=== PATIENT | male | born 1935 | race Caucasian/White ===

== ENCOUNTER 2019-08-13 12:39 | Inpatient (IN) ==
[2019-08-13] MEDS ORDERED: 0.9 % SODIUM CHLORIDE 500 ML IV ONE (12:56)
--- NOTE | 2019-08-13 12:59 | Emergency Department Note ---
General Adult HPI - General Chief complaint: Blood Pressure Problem Stated complaint: low blood pressure Time Seen by Provider: 08/13/19 12:42 Source: patient Mode of arrival: ambulatory Limitations: no limitations - History of Present Illness HPI Narrative: Patient arrives via private vehicle, in fact, he tells me he drove himself to the ED after recording a low blood pressure at home that was in the 60s up. He does tell me that his blood pressure has been tanking the last 3 days, does also tell me that he started a new medication, Bumex and that was replacing Lasix every was on prior. Does have a history of cardiomyopathy, did have some minor chest discomfort in the midsternal region this morning, not currently and we recorded blood pressure in the low 80s was standing, mid 80s with him supine. The patient still does make urine, he's had renal issues, never nephropathy related to his cardio myopathy and perfusion issues. The. Patient was on digoxin but this was discontinued recently. - Related Data Home Medications Medication Instructions Recorded Confirmed ascorbic acid (vitamin C) 1,000 mg 1 g PO QDAY tab 09/12/14 08/13/19 tablet aspirin 81 mg tablet,delayed 81 mg PO QDAY tab 09/12/14 08/13/19 release glucosamine-chondroitin 500 mg-400 1 tab-cap PO BID cap 09/12/14 08/13/19 mg capsule multivitamin 1 tab-cap PO QDAY cap 09/12/14 08/13/19 fluticasone furoate 50 1 puff INHALATION PRN each 05/09/19 08/13/19 mcg/actuation blister powder for inhalation [id number] 1 each PO 3XW each 05/09/19 08/13/19 montelukast 10 mg tablet 10 mg PO QHS tab 08/13/19 08/13/19 sacubitril 24 mg-valsartan 26 mg 1 tab PO QHS tab 08/13/19 tablet sennosides 8.6 mg tablet 25.8 mg PO QHS PRN tab 08/13/19 08/13/19 Previous Rx's Medication Instructions Recorded nebulizers See Dose Instructions .ROUTE 03/04/15 .MEDSUPPLY #1 each nitroglycerin 0.4 mg sublingual 0.4 mg SUBLINGUAL Q5MIN PRN #25 tab 02/17/16 tablet warfarin 5 mg tablet See Rx Instructions .ROUTE 11/25/16 .COMPLEX #1 tab levothyroxine 125 mcg tablet 125 mcg PO QDAY #90 tab 08/15/17 CPAP machine and accessories #1 ea 11/30/17 allopurinol 100 mg tablet 400 mg PO QDAY #360 tab 12/05/17 budesonide 180 mcg/actuation 1 inh INHALATION BID #1 each 12/05/17 breath activated powder inhaler carvedilol 12.5 mg tablet 12.5 mg PO BID #180 tab 12/05/17 calcitriol 0.25 mcg capsule 0.25 mcg PO Q OTHER DAY #20 cap 02/05/19 bumetanide 1 mg tablet 2 mg .ROUTE .COMPLEX PRN #60 tab 07/26/19 Allergies Allergy/AdvReac Type Severity Reaction Status Date / Time colchicine [From Colcrys] Allergy Unknown Unknown Verified 08/13/19 11:29 niacin Allergy Unknown Unknown Verified 08/13/19 11:29 oxycodone [Oxycodone] Allergy Unknown Unknown Verified 08/13/19 11:29 sulfacetamide Allergy Unknown Unknown Verified 08/13/19 11:29 doxycycline calcium Allergy Unknown Unknown Uncoded 05/24/19 09:59 Review of Systems Review of Systems: Denies any bloody stools, denies any dark tarry stools, last bowel movement was this morning, small bowel movement, no recent diarrhea. Denies abdominal pain Constitutional: Reports: weakness. Denies: fever, chills ENT ED: Denies: throat pain Cardiovascular: Reports: chest pain, palpitations, dyspnea on exertion Respiratory: Reports: shortness of breath, cough, other (cough 6 months) Gastrointestinal: Reports: other (history of abdominal AAA). Denies: abdominal pain Genitourinary: Reports: dysuria Integumentary: Denies: rash Neurological: Reports: weakness. Denies: headache, confusion Endocrine: Reports: fatigue, heat or cold intolerance Past Medical History - Past Medical History Attestation: Yes: The following information was validated with the patient. Source: old records reviewed Medical history: Reports: atrial fibrillation, cancer (polycythemia vera), CAD (coronary artery disease), chronic anticoagulation, COPD Surgical history ED: Reports: orthopedic, other (discectomy lumbar and left knee replacement) - Social History smoking status: Former smoker Physical Exam Limitations: no limitations General appearance: alert, in no apparent distress, malaise Head: atraumatic, normocephalic, normal inspection Eye: Present: normal appearance, PERRL, EOMI. Absent: scleral icterus ENT: Present: normal exam, normal oropharynx, mucous membranes moist, TM's normal bilaterally, normal external ear exam Neck: Present: normal inspection, full ROM. Absent: tenderness, meningismus Chest: Present: normal inspection, symmetric chest wall rise, other (pacemaker left upper chest wall, midsternal scar). Absent: tenderness Respiratory: Present: normal lung sounds bilaterally, accessory muscle use. Absent: respiratory distress, rales/crackles, wheezes Cardiovascular: Present: regular rate, normal rhythm, normal heart sounds Abdominal: Present: soft, normal bowel sounds. Absent: distention, tenderness, guarding Rectal: Present: deferred : Present: normal inspection. Absent: scrotal swelling Extremities: Present: normal inspection, full ROM, pedal edema. Absent: tenderness, joint swelling, clubbing Back: Present: normal inspection. Absent: CVA tenderness (R), CVA tenderness (L) Neurological: Present: alert, oriented X3, CN II-XII intact. Absent: motor sensory deficit Psychiatric: Present: normal affect Skin: Present: warm, dry, normal color Course - Reevaluation(s) Reevaluation #1: Discussions with Dr. Almodovar, he does state that he gave him Jules on an outpatient basis and he thinks that caused the blood pressure to plummet. Notably, the patient is tolerating the lower blood pressure very well. He has had no syncope, it does not appear that he is septic. He does have a history of cardiomyopathy and atrial fibrillation. His troponin was negative, 12-lead EKG not helpful as he has a wide complex tachycardia. I spoke with Dr.Note- boyle, associated of Dr. Ley from [facility] [place], and he recommended to continue low-dose dopamine versus of fed. Also recommended phenylephrine if needed. Further discussed the case with Dr. Berry, who will be in touch with Dr. Almodovar and continue to manage the patient on an inpatient basis up. Final diagnosis is hypertension, likely iatrogenic and from CHF/cardiomyopathy Vital Signs Temperature 97.0 F 08/13/19 12:40 Pulse Rate 87 08/13/19 12:40 Respiratory Rate 18 08/13/19 12:40 Blood Pressure 81/53 08/13/19 12:40 Pulse Oximetry (%) 96 08/13/19 12:40 Temperature 97.0 F 08/13/19 12:40 Pulse Rate 101 H 08/13/19 16:10 Respiratory Rate 20 08/13/19 16:10 Blood Pressure 86/56 08/13/19 16:06 Pulse Oximetry (%) 96 08/13/19 16:10 Medical Decision Making - MDM Narrative Medical decision making narrative: Impression is CHF with hypotension, iatrogenic - Lab Data Lab results reviewed: Yes I reviewed the patient's lab results. Result diagrams: 08/13/19 12:55 Lab Results 08/13/19 08/13/19 08/13/19 Range/Units 12:25 12:55 12:55 WBC 8.1 (4.50-11.00) K/mcL RBC 3.74 L (4.63-6.08) M/mcL Hgb 12.1 L (13.7-17.5) g/dL Hct 39.4 L (40.1-51.0) % MCV 105.3 H (80.0-100.0) fL MCH 32.4 (26.0-34.0) pg MCHC 30.7 L (31.0-36.0) g/dL RDW 23.3 H (11.5-14.5) % Plt Count 58 L (140-440) K/mcL MPV TNP Total Counted 100 Seg Neutrophils % 73 (38-78) % Band Neutrophils % 2 (0-10) % Lymphocytes % 9 L (15-49) % Monocytes % (Manual) 7 (1-12) % Nucleated RBCs 6 H (0-0) % Reactive Lymphocytes 3 H (0-2) % Blast Cells 6 H (0-0) % Platelet Estimate Decreased A (NORMAL) RBC Morphology Abnorm A (NORMAL) Polychromasia 1+ A (NONE SEEN) Anisocytosis 3+ A (NONE SEEN) Macrocytosis 2+ A (NONE SEEN) Troponin T < 0.01 (0-0.03) ng/ml TSH (0.27-5.01) uIU/ml Random Cortisol 14.63 ug/dl 08/13/19 Range/Units 13:01 WBC (4.50-11.00) K/mcL RBC (4.63-6.08) M/mcL Hgb (13.7-17.5) g/dL Hct (40.1-51.0) % MCV (80.0-100.0) fL MCH (26.0-34.0) pg MCHC (31.0-36.0) g/dL RDW (11.5-14.5) % Plt Count (140-440) K/mcL MPV Total Counted Seg Neutrophils % (38-78) % Band Neutrophils % (0-10) % Lymphocytes % (15-49) % Monocytes % (Manual) (1-12) % Nucleated RBCs (0-0) % Reactive Lymphocytes (0-2) % Blast Cells (0-0) % Platelet Estimate (NORMAL) RBC Morphology (NORMAL) Polychromasia (NONE SEEN) Anisocytosis (NONE SEEN) Macrocytosis (NONE SEEN) Troponin T (0-0.03) ng/ml TSH 5.54 H (0.27-5.01) uIU/ml Random Cortisol ug/dl - Radiology Data Radiology results reviewed: Yes I reviewed the patient's radiology results. Disposition Pt seen by SALES RECEPTIONIST/PA only: No Clinical Impression: Chronic combined systolic and diastolic CHF (congestive heart failure) Disposition: Xfer As Inpt ([facility]) Condition: Fair Referrals: Yannick Bahena MD [Primary Care Provider] -
--- NOTE | 2019-08-13 13:19 | XRay Report ---
CLINICAL INFORMATION: cough COMPARISON: 03/12/2010 and 05/09/2019 Moderate cardiomegaly is unchanged. Implantable cardioverted defibrillator remains in stable satisfactory position. Mediastinum is unremarkable. Pulmonary vessels are mildly distended and there is minimal bronchovascular edema in the perihilar regions. No infiltrates. No effusions IMPRESSION: Mild CHF Interpreted and Authenticated by: Bradford Hightower 08/13/19
[2019-08-13 14:12] LABS: Hematocrit 39.4 % (40.1-51.0); Hemoglobin 12.1 g/dL (13.7-17.5); Mean Cell Volume 105.3 fL (80.0-100.0); Mean Corpuscular HGB Conc 30.7 g/dL (31.0-36.0); Platelet Count 58 K/mcL (140-440); RBC 3.74 M/mcL (4.63-6.08); Red Cell Distribution Width 23.3 % (11.5-14.5); WBC 8.1 K/mcL (4.50-11.00)
[2019-08-13] MEDS ORDERED: 0.9 % SODIUM CHLORIDE 250 ML IV SCH (14:30)
[2019-08-13] MEDS ORDERED: DOPamine 400 MG in PREMIX 1 BAG IV SCH (14:30)
[2019-08-13 15:28] LABS: Anisocytosis 3+ (NONE SEEN); Band Neutrophils % 2 % (0-10); Blast Cells 6 % (0-0); Lymphocytes % 9 % (15-49); Macrocytosis 2+ (NONE SEEN); Monocytes % (Manual) 7 % (1-12); Nucleated Red Blood Cells 6 % (0-0); Platelet Estimate DECREASED (NORMAL); Polychromasia 1+ (NONE SEEN); RBC Morphology ABNORM (NORMAL); Reactive Lymphocytes 3 % (0-2); Segmented Neutrophils % 73 % (38-78)
--- NOTE | 2019-08-13 16:28 | Internal Med History&Physical ---
Medical - H&P: HPI Patient information: Note initiated : 08/13/19 at 4:23 pm Service Date, if different from initiated Date: [] Patient: Dank Garner 84 y/o M admitted on for low blood pressure. Chief Complaint: [] Chief complaint: Low blood pressure/dizziness History of present illness: Ms. Garner is a 83-year-old gentleman with complex primary history including cardiomyopathy with EF 25%, CKD stage IV/myeloproliferative disorder who was referred to the ER after he was found during his office visit blood pressures in low 60s. Patient was actively symptomatic including dizziness/lightheadedness. Patient symptoms have evolved over the last week with increasing effort intolerance/decrease level of functionality due to lack of energy/lack of appetite and persistent lightheadedness. He then drove to the ER initial work-up was consistent with cardiogenic shock. Troponins were negative. CHF on chest imaging. Patient was promptly started on vasopressors along with crystalloid challenge. Subsequently hospital service was consulted. At the time evaluation patient is feeling a little better. His systolics now are mid 80s on 5 mics of dopamine. I discussed the case with Dr. Ibrahim. ER physician discussed case with patient's orchestra director Dr. Brice who recommended continuing pressors including norepinephrine to maintain map at goal and monitoring for 24 hours until patient symptomatically improved. Patient was able to endorse history as above. Denies fever, cough, chest pain, rash, diarrhea. He was seen at nephrology clinic today with details as below Details from nephrology office visit 08/12 a.m. Dank Garner is a 84 y/o pleasant white male with PMH of CAD, CHF, CKD, myeloproliferative disorder and other multiple medical issues who is here for follow up He has h/o CKD stage IV with no proteinuria in the setting of poor cardiac function and h/o nephrolithiasis He has h/o Acute worsening of renal function from bladder outlet obstruction and his renal function improved since he has had prostate surgery, he has a complex cyst in his left kidney and follows with urology at [facility] Patient called me today telling me he is been feeling poorly. This includes low blood pressure, increased energy and increased peripheral edema. This is temporally related to starting the patient on Sacubitrelvalsartan 24-26 mg at bedtime He has secondary hyperparathyroidism associated with his CKD on calcitiriol presently, the patient has developed a cough shortness of breath and was treated with a mixture of antibiotics and a doubling of his furosemide to 40 mg twice daily. He also received a course of doxycycline and nitrofurantoin. Today his clinical exam is certainly consistent with decompensated congestive heart failure as is his chest x-ray with perihilar fullness and fluffiness. He is feeling lousy but his breathing is improved, I suspect the antibiotics are bothering his stomach and today was the last day so they were discontinued. Based on his pulmonary exam, and the presence of edema I would continue him on furosemide 40 mg twice a day. He continues with rate controlled atrial fibrillation and is anticoagulated with warfarin. He has had no flares of gout lately. Continues to use his CPAP. I believe he sees Dr. Malave for a myelodysplasic disorder treated with ruxolitimib. He is also scheduled to see Dr. Rodriguez and it would be helpful if we could get a copy of his last echocardiogram. 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 Neuropathy (Chronic) MUltifactorial in the feet, capcasin cream topical for now, pt to buy otc, Edema (Chronic) Gastroesophageal reflux disease (Chronic) On pantoprazole, doing well. Abdominal distension (Chronic) usg neg, shows 17 cm cyst in liver appears benigh and 21 cm spleen. also poor abdominal wall tone. Vasomotor rhinitis (Chronic) Splenomegaly (Chronic) Secondary hyperparathyroidism of renal origin (Chronic) PTH and vitamin D at goal calcium and phos at goal ct calcitriol 0.25mcg qod Allergic rhinitis (Chronic) 07/11/2014 Restless leg syndrome (Chronic) Raynauds syndrome (Chronic) Protein C deficiency (Chronic) Polycythemia vera (Chronic) Hx of venous thrombosis and embolism (Chronic) Obstructive sleep apnea, adult (Chronic) Hypothyroidism (acquired) (Chronic) Hypertensive renal disease (Chronic) Hypertension, essential (Chronic) bp stable, con coreg, continue same. 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 Acute gout (Resolved) on allopurinol 300, he has ckd and polycythemia, as risk factors. Uric acid 6.8, pt already of 300mg allopurinol with no good response, start on uloric 40mg once daily ,stop allopuinol. Asymptomatic cholelithiasis (Resolved) Common femoral artery injury (Resolved) Coronary atherosclerosis of [place] coronary vessel (Resolved) Cough (Resolved) chronic cough x 1 yr, h/o night sweats, h/o copd? but inhalers did not help at all, at this time, given age, h/o productive cough x 1 yr and a neg x ray chest ,will get a CT of the lungs to r/o any other pathology. NOt a candidate for contrast given CKD. Degenerative joint disease (Resolved) Gastrointestinal bleeding (Resolved) Hepatic cyst (Resolved) History of cardioversion (Resolved) History of colonic polyps (Resolved) History of peptic ulcer disease (Resolved) Hx of gout (Resolved) Hypermagnesemia (Resolved) due to ckd and mg supplements, plan to stop same and monitor. Hypersplenism (Resolved) Hypoglycemia (Resolved) Likely pseudohypoglycemia, due to elevated rbc count, no symptoms, workup neg so far, only cpeptide mildly high. Consider CT abdomen if patient has symptoms. Myelofibrosis (Resolved) Myocardial infarction, old (Resolved) 1997 Nephrolithiasis (Resolved) Supraventricular tachycardia (Resolved) Tricuspid regurgitation (Resolved) Abdominal aortic aneurysm (Ruled-out) Abdominal aortic aneurysm (Ruled-out) USg done neg, ct abdo pelvis done neg in 2012, only usg in 2013 had shown this, which I now believe could be a over read given multiple subsequent studies not showing the aneurysm. Deep vein thrombosis (Inactive) recurrent Protein C def Occasional numbness/prickling/tingling of fingers and toes (Inactive) Simple cyst of kidney (Inactive) Urinary retention (Inactive) Surgical History 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) 03/06/2013 History of intravascular stent placement (Resolved) cardiac History of lumbar surgery (Resolved) Lumbar disc surgery L4-5 History of total cystectomy (Resolved) 12/28/2012 Hx of CABG (Resolved) 08/2006 Hx of transurethral resection of prostate (Resolved) Hx of vasectomy (Resolved) History of left knee replacement (Inactive) History of surgical fusion joint (Inactive) Fusion DIP L ring finger Hx of adenoidectomy (Inactive) Hx of arthroscopic knee surgery (Inactive) right knee Hx of cataract surgery (Inactive) Hx of tonsillectomy (Inactive) Status post cystourethroscopy with dilation of urethral stricture (Inactive) 12/28/2012 Family History Mother Diabetes mellitus Father Cardiac disease at 86yrs old Brother Cerebrovascular accident Social History marital status: and lives with his education level: college occupational status: retired other: 3 Children, 2 grandchildren smoking status: Former smoker alcohol intake frequency: does not drink substance use type: does not use Medical - H&P: Meds Home Medications Medication Instructions Recorded Confirmed Type ascorbic acid (vitamin C) 1,000 mg 1 g PO QDAY tab 09/12/14 08/13/19 History tablet aspirin 81 mg tablet,delayed 81 mg PO QDAY tab 09/12/14 08/13/19 History release glucosamine-chondroitin 500 mg-400 1 tab-cap PO BID cap 09/12/14 08/13/19 History mg capsule multivitamin 1 tab-cap PO QDAY cap 09/12/14 08/13/19 History nebulizers See Dose Instructions .ROUTE 03/04/15 08/13/19 Rx .MEDSUPPLY #1 each nitroglycerin 0.4 mg sublingual 0.4 mg SUBLINGUAL Q5MIN PRN #25 tab 02/17/16 08/13/19 Rx tablet warfarin 5 mg tablet See Rx Instructions .ROUTE 11/25/16 08/13/19 Rx .COMPLEX #1 tab levothyroxine 125 mcg tablet 125 mcg PO QDAY #90 tab 08/15/17 08/13/19 Rx CPAP machine and accessories #1 ea 11/30/17 08/13/19 Rx allopurinol 100 mg tablet 400 mg PO QDAY #360 tab 12/05/17 08/13/19 Rx budesonide 180 mcg/actuation 1 inh INHALATION BID #1 each 12/05/17 08/13/19 Rx breath activated powder inhaler carvedilol 12.5 mg tablet 12.5 mg PO BID #180 tab 12/05/17 08/13/19 Rx calcitriol 0.25 mcg capsule 0.25 mcg PO Q OTHER DAY #20 cap 02/05/19 08/13/19 Rx fluticasone furoate 50 1 puff INHALATION PRN each 05/09/19 08/13/19 History mcg/actuation blister powder for inhalation [id number] 1 each PO 3XW each 05/09/19 08/13/19 History bumetanide 1 mg tablet 2 mg .ROUTE .COMPLEX PRN #60 tab 07/26/19 08/13/19 Rx montelukast 10 mg tablet 10 mg PO QHS tab 08/13/19 08/13/19 History sacubitril 24 mg-valsartan 26 mg 1 tab PO QHS tab 08/13/19 History tablet sennosides 8.6 mg tablet 25.8 mg PO QHS PRN tab 08/13/19 08/13/19 History Allergies Allergy/AdvReac Type Severity Reaction Status Date / Time colchicine [From Colcrys] Allergy Unknown Unknown Verified 08/13/19 11:29 niacin Allergy Unknown Unknown Verified 08/13/19 11:29 oxycodone [Oxycodone] Allergy Unknown Unknown Verified 08/13/19 11:29 sulfacetamide Allergy Unknown Unknown Verified 08/13/19 11:29 doxycycline calcium Allergy Unknown Unknown Uncoded 05/24/19 09:59 Medical - H&P: Exam - Constitutional Vitals: Temp Pulse Resp BP Pulse Ox 97.0 F 101 H 20 86/56 96 08/13/19 12:40 08/13/19 16:10 08/13/19 16:10 08/13/19 16:06 08/13/19 16:10 Exam: Head normocephalic Oral cavity dry No ear nose discharge Eye movement symmetrical Neck no lymphadenopathy S1-S2 tachycardia irregular rhythm Diminished breath sounds bases with late inspiratory crackles Abdomen soft nontender minimal distention Lower extremity no cyanosis clubbing, 1+ edema from mid leg to foot bilaterally Skin no suspicious lesion Psych fatigue/anxious but cooperative Neuro nonfocal Medical - H&P: Reslt - Labs CBC & Chem 7: 08/13/19 12:55 Labs: Short CBC 08/13/19 Range/Units 12:55 WBC 8.1 (4.50-11.00) K/mcL Hgb 12.1 L (13.7-17.5) g/dL Hct 39.4 L (40.1-51.0) % Plt Count 58 L (140-440) K/mcL Cardiac Enzymes 08/13/19 Range/Units 12:25 Troponin T < 0.01 (0-0.03) ng/ml Medical - H&P: A/P (1) Cardiogenic shock Current visit: Yes Status: Acute * Cardiogenic shock-severe cardiomyopathy with EF 25% as of February. Cardiology recommends continue vasopressors. Likely precipitated by underlying antihypertensives. At this time medication will be held and patient will be monitored closely in ICU with continued pressors to keep map at goal and to maintain vital organ perfusion. * Acute decompensated heart failure secondary to cardiogenic shock. Should likely improve with gradually improving blood pressure/inotropic's. Avoid excessive fluid challenge. * Chronic disease stage IV managed by nephrology * Atrial fibrillation currently rate controlled. Restart Coreg once systolics improved. * Anticoagulation for CVA prophylaxis on Coumadin. Continue dosing based on INR * NYHA class IV systolic heart failure-hold ARB/beta-aaron until acute decompensation resolves. Will restart diuretics once approved by nephrology. * Reactive airway disease continue budesonide * History of gout continue allopurinol * Hypothyroidism continue home dose thyroxine * Prophylaxis on anticoagulation Plan * Inpatient ICU admission * Vasopressors * Gentle fluid challenge * Monitor renal function * Pre-existing medical condition management home meds except for antihypertensives * PT OT/nutrition support * Discharge planning
[2019-08-13] MEDS ORDERED: ONDANSETRON 4 MG/2 ML VIAL IV ONE (17:19)
[2019-08-13] MEDS ORDERED: MELATONIN 3 MG TABLET PO PRN (18:00)
[2019-08-13] MEDS ORDERED: ONDANSETRON 4 MG/2 ML VIAL IV PRN (18:00)
[2019-08-13] MEDS ORDERED: POLYETHYLENE GLYCOL 3350 17 GM PACKET PO PRN (18:00)
[2019-08-13] MEDS ORDERED: ACETAMINOPHEN 325 MG TABLET PO PRN (18:00)
[2019-08-13] MEDS ORDERED: ONDANSETRON 4 MG ODT TABLET SL PRN (18:00)
[2019-08-13] MEDS ORDERED: BISACODYL 10 MG SUPP.RECT PR PRN (18:00)
[2019-08-13] MEDS ORDERED: ACETAMINOPHEN 650 MG/65 ML BOTTLE IV PRN (18:00)
[2019-08-13] MEDS ORDERED: NOREPINEPHRINE BITARTRATE 4 MG/4 ML VIAL IV ONE (19:02)
[2019-08-13] MEDS: 0.9 % SODIUM CHLORIDE 1,000 ML IV SCH (19:10)
[2019-08-13] MEDS: 0.9 % SODIUM CHLORIDE 250 ML IV SCH (19:10)
[2019-08-13] MEDS: NOREPINEPHRINE BITARTRATE 16 MG in 0.9 % SODIUM CHLORIDE 234 ML IV SCH (19:41)
[2019-08-13] MEDS: DOCUSATE SODIUM 100 MG CAPSULE PO SCH (21:09)
[2019-08-13] MEDS: HEPARIN 5,000 UNIT/ML VIAL SQ SCH (21:09)
[2019-08-13] MEDS: SENNOSIDES/DOCUSATE SODIUM 1 TAB TABLET PO SCH (21:10)
[2019-08-13] MEDS: 0.9 % SODIUM CHLORIDE 10 ML SYRINGE IV SCH (21:10)
[2019-08-13] MEDS: BUDESONIDE 1 PUFF INHALER INH SCH (21:10)
[2019-08-14 00:22] LABS: Appearance,Urine CLEAR; Bacteria,Urine 0 /hpf (0); Bilirubin,Urine NEG (NEG); Color,Urine YELLOW; Culture Indicated,Urine NO; Glucose,Urine (UA) NEGATIVE (NEG); Ketones,Urine NEG (NEG); Leukocyte Esterase,Urine NEG /uL (NEG); Mucus,Urine FEW /hpf (0); Nitrate,Urine NEG (NEG); Protein,Urine NEG (NEG); Specific Gravity,Urine 1.016 (1.000-1.035); Urine Blood NEG mg/dL (<0.03); Urine Hyaline Cast 23 /lpf (0-2); Urine RBC < 1 /hpf (0-1); Urine Squamous Epithelial Cell 0 /hpf (0-4); Urine WBC < 1 /hpf (0-4); Urobilinogen,Urine NEG (NEG)
[2019-08-14] MEDS: 0.9 % SODIUM CHLORIDE 10 ML SYRINGE IV SCH ×3 (05:46→22:00)
[2019-08-14 06:33] LABS: Hematocrit 40.9 % (40.1-51.0); Hemoglobin 12.6 g/dL (13.7-17.5); Mean Cell Volume 104.1 fL (80.0-100.0); Mean Corpuscular HGB Conc 30.8 g/dL (31.0-36.0); Platelet Count 78 K/mcL (140-440); RBC 3.93 M/mcL (4.63-6.08); Red Cell Distribution Width 23.4 % (11.5-14.5); WBC 13.8 K/mcL (4.50-11.00)
[2019-08-14 06:51] LABS: Chloride 96 mmol/L (96-108)
[2019-08-14 07:00] LABS: ALT/SGPT 17 U/l (0-40); AST/SGOT 35 U/l (0-37); Albumin 3.8 gm/dL (3.2-5.2); Albumin/Globulin Ratio 2.1 (1.0-2.3); Alkaline Phosphatase 86 U/L (39-117); Bilirubin,Direct 0.6 mg/dL (0.0-0.3); Bilirubin,Total 1.9 mg/dL (0.0-1.0); Blood Urea Nitrogen 94 mg/dl (8-23); Carbon Dioxide 19 mmol/L (22-30); Globulin 1.8 gm/dL (2.2-3.7); Glomerular Filtration Rate 28; Glucose 85 mg/dL (70-105); Lactate Dehydrogenase 591 U/L (94-250); Phosphorous 4.2 mg/dL (2.7-4.5); Triglycerides 104 mg/dl (<150); Uric Acid 4.5 mg/dL (2.5-8.0)
[2019-08-14 07:01] LABS: INR 1.9 (0.9-1.1); Prothrombin Time 22.4 sec (11.9-14.5)
[2019-08-14 07:05] LABS: Anisocytosis 3+ (NONE SEEN); Band Neutrophils % 1 % (0-10); Blast Cells 5 % (0-0); Eosinophils % (Manual) 1 % (0-7); Lymphocytes % 5 % (15-49); Macrocytosis 2+ (NONE SEEN); Monocytes % (Manual) 4 % (1-12); Myelocytes % 1 % (0-0); Nucleated Red Blood Cells 6 % (0-0); Ovalocytes FEW (NONE SEEN); Platelet Estimate DECREASED (NORMAL); Polychromasia 1+ (NONE SEEN); RBC Morphology ABNORM (NORMAL); Reactive Lymphocytes 3 % (0-2); Segmented Neutrophils % 80 % (38-78)
[2019-08-14] MEDS: ALLOPURINOL 100 MG TABLET PO SCH (08:41)
[2019-08-14] MEDS: ASPIRIN 81 MG TAB.CHEW PO SCH (08:41)
[2019-08-14] MEDS: MULTIVIT,THER IRON,CA,FA & MIN 1 TABLET PO SCH (08:41)
[2019-08-14] MEDS: DOCUSATE SODIUM 100 MG CAPSULE PO SCH ×2 (08:41→21:20)
[2019-08-14] MEDS: HEPARIN 5,000 UNIT/ML VIAL SQ SCH ×2 (08:47→21:20)
--- NOTE | 2019-08-14 09:56 | Internal Med Progress Note ---
Medical - PN: Subj Patient information: Note initiated : 08/14/19 at 9:51 am Service Date, if different from initiated Date: [] Patient: Dank Garner 84 y/o M admitted on 08/13/19 for low blood pressure. Chief Complaint: [] Interval history: Ms. Garner is a 83-year-old gentleman with complex primary history including cardiomyopathy with EF 25%, CKD stage IV/myeloproliferative disorder who was referred to the ER after he was found during his office visit blood pressures in low 60s. Patient was actively symptomatic including dizziness/lightheadedness. Patient symptoms have evolved over the last week with increasing effort intolerance/decrease level of functionality due to lack of energy/lack of appetite and persistent lightheadedness. He then drove to the ER initial work-up was consistent with cardiogenic shock. Troponins were negative. CHF on chest imaging. Patient was promptly started on vasopressors along with crystalloid challenge. Subsequently hospital service was consulted. At the time evaluation patient is feeling a little better. His systolics now are mid 80s on 5 mics of dopamine. I discussed the case with Dr. Ibrahim. ER physician discussed case with patient's treating plant supervisor Dr. Brice who recommended continuing pressors including norepinephrine to maintain map at goal and monito ring for 24 hours until patient symptomatically improved. Patient was able to endorse history as above. Denies fever, cough, chest pain, rash, diarrhea. He was seen at nephrology clinic today with details as below Details from nephrology office visit 08/12 a.m. Dank Garner is a 84 y/o pleasant white male with PMH of CAD, CHF, CKD, myeloproliferative disorder and other multiple medical issues who is here for follow up He has h/o CKD stage IV with no proteinuria in the setting of poor cardiac function and h/o nephrolithiasis He has h/o Acute worsening of renal function from bladder outlet obstruction and his renal function improved since he has had prostate surgery, he has a complex cyst in his left kidney and follows with urology at [facility] Patient called me today telling me he is been feeling poorly. This includes low blood pressure, increased energy and increased peripheral edema. This is temporally related to starting the patient on Sacubitrelvalsartan 24-26 mg at bedtime He has secondary hyperparathyroidism associated with his CKD on calcitiriol presently, the patient has developed a cough shortness of breath and was treate d with a mixture of antibiotics and a doubling of his furosemide to 40 mg twice daily. He also received a course of doxycycline and nitrofurantoin. Today his clinical exam is certainly consistent with decompensated congestive heart failure as is his chest x-ray with perihilar fullness and fluffiness. He is feeling lousy but his breathing is improved, I suspect the antibiotics are bothering his stomach and today was the last day so they were discontinued. Based on his pulmonary exam, and the presence of edema I would continue him on furosemide 40 mg twice a day. He continues with rate controlled atrial fibrillation and is anticoagulated with warfarin. He has had no flares of gout lately. Continues to use his CPAP. I believe he sees Dr. Malave for a myelodysplasic disorder treated with ruxolitimib. He is also scheduled to see Dr. Rodriguez and it would be helpful if we could get a copy of his last echocardiogram. EF 25% with some MR, no /AI 08/13-patient currently on vasopressors to keep map at goal. Await nephrology recommendations for initiation of prior home medication. Weaning pressors gradually. No overnight events. White count 13.8. Underlying myelodysplastic disorder with blasts and nucleated RBCs. Consult oncology - Constitutional Vitals: Vital Signs Temp Pulse Resp BP Pulse Ox 98.0 F 100 H 24 H 108/55 95 08/14/19 04:01 08/14/19 08:46 08/14/19 08:46 08/14/19 08:35 08/14/19 08:46 Period Temp Pulse Resp BP Sys/Ordoñez Pulse Ox Last 24 Hr 97.0 F-98.0 F 78-112 10-31 67-134/45-100 88-100 Intake and Output 08/13/19 08/14/19 08/14/19 21:59 05:59 13:59 Intake Total 615 375 59 Output Total 400 275 250 Balance 215 100 -191 Weight 191 lb 9.6 oz Intake & Output: Intake & Output 08/13/19 08/14/19 08/14/19 21:59 05:59 13:59 Intake Total 615 375 59 Output Total 400 275 250 Balance 215 100 -191 Weight 191 lb 9.6 oz Intake: IV 615 59 Sodium Chloride 0.9% 250 ml @ 63 20 mls/hr IV .[id number] COUNT INCLUDES THE [facility] Rx#: [id number] Sodium Chloride 0.9% 500 ml @ 500 Wide Open IV BOLUS ONE Rx#: [id number] DOPamine 400 MG In Premix 1 Bag 44 @ 2 MCG/KG/MIN 6.532 mls/hr IV .Q24H COUNT INCLUDES THE [facility] Rx#:[id number] Levophed 16 mg In Sodium 8 59 Chloride 0.9% 234 ml @ 10 MCG/ MIN 9.375 mls/hr IV Q24H COUNT INCLUDES THE [facility] Rx #:[id number] Oral 375 Output: Void Amount 400 275 250 Other: Meal snack Percent of Meal Consumed 100% Urine Appearance Clear Clear Urine Color Dark Yellow Dark Yellow Dark Yellow Urine Odor Normal General appearance: no acute distress Exam: Alert oriented Nonlabored breathing No anxiety Improving lightheadedness Medical - PN: Obj Da - Labs CBC & Chem 7: 08/14/19 04:57 08/14/19 05:00 Labs: Abnormal Lab Results 08/14/19 08/14/19 08/14/19 05:00 04:57 04:57 WBC 13.8 H RBC 3.93 L Hgb 12.6 L Hct MCV 104.1 H MCHC 30.8 L RDW 23.4 H Plt Count 78 L Seg Neutrophils % 80 H Lymphocytes % 5 L Myelocytes % 1 H Nucleated RBCs 6 H Reactive Lymphocytes 3 H Blast Cells 5 H Platelet Estimate Decreased A RBC Morphology Abnorm A Polychromasia 1+ A Anisocytosis 3+ A Macrocytosis 2+ A Ovalocytes Few A PT 22.4 H INR 1.9 H Sodium 131 L Carbon Dioxide 19 L BUN 94 H Creatinine 2.1 H Total Bilirubin 1.9 H Direct Bilirubin 0.6 H GGT 71 H Lactate Dehydrogenase 591 H Total Protein 5.6 L Globulin 1.8 L TSH Hyaline Casts 08/13/19 08/13/19 08/13/19 23:20 13:01 12:55 WBC RBC 3.74 L Hgb 12.1 L Hct 39.4 L MCV 105.3 H MCHC 30.7 L RDW 23.3 H Plt Count 58 L Seg Neutrophils % Lymphocytes % 9 L Myelocytes % Nucleated RBCs 6 H Reactive Lymphocytes 3 H Blast Cells 6 H Platelet Estimate Decreased A RBC Morphology Abnorm A Polychromasia 1+ A Anisocytosis 3+ A Macrocytosis 2+ A Ovalocytes PT INR Sodium Carbon Dioxide BUN Creatinine Total Bilirubin Direct Bilirubin GGT Lactate Dehydrogenase Total Protein Globulin TSH 5.54 H Hyaline Casts 23 H Meds: Medications Acetaminophen (Tylenol) 650 mg PO Q4-6HP PRN; Protocol PRN Reason: Per Pain Protocol/Fever > 101 Allopurinol (Zyloprim) 400 mg PO QDAY COUNT INCLUDES THE [facility] Last Admin: 08/14/19 08:41 Dose: 400 mg Documented by: Aspirin (Aspirin) 81 mg PO QDAY COUNT INCLUDES THE [facility] Last Admin: 08/14/19 08:41 Dose: 81 mg Documented by: Bisacodyl (Dulcolax) 10 mg ME Q2-3DAYS PRN PRN Reason: Constipation Budesonide (Pulmicort) 1 puff INH BID COUNT INCLUDES THE [facility] Last Admin: 08/13/19 21:10 Dose: Not Given Documented by: Calcitriol (Rocaltrol) 0.25 mcg PO MoWeFr@0900 COUNT INCLUDES THE [facility] Docusate Sodium (Colace) 100 mg PO BID COUNT INCLUDES THE [facility] Last Admin: 08/14/19 08:41 Dose: 100 mg Documented by: Heparin Sodium (Porcine) (Heparin) 5,000 unit SQ Q12 COUNT INCLUDES THE [facility] Last Admin: 08/14/19 08:47 Dose: 5,000 unit Documented by: Sodium Chloride (Sodium Chloride 0.9%) 1,000 mls @ 50 mls/hr IV .Q20H COUNT INCLUDES THE [facility] Stop: 08/16/19 05:59 Last Admin: 08/13/19 19:10 Dose: 50 mls/hr Documented by: Acetaminophen (Ofirmev) 650 mg in 65 mls @ 130 mls/hr IV Q6HP PRN; Protocol PRN Reason: Per Pain Protocol/Fever > 101 Norepinephrine Bitartrate 16 (mg/ Sodium Chloride) 250 mls @ 9.375 mls/hr IV Q24H COUNT INCLUDES THE [facility]; Protocol Last Titration: 08/14/19 08:12 Dose: 5 mcg/min, 4.688 mls/hr Documented by: Sodium Chloride (Sodium Chloride 0.9%) 250 mls @ 20 mls/hr IV .[id number] COUNT INCLUDES THE [facility] Last Admin: 08/13/19 19:10 Dose: 20 mls/hr Documented by: Iron Carb/Multivit/[place]/Folic Acid (Multivitamin W/Minerals) 1 tab PO DAILY COUNT INCLUDES THE [facility] Last Admin: 08/14/19 08:41 Dose: 1 tab Documented by: Melatonin (Melatonin 3mg Tablet) 3 mg PO HSP PRN PRN Reason: Insomnia Ondansetron HCl (Zofran Odt) 4 mg SL Q4-6HP PRN; Protocol PRN Reason: Nausea And Vomiting Ondansetron HCl (Zofran) 4 mg IV Q4-6HP PRN; Protocol PRN Reason: Nausea And Vomiting Polyethylene Glycol (Miralax) 17 gm PO DAILYP PRN PRN Reason: Constipation Senna/Docusate Sodium (Senna Plus Tablet) 1 tab PO HS COUNT INCLUDES THE [facility] Last Admin: 08/13/19 21:10 Dose: 1 tab Documented by: Sodium Chloride (Saline Flush) 10 ml IV Q8 COUNT INCLUDES THE [facility] Last Admin: 08/14/19 05:46 Dose: Not Given Documented by: Warfarin Sodium (Coumadin Per Pharmacy) 1 order PO UD COUNT INCLUDES THE [facility] Medical - PN: A/P - Time Spent With Patient Total time spent is greater than 50% in coordination of care (as documented) at patient's floor/unit and/or counseling patient: Greater than 35 minutes (Critical care time) (1) Cardiogenic shock Status: Acute Assessment and plan: * Cardiogenic shock-severe cardiomyopathy with EF 25% as of February. Cardio logy recommends using vasopressors. Jules on hold. Likely precipitated by antihypertensives. await nephrology recommendations for antihypertensives * NYHA class IV systolic heart failure-held ARB/beta-aaron until acute decompensation resolves. * Chronic disease stage IV managed by nephrology. Creatinine at baseline * Atrial fibrillation currently rate controlled. Restart half dose Coreg once off pressors * Anticoagulation for CVA prophylaxis on Coumadin. Continue dosing based on INR. 1.9 * Reactive airway disease continue budesonide * History of gout continue allopurinol * Hypothyroidism continue home dose thyroxine * Prophylaxis on anticoagulation Plan * Wean vasopressors as tolerated * Nephrology consult * DC fluids * Monitor renal function * Pre-existing medical condition management home meds except for antihypertensives * PT OT/nutrition support * Discharge planning per case management Current Visit: Yes Medical - PN: Qual - VTE Deep Vein Thrombosis/Pulmonary Embolism Present on Admission: No
--- NOTE | 2019-08-14 10:44 | Nephrology Consult Note ---
History of Present Illness - Reason for Consult Patient information: Note initiated : 08/14/19 at 10:37 am Service Date, if different from initiated Date: [] Patient: Dank Garner 84 y/o M admitted on 08/13/19 for low blood pressure. Chief Complaint: [] - History of Present Illness 84-year-old male with coronary artery disease status post CABG in 2006, cardiomyopathy with LVEF 25 to 30%, myeloproliferative disorder, COPD, secondary hyperparathyroidism, sent to the hospital from the renal clinic for hypotension. Past medical history Coronary artery disease, cardiomyopathy, cardiorenal syndrome, CKD stage III, myeloproliferative disorder, DVT with protein C deficiency, edema, GERD, gout, hypertension, NH, neuropathy, restless leg syndrome Past surgical history ICD, PCI, left knee surgery, surgical fusion, CABG in 2006, cataract surgery. Family history mother had diabetes, CVA Brother Social history does not smoke. Review of systems Chronic dyspnea on exertion, not at rest. No orthopnea. Chronic lower extremity edema, improved. Chronic intermittent cough productive of white phlegm. No fever, chills, abdominal pain. Otherwise 12 point review of system negative Physical exam Vital signs reviewed. At the time of my visit his norepinephrine was decreased to 4 mcg. Appears of stated age, frail. He was initially asleep Head is normocephalic and atraumatic. Nonicteric sclera Neck no JVD Chest nonlabored respirations, on room air, no adventitious sounds Cardiac regular rate and rhythm, no edema Extremities no edema Neurologic exam clear soft speech. Moves all extremities Skin warm and dry, no rashes on exposed area. Medications and Allergies Home Medications Medication Instructions Recorded Confirmed Type ascorbic acid (vitamin C) 1,000 mg 1 g PO QDAY tab 09/12/14 08/13/19 History tablet aspirin 81 mg tablet,delayed 81 mg PO HS tab 09/12/14 08/13/19 History release glucosamine-chondroitin 500 mg-400 1 tab-cap PO BID cap 09/12/14 08/13/19 History mg capsule multivitamin 1 tab-cap PO QDAY cap 09/12/14 08/13/19 History nebulizers See Dose Instructions .ROUTE 03/04/15 08/13/19 Rx .MEDSUPPLY #1 each nitroglycerin 0.4 mg sublingual 0.4 mg SUBLINGUAL Q5MIN PRN #25 tab 02/17/16 08/13/19 Rx tablet warfarin 5 mg tablet See Rx Instructions .ROUTE 11/25/16 08/13/19 Rx .COMPLEX #1 tab levothyroxine 125 mcg tablet 125 mcg PO QDAY #90 tab 08/15/17 08/13/19 Rx CPAP machine and accessories #1 ea 11/30/17 08/13/19 Rx allopurinol 100 mg tablet 400 mg PO QDAY #360 tab 12/05/17 08/13/19 Rx budesonide 180 mcg/actuation 1 inh INHALATION BID #1 each 12/05/17 08/13/19 Rx breath activated powder inhaler carvedilol 12.5 mg tablet 12.5 mg PO BID #180 tab 12/05/17 08/13/19 Rx calcitriol 0.25 mcg capsule 0.25 mcg PO Q OTHER DAY #20 cap 02/05/19 08/13/19 Rx [id number] [id number] 1 each PO 3XW each 05/09/19 08/13/19 History bumetanide 1 mg tablet 2 mg .ROUTE .COMPLEX PRN #60 tab 07/26/19 08/13/19 Rx montelukast 10 mg tablet 10 mg PO QHS tab 08/13/19 08/13/19 History sacubitril 24 mg-valsartan 26 mg 1 tab PO QHS tab 08/13/19 08/13/19 History tablet sennosides 8.6 mg tablet 25.8 mg PO PRN PRN tab 08/13/19 08/13/19 History Allergies Allergy/AdvReac Type Severity Reaction Status Date / Time niacin Allergy Severe Unknown Verified 08/13/19 18:14 oxycodone [Oxycodone] Allergy Mild Nausea Verified 08/13/19 18:14 colchicine [From Colcrys] Allergy Unknown Unknown Verified 08/13/19 11:29 sulfacetamide Allergy Unknown Unknown Verified 08/13/19 11:29 doxycycline calcium Allergy Unknown Unknown Uncoded 05/24/19 09:59 Exam - Vital Signs Vital signs: Temp Pulse Resp BP Pulse Ox 36.7 C 93 H 23 H 97/63 95 08/14/19 04:01 08/14/19 10:01 08/14/19 10:01 08/14/19 10:01 08/14/19 10:01 Results - Lab Results 08/14/19 04:57 08/14/19 05:00 Most recent lab results Calcium 9.0 mg/dl (8.6-10.4) 08/14/19 05:00 Phosphorus 4.2 mg/dL (2.7-4.5) 08/14/19 05:00 Magnesium 2.2 mg/dL (1.6-2.5) 08/14/19 05:00 Assessment and Plan (1) CKD (chronic kidney disease), stage IV Status: Acute Priority: Medium (2) Hypotension Status: Acute Priority: High - Narrative A/P Narrative: SCR 2.1, EGFR 28. Baseline creatinine approximately 2, EGFR 30. Renal function is at baseline. Nonoliguric. 08/13/2019 UA sediment unremarkable, except for hyaline casts. 03/08/2018 CT abdomen and pelvis read as 4 cm cyst from the posterior cortex of the left kidney with wall calcification, stable. A few small nonobstructing stones in the right calyces all less than 3 mm. 01/19/2016 renal ultrasound left kidney 11.5 cm, exophytic lesion. Check urine sodium Hemodynamics and volume Serum albumin 3.8. Serum sodium 131. TSH 5.5, random cortisol 14.6. 08/13/2019 x-ray mild CHF. Pulmonary vessels are mildly distended. No infiltrates. Cardiomegaly unchanged. 04/26/2019 echocardiogram LVEF 25 to 30%, RV moderately to severely dilated, RV systolic function mildly reduced. LA severely dilated, RA moderate to severely dilated. Moderate to severe TR, estimated pulmonary pressure 38 mmHg. Patient's weight was 87.3 kg on 08/15/2019. Prior weights were higher for example 07/26/2019 he weighed 94.9 kg, even in March 2019 he weighed 97 kg. This points more towards the hypotension being a result of medication and less likely decompensated heart failure. Furthermore the patient is on room air. He is pro BNP was 3600 in the past he got as high as 5600. This could have been influenced to some extent by Entresto *Favor giving 250 cc of normal saline IV at maintenancedose of 1 mill per KG per hour if he continues to require pressor *Pressor titration per hospitalist/ICU Acid-base Serum bicarbonate 19, within the limitation of not having a blood gas suspect metabolic acidosis from kidney disease BUN/K 94/4.9 Bone mineral Calcium, phosphorus, magnesium within lab reference range. PTH is 102 on 07/20/2019, secondary hyperparathyroidism of renal origin. This will be managed outpatient. Hematologic Mild anemia, hemoglobin 12.6, MCV high. Platelet count low, thrombocytopenia. Leukocytosis 13.8. INR 1.9
[2019-08-14] MEDS: BUDESONIDE 1 PUFF INHALER INH SCH ×2 (11:53→21:20)
[2019-08-14] MEDS ORDERED: WARFARIN 5 MG TABLET PO ONE (14:00)
[2019-08-14] MEDS: 0.9 % SODIUM CHLORIDE 250 ML IV SCH (14:23)
[2019-08-14] MEDS: SENNOSIDES/DOCUSATE SODIUM 1 TAB TABLET PO SCH (21:20)
[2019-08-15] MEDS: 0.9 % SODIUM CHLORIDE 250 ML IV SCH (01:20)
[2019-08-15] MEDS: NOREPINEPHRINE BITARTRATE 16 MG in 0.9 % SODIUM CHLORIDE 234 ML IV SCH (02:43)
[2019-08-15] MEDS: 0.9 % SODIUM CHLORIDE 10 ML SYRINGE IV SCH ×3 (05:43→20:42)
--- NOTE | 2019-08-15 06:15 | Nephrology Progress Note ---
Subjective Patient information: Note initiated : 08/15/19 at 6:12 am Service Date, if different from initiated Date: [] Patient: Dank Garner 84 y/o M admitted on 08/13/19 for low blood pressure. Chief Complaint: [] Principal diagnosis: hypotension Interval history: remains non oliguric I/O 2142ml/ 900ml, positive 1.2; weight 87.3 from 86.9 on 08/14/2019 on room air, sats >90% Continued on low-dose Levophed 2 mcg overnight. Physical exam Vital signs reviewed HEENT head is normocephalic, atraumatic. Nonicteric sclera. Dry oral mucosa Cardiovascular regular rate and rhythm, no edema Pulmonary nonlabored respirations, on room air, decreased breath sounds bilateral bases, no adventitious sounds Extremities no cyanosis, no clubbing, no edema Objective - Vital Signs Vital signs: Vital Signs Temp Pulse Pulse Resp BP Pulse Ox 08/15/19 03:51 104 H 20 95 08/15/19 03:08 93 H 08/15/19 03:01 103 H 21 100/62 93 08/15/19 02:01 99 H 21 107/70 92 08/15/19 01:02 108 H 21 110/71 93 08/15/19 00:38 95 H 93 08/15/19 00:01 105 H 23 H 97/75 94 08/14/19 23:01 36.6 C 99 H 20 97/71 94 08/14/19 22:01 108 H 24 H 96/61 94 08/14/19 21:01 98 H 25 H 99/62 93 08/14/19 20:32 97 H 23 H 100/62 94 08/14/19 20:01 105 H 20 102/60 93 08/14/19 19:31 108 H 26 H 103/73 94 08/14/19 19:01 98 H 25 H 103/64 93 08/14/19 19:00 98 H 94 08/14/19 18:31 108 H 20 101/57 94 08/14/19 18:01 109 H 29 H 106/84 94 08/14/19 16:01 36.5 C 91 H 21 109/84 98 08/14/19 14:31 26 H 103/73 08/14/19 14:03 24 H 102/79 08/14/19 13:31 20 113/66 08/14/19 13:01 22 102/67 08/14/19 12:31 24 H 102/80 08/14/19 12:01 36.6 C 108 H 20 121/72 95 08/14/19 12:00 108 H 20 95 08/14/19 11:01 97 H 24 H 110/74 95 08/14/19 10:01 93 H 23 H 97/63 95 08/14/19 09:31 102 H 20 103/73 91 08/14/19 09:01 95 H 22 99/60 95 08/14/19 08:46 100 H 24 H 08/14/19 08:35 89 23 H 108/55 94 08/14/19 08:32 108 H 22 86/55 94 08/14/19 08:31 89 18 86/49 95 08/14/19 08:01 25 H 112/86 08/14/19 07:31 25 H 117/87 08/14/19 07:22 97 H 31 H 112/98 95 08/14/19 07:20 107 H 17 134/90 95 08/14/19 07:17 107 H 16 123/79 94 08/14/19 07:14 98 08/14/19 07:01 88 26 H 102/70 94 08/14/19 06:31 88 13 95/68 96 Intake and Output 08/14/19 08/15/19 08/15/19 21:59 05:59 13:59 Intake Total 466 219 Output Total 400 100 Balance 66 119 Intake: IV 16 219 Sodium Chloride 0.9% 250 ml @ 219 20 mls/hr IV .[id number] [facility] Rx#: [id number] Levophed 16 mg In Sodium 16 Chloride 0.9% 234 ml @ 10 MCG/ MIN 9.375 mls/hr IV Q24H [facility] Rx #:[id number] Oral 450 Output: Void Amount 400 100 Other: Meal Dinner Percent of Meal Consumed 100% Feeding Ability Independent Urine Appearance Clear Clear Urine Color Dark Yellow Dark Yellow Urine Odor Normal Weight 87.317 kg Intake & Output: Intake & Output 08/14/19 08/15/19 08/15/19 21:59 05:59 13:59 Intake Total 466 219 Output Total 400 100 Balance 66 119 Weight 87.317 kg Intake: IV 16 219 Sodium Chloride 0.9% 250 ml @ 219 20 mls/hr IV .[id number] [facility] Rx#: [id number] Levophed 16 mg In Sodium 16 Chloride 0.9% 234 ml @ 10 MCG/ MIN 9.375 mls/hr IV Q24H [facility] Rx #:[id number] Oral 450 Output: Void Amount 400 100 Other: Meal Dinner Percent of Meal Consumed 100% Feeding Ability Independent Urine Appearance Clear Clear Urine Color Dark Yellow Dark Yellow Urine Odor Normal - Lab 08/15/19 04:18 08/15/19 04:18 Most recent lab results Calcium 9.0 mg/dl (8.6-10.4) 08/14/19 05:00 Phosphorus 4.2 mg/dL (2.7-4.5) 08/14/19 05:00 Magnesium 2.2 mg/dL (1.6-2.5) 08/14/19 05:00 Assessment and Plan (1) CKD (chronic kidney disease), stage IV Status: Acute Priority: Medium (2) Hypotension Status: Acute Priority: High - Narrative A/P Narrative: SCR 2.2, EGFR 27. Baseline creatinine approximately 2, EGFR 30. Renal function is at baseline. Nonoliguric. 08/13/2019 UA sediment unremarkable, except for hyaline casts. [place] 08/14/2019 < 20 03/08/2018 CT abdomen and pelvis read as 4 cm cyst from the posterior cortex of the left kidney with wall calcification, stable. A few small nonobstructing stones in the right calyces all less than 3 mm. 01/19/2016 renal ultrasound left kidney 11.5 cm, exophytic lesion. Hemodynamics and volume Serum albumin 3.8. Serum sodium 133 TSH 5.5, random cortisol 14.6. 08/13/2019 x-ray mild CHF. Pulmonary vessels are mildly distended. No infiltrates. Cardiomegaly unchanged. 04/26/2019 echocardiogram LVEF 25 to 30%, RV moderately to severely dilated, RV systolic function mildly reduced. LA severely dilated, RA moderate to severely dilated. Moderate to severe TR, estimated pulmonary pressure 38 mmHg. Patient's weight was 87.3 kg on 08/15/2019. Prior weights were higher for example 07/26/2019 he weighed 94.9 kg, even in March 2019 he weighed 97 kg. This points more towards the hypotension being a result of medication and less likely decompensated heart failure. Furthermore the patient is on room air. His pro BNP was 3600 in the past he got as high as 5600. This could have been influenced to some extent by Entresto *As he remained on pressor overnight, give 250 cc IV fluids at 75cc/h x 1 *Wean off pressors as tolerated to maintain a map of around 65. I think that even 62 is acceptable in a patient with heart failure *Continue to hold off blood pressure lowering agents. Long-term plan is to resume the lowest dose Entresto possible along with a low dose of carvedilol. Acid-base Serum bicarbonate 21, improving BUN/K 91/5 Bone mineral Calcium, phosphorus, magnesium within lab reference range. PTH is 102 on 07/20/2019, secondary hyperparathyroidism of renal origin. This will be managed outpatient. Hematologic Mild anemia, MCV high. Has myelodysplastic syndrome. INR 1.9
[2019-08-15 06:22] LABS: ALT/SGPT 16 U/l (0-40); AST/SGOT 27 U/l (0-37); Albumin 3.4 gm/dL (3.2-5.2); Albumin/Globulin Ratio 1.7 (1.0-2.3); Alkaline Phosphatase 87 U/L (39-117); Bilirubin,Direct 0.5 mg/dL (0.0-0.3); Bilirubin,Total 1.6 mg/dL (0.0-1.0); Blood Urea Nitrogen 91 mg/dl (8-23); Calcium 8.8 mg/dl (8.6-10.4); Carbon Dioxide 21 mmol/L (22-30); Chloride 99 mmol/L (96-108); Glomerular Filtration Rate 27; Glucose 81 mg/dL (70-105); Lactate Dehydrogenase 487 U/L (94-250); Phosphorous 3.7 mg/dL (2.7-4.5); Triglycerides 95 mg/dl (<150); Uric Acid 4.3 mg/dL (2.5-8.0)
[2019-08-15 06:32] LABS: INR 1.9 (0.9-1.1); Prothrombin Time 22.1 sec (11.9-14.5)
[2019-08-15] MEDS ORDERED: 0.9 % SODIUM CHLORIDE 250 ML IV SCH (06:50)
[2019-08-15 07:43] LABS: Anisocytosis 3+ (NONE SEEN); Band Neutrophils % 1 % (0-10); Blast Cells 10 % (0-0); Lymphocytes % 10 % (15-49); Macrocytosis 2+ (NONE SEEN); Monocytes % (Manual) 10 % (1-12); Nucleated Red Blood Cells 2 % (0-0); Platelet Estimate DECREASED (NORMAL); RBC Morphology ABNORM (NORMAL); Segmented Neutrophils % 69 % (38-78)
[2019-08-15 08:02] LABS: Hematocrit 36.1 % (40.1-51.0); Mean Cell Volume 104.6 fL (80.0-100.0); Mean Corpuscular HGB Conc 30.5 g/dL (31.0-36.0); Platelet Count 61 K/mcL (140-440); RBC 3.45 M/mcL (4.63-6.08); Red Cell Distribution Width 23.1 % (11.5-14.5); WBC 7.7 K/mcL (4.50-11.00)
[2019-08-15] MEDS: 0.9 % SODIUM CHLORIDE 1,000 ML IV SCH (08:15)
[2019-08-15] MEDS: DOCUSATE SODIUM 100 MG CAPSULE PO SCH ×2 (08:22→20:42)
[2019-08-15] MEDS: ALLOPURINOL 100 MG TABLET PO SCH (08:22)
[2019-08-15] MEDS: MULTIVIT,THER IRON,CA,FA & MIN 1 TABLET PO SCH (08:22)
[2019-08-15] MEDS: HEPARIN 5,000 UNIT/ML VIAL SQ SCH (08:23)
[2019-08-15] MEDS: ASPIRIN 81 MG TAB.CHEW PO SCH (08:23)
[2019-08-15] MEDS ORDERED: CALCITRIOL 0.25 MCG CAPSULE PO SCH (09:00)
[2019-08-15] MEDS ORDERED: NOREPINEPHRINE BITARTRATE 16 MG in 0.9 % SODIUM CHLORIDE 234 ML IV PRN (09:30)
[2019-08-15] MEDS: BUDESONIDE 1 PUFF INHALER INH SCH ×2 (09:30→20:42)
--- NOTE | 2019-08-15 09:53 | Internal Med Progress Note ---
Medical - PN: Subj Patient information: Note initiated : 08/15/19 at 9:50 am Service Date, if different from initiated Date: [] Patient: Dank Garner 84 y/o M admitted on 08/13/19 for low blood pressure. Chief Complaint: [] Interval history: Ms. Garner is a 83-year-old gentleman with complex primary history including cardiomyopathy with EF 25%, CKD stage IV/myeloproliferative disorder who was referred to the ER after he was found during his office visit blood pressures in low 60s. Patient was actively symptomatic including dizziness/lightheadedness. Patient symptoms have evolved over the last week with increasing effort intolerance/decrease level of functionality due to lack of energy/lack of appetite and persistent lightheadedness. He then drove to the ER initial work-up was consistent with cardiogenic shock. Troponins were negative. CHF on chest imaging. Patient was promptly started on vasopressors along with crystalloid challenge. Subsequently hospital service was consulted. At the time evaluation patient is feeling a little better. His systolics now are mid 80s on 5 mics of dopamine. I discussed the case with Dr. Ibrahim. ER physician discussed case with patient's loss prevention investigator Dr. Brice who recommended continuing pressors including norepinephrine to maintain map at goal and monito ring for 24 hours until patient symptomatically improved. Patient was able to endorse history as above. Denies fever, cough, chest pain, rash, diarrhea. He was seen at nephrology clinic today with details as below Details from nephrology office visit 08/12 a.m. Dank Garner is a 84 y/o pleasant white male with PMH of CAD, CHF, CKD, myeloproliferative disorder and other multiple medical issues who is here for follow up He has h/o CKD stage IV with no proteinuria in the setting of poor cardiac function and h/o nephrolithiasis He has h/o Acute worsening of renal function from bladder outlet obstruction and his renal function improved since he has had prostate surgery, he has a complex cyst in his left kidney and follows with urology at [facility] Patient called me today telling me he is been feeling poorly. This includes low blood pressure, increased energy and increased peripheral edema. This is temporally related to starting the patient on Sacubitrelvalsartan 24-26 mg at bedtime He has secondary hyperparathyroidism associated with his CKD on calcitiriol presently, the patient has developed a cough shortness of breath and was treate d with a mixture of antibiotics and a doubling of his furosemide to 40 mg twice daily. He also received a course of doxycycline and nitrofurantoin. Today his clinical exam is certainly consistent with decompensated congestive heart failure as is his chest x-ray with perihilar fullness and fluffiness. He is feeling lousy but his breathing is improved, I suspect the antibiotics are bothering his stomach and today was the last day so they were discontinued. Based on his pulmonary exam, and the presence of edema I would continue him on furosemide 40 mg twice a day. He continues with rate controlled atrial fibrillation and is anticoagulated with warfarin. He has had no flares of gout lately. Continues to use his CPAP. I believe he sees Dr. Malave for a myelodysplasic disorder treated with ruxolitimib. He is also scheduled to see Dr. Rodriguez and it would be helpful if we could get a copy of his last echocardiogram. EF 25% with some MR, no /AI 08/13-patient currently on vasopressors to keep map at goal. Await nephrology recommendations for initiation of prior home medication. Weaning pressors gradually. No overnight events. White count 13.8. Underlying myelodysplastic disorder with blasts and nucleated RBCs. Consult oncology 08/14-patient now off pressors and on fluid challenge as per nephrology. Systolics improved to mid 90s. White count down to 7.7 from 13.8. However blast cells at 10% with reactive lymphocytes and nucleated RBCs. Case discussed with [place] oncology and informed of findings. Oncology will review labs and will call back for instructions if necessary otherwise they will schedule outpatient follow-up in a few days. Creatinine 2.2, bilirubin down to 1.6 - Constitutional Vitals: Vital Signs Temp Pulse Resp BP Pulse Ox 97.2 F 91 H 24 H 91/55 98 08/15/19 08:03 08/15/19 08:03 08/15/19 08:03 08/15/19 08:03 08/15/19 08:03 Period Temp Pulse Resp BP Sys/Ordoñez Pulse Ox Last 24 Hr 97.2 F-97.9 F 91-109 19-29 87-121/55-84 92-98 Intake and Output 08/14/19 08/15/19 08/15/19 21:59 05:59 13:59 Intake Total 466 269 152 Output Total 400 300 200 Balance 48 Weight 192 lb 8 oz Intake & Output: Intake & Output 08/14/19 08/15/19 08/15/19 21:59 05:59 13:59 Intake Total 466 269 152 Output Total 400 300 200 Balance 48 Weight 192 lb 8 oz Intake: IV 16 219 152 Sodium Chloride 0.9% 1,000 ml @ 0 50 mls/hr IV .Q20H [facility] Rx#: [id number] Sodium Chloride 0.9% 250 ml @ 219 127 20 mls/hr IV .[id number] [facility] Rx#: [id number] Levophed 16 mg In Sodium 16 25 Chloride 0.9% 234 ml @ 10 MCG/ MIN 9.375 mls/hr IV Q24H [facility] Rx #:[id number] Oral 450 50 Output: Void Amount 400 300 200 Other: Meal Dinner Percent of Meal Consumed 100% Feeding Ability Independent Urine Appearance Clear Clear Clear Urine Color Dark Yellow Dark Yellow Bright Yellow Urine Odor Normal Stool Size Small Stool Color Brown Stool Consistency Formed # Bowel Movements 1 General appearance: no acute distress Exam: Alert oriented Nonlabored breathing No anxiety Irregular rhythm Medical - PN: Obj Da - Labs CBC & Chem 7: 08/15/19 04:18 08/15/19 04:18 Labs: Abnormal Lab Results 08/15/19 08/15/19 08/15/19 04:18 04:18 04:18 WBC RBC 3.45 L Hgb 11.0 L Hct 36.1 L MCV 104.6 H MCHC 30.5 L RDW 23.1 H Plt Count 61 L Seg Neutrophils % Lymphocytes % 10 L Myelocytes % Nucleated RBCs 2 H Reactive Lymphocytes Blast Cells 10 H Platelet Estimate Decreased A RBC Morphology Abnorm A Polychromasia Anisocytosis 3+ A Macrocytosis 2+ A Ovalocytes PT 22.1 H INR 1.9 H Sodium Carbon Dioxide 21 L BUN 91 H Creatinine 2.2 H Total Bilirubin 1.6 H Direct Bilirubin 0.5 H GGT 69 H Lactate Dehydrogenase 487 H Total Protein 5.4 L Globulin 2.0 L TSH Hyaline Casts 08/14/19 08/14/19 08/14/19 05:00 04:57 04:57 WBC 13.8 H RBC 3.93 L Hgb 12.6 L Hct MCV 104.1 H MCHC 30.8 L RDW 23.4 H Plt Count 78 L Seg Neutrophils % 80 H Lymphocytes % 5 L Myelocytes % 1 H Nucleated RBCs 6 H Reactive Lymphocytes 3 H Blast Cells 5 H Platelet Estimate Decreased A RBC Morphology Abnorm A Polychromasia 1+ A Anisocytosis 3+ A Macrocytosis 2+ A Ovalocytes Few A PT 22.4 H INR 1.9 H Sodium 131 L Carbon Dioxide 19 L BUN 94 H Creatinine 2.1 H Total Bilirubin 1.9 H Direct Bilirubin 0.6 H GGT 71 H Lactate Dehydrogenase 591 H Total Protein 5.6 L Globulin 1.8 L TSH Hyaline Casts 08/13/19 08/13/19 08/13/19 23:20 13:01 12:55 WBC RBC 3.74 L Hgb 12.1 L Hct 39.4 L MCV 105.3 H MCHC 30.7 L RDW 23.3 H Plt Count 58 L Seg Neutrophils % Lymphocytes % 9 L Myelocytes % Nucleated RBCs 6 H Reactive Lymphocytes 3 H Blast Cells 6 H Platelet Estimate Decreased A RBC Morphology Abnorm A Polychromasia 1+ A Anisocytosis 3+ A Macrocytosis 2+ A Ovalocytes PT INR Sodium Carbon Dioxide BUN Creatinine Total Bilirubin Direct Bilirubin GGT Lactate Dehydrogenase Total Protein Globulin TSH 5.54 H Hyaline Casts 23 H Meds: Medications Acetaminophen (Tylenol) 650 mg PO Q4-6HP PRN; Protocol PRN Reason: Per Pain Protocol/Fever > 101 Allopurinol (Zyloprim) 400 mg PO QDAY [facility] Last Admin: 08/15/19 08:22 Dose: 400 mg Documented by: Aspirin (Aspirin) 81 mg PO QDAY [facility] [place] Last Admin: 08/15/19 08:23 Dose: 81 mg Documented by: Bisacodyl (Dulcolax) 10 mg [place] Q2-3DAYS PRN PRN Reason: Constipation Budesonide (Pulmicort) 1 puff INH BID [facility] [place] Last Admin: 08/14/19 21:20 Dose: 1 puff Documented by: Calcitriol (Rocaltrol) 0.25 mcg PO MoWeFr@0900 [facility] [place] Last Admin: 08/15/19 08:29 Dose: 0.25 mcg Documented by: Docusate Sodium (Colace) 100 mg PO BID [facility] [place] Last Admin: 08/15/19 08:22 Dose: 100 mg Documented by: Acetaminophen (Ofirmev) 650 mg in 65 mls @ 130 mls/hr IV Q6HP PRN; Protocol PRN Reason: Per Pain Protocol/Fever > 101 Sodium Chloride (Sodium Chloride 0.9%) 250 mls @ 75 mls/hr IV .Q3H20M [facility] Stop: 08/15/19 10:09 Norepinephrine Bitartrate 16 (mg/ Sodium Chloride) 250 mls @ 9.375 mls/hr IV Q24HP PRN; Protocol PRN Reason: Hypotension Iron Carb/Multivit/[employer]/Folic Acid (Multivitamin W/Minerals) 1 tab PO DAILY [facility] [place] Last Admin: 08/15/19 08:22 Dose: 1 tab Documented by: Melatonin (Melatonin 3mg Tablet) 3 mg PO HSP PRN PRN Reason: Insomnia Ondansetron HCl (Zofran Odt) 4 mg SL Q4-6HP PRN; Protocol PRN Reason: Nausea And Vomiting Ondansetron HCl (Zofran) 4 mg IV Q4-6HP PRN; Protocol PRN Reason: Nausea And Vomiting Polyethylene Glycol (Miralax) 17 gm PO DAILYP PRN PRN Reason: Constipation Last Admin: 08/15/19 08:23 Dose: 17 gm Documented by: Senna/Docusate Sodium (Senna Plus Tablet) 1 tab PO HS [facility] [place] Last Admin: 08/14/19 21:20 Dose: 1 tab Documented by: Sodium Chloride (Saline Flush) 10 ml IV Q8 [facility] [place] Last Admin: 08/15/19 05:43 Dose: 10 ml Documented by: Warfarin Sodium (Coumadin Per Pharmacy) 1 order PO UD [facility] Medical - PN: A/P - Time Spent With Patient Total time spent is greater than 50% in coordination of care (as documented) at patient's floor/unit and/or counseling patient: 25 - 35 minutes (1) Cardiogenic shock Status: Acute Assessment and plan: * Cardiogenic shock-severe cardiomyopathy with EF 25% as of February. Now off pressors. On fluid challenge per nephrology. * NYHA class IV systolic heart failure-held ARB/beta-aaron until hypotension resolves. * Chronic disease stage IV managed by nephrology. * Atrial fibrillation currently rate controlled. Plan to restart half dose Cor eg once off pressors * Anticoagulation for CVA prophylaxis on Coumadin. INR 1.9 * History of myeloproliferative disorder-Case discussed with [facility]. They will reviewed labs from [facility] and provide further instructions if necessary otherwise surgical oncology will schedule outpatient appointment with patient over the next week * Reactive airway disease continue budesonide * History of gout continue allopurinol * Hypothyroidism continue home dose thyroxine * Prophylaxis on anticoagulation Plan * Wean vasopressors as tolerated * Restart half dose Coreg once approved by nephrology and hypotension resolvesn * Pre-existing medical condition management home meds except for antihypertensives * PT OT/nutrition support * Discharge planning per case management Current Visit: Yes Medical - PN: Qual - VTE Deep Vein Thrombosis/Pulmonary Embolism Present on Admission: No
[2019-08-15] MEDS: SENNOSIDES/DOCUSATE SODIUM 1 TAB TABLET PO SCH (20:42)
[2019-08-16] MEDS: 0.9 % SODIUM CHLORIDE 10 ML SYRINGE IV SCH ×4 (04:49→23:24)
[2019-08-16 06:18] LABS: Hematocrit 35.6 % (40.1-51.0); Hemoglobin 10.8 g/dL (13.7-17.5); Mean Corpuscular HGB Conc 30.3 g/dL (31.0-36.0); Platelet Count 57 K/mcL (140-440); RBC 3.39 M/mcL (4.63-6.08); Red Cell Distribution Width 23.1 % (11.5-14.5)
[2019-08-16 06:29] LABS: ALT/SGPT 16 U/l (0-40); AST/SGOT 28 U/l (0-37); Albumin 3.7 gm/dL (3.2-5.2); Albumin/Globulin Ratio 1.9 (1.0-2.3); Alkaline Phosphatase 94 U/L (39-117); Bilirubin,Direct 0.4 mg/dL (0.0-0.3); Bilirubin,Total 1.2 mg/dL (0.0-1.0); Blood Urea Nitrogen 90 mg/dl (8-23); Calcium 9.1 mg/dl (8.6-10.4); Carbon Dioxide 24 mmol/L (22-30); Chloride 99 mmol/L (96-108); Glomerular Filtration Rate 32; Glucose 89 mg/dL (70-105); Lactate Dehydrogenase 469 U/L (94-250); Triglycerides 106 mg/dl (<150); Uric Acid 4.3 mg/dL (2.5-8.0)
[2019-08-16 06:40] LABS: INR 1.9 (0.9-1.1)
[2019-08-16] MEDS ORDERED: LEVOTHYROXINE 125 MCG TABLET PO SCH (07:30)
[2019-08-16] MEDS: ALLOPURINOL 100 MG TABLET PO SCH (08:27)
[2019-08-16] MEDS: ASPIRIN 81 MG TAB.CHEW PO SCH (08:27)
[2019-08-16] MEDS: MULTIVIT,THER IRON,CA,FA & MIN 1 TABLET PO SCH (08:27)
[2019-08-16] MEDS: BUDESONIDE 1 PUFF INHALER INH SCH ×2 (08:29→21:15)
[2019-08-16] MEDS: DOCUSATE SODIUM 100 MG CAPSULE PO SCH ×2 (08:30→21:10)
--- NOTE | 2019-08-16 09:33 | Internal Med Progress Note ---
Medical - PN: Subj Patient information: Note initiated : 08/16/19 at 9:30 am Service Date, if different from initiated Date: [] Patient: Dank Garner 84 y/o M admitted on 08/13/19 for low blood pressure. Chief Complaint: [] Interval history: Ms. Garner is a 83-year-old gentleman with complex primary history including cardiomyopathy with EF 25%, CKD stage IV/myeloproliferative disorder who was referred to the ER after he was found during his office visit blood pressures in low 60s. Patient was actively symptomatic including dizziness/lightheadedness. Patient symptoms have evolved over the last week with increasing effort intolerance/decrease level of functionality due to lack of energy/lack of appetite and persistent lightheadedness. He then drove to the ER initial work-up was consistent with cardiogenic shock. Troponins were negative. CHF on chest imaging. Patient was promptly started on vasopressors along with crystalloid challenge. Subsequently hospital service was consulted. At the time evaluation patient is feeling a little better. His systolics now are mid 80s on 5 mics of dopamine. I discussed the case with Dr. Ibrahim. ER physician discussed case with patient's supervisor treating and pumping Dr. Brice who recommended continuing pressors including norepinephrine to maintain map at goal and monito ring for 24 hours until patient symptomatically improved. Patient was able to endorse history as above. Denies fever, cough, chest pain, rash, diarrhea. He was seen at nephrology clinic today with details as below Details from nephrology office visit 08/12 a.m. Dank Garner is a 84 y/o pleasant white male with PMH of CAD, CHF, CKD, myeloproliferative disorder and other multiple medical issues who is here for follow up He has h/o CKD stage IV with no proteinuria in the setting of poor cardiac function and h/o nephrolithiasis He has h/o Acute worsening of renal function from bladder outlet obstruction and his renal function improved since he has had prostate surgery, he has a complex cyst in his left kidney and follows with urology at [facility] Patient called me today telling me he is been feeling poorly. This includes low blood pressure, increased energy and increased peripheral edema. This is temporally related to starting the patient on Sacubitrelvalsartan 24-26 mg at bedtime He has secondary hyperparathyroidism associated with his CKD on calcitiriol presently, the patient has developed a cough shortness of breath and was treate d with a mixture of antibiotics and a doubling of his furosemide to 40 mg twice daily. He also received a course of doxycycline and nitrofurantoin. Today his clinical exam is certainly consistent with decompensated congestive heart failure as is his chest x-ray with perihilar fullness and fluffiness. He is feeling lousy but his breathing is improved, I suspect the antibiotics are bothering his stomach and today was the last day so they were discontinued. Based on his pulmonary exam, and the presence of edema I would continue him on furosemide 40 mg twice a day. He continues with rate controlled atrial fibrillation and is anticoagulated with warfarin. He has had no flares of gout lately. Continues to use his CPAP. I believe he sees Dr. Malave for a myelodysplasic disorder treated with ruxolitimib. He is also scheduled to see Dr. Rodriguez and it would be helpful if we could get a copy of his last echocardiogram. EF 25% with some MR, no /AI 08/13-patient currently on vasopressors to keep map at goal. Await nephrology recommendations for initiation of prior home medication. Weaning pressors gradually. No overnight events. White count 13.8. Underlying myelodysplastic disorder with blasts and nucleated RBCs. Consult oncology 08/14-patient now off pressors and on fluid challenge as per nephrology. Systolics improved to mid 90s. White count down to 7.7 from 13.8. However blast cells at 10% with reactive lymphocytes and nucleated RBCs. Case discussed with [place] oncology and informed of findings. Oncology will review labs and will call back for instructions if necessary otherwise they will schedule outpatient follow-up in a few days. Creatinine 2.2, bilirubin down to 1.6 08/15-patient doing about the better. Off Levophed. Systolics mid 90s to 100. Asymptomatic. Case discussed with Dr. Suarez oncologist. Reviewed labs and advised that patient will need to follow-up with her clinic as outpatient in 1 week. Information relayed to patient to call oncology office on discharge for an appointment. White count normalized at 6000. INR 1.9, creatinine 1.9, sodium 134, bilirubin normalized. Restart Coreg at half dose in light advanced heart failure. However further dose titration will need performed by nephrology/PCP as outpatient. Transfer to medical floor. - Constitutional Vitals: Vital Signs Temp Pulse Resp BP Pulse Ox 97.2 F 91 H 21 128/90 99 08/16/19 07:14 08/15/19 08:03 08/16/19 07:14 08/16/19 07:14 08/16/19 07:14 Period Temp Pulse Resp BP Sys/Ordoñez Pulse Ox Last 24 Hr 96.9 F-98.7 F 16-25 82-128/56-106 96-99 Intake and Output 08/15/19 08/16/19 08/16/19 21:59 05:59 13:59 Intake Total 640 Output Total 200 300 Balance 440 -300 Weight 199 lb 4.8 oz Intake & Output: Intake & Output 08/15/19 08/16/19 08/16/19 21:59 05:59 13:59 Intake Total 640 Output Total 200 300 Balance 440 -300 Weight 199 lb 4.8 oz Intake: Oral 640 Output: Void Amount 200 300 Other: Meal Dinner Percent of Meal Consumed 100% Urine Appearance Clear Clear Urine Color Bright Yellow Dark Yellow Urine Odor Normal Normal Stool Size Moderate Small Stool Color Brown Brown Stool Consistency Formed Formed # Voids 1 1 # Bowel Movements 1 1 # of times incontinent of 0 Bowels General appearance: no acute distress Exam: Alert oriented Nonlabored breathing Systolics around mid 90s with no telemetry events No anxiety Medical - PN: Obj Da - Labs CBC & Chem 7: 08/16/19 04:28 08/16/19 04:28 Labs: Abnormal Lab Results 08/16/19 08/16/19 08/16/19 04:28 04:28 04:28 WBC RBC 3.39 L Hgb 10.8 L Hct 35.6 L MCV 105.0 H MCHC 30.3 L RDW 23.1 H Plt Count 57 L Seg Neutrophils % Lymphocytes % Myelocytes % Nucleated RBCs Reactive Lymphocytes Blast Cells Platelet Estimate RBC Morphology Polychromasia Anisocytosis Macrocytosis Ovalocytes PT 22.0 H INR 1.9 H Sodium Carbon Dioxide BUN 90 H Creatinine 1.9 H Total Bilirubin 1.2 H Direct Bilirubin 0.4 H GGT 73 H Lactate Dehydrogenase 469 H Total Protein 5.7 L Globulin 2.0 L TSH Hyaline Casts 08/15/19 08/15/19 08/15/19 04:18 04:18 04:18 WBC RBC 3.45 L Hgb 11.0 L Hct 36.1 L MCV 104.6 H MCHC 30.5 L RDW 23.1 H Plt Count 61 L Seg Neutrophils % Lymphocytes % 10 L Myelocytes % Nucleated RBCs 2 H Reactive Lymphocytes Blast Cells 10 H Platelet Estimate Decreased A RBC Morphology Abnorm A Polychromasia Anisocytosis 3+ A Macrocytosis 2+ A Ovalocytes PT 22.1 H INR 1.9 H Sodium Carbon Dioxide 21 L BUN 91 H Creatinine 2.2 H Total Bilirubin 1.6 H Direct Bilirubin 0.5 H GGT 69 H Lactate Dehydrogenase 487 H Total Protein 5.4 L Globulin 2.0 L TSH Hyaline Casts 08/14/19 08/14/19 08/14/19 05:00 04:57 04:57 WBC 13.8 H RBC 3.93 L Hgb 12.6 L Hct MCV 104.1 H MCHC 30.8 L RDW 23.4 H Plt Count 78 L Seg Neutrophils % 80 H Lymphocytes % 5 L Myelocytes % 1 H Nucleated RBCs 6 H Reactive Lymphocytes 3 H Blast Cells 5 H Platelet Estimate Decreased A RBC Morphology Abnorm A Polychromasia 1+ A Anisocytosis 3+ A Macrocytosis 2+ A Ovalocytes Few A PT 22.4 H INR 1.9 H Sodium 131 L Carbon Dioxide 19 L BUN 94 H Creatinine 2.1 H Total Bilirubin 1.9 H Direct Bilirubin 0.6 H GGT 71 H Lactate Dehydrogenase 591 H Total Protein 5.6 L Globulin 1.8 L TSH Hyaline Casts 08/13/19 08/13/19 08/13/19 23:20 13:01 12:55 WBC RBC 3.74 L Hgb 12.1 L Hct 39.4 L MCV 105.3 H MCHC 30.7 L RDW 23.3 H Plt Count 58 L Seg Neutrophils % Lymphocytes % 9 L Myelocytes % Nucleated RBCs 6 H Reactive Lymphocytes 3 H Blast Cells 6 H Platelet Estimate Decreased A RBC Morphology Abnorm A Polychromasia 1+ A Anisocytosis 3+ A Macrocytosis 2+ A Ovalocytes PT INR Sodium Carbon Dioxide BUN Creatinine Total Bilirubin Direct Bilirubin GGT Lactate Dehydrogenase Total Protein Globulin TSH 5.54 H Hyaline Casts 23 H Meds: Medications Acetaminophen (Tylenol) 650 mg PO Q4-6HP PRN; Protocol PRN Reason: Per Pain Protocol/Fever > 101 Allopurinol (Zyloprim) 400 mg PO QDAY [facility] Last Admin: 08/16/19 08:27 Dose: 400 mg Documented by: Aspirin (Aspirin) 81 mg PO QDAY [facility] Last Admin: 08/16/19 08:27 Dose: 81 mg Documented by: Bisacodyl (Dulcolax) 10 mg [place] Q2-3DAYS PRN PRN Reason: Constipation Budesonide (Pulmicort) 1 puff INH BID [facility] Last Admin: 08/16/19 08:29 Dose: 1 puff Documented by: Calcitriol (Rocaltrol) 0.25 mcg PO MoWeFr@0900 [facility] Last Admin: 08/15/19 08:29 Dose: 0.25 mcg Documented by: Docusate Sodium (Colace) 100 mg PO BID [facility] Last Admin: 08/16/19 08:30 Dose: 100 mg Documented by: Acetaminophen (Ofirmev) 650 mg in 65 mls @ 130 mls/hr IV Q6HP PRN; Protocol PRN Reason: Per Pain Protocol/Fever > 101 Norepinephrine Bitartrate 16 (mg/ Sodium Chloride) 250 mls @ 9.375 mls/hr IV Q24HP PRN; Protocol PRN Reason: Hypotension Iron Carb/Multivit/[place]/Folic Acid (Multivitamin W/Minerals) 1 tab PO DAILY [facility] Last Admin: 08/16/19 08:27 Dose: 1 tab Documented by: Levothyroxine Sodium (Synthroid) 125 mcg PO QAMAC [facility] Melatonin (Melatonin 3mg Tablet) 3 mg PO HSP PRN PRN Reason: Insomnia Ondansetron HCl (Zofran Odt) 4 mg SL Q4-6HP PRN; Protocol PRN Reason: Nausea And Vomiting Ondansetron HCl (Zofran) 4 mg IV Q4-6HP PRN; Protocol PRN Reason: Nausea And Vomiting Polyethylene Glycol (Miralax) 17 gm PO DAILYP PRN PRN Reason: Constipation Last Admin: 08/15/19 08:23 Dose: 17 gm Documented by: Senna/Docusate Sodium (Senna Plus Tablet) 1 tab PO HS [facility] Last Admin: 08/15/19 20:42 Dose: 1 tab Documented by: Sodium Chloride (Saline Flush) 10 ml IV Q8 [facility] Last Admin: 08/16/19 04:49 Dose: 10 ml Documented by: Warfarin Sodium (Coumadin Per Pharmacy) [address] [facility] Warfarin Sodium (Coumadin) 2.5 mg PO ONCE@1400 [facility] Stop: 05/21/20 14:01 Medical - PN: A/P - Time Spent With Patient Total time spent is greater than 50% in coordination of care (as documented) at patient's floor/unit and/or counseling patient: 25 - 35 minutes (1) Cardiogenic shock Status: Acute Assessment and plan: * Cardiogenic shock, underlying NYHA class IV systolic heart failure with EF 25%-currently compensated and off pressors. Transfer to medical floor. Start low-dose beta-aaron. * Chronic kidney disease stage IV managed by nephrology. * Atrial fibrillation currently rate controlled. Restart half dose Coreg * Anticoagulation for CVA prophylaxis on Coumadin. INR 1.9 * History of myeloproliferative disorder-Case discussed with [place] oncology. Per Dr. Suarez the blast noted on peripheral blood is possibly secondary to stress. Oncology would like patient to follow-up at the clinic in 1 week. * Reactive airway disease stable on budesonide * History of gout continue allopurinol * Hypothyroidism continue home dose thyroxine * Prophylaxis on anticoagulation Plan * Transfer to medical floor * Restart half dose Coreg for rate control underlying NYHA class IV systolic heart failure * Pre-existing medical condition management home meds except for antihypertensives * PT OT/nutrition support * Discharge planning per case management possibly 24 hours Current Visit: Yes Medical - PN: Qual - VTE Deep Vein Thrombosis/Pulmonary Embolism Present on Admission: No
[2019-08-16] MEDS ORDERED: ACETAMINOPHEN 650 MG/65 ML BOTTLE IV PRN (09:49)
[2019-08-16] MEDS ORDERED: ONDANSETRON 4 MG/2 ML VIAL IV PRN (09:49)
[2019-08-16] MEDS ORDERED: POLYETHYLENE GLYCOL 3350 17 GM PACKET PO PRN (09:49)
[2019-08-16] MEDS ORDERED: ACETAMINOPHEN 325 MG TABLET PO PRN (09:49)
[2019-08-16] MEDS ORDERED: BISACODYL 10 MG SUPP.RECT PR PRN (09:49)
[2019-08-16] MEDS ORDERED: ONDANSETRON 4 MG ODT TABLET SL PRN (09:49)
[2019-08-16] MEDS ORDERED: CARVEDILOL 6.25 MG TABLET PO ONE (09:53)
[2019-08-16 11:02] LABS: Anisocytosis 2+ (NONE SEEN); Band Neutrophils % 3 % (0-10); Basophils % (Manual) 1 % (0-2); Blast Cells 10 % (0-0); Eosinophils % (Manual) 1 % (0-7); Lymphocytes % 6 % (15-49); Macrocytosis 1+ (NONE SEEN); Metamyelocytes % 1 % (0-0); Monocytes % (Manual) 9 % (1-12); Nucleated Red Blood Cells 2 % (0-0); Platelet Estimate DECREASED (NORMAL); Polychromasia 1+ (NONE SEEN); RBC Morphology ABNORM (NORMAL); Segmented Neutrophils % 69 % (38-78); Toxic Granulation 1+ (NONE SEEN)
[2019-08-16] MEDS ORDERED: WARFARIN 2.5 MG TABLET PO ONE ×2 (14:00)
[2019-08-16] MEDS: CARVEDILOL 3.125 MG TABLET PO SCH ×2 (17:05→17:09)
[2019-08-16] MEDS ORDERED: CARVEDILOL 12.5 MG TABLET PO SCH (21:00)
[2019-08-16] MEDS ORDERED: MELATONIN 3 MG TABLET PO PRN (21:00)
[2019-08-16] MEDS: MONTELUKAST 10 MG TABLET PO SCH (21:10)
[2019-08-16] MEDS: SENNOSIDES/DOCUSATE SODIUM 1 TAB TABLET PO SCH (21:11)
[2019-08-17] MEDS: 0.9 % SODIUM CHLORIDE 10 ML SYRINGE IV SCH ×3 (04:47→20:19)
[2019-08-17 06:42] LABS: INR 1.7 (0.9-1.1); Prothrombin Time 20.8 sec (11.9-14.5)
[2019-08-17 06:43] LABS: Hematocrit 36.8 % (40.1-51.0); Hemoglobin 11.1 g/dL (13.7-17.5); Mean Cell Volume 107.9 fL (80.0-100.0); Mean Corpuscular HGB Conc 30.2 g/dL (31.0-36.0); Platelet Count 52 K/mcL (140-440); RBC 3.41 M/mcL (4.63-6.08); Red Cell Distribution Width 23.3 % (11.5-14.5); WBC 5.6 K/mcL (4.50-11.00)
[2019-08-17 07:12] LABS: Chloride 100 mmol/L (96-108)
[2019-08-17 07:14] LABS: ALT/SGPT 15 U/l (0-40); AST/SGOT 37 U/l (0-37); Albumin 3.6 gm/dL (3.2-5.2); Albumin/Globulin Ratio 1.8 (1.0-2.3); Alkaline Phosphatase 94 U/L (39-117); Bilirubin,Direct 0.4 mg/dL (0.0-0.3); Bilirubin,Total 1.3 mg/dL (0.0-1.0); Blood Urea Nitrogen 77 mg/dl (8-23); Carbon Dioxide 17 mmol/L (22-30); Glomerular Filtration Rate 34; Glucose 74 mg/dL (70-105); Lactate Dehydrogenase 574 U/L (94-250); Triglycerides 116 mg/dl (<150)
[2019-08-17 07:34] LABS: Anisocytosis 3+ (NONE SEEN); Band Neutrophils % 4 % (0-10); Blast Cells 2 % (0-0); Eosinophils % (Manual) 1 % (0-7); Lymphocytes % 16 % (15-49); Macrocytosis 2+ (NONE SEEN); Metamyelocytes % 1 % (0-0); Monocytes % (Manual) 4 % (1-12); Ovalocytes 1+ (NONE SEEN); Platelet Estimate DECREASED (NORMAL); Polychromasia 1+ (NONE SEEN); RBC Morphology ABNORM (NORMAL); Segmented Neutrophils % 72 % (38-78); Tear Drop Cells FEW (NONE SEEN)
[2019-08-17] MEDS: LEVOTHYROXINE 125 MCG TABLET PO SCH (07:40)
[2019-08-17] MEDS ORDERED: CARVEDILOL 3.125 MG TABLET PO SCH (08:00)
--- NOTE | 2019-08-17 08:03 | Nephrology Progress Note ---
Subjective Patient information: Note initiated : 08/17/19 at 7:58 am Service Date, if different from initiated Date: [] Patient: Dank Garner 84 y/o M admitted on 08/13/19 for low blood pressure. Chief Complaint: [] Principal diagnosis: hypotension Interval history: Dose of Coreg was decreased yesterday to 3.125 mg p.o. twice daily with holding parameters. I saw the patient yesterday 08/16/2019 late in the evening. By then he denied shortness of breath or worsening edema. Remains nonoliguric. Objective - Vital Signs Vital signs: Vital Signs Temp Pulse Resp BP BP Pulse Ox 08/17/19 06:58 36.5 C 100 H 18 107/68 96 08/17/19 04:00 36.3 C 111 H 18 99/63 96 08/16/19 23:00 37.0 C 107 H 18 101/62 96 08/16/19 19:21 101 H 20 97 08/16/19 18:29 36.4 C 101 H 20 98/62 97 08/16/19 16:00 36.1 C 81 16 92/64 97 08/16/19 12:00 36.5 C 100 H 16 100/63 100 08/16/19 08:00 100 H 20 100 Intake and Output 08/16/19 08/17/19 08/17/19 21:59 05:59 13:59 Intake Total 360 100 Balance 360 100 Intake: Oral 360 100 Other: Meal Dinner Percent of Meal Consumed 100% Urine Appearance Clear Urine Color Bright Yellow Bright Yellow Urine Odor Normal Stool Size Small Moderate Stool Color Brown Brown Stool Consistency Normal for Patient # Voids 1 1 1 # Bowel Movements 1 Weight 91.716 kg Intake & Output: Intake & Output 08/16/19 08/17/19 08/17/19 21:59 05:59 13:59 Intake Total 360 100 Balance 360 100 Weight 91.716 kg Intake: Oral 360 100 Other: Meal Dinner Percent of Meal Consumed 100% Urine Appearance Clear Urine Color Bright Yellow Bright Yellow Urine Odor Normal Stool Size Small Moderate Stool Color Brown Brown Stool Consistency Normal for Patient # Voids 1 1 1 # Bowel Movements 1 - Lab 08/17/19 04:52 08/17/19 04:52 Most recent lab results Calcium 9.0 mg/dl (8.6-10.4) 08/17/19 04:52 Phosphorus 3.0 mg/dL (2.7-4.5) 08/17/19 04:52 Magnesium 2.3 mg/dL (1.6-2.5) 08/17/19 04:52 Assessment and Plan (1) CKD (chronic kidney disease), stage IV Status: Acute Priority: Medium (2) Hypotension Status: Inactive Priority: High - Narrative A/P Narrative: SCR 1.8, EGFR 34. Baseline creatinine approximately 2, EGFR 30. Renal function is at baseline. 08/13/2019 UA sediment unremarkable, except for hyaline casts. [place] 08/14/2019 < 20 03/08/2018 CT abdomen and pelvis read as 4 cm cyst from the posterior cortex of the left kidney with wall calcification, stable. A few small nonobstructing stones in the right calyces all less than 3 mm. 01/19/2016 renal ultrasound left kidney 11.5 cm, exophytic lesion. Hemodynamics and volume Serum albumin 3.6, serum sodium 134 TSH 5.5, random cortisol 14.6. 08/13/2019 x-ray mild CHF. Pulmonary vessels are mildly distended. No infiltrates. Cardiomegaly unchanged. 04/26/2019 echocardiogram LVEF 25 to 30%, RV moderately to severely dilated, RV systolic function mildly reduced. LA severely dilated, RA moderate to severely dilated. Moderate to severe TR, estimated pulmonary pressure 38 mmHg. Patient's weight was 87.3 kg on 08/15/2019--> 91.7kg.-His dry weight is probably around 91 kg, to be determined and monitored. Prior weights were higher for example 07/26/2019 he weighed 94.9 kg, even in March 2019 he weighed 97 kg. This points more towards the hypotension being a result of medication and less likely decompensated heart failure. Furthermore the patient is on room air. His pro BNP was 3600 in the past he got as high as 5600. This could have been influenced to some extent by Entresto *Start torsemide 10 mg p.o. daily. For weight gain of 3 or more pounds per 24 hours the patient should take 20 mg of torsemide *change carvediolol to metoprolol for now 12.5mg po daily. If he tolerated this dose well, agree to change to metoprolol succinate 25mg po daily *Follow-up with Dr. Scooby next week Acid-base Serum bicarbonate 17, check lactic acid BUN/K 77/5.3; BUN improving, no uremic symptoms. + azotemia. mild hyperkalemia expect to improve with diuretic. Bone mineral Calcium, phosphorus, magnesium within lab reference range. PTH is 102 on 07/20/2019, secondary hyperparathyroidism of renal origin. This will be managed outpatient. Hematologic Mild anemia, MCV high. Has myelodysplastic syndrome. Management per oncology
[2019-08-17] MEDS: TORSEMIDE 10 MG TABLET PO SCH (08:57)
[2019-08-17] MEDS: ASPIRIN 81 MG TAB.CHEW PO SCH (08:57)
[2019-08-17] MEDS: ALLOPURINOL 100 MG TABLET PO SCH (08:57)
[2019-08-17] MEDS: MULTIVIT,THER IRON,CA,FA & MIN 1 TABLET PO SCH (08:57)
[2019-08-17] MEDS: DOCUSATE SODIUM 100 MG CAPSULE PO SCH ×2 (08:59→20:14)
[2019-08-17] MEDS: BUDESONIDE 1 PUFF INHALER INH SCH ×2 (08:59→20:22)
--- NOTE | 2019-08-17 08:59 | Internal Med Progress Note ---
Medical - PN: Subj Patient information: Note initiated : 08/17/19 at 8:56 am Service Date, if different from initiated Date: [] Patient: Dank Garner 84 y/o M admitted on 08/13/19 for low blood pressure. Chief Complaint: [] Interval history: Ms. Garner is a 83-year-old gentleman with complex primary history including cardiomyopathy with EF 25%, CKD stage IV/myeloproliferative disorder who was referred to the ER after he was found during his office visit blood pressures in low 60s. Patient was actively symptomatic including dizziness/lightheadedness. Patient symptoms have evolved over the last week with increasing effort intolerance/decrease level of functionality due to lack of energy/lack of appetite and persistent lightheadedness. He then drove to the ER initial work-up was consistent with cardiogenic shock. Troponins were negative. CHF on chest imaging. Patient was promptly started on vasopressors along with crystalloid challenge. Subsequently hospital service was consulted. At the time evaluation patient is feeling a little better. His systolics now are mid 80s on 5 mics of dopamine. I discussed the case with Dr. Ibrahim. ER physician discussed case with patient's bindery machine tender Dr. Brice who recommended continuing pressors including norepinephrine to maintain map at goal and monito ring for 24 hours until patient symptomatically improved. Patient was able to endorse history as above. Denies fever, cough, chest pain, rash, diarrhea. He was seen at nephrology clinic today with details as below Details from nephrology office visit 08/12 a.m. Dank Garner is a 84 y/o pleasant white male with PMH of CAD, CHF, CKD, myeloproliferative disorder and other multiple medical issues who is here for follow up He has h/o CKD stage IV with no proteinuria in the setting of poor cardiac function and h/o nephrolithiasis He has h/o Acute worsening of renal function from bladder outlet obstruction and his renal function improved since he has had prostate surgery, he has a complex cyst in his left kidney and follows with urology at [facility] Patient called me today telling me he is been feeling poorly. This includes low blood pressure, increased energy and increased peripheral edema. This is temporally related to starting the patient on Sacubitrelvalsartan 24-26 mg at bedtime He has secondary hyperparathyroidism associated with his CKD on calcitiriol presently, the patient has developed a cough shortness of breath and was treate d with a mixture of antibiotics and a doubling of his furosemide to 40 mg twice daily. He also received a course of doxycycline and nitrofurantoin. Today his clinical exam is certainly consistent with decompensated congestive heart failure as is his chest x-ray with perihilar fullness and fluffiness. He is feeling lousy but his breathing is improved, I suspect the antibiotics are bothering his stomach and today was the last day so they were discontinued. Based on his pulmonary exam, and the presence of edema I would continue him on furosemide 40 mg twice a day. He continues with rate controlled atrial fibrillation and is anticoagulated with warfarin. He has had no flares of gout lately. Continues to use his CPAP. I believe he sees Dr. Malave for a myelodysplasic disorder treated with ruxolitimib. He is also scheduled to see Dr. Rodriguez and it would be helpful if we could get a copy of his last echocardiogram. EF 25% with some MR, no /AI 08/13-patient currently on vasopressors to keep map at goal. Await nephrology recommendations for initiation of prior home medication. Weaning pressors gradually. No overnight events. White count 13.8. Underlying myelodysplastic disorder with blasts and nucleated RBCs. Consult oncology 08/14-patient now off pressors and on fluid challenge as per nephrology. Systolics improved to mid 90s. White count down to 7.7 from 13.8. However blast cells at 10% with reactive lymphocytes and nucleated RBCs. Case discussed with [facility] oncology and informed of findings. Oncology will review labs and will call back for instructions if necessary otherwise they will schedule outpatient follow-up in a few days. Creatinine 2.2, bilirubin down to 1.6 08/15-patient doing about the better. Off Levophed. Systolics mid 90s to 100. Asymptomatic. Case discussed with Dr. Suarez oncologist. Reviewed labs and advised that patient will need to follow-up with her clinic as outpatient in 1 week. Information relayed to patient to call oncology office on discharge for an appointment. White count normalized at 6000. INR 1.9, creatinine 1.9, sodium 134, bilirubin normalized. Restart Coreg at half dose in light advanced heart failure. However further dose titration will need performed by nephrology/PCP as outpatient. Transfer to medical floor. 08/16 patient continues to drop blood pressures. Nephrology recommends continuing Coreg attempt a trial of metoprolol. Further dosing and management of antihypertensives will be as per nephrology. Continue close monitoring of hemodynamics. Creatinine down to 1.8. Tachycardic at 100 systolics mid 90s. INR 1.7. - Constitutional Vitals: Vital Signs Temp Pulse Resp BP Pulse Ox 97.7 F 100 H 18 107/68 96 08/17/19 06:58 08/17/19 06:58 08/17/19 06:58 08/17/19 06:58 08/17/19 06:58 Period Temp Pulse Resp BP Sys/Ordoñez Pulse Ox Last 24 Hr 97 F-98.6 F 81-111 16-20 92-107/62-68 96-100 Intake and Output 08/16/19 08/17/19 08/17/19 21:59 05:59 13:59 Intake Total 360 100 Balance 360 100 Weight 202 lb 3.2 oz Intake & Output: Intake & Output 08/16/19 08/17/19 08/17/19 21:59 05:59 13:59 Intake Total 360 100 Balance 360 100 Weight 202 lb 3.2 oz Intake: Oral 360 100 Other: Meal Dinner Percent of Meal Consumed 100% Urine Appearance Clear Urine Color Bright Yellow Bright Yellow Urine Odor Normal Stool Size Small Moderate Stool Color Brown Brown Stool Consistency Normal for Patient # Voids 1 1 1 # Bowel Movements 1 Exam: Feels lethargic Tachycardic/irregular Nonlabored breathing Occasionally dizzy while standing Medical - PN: Obj Da - Labs CBC & Chem 7: 08/17/19 04:52 08/17/19 04:52 Labs: Abnormal Lab Results 08/17/19 08/17/19 08/17/19 04:52 04:52 04:52 RBC 3.41 L Hgb 11.1 L Hct 36.8 L MCV 107.9 H MCHC 30.2 L RDW 23.3 H Plt Count 52 L Lymphocytes % Metamyelocytes % 1 H Nucleated RBCs WBC Morphology Blast Cells 2 H Toxic Granulation Platelet Estimate Decreased A RBC Morphology Abnorm A Polychromasia 1+ A Anisocytosis 3+ A Macrocytosis 2+ A Tear Drop Cells Few A Ovalocytes 1+ A PT 20.8 H INR 1.7 H Potassium 5.3 H Carbon Dioxide 17 L Anion Gap 17.0 H BUN 77 H Creatinine 1.8 H Total Bilirubin 1.3 H Direct Bilirubin 0.4 H GGT 70 H Lactate Dehydrogenase 574 H Total Protein 5.6 L Globulin 2.0 L 08/16/19 08/16/19 08/16/19 04:28 04:28 04:28 RBC 3.39 L Hgb 10.8 L Hct 35.6 L MCV 105.0 H MCHC 30.3 L RDW 23.1 H Plt Count 57 L Lymphocytes % 6 L Metamyelocytes % 1 H Nucleated RBCs 2 H WBC Morphology Abnorm A Blast Cells 10 H Toxic Granulation 1+ A Platelet Estimate Decreased A RBC Morphology Abnorm A Polychromasia 1+ A Anisocytosis 2+ A Macrocytosis 1+ A Tear Drop Cells Ovalocytes PT 22.0 H INR 1.9 H Potassium Carbon Dioxide Anion Gap BUN 90 H Creatinine 1.9 H Total Bilirubin 1.2 H Direct Bilirubin 0.4 H GGT 73 H Lactate Dehydrogenase 469 H Total Protein 5.7 L Globulin 2.0 L 08/15/19 08/15/19 08/15/19 04:18 04:18 04:18 RBC 3.45 L Hgb 11.0 L Hct 36.1 L MCV 104.6 H MCHC 30.5 L RDW 23.1 H Plt Count 61 L Lymphocytes % 10 L Metamyelocytes % Nucleated RBCs 2 H WBC Morphology Blast Cells 10 H Toxic Granulation Platelet Estimate Decreased A RBC Morphology Abnorm A Polychromasia Anisocytosis 3+ A Macrocytosis 2+ A Tear Drop Cells Ovalocytes PT 22.1 H INR 1.9 H Potassium Carbon Dioxide 21 L Anion Gap BUN 91 H Creatinine 2.2 H Total Bilirubin 1.6 H Direct Bilirubin 0.5 H GGT 69 H Lactate Dehydrogenase 487 H Total Protein 5.4 L Globulin 2.0 L Meds: Medications Acetaminophen (Tylenol) 650 mg PO Q4-6HP PRN; Protocol PRN Reason: Per Pain Protocol/Fever > 101 Allopurinol (Zyloprim) 400 mg PO QDAY [facility]AI Aspirin (Aspirin) 81 mg PO QDAY [facility]AI Bisacodyl (Dulcolax) 10 mg OR Q2-3DAYS PRN PRN Reason: Constipation Budesonide (Pulmicort) 1 puff INH BID [facility] Last Admin: 08/16/19 21:15 Dose: 1 puff Documented by: Calcitriol (Rocaltrol) 0.25 mcg PO MoWeFr@0900 [facility] Carvedilol (Coreg) 3.125 mg PO BIDCC [facility] Docusate Sodium (Colace) 100 mg PO BID [facility] Last Admin: 08/16/19 21:10 Dose: 100 mg Documented by: Acetaminophen (Ofirmev) 650 mg in 65 mls @ 130 mls/hr IV Q6HP PRN; Protocol PRN Reason: Per Pain Protocol/Fever > 101 Iron Carb/Multivit/Coach Builder/Folic Acid (Multivitamin W/Minerals) 1 tab PO DAILY [facility] Levothyroxine Sodium (Synthroid) 125 mcg PO QAMAC [facility] Last Admin: 08/17/19 07:40 Dose: 125 mcg Documented by: Melatonin (Melatonin 3mg Tablet) 3 mg PO HSP PRN PRN Reason: Insomnia Montelukast Sodium (Singular) 10 mg PO QHS [facility] Last Admin: 08/16/19 21:10 Dose: 10 mg Documented by: Ondansetron HCl (Zofran Odt) 4 mg SL Q4-6HP PRN; Protocol PRN Reason: Nausea And Vomiting Ondansetron HCl (Zofran) 4 mg IV Q4-6HP PRN; Protocol PRN Reason: Nausea And Vomiting Polyethylene Glycol (Miralax) 17 gm PO DAILYP PRN PRN Reason: Constipation Senna/Docusate Sodium (Senna Plus Tablet) 1 tab PO HS [facility] Last Admin: 08/16/19 21:11 Dose: 1 tab Documented by: Sodium Chloride (Saline Flush) 10 ml IV Q8 [facility] Last Admin: 08/17/19 04:47 Dose: 10 ml Documented by: Torsemide (Demadex) 10 mg PO DAILY [facility] Warfarin Sodium (Coumadin Per Pharmacy) 1 order PO UD [facility] Medical - PN: A/P - Time Spent With Patient Total time spent is greater than 50% in coordination of care (as documented) at patient's floor/unit and/or counseling patient: 25 - 35 minutes (1) Cardiogenic shock Status: Acute Assessment and plan: * Cardiogenic shock, underlying 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 Off vasopressors. Further management of antihypertensives as per nephrology * Chronic kidney disease stage IV managed by nephrology. Creatinine 1.8 * Atrial fibrillation currently rate controlled. Nephrology recommends metoprolol. Dosing as per nephrology * Anticoagulation for CVA prophylaxis on Coumadin. INR subtherapeutic at 1.7. Continue daily dosing * History of myeloproliferative disorder-Case discussed with [facility] oncology. Per Dr. Suarez the blast noted on peripheral blood is possibly secondary to stress. Oncology would like patient to follow-up at the clinic in 1 week. * Reactive airway disease stable on budesonide * History of gout continue allopurinol * Hypothyroidism continue home dose thyroxine * Prophylaxis on anticoagulation Plan * Pre-existing medical condition management home meds except for antihypertensives * PT OT/nutrition support * Discharge once able to tolerate beta-aaron and once cleared by nephrology * Follow-up with Dr. Suarez for management of myeloproliferative disorder Current Visit: Yes Medical - PN: Qual - VTE Deep Vein Thrombosis/Pulmonary Embolism Present on Admission: No
[2019-08-17] MEDS ORDERED: CALCITRIOL 0.25 MCG CAPSULE PO SCH (09:00)
[2019-08-17] MEDS: METOPROLOL TARTRATE 25 MG TABLET PO SCH ×2 (09:13→20:14)
[2019-08-17] MEDS ORDERED: WARFARIN 7.5 MG TABLET PO ONE (10:00)
[2019-08-17] MEDS: CARVEDILOL 3.125 MG TABLET PO SCH (10:17)
--- NOTE | 2019-08-17 13:00 | Internal Med Progress Note ---
Medical - PN: Subj Patient information: Note initiated : 08/17/19 at 12:49 pm Service Date, if different from initiated Date: [] Patient: Dank Garner 84 y/o M admitted on 08/13/19 for low blood pressure. Chief Complaint: [] Interval history: Ms. Garner is a 83-year-old gentleman with complex primary history including cardiomyopathy with EF 25%, CKD stage IV/myeloproliferative disorder who was referred to the ER after he was found during his office visit blood pressures in low 60s. Patient was actively symptomatic including dizziness/lightheadedness. Patient symptoms have evolved over the last week with increasing effort intolerance/decrease level of functionality due to lack of energy/lack of appetite and persistent lightheadedness. He then drove to the ER initial work-up was consistent with cardiogenic shock. Troponins were negative. CHF on chest imaging. Patient was promptly started on vasopressors along with crystalloid challenge. Subsequently hospital service was consulted. At the time evaluation patient is feeling a little better. His systolics now are mid 80s on 5 mics of dopamine. I discussed the case with Dr. Ibrahim. ER physician discussed case with patient's television newscast director Dr. Brice who recommended continuing pressors including norepinephrine to maintain map at goal and monito ring for 24 hours until patient symptomatically improved. Patient was able to endorse history as above. Denies fever, cough, chest pain, rash, diarrhea. He was seen at nephrology clinic today with details as below Details from nephrology office visit 08/12 a.m. Dank Garner is a 84 y/o pleasant white male with PMH of CAD, CHF, CKD, myeloproliferative disorder and other multiple medical issues who is here for follow up He has h/o CKD stage IV with no proteinuria in the setting of poor cardiac function and h/o nephrolithiasis He has h/o Acute worsening of renal function from bladder outlet obstruction and his renal function improved since he has had prostate surgery, he has a complex cyst in his left kidney and follows with urology at [facility] Patient called me today telling me he is been feeling poorly. This includes low blood pressure, increased energy and increased peripheral edema. This is temporally related to starting the patient on Sacubitrelvalsartan 24-26 mg at bedtime He has secondary hyperparathyroidism associated with his CKD on calcitiriol presently, the patient has developed a cough shortness of breath and was treate d with a mixture of antibiotics and a doubling of his furosemide to 40 mg twice daily. He also received a course of doxycycline and nitrofurantoin. Today his clinical exam is certainly consistent with decompensated congestive heart failure as is his chest x-ray with perihilar fullness and fluffiness. He is feeling lousy but his breathing is improved, I suspect the antibiotics are bothering his stomach and today was the last day so they were discontinued. Based on his pulmonary exam, and the presence of edema I would continue him on furosemide 40 mg twice a day. He continues with rate controlled atrial fibrillation and is anticoagulated with warfarin. He has had no flares of gout lately. Continues to use his CPAP. I believe he sees Dr. Malave for a myelodysplasic disorder treated with ruxolitimib. He is also scheduled to see Dr. Rodriguez and it would be helpful if we could get a copy of his last echocardiogram. EF 25% with some MR, no /AI 08/13-patient currently on vasopressors to keep map at goal. Await nephrology recommendations for initiation of prior home medication. Weaning pressors gradually. No overnight events. White count 13.8. Underlying myelodysplastic disorder with blasts and nucleated RBCs. Consult oncology 08/14-patient now off pressors and on fluid challenge as per nephrology. Systolics improved to mid 90s. White count down to 7.7 from 13.8. However blast cells at 10% with reactive lymphocytes and nucleated RBCs. Case discussed with [facility] and informed of findings. Oncology will review labs and will call back for instructions if necessary otherwise they will schedule outpatient follow-up in a few days. Creatinine 2.2, bilirubin down to 1.6 08/15-patient doing about the better. Off Levophed. Systolics mid 90s to 100. Asymptomatic. Case discussed with Dr. Suarez oncologist. Reviewed labs and advised that patient will need to follow-up with her clinic as outpatient in 1 week. Information relayed to patient to call oncology office on discharge for an appointment. White count normalized at 6000. INR 1.9, creatinine 1.9, sodium 134, bilirubin normalized. Restart Coreg at half dose in light advanced heart failure. However further dose titration will need performed by nephrology/PCP as outpatient. Transfer to medical floor. 08/16 patient continues to drop blood pressures. Nephrology recommends continuing Coreg attempt a trial of metoprolol. Further dosing and management of antihypertensives will be as per nephrology. Continue close monitoring of hemodynamics. Creatinine down to 1.8. Tachycardic at 100 systolics mid 90s. INR 1.7. 08/17 - Constitutional Vitals: Vital Signs Temp Pulse Resp BP Pulse Ox 97.7 F 100 H 18 107/68 96 08/17/19 06:58 08/17/19 08:00 08/17/19 08:00 08/17/19 06:58 08/17/19 08:00 Period Temp Pulse Resp BP Sys/Ordoñez Pulse Ox Last 24 Hr 97 F-98.6 F 81-111 - 92-107/62-68 96-97 Intake and Output 08/16/19 08/17/19 08/17/19 21:59 05:59 13:59 Intake Total 360 100 Balance 360 100 Weight 91.716 kg Intake & Output: Intake & Output 08/16/19 08/17/19 08/17/19 21:59 05:59 13:59 Intake Total 360 100 Balance 360 100 Weight 91.716 kg Intake: Oral 360 100 Other: Meal Dinner Percent of Meal Consumed 100% Urine Appearance Clear Urine Color Bright Yellow Bright Yellow Urine Odor Normal Normal Stool Size Small Moderate Stool Color Brown Brown Stool Consistency Normal for Patient # Voids 1 1 1 # Bowel Movements 1 Exam: General: Alert, Awake, No acute Distress Eyes/N/T: EOMI, Head/Neck: neck supple, c CV: irreg, No murmurs, Pulm: Clear b/l, no wheezing/rhonchi/rales Abd: soft, nontender, +BS x4 Ext: no clubbing/cyanosis, edema Neuro: Alert, no focal deficits, moves all extremities, Skin: warm/dry Medical - PN: Obj Da - Labs CBC & Chem 7: 08/17/19 04:52 08/17/19 04:52 Labs: Abnormal Lab Results 08/17/19 08/17/19 08/17/19 04:52 04:52 04:52 RBC 3.41 L Hgb 11.1 L Hct 36.8 L MCV 107.9 H MCHC 30.2 L RDW 23.3 H Plt Count 52 L Lymphocytes % Metamyelocytes % 1 H Nucleated RBCs WBC Morphology Blast Cells 2 H Toxic Granulation Platelet Estimate Decreased A RBC Morphology Abnorm A Polychromasia 1+ A Anisocytosis 3+ A Macrocytosis 2+ A Tear Drop Cells Few A Ovalocytes 1+ A PT 20.8 H INR 1.7 H Potassium 5.3 H Carbon Dioxide 17 L Anion Gap 17.0 H BUN 77 H Creatinine 1.8 H Total Bilirubin 1.3 H Direct Bilirubin 0.4 H GGT 70 H Lactate Dehydrogenase 574 H Total Protein 5.6 L Globulin 2.0 L 08/16/19 08/16/19 08/16/19 04:28 04:28 04:28 RBC 3.39 L Hgb 10.8 L Hct 35.6 L MCV 105.0 H MCHC 30.3 L RDW 23.1 H Plt Count 57 L Lymphocytes % 6 L Metamyelocytes % 1 H Nucleated RBCs 2 H WBC Morphology Abnorm A Blast Cells 10 H Toxic Granulation 1+ A Platelet Estimate Decreased A RBC Morphology Abnorm A Polychromasia 1+ A Anisocytosis 2+ A Macrocytosis 1+ A Tear Drop Cells Ovalocytes PT 22.0 H INR 1.9 H Potassium Carbon Dioxide Anion Gap BUN 90 H Creatinine 1.9 H Total Bilirubin 1.2 H Direct Bilirubin 0.4 H GGT 73 H Lactate Dehydrogenase 469 H Total Protein 5.7 L Globulin 2.0 L 08/15/19 08/15/19 08/15/19 04:18 04:18 04:18 RBC 3.45 L Hgb 11.0 L Hct 36.1 L MCV 104.6 H MCHC 30.5 L RDW 23.1 H Plt Count 61 L Lymphocytes % 10 L Metamyelocytes % Nucleated RBCs 2 H WBC Morphology Blast Cells 10 H Toxic Granulation Platelet Estimate Decreased A RBC Morphology Abnorm A Polychromasia Anisocytosis 3+ A Macrocytosis 2+ A Tear Drop Cells Ovalocytes PT 22.1 H INR 1.9 H Potassium Carbon Dioxide 21 L Anion Gap BUN 91 H Creatinine 2.2 H Total Bilirubin 1.6 H Direct Bilirubin 0.5 H GGT 69 H Lactate Dehydrogenase 487 H Total Protein 5.4 L Globulin 2.0 L Meds: Medications Acetaminophen (Tylenol) 650 mg PO Q4-6HP PRN; Protocol PRN Reason: Per Pain Protocol/Fever > 101 Allopurinol (Zyloprim) 400 mg PO QDAY [facility] Last Admin: 08/17/19 08:57 Dose: 400 mg Documented by: Aspirin (Aspirin) 81 mg PO QDAY [facility] Last Admin: 08/17/19 08:57 Dose: 81 mg Documented by: Bisacodyl (Dulcolax) 10 mg SC Q2-3DAYS PRN PRN Reason: Constipation Budesonide (Pulmicort) 1 puff INH BID [facility] Last Admin: 08/17/19 08:59 Dose: 1 puff Documented by: Calcitriol (Rocaltrol) 0.25 mcg PO MoWeFr@0900 [facility] Last Admin: 08/17/19 08:57 Dose: 0.25 mcg Documented by: Docusate Sodium (Colace) 100 mg PO BID [facility] Last Admin: 08/17/19 08:59 Dose: Not Given Documented by: Acetaminophen (Ofirmev) 650 mg in 65 mls @ 130 mls/hr IV Q6HP PRN; Protocol PRN Reason: Per Pain Protocol/Fever > 101 Iron Carb/Multivit/Butts/Folic Acid (Multivitamin W/Minerals) 1 tab PO DAILY [facility] Last Admin: 08/17/19 08:57 Dose: 1 tab Documented by: Levothyroxine Sodium (Synthroid) 125 mcg PO QAMAC [facility] Last Admin: 08/17/19 07:40 Dose: 125 mcg Documented by: Melatonin (Melatonin 3mg Tablet) 3 mg PO HSP PRN PRN Reason: Insomnia Metoprolol Tartrate (Lopressor) 12.5 mg PO BID [facility] Last Admin: 08/17/19 09:13 Dose: 12.5 mg Documented by: Montelukast Sodium (Singular) 10 mg PO QHS [facility] Last Admin: 08/16/19 21:10 Dose: 10 mg Documented by: Ondansetron HCl (Zofran Odt) 4 mg SL Q4-6HP PRN; Protocol PRN Reason: Nausea And Vomiting Ondansetron HCl (Zofran) 4 mg IV Q4-6HP PRN; Protocol PRN Reason: Nausea And Vomiting Polyethylene Glycol (Miralax) 17 gm PO DAILYP PRN PRN Reason: Constipation Senna/Docusate Sodium (Senna Plus Tablet) 1 tab PO HS [facility] Last Admin: 08/16/19 21:11 Dose: 1 tab Documented by: Sodium Chloride (Saline Flush) 10 ml IV Q8 [facility] Last Admin: 08/17/19 04:47 Dose: 10 ml Documented by: Torsemide (Demadex) 10 mg PO DAILY [facility] Last Admin: 08/17/19 08:57 Dose: 10 mg Documented by: Warfarin Sodium (Coumadin Per Pharmacy) 1 order PO UD [facility] Medical - PN: A/P - Time Spent With Patient Total time spent is greater than 50% in coordination of care (as documented) at patient's floor/unit and/or counseling patient: - Narrative A/P Narrative: A: *Cardiogenic shock, underlying NYHA class IV systolic heart failure with EF 25%, gradual improvement noted: -Off vasopressors. Further management of antihypertensives as per nephrology *CKD IV: *AFib: rate controlled. Nephrology recommends metoprolol. Dosing as per nephrology *h/o Myeloproliferative d/o: Case discussed with [facility]. Per Dr. Suarez the blast noted on peripheral blood is possibly secondary to stress. -Oncology would like patient to follow-up at the clinic in 1 week. *Reactive airway disease: stable on budesonide *h/o gout: on allopurinol *Hypothyroidism: on thyroxine Plan: - -Discharge once able to tolerate beta-aaron and once cleared by nephrology. Entresto. -diuretics per nephrology -PT OT/nutrition support -Follow-up with Dr. Suarez for management of myeloproliferative disorder -f/u with cardiology outpt -?SNF d/c -ppx: warfarin per pharm Medical - PN: Qual - VTE Deep Vein Thrombosis/Pulmonary Embolism Present on Admission: No
[2019-08-17] MEDS: MONTELUKAST 10 MG TABLET PO SCH (20:14)
[2019-08-17] MEDS: SENNOSIDES/DOCUSATE SODIUM 1 TAB TABLET PO SCH (20:14)
[2019-08-18] MEDS: 0.9 % SODIUM CHLORIDE 10 ML SYRINGE IV SCH (06:09)
[2019-08-18 06:36] LABS: Basophils # (Auto) 0.04 K/mcL (0.00-0.30); Basophils % (Auto) 0.7 % (0.0-2.0); Eosinophils # (Auto) 0.01 K/mcL (0.00-0.70); Eosinophils % (Auto) 0.2 % (0.0-7.0); Granulocytes % (Auto) 73.7 % (38.0-78.0); Hematocrit 34.1 % (40.1-51.0); Hemoglobin 10.4 g/dL (13.7-17.5); Lymphocytes # (Auto) 0.73 K/mcL (1.50-4.80); Lymphocytes % (Auto) 13.6 % (15.5-49.0); Mean Cell Volume 105.2 fL (80.0-100.0); Mean Corpuscular HGB Conc 30.5 g/dL (31.0-36.0); Monocytes # (Auto) 0.63 K/mcL (0.10-0.90); Monocytes % (Auto) 11.8 % (1.0-12.0); Platelet Count 50 K/mcL (140-440); RBC 3.24 M/mcL (4.63-6.08); Red Cell Distribution Width 23.1 % (11.5-14.5); WBC 5.4 K/mcL (4.50-11.00)
[2019-08-18 06:55] LABS: INR 1.7 (0.9-1.1); Prothrombin Time 20.1 sec (11.9-14.5)
[2019-08-18 06:59] LABS: ALT/SGPT 15 U/l (0-40); AST/SGOT 24 U/l (0-37); Albumin 3.4 gm/dL (3.2-5.2); Albumin/Globulin Ratio 1.7 (1.0-2.3); Alkaline Phosphatase 85 U/L (39-117); Bilirubin,Total 1.4 mg/dL (0.0-1.0); Blood Urea Nitrogen 77 mg/dl (8-23); Calcium 9.3 mg/dl (8.6-10.4); Carbon Dioxide 20 mmol/L (22-30); Chloride 101 mmol/L (96-108); Glomerular Filtration Rate 36; Glucose 86 mg/dL (70-105); Lactate Dehydrogenase 419 U/L (94-250); Phosphorous 2.9 mg/dL (2.7-4.5); Triglycerides 116 mg/dl (<150)
[2019-08-18 07:01] LABS: Bilirubin,Direct 0.5 mg/dL (0.0-0.3)
--- NOTE | 2019-08-18 07:20 | Internal Med Progress Note ---
Medical - PN: Subj Patient information: Note initiated : 08/18/19 at 7:17 am Service Date, if different from initiated Date: [] Patient: Dank Garner 84 y/o M admitted on 08/13/19 for low blood pressure. Chief Complaint: [] Interval history: Ms. Garner is a 83-year-old gentleman with complex primary history including cardiomyopathy with EF 25%, CKD stage IV/myeloproliferative disorder who was referred to the ER after he was found during his office visit blood pressures in low 60s. Patient was actively symptomatic including dizziness/lightheadedness. Patient symptoms have evolved over the last week with increasing effort intolerance/decrease level of functionality due to lack of energy/lack of appetite and persistent lightheadedness. He then drove to the ER initial work-up was consistent with cardiogenic shock. Troponins were negative. CHF on chest imaging. Patient was promptly started on vasopressors along with crystalloid challenge. Subsequently hospital service was consulted. At the time evaluation patient is feeling a little better. His systolics now are mid 80s on 5 mics of dopamine. I discussed the case with Dr. Ibrahim. ER physician discussed case with patient's laborer wharf Dr. Brice who recommended continuing pressors including norepinephrine to maintain map at goal and monitor ing for 24 hours until patient symptomatically improved. Patient was able to endorse history as above. Denies fever, cough, chest pain, rash, diarrhea. He was seen at nephrology clinic today with details as below Details from nephrology office visit 08/12 a.m. Dank Garner is a 84 y/o pleasant white male with PMH of CAD, CHF, CKD, myeloproliferative disorder and other multiple medical issues who is here for follow up He has h/o CKD stage IV with no proteinuria in the setting of poor cardiac function and h/o nephrolithiasis He has h/o Acute worsening of renal function from bladder outlet obstruction and his renal function improved since he has had prostate surgery, he has a complex cyst in his left kidney and follows with urology at [facility] Patient called me today telling me he is been feeling poorly. This includes low blood pressure, increased energy and increased peripheral edema. This is temporally related to starting the patient on Sacubitrelvalsartan 24-26 mg at bedtime He has secondary hyperparathyroidism associated with his CKD on calcitiriol presently, the patient has developed a cough shortness of breath and was treated with a mixture of antibiotics and a doubling of his furosemide to 40 mg twice daily. He also received a course of doxycycline and nitrofurantoin. Today his clinical exam is certainly consistent with decompensated congestive heart failure as is his chest x-ray with perihilar fullness and fluffiness. He is feeling lousy but his breathing is improved, I suspect the antibiotics are bothering his stomach and today was the last day so they were discontinued. Based on his pulmonary exam, and the presence of edema I would continue him on furosemide 40 mg twice a day. He continues with rate controlled atrial fibrillation and is anticoagulated with warfarin. He has had no flares of gout lately. Continues to use his CPAP. I believe he sees Dr. Malave for a myelodysplasic disorder treated with ruxolitimib. He is also scheduled to see Dr. Rodriguez and it would be helpful if we could get a copy of his last echocardiogram. EF 25% with some MR, no /AI 08/13-patient currently on vasopressors to keep map at goal. Await nephrology recommendations for initiation of prior home medication. Weaning pressors gradually. No overnight events. White count 13.8. Underlying myelodysplastic disorder with blasts and nucleated RBCs. Consult oncology 08/14-patient now off pressors and on fluid challenge as per nephrology. Systolics improved to mid 90s. White count down to 7.7 from 13.8. However blast cells at 10% with reactive lymphocytes and nucleated RBCs. Case discussed with [place] [facility] and informed of findings. Oncology will review labs and will call back for instructions if necessary otherwise they will schedule outpatient follow-up in a few days. Creatinine 2.2, bilirubin down to 1.6 08/15-patient doing about the better. Off Levophed. Systolics mid 90s to 100. Asymptomatic. Case discussed with Dr. Suarez oncologist. Reviewed labs and a dvised that patient will need to follow-up with her clinic as outpatient in 1 week. Information relayed to patient to call oncology office on discharge for an appointment. White count normalized at 6000. INR 1.9, creatinine 1.9, sodium 134, bilirubin normalized. Restart Coreg at half dose in light advanced heart failure. However further dose titration will need performed by nephrology/PCP as outpatient. Transfer to medical floor. 5/22 patient continues to drop blood pressures. Nephrology recommends continuing Coreg attempt a trial of metoprolol. Further dosing and management of antihypertensives will be as per nephrology. Continue close monitoring of hemodynamics. Creatinine down to 1.8. Tachycardic at 100 systolics mid 90s. INR 1.7. 08/17 Slept well. Much better than previously. No overnight events or new complaints. Blood pressure low normal. Review of Systems: denies headache/fever/chills/nausea/vomiting/chest or abdominal pain/cough/dyspnea/diarrhea. Otherwise see above. - Constitutional Vitals: Vital Signs Temp Pulse Resp BP Pulse Ox 97.7 F 105 H 16 103/69 96 08/18/19 03:25 08/18/19 03:25 08/18/19 03:25 08/18/19 03:25 08/18/19 03:25 Period Temp Pulse Resp BP Sys/Ordoñez Pulse Ox Last 24 Hr 97.1 F-98.1 F 88-105 16-20 96-103/61-69 96-99 Intake and Output 08/17/19 08/18/19 08/18/19 21:59 05:59 13:59 Intake Total 240 150 Output Total 400 650 Balance -160 -500 Weight 93.213 kg Intake & Output: Intake & Output 08/17/19 08/18/19 08/18/19 21:59 05:59 13:59 Intake Total 240 150 Output Total 400 650 Balance -160 -500 Weight 93.213 kg Intake: Oral 240 150 Output: Void Amount 400 650 Other: Meal Dinner Percent of Meal Consumed 100% Feeding Ability Independent Urine Appearance Clear Clear Urine Color Bright Yellow Bright Yellow Urine Odor Normal Normal Stool Size Small Stool Color Brown Stool Consistency Soft Exam: General: Alert, Awake, No acute Distress Eyes/N/T: EOMI, Head/Neck: neck supple, CV: irreg, No murmurs, Pulm: mild fine bibasilar rales, no wheezing Abd: soft, nontender, +BS x4 Ext: no clubbing/cyanosis, edema resolved Neuro: Alert, no focal deficits, moves all extremities, Skin: warm/dry Medical - PN: Obj Da - Labs CBC & Chem 7: 08/18/19 05:30 08/18/19 05:30 Labs: Abnormal Lab Results 08/18/19 08/18/19 08/18/19 05:30 05:30 05:30 RBC 3.24 L Hgb 10.4 L Hct 34.1 L MCV 105.2 H MCHC 30.5 L RDW 23.1 H Plt Count 50 L* Lymph % (Auto) 13.6 L Lymph # (Auto) 0.73 L Lymphocytes % Metamyelocytes % Nucleated RBCs WBC Morphology Blast Cells Toxic Granulation Platelet Estimate RBC Morphology Polychromasia Anisocytosis Macrocytosis Tear Drop Cells Ovalocytes PT 20.1 H INR 1.7 H Potassium Carbon Dioxide 20 L Anion Gap BUN 77 H Creatinine 1.7 H Total Bilirubin 1.4 H Direct Bilirubin 0.5 H GGT 64 H Lactate Dehydrogenase 419 H Total Protein 5.4 L Globulin 2.0 L 08/17/19 08/17/19 08/17/19 04:52 04:52 04:52 RBC 3.41 L Hgb 11.1 L Hct 36.8 L MCV 107.9 H MCHC 30.2 L RDW 23.3 H Plt Count 52 L Lymph % (Auto) Lymph # (Auto) Lymphocytes % Metamyelocytes % 1 H Nucleated RBCs WBC Morphology Blast Cells 2 H Toxic Granulation Platelet Estimate Decreased A RBC Morphology Abnorm A Polychromasia 1+ A Anisocytosis 3+ A Macrocytosis 2+ A Tear Drop Cells Few A Ovalocytes 1+ A PT 20.8 H INR 1.7 H Potassium 5.3 H Carbon Dioxide 17 L Anion Gap 17.0 H BUN 77 H Creatinine 1.8 H Total Bilirubin 1.3 H Direct Bilirubin 0.4 H GGT 70 H Lactate Dehydrogenase 574 H Total Protein 5.6 L Globulin 2.0 L 08/16/19 08/16/19 08/16/19 04:28 04:28 04:28 RBC 3.39 L Hgb 10.8 L Hct 35.6 L MCV 105.0 H MCHC 30.3 L RDW 23.1 H Plt Count 57 L Lymph % (Auto) Lymph # (Auto) Lymphocytes % 6 L Metamyelocytes % 1 H Nucleated RBCs 2 H WBC Morphology Abnorm A Blast Cells 10 H Toxic Granulation 1+ A Platelet Estimate Decreased A RBC Morphology Abnorm A Polychromasia 1+ A Anisocytosis 2+ A Macrocytosis 1+ A Tear Drop Cells Ovalocytes PT 22.0 H INR 1.9 H Potassium Carbon Dioxide Anion Gap BUN 90 H Creatinine 1.9 H Total Bilirubin 1.2 H Direct Bilirubin 0.4 H GGT 73 H Lactate Dehydrogenase 469 H Total Protein 5.7 L Globulin 2.0 L 08/15/19 04:18 RBC 3.45 L Hgb 11.0 L Hct 36.1 L MCV 104.6 H MCHC 30.5 L RDW 23.1 H Plt Count 61 L Lymph % (Auto) Lymph # (Auto) Lymphocytes % 10 L Metamyelocytes % Nucleated RBCs 2 H WBC Morphology Blast Cells 10 H Toxic Granulation Platelet Estimate Decreased A RBC Morphology Abnorm A Polychromasia Anisocytosis 3+ A Macrocytosis 2+ A Tear Drop Cells Ovalocytes PT INR Potassium Carbon Dioxide Anion Gap BUN Creatinine Total Bilirubin Direct Bilirubin GGT Lactate Dehydrogenase Total Protein Globulin Meds: Medications Acetaminophen (Tylenol) 650 mg PO Q4-6HP PRN; Protocol PRN Reason: Per Pain Protocol/Fever > 101 Allopurinol (Zyloprim) 400 mg PO QDAY [facility] Last Admin: 08/17/19 08:57 Dose: 400 mg Documented by: Aspirin (Aspirin) 81 mg PO QDAY [facility] Last Admin: 08/17/19 08:57 Dose: 81 mg Documented by: Bisacodyl (Dulcolax) 10 mg [place] Q2-3DAYS PRN PRN Reason: Constipation Budesonide (Pulmicort) 1 puff INH BID [facility] Last Admin: 08/17/19 20:22 Dose: 1 puff Documented by: Calcitriol (Rocaltrol) 0.25 mcg PO MoWeFr@0900 [facility] Last Admin: 08/17/19 08:57 Dose: 0.25 mcg Documented by: Docusate Sodium (Colace) 100 mg PO BID [facility] Last Admin: 08/17/19 20:14 Dose: 100 mg Documented by: Acetaminophen (Ofirmev) 650 mg in 65 mls @ 130 mls/hr IV Q6HP PRN; Protocol PRN Reason: Per Pain Protocol/Fever > 101 Iron Carb/Multivit/Epic Willow Specialist/Folic Acid (Multivitamin W/Minerals) 1 tab PO DAILY [facility] Last Admin: 08/17/19 08:57 Dose: 1 tab Documented by: Levothyroxine Sodium (Synthroid) 125 mcg PO QAMAC [facility] Last Admin: 08/17/19 07:40 Dose: 125 mcg Documented by: Melatonin (Melatonin 3mg Tablet) 3 mg PO HSP PRN PRN Reason: Insomnia Metoprolol Tartrate (Lopressor) 12.5 mg PO BID [facility] Last Admin: 08/17/19 20:14 Dose: Not Given Documented by: Montelukast Sodium (Singular) 10 mg PO QHS [facility] Last Admin: 08/17/19 20:14 Dose: 10 mg Documented by: Ondansetron HCl (Zofran Odt) 4 mg SL Q4-6HP PRN; Protocol PRN Reason: Nausea And Vomiting Ondansetron HCl (Zofran) 4 mg IV Q4-6HP PRN; Protocol PRN Reason: Nausea And Vomiting Polyethylene Glycol (Miralax) 17 gm PO DAILYP PRN PRN Reason: Constipation Senna/Docusate Sodium (Senna Plus Tablet) 1 tab PO HS [facility] Last Admin: 08/17/19 20:14 Dose: 1 tab Documented by: Sodium Chloride (Saline Flush) 10 ml IV Q8 [facility] Last Admin: 08/18/19 06:09 Dose: Not Given Documented by: Torsemide (Demadex) 10 mg PO DAILY [facility] Last Admin: 08/17/19 08:57 Dose: 10 mg Documented by: Warfarin Sodium (Coumadin Per Pharmacy) 1 order PO UD [facility] Medical - PN: A/P - Time Spent With Patient Total time spent is greater than 50% in coordination of care (as documented) at patient's floor/unit and/or counseling patient: - Narrative A/P Narrative: A: *?Cardiogenic shock vs iatrogenic with underlying CMP, underlying NYHA class IV systolic heart failure with EF 25-30%, gradual improvement noted: -Off vasopressors. Further management of antihypertensives as per nephrology *CKD IV: *AFib: rate controlled. Nephrology recommends metoprolol. Dosing as per nephrology *h/o Myeloproliferative d/o with anemia/thrombocytopenia: Case discussed with [place] oncology. Per Dr. Suarez the blast noted on peripheral blood is possibly secondary to stress. -Oncology would like patient to follow-up at the clinic in 1 week. *Reactive airway disease: stable on budesonide *h/o gout: on allopurinol *Hypothyroidism: on thyroxine Plan: - -Discharge once able to tolerate beta-aaron and once cleared by nephrology. Entresto started outpt -diuretics per nephrology -PT OT/nutrition support -Follow-up with Dr. Suarez for management of myeloproliferative disorder -f/u with cardiology outpt -?SNF d/c -ppx: warfarin per pharm Medical - PN: Qual - VTE Deep Vein Thrombosis/Pulmonary Embolism Present on Admission: No
[2019-08-18] MEDS: LEVOTHYROXINE 125 MCG TABLET PO SCH (07:36)
--- NOTE | 2019-08-18 07:58 | Nephrology Progress Note ---
Subjective Patient information: Note initiated : 08/18/19 at 7:57 am Service Date, if different from initiated Date: [] Patient: Dank Garner 84 y/o M admitted on 08/13/19 for low blood pressure. Chief Complaint: [] Principal diagnosis: hypotension Interval history: Blood pressure remains low normal. Remains on room air Physical exam vital signs reviewed HEENT head is normocephalic, atraumatic, nonicteric sclera On room air, nonlabored respirations, symmetric chest expansion's Extremities trace bilateral lower extremity edema. Abdomen distended, unchanged according to the patient. Objective - Vital Signs Vital signs: Vital Signs Temp Pulse Resp BP BP Pulse Ox 08/18/19 07:32 36.5 C 105 H 18 95/65 96 08/18/19 03:25 36.5 C 105 H 16 103/69 96 08/17/19 23:06 36.5 C 88 18 100/67 96 08/17/19 19:07 36.7 C 104 H 20 98/62 99 08/17/19 16:00 36.2 C 88 18 96/61 98 08/17/19 12:45 90 103/64 08/17/19 08:00 100 H 18 96 Intake and Output 08/17/19 08/18/19 08/18/19 21:59 05:59 13:59 Intake Total 240 150 Output Total 400 650 250 Balance -160 -500 -250 Intake: Oral 240 150 Output: Void Amount 400 650 250 Other: Meal Dinner Percent of Meal Consumed 100% Feeding Ability Independent Urine Appearance Clear Clear Urine Color Bright Yellow Bright Yellow Dark Yellow Urine Odor Normal Normal Normal Stool Size Small Stool Color Brown Stool Consistency Soft Weight 93.213 kg Intake & Output: Intake & Output 08/17/19 08/18/19 08/18/19 21:59 05:59 13:59 Intake Total 240 150 Output Total 400 650 250 Balance -160 -500 -250 Weight 93.213 kg Intake: Oral 240 150 Output: Void Amount 400 650 250 Other: Meal Dinner Percent of Meal Consumed 100% Feeding Ability Independent Urine Appearance Clear Clear Urine Color Bright Yellow Bright Yellow Dark Yellow Urine Odor Normal Normal Normal Stool Size Small Stool Color Brown Stool Consistency Soft - Lab 08/18/19 05:30 08/18/19 05:30 Most recent lab results Calcium 9.3 mg/dl (8.6-10.4) 08/18/19 05:30 Phosphorus 2.9 mg/dL (2.7-4.5) 08/18/19 05:30 Magnesium 2.3 mg/dL (1.6-2.5) 08/18/19 05:30 Assessment and Plan - Narrative A/P Narrative: CKD stage III/IV. His baseline creatinine is fluctuating between 1.7-2.2 with an EGFR of 27- 36. Renal function remained stable I's and O's 630 cc / 1.4 L, negative fluid balance. Weight is 91.1 kg. I think that this is his true dry weight. Continue metoprolol 12.5 mg p.o. twice daily, if well tolerated change to succinate 25 mg p.o. daily. Continue torsemide 10 mg p.o. daily, goal urine sodium 3 hours post torsemide is 60-80. Daily weights, for weight gain of 3 or more pounds per 24 hours increase the torsemide to 20 mg until back to try dry weight. *Consider abdominal ultrasound *Follow-up with Dr. Almodovar 5 to 7 days post discharge
[2019-08-18] MEDS: ALLOPURINOL 100 MG TABLET PO SCH (09:10)
[2019-08-18] MEDS: DOCUSATE SODIUM 100 MG CAPSULE PO SCH (09:10)
[2019-08-18] MEDS: ASPIRIN 81 MG TAB.CHEW PO SCH (09:10)
[2019-08-18] MEDS: MULTIVIT,THER IRON,CA,FA & MIN 1 TABLET PO SCH (09:11)
[2019-08-18] MEDS: TORSEMIDE 10 MG TABLET PO SCH (09:11)
[2019-08-18] MEDS: BUDESONIDE 1 PUFF INHALER INH SCH (09:14)
--- NOTE | 2019-08-18 09:52 | Discharge Summary ---
Medical - DS: Prov Patient information: Note initiated : 08/18/19 at 9:49 am Service Date, if different from initiated Date: [] Patient: Dank Garner 84 y/o M admitted on 08/13/19 for low blood pressure. Chief Complaint: [] Date of admission: 08/13/19 17:49 Discharge date: 08/18/19 Primary care physician: Yannick Bahena MD Consults: 08/13/19 14:23 Consult to Physician [CONS] Stat Comment: Consulting Provider: Mitch Almodovar Reason For Exam: Physician to Consult 08/13/19 15:48 Consult to Physician [CONS] Stat Comment: Consulting Provider: Gordon Siddiqi Reason For Exam: Physician to Consult 08/14/19 09:46 Consult to Physician [CONS] Urgent Comment: Consulting Provider: Chelsea Emerson Reason For Exam: Physician to Consult Medical - DS: Meds - Discharge Medications Prescriptions: Torsemide [Demadex] 10 mg PO DAILY #30 tab Metoprolol Tartrate [Lopressor] 12.5 mg PO ONCE #1 tablet Metoprolol Succinate [Toprol Xl] 25 mg PO DAILY #30 tab.xl.24h Active and Home Medications: Home Medications ascorbic acid (vitamin C) 1,000 mg tablet 1 g PO QDAY tab 09/12/14 [History Confirmed 08/13/19 Last Taken 08/13/19 07:00] aspirin 81 mg tablet,delayed release 81 mg PO HS tab 09/12/14 [History Confirmed 08/13/19 Last Taken 08/12/19 21:00] glucosamine-chondroitin 500 mg-400 mg capsule 1 tab-cap PO BID cap 09/12/14 [History Confirmed 08/13/19 Last Taken 08/13/19 07:00] multivitamin 1 tab-cap PO QDAY cap 09/12/14 [History Confirmed 08/13/19 Last Taken 08/13/19 07:00] nebulizers See Dose Instructions .ROUTE .MEDSUPPLY #1 each 03/04/15 [Rx Confirmed 08/13/19 Last Taken Unknown] nitroglycerin 0.4 mg sublingual tablet 0.4 mg SUBLINGUAL Q5MIN PRN #25 tab 02/17/16 [Rx Confirmed 08/13/19 Last Taken Unknown] warfarin 5 mg tablet See Rx Instructions .ROUTE .COMPLEX #1 tab 11/25/16 [Rx Confirmed 08/13/19 Last Taken 08/13/19 07:00] levothyroxine 125 mcg tablet 125 mcg PO QDAY #90 tab 08/15/17 [Rx Confirmed 08/13/19 Last Taken 08/13/19 06:00] CPAP machine and accessories #1 ea 11/30/17 [Rx Confirmed 08/13/19 Last Taken 08/12/19 20:00] allopurinol 100 mg tablet 400 mg PO QDAY #360 tab 12/05/17 [Rx Confirmed 08/12 Last Taken 08/12/19 21:00] budesonide 180 mcg/actuation breath activated powder inhaler 1 inh INHALATION BID #1 each 12/05/17 [Rx Confirmed 08/13/19 Last Taken 08/13/19 07:00] carvedilol 12.5 mg tablet 12.5 mg PO BID #180 tab 12/05/17 [Rx Confirmed 08/13/19 Last Taken 08/13/19 07:00] calcitriol 0.25 mcg capsule 0.25 mcg PO Q OTHER DAY #20 cap 02/05/19 [Rx Confirmed 08/13/19 Last Taken 08/13/19 07:00] nnh-dja-acywprtu [id number] 1 each PO 3XW each 05/09/19 [History Confirmed 08/13/19 Last Taken 08/10/19 21:00] bumetanide 1 mg tablet 2 mg .ROUTE .COMPLEX PRN #60 tab 07/26/19 [Rx Confirmed 08/13/19 Last Taken 08/13/19 07:00] montelukast 10 mg tablet 10 mg PO QHS tab 08/13/19 [History Confirmed 08/13/19 Last Taken 08/12/19 21:00] sacubitril 24 mg-valsartan 26 mg tablet 1 tab PO QHS tab 08/13/19 [History Confirmed 08/13/19 Last Taken 08/12/19 21:00] sennosides 8.6 mg tablet 25.8 mg PO PRN PRN tab 08/13/19 [History Confirmed 08/13/19 Last Taken Unknown] Home Medications ascorbic acid (vitamin C) 1,000 mg tablet 1 g PO QDAY tab 09/12/14 [History Confirmed 08/13/19 Last Taken 08/13/19 07:00] aspirin 81 mg tablet,delayed release 81 mg PO HS tab 09/12/14 [History Confirmed 08/13/19 Last Taken 08/12/19 21:00] glucosamine-chondroitin 500 mg-400 mg capsule 1 tab-cap PO BID cap 09/12/14 [History Confirmed 08/13/19 Last Taken 08/13/19 07:00] multivitamin 1 tab-cap PO QDAY cap 09/12/14 [History Confirmed 08/13/19 Last Taken 08/13/19 07:00] nebulizers See Dose Instructions .ROUTE .MEDSUPPLY #1 each 03/04/15 [Rx Confirmed 08/13/19 Last Taken Unknown] nitroglycerin 0.4 mg sublingual tablet 0.4 mg SUBLINGUAL Q5MIN PRN #25 tab 02/17/16 [Rx Confirmed 08/13/19 Last Taken Unknown] warfarin 5 mg tablet See Rx Instructions .ROUTE .COMPLEX #1 tab 11/25/16 [Rx Confirmed 08/13/19 Last Taken 08/13/19 07:00] levothyroxine 125 mcg tablet 125 mcg PO QDAY #90 tab 08/15/17 [Rx Confirmed 08/13/19 Last Taken 08/13/19 06:00] CPAP machine and accessories #1 ea 11/30/17 [Rx Confirmed 08/13/19 Last Taken 08/12/19 20:00] allopurinol 100 mg tablet 400 mg PO QDAY #360 tab 12/05/17 [Rx Confirmed 08/13/19 Last Taken 08/12/19 21:00] budesonide 180 mcg/actuation breath activated powder inhaler 1 inh INHALATION BID #1 each 12/05/17 [Rx Confirmed 08/13/19 Last Taken 08/13/19 07:00] calcitriol 0.25 mcg capsule 0.25 mcg PO Q OTHER DAY #20 cap 02/05/19 [Rx Confirmed 08/13/19 Last Taken 08/13/19 07:00] pfe-qyb-wyceunij [id number] 1 each PO 3XW each 05/09/19 [History Confirmed 08/13/19 Last Taken 08/10/19 21:00] montelukast 10 mg tablet 10 mg PO QHS tab 08/13/19 [History Confirmed 08/13/19 Last Taken 08/12/19 21:00] sennosides 8.6 mg tablet 25.8 mg PO PRN PRN tab 08/13/19 [History Confirmed 08/13/19 Last Taken Unknown] Metoprolol Succinate [Toprol Xl] 25 mg PO DAILY #30 tab.xl.24h 08/18/19 [Rx Last Taken Unknown] Metoprolol Tartrate [Lopressor] 12.5 mg PO ONCE #1 tablet 08/18/19 [Rx Last Taken Unknown] Torsemide [Demadex] 10 mg PO DAILY #30 tab 08/18/19 [Rx Last Taken Unknown] Medical - DS: Hosp Hospital Course: Ms. Garner is a 83-year-old gentleman with complex primary history including cardiomyopathy with EF 25%, CKD stage IV/myeloproliferative disorder who was referred to the ER after he was found during his office visit blood pressures in low 60s. Patient was actively symptomatic including dizziness/lightheadedness. Patient symptoms have evolved over the last week with increasing effort intolerance/decrease level of functionality due to lack of energy/lack of appetite and persistent lightheadedness. He then drove to the ER initial work-up was consistent with cardiogenic shock. Troponins were negative. CHF on chest imaging. Patient was promptly started on vasopressors along with crystalloid challenge. Subsequently hospital service was consulted. At the time evaluation patient is feeling a little better. His systolics now are mid 80s on 5 mics of dopamine. I discussed the case with Dr. Ibrahim. 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 Brice who recommended continuing pressors including norepinephrine to maintain map at goal and monitoring for 24 hours until patient symptomatically improved. Patient was able to endorse history as above. Denies fever, cough, chest pain, rash, diarrhea. He was seen at nephrology clinic today with details as below Details from nephrology office visit 08/12 a.m. Dank Garner is a 84 y/o pleasant white male with PMH of CAD, CHF, CKD, myeloproliferative disorder and other multiple medical issues who is here for follow up He has h/o CKD stage IV with no proteinuria in the setting of poor cardiac function and h/o nephrolithiasis He has h/o Acute worsening of renal function from bladder outlet obstruction and his renal function improved since he has had prostate surgery, he has a complex cyst in his left kidney and follows with urology at [facility] Patient called me today telling me he is been feeling poorly. This includes low blood pressure, increased energy and increased peripheral edema. This is temporally related to starting the patient on Sacubitrelvalsartan 24-26 mg at bedtime He has secondary hyperparathyroidism associated with his CKD on calcitiriol presently, the patient has developed a cough shortness of breath and was treated with a mixture of antibiotics and a doubling of his furosemide to 40 mg twice daily. He also received a course of doxycycline and nitrofurantoin. Today his clinical exam is certainly consistent with decompensated congestive heart failure as is his chest x-ray with perihilar fullness and fluffiness. He is feeling lousy but his breathing is improved, I suspect the antibiotics are bothering his stomach and today was the last day so they were discontinued. Based on his pulmonary exam, and the presence of edema I would continue him on furosemide 40 mg twice a day. He continues with rate controlled atrial fibrillation and is anticoagulated with warfarin. He has had no flares of gout lately. Continues to use his CPAP. I believe he sees Dr. Malave for a myelodysplasic disorder treated with ruxolitimib. He is also scheduled to see Dr. Rodriguez and it would be helpful if we could get a copy of his last echocardiogram. EF 25% with some MR, no /AI 08/13-patient currently on vasopressors to keep map at goal. Await nephrology recommendations for initiation of prior home medication. Weaning pressors gradually. No overnight events. White count 13.8. Underlying myelodysplastic disorder with blasts and nucleated RBCs. Consult oncology 08/14-patient now off pressors and on fluid challenge as per nephrology. Systolics improved to mid 90s. White count down to 7.7 from 13.8. However blast cells at 10% with reactive lymphocytes and nucleated RBCs. Case discussed with [facility] oncology and informed of findings. Oncology will review labs and will call back for instructions if necessary otherwise they will schedule outpatient follow-up in a few days. Creatinine 2.2, bilirubin down to 1.6 08/15-patient doing about the better. Off Levophed. Systolics mid 90s to 100. Asymptomatic. Case discussed with Dr. Suarez oncologist. Reviewed labs and advised that patient will need to follow-up with her clinic as outpatient in 1 week. Information relayed to patient to call oncology office on discharge for an appointment. White count normalized at 6000. INR 1.9, creatinine 1.9, sodium 134, bilirubin normalized. Restart Coreg at half dose in light advanced heart failure. However further dose titration will need performed by nephrology/PCP as outpatient. Transfer to medical floor. 08/16 patient continues to drop blood pressures. Nephrology recommends continuing Coreg attempt a trial of metoprolol. Further dosing and management of antihypertensives will be as per nephrology. Continue close monitoring of hemodynamics. Creatinine down to 1.8. Tachycardic at 100 systolics mid 90s. INR 1.7. 08/17 Slept well. Much better than previously. No overnight events or new complaints. Blood pressure stable. Patient states his systolic has typically always been 90 to low 100's. A: *?Cardiogenic shock vs likely iatrogenic with underlying CMP, underlying NYHA class IV systolic heart failure with EF 25-30%, gradual improvement noted: -Off vasopressors. Further management of antihypertensives as per nephrology. Recently started entresto outpt *CKD IV: *AFib: rate controlled. Nephrology recommends metoprolol. Dosing as per nephrology *h/o Myeloproliferative d/o with anemia/thrombocytopenia: Case discussed with [facility] oncology. Per Dr. Suarez the blast noted on peripheral blood is possibly secondary to stress. -Oncology would like patient to follow-up at the clinic in 1 week. *Reactive airway disease: stable on budesonide *h/o gout: on allopurinol *Hypothyroidism: on thyroxine Discharge diagnosis: Hypotension likely iatrogenic chronic kidney disease atrial fibrillation Secondary discharge diagnosis: Myeloproliferative disorder reactive airway gout hypothyroidism - Time Spent with Patient Total time spent providing and/or coordinating discharge services: Greater than 30 minutes Medical - DS: Exam - Constitutional Vitals: Vital Signs Temp Pulse Resp BP BP Pulse Ox 08/18/19 07:32 97.7 F 105 H 18 95/65 96 08/18/19 03:25 97.7 F 105 H 16 103/69 96 08/17/19 23:06 97.7 F 88 18 100/67 96 08/17/19 19:07 98.1 F 104 H 20 98/62 99 08/17/19 16:00 97.1 F 88 18 96/61 98 08/17/19 12:45 90 103/64 Intake and Output 08/17/19 08/18/19 08/18/19 21:59 05:59 13:59 Intake Total 240 150 Output Total 400 650 250 Balance -160 -500 -250 Intake: Oral 240 150 Output: Void Amount 400 650 250 Other: Meal Dinner Percent of Meal Consumed 100% Feeding Ability Independent Urine Appearance Clear Clear Urine Color Bright Yellow Bright Yellow Dark Yellow Urine Odor Normal Normal Normal Stool Size Small Stool Color Brown Stool Consistency Soft Weight 93.213 kg 91.127 kg Patient Weight 08/19/19 05:59 Weight 91.127 kg Medical - DS: Data Labs on day of discharge: Labs from last 24 hours 08/18/19 08/18/19 08/18/19 05:30 05:30 05:30 WBC 5.4 RBC 3.24 L Hgb 10.4 L Hct 34.1 L MCV 105.2 H MCH 32.1 MCHC 30.5 L RDW 23.1 H Plt Count 50 L* MPV Not Reportable Gran % 73.7 Lymph % (Auto) 13.6 L [place] % (Auto) 11.8 Eos % (Auto) 0.2 Baso % (Auto) 0.7 Gran # 3.94 Lymph # (Auto) 0.73 L [place] # (Auto) 0.63 Eos # (Auto) 0.01 Baso # (Auto) 0.04 Differential Comment PT 20.1 H INR 1.7 H VBG Lactic Acid 0.7 Sodium Potassium Chloride Carbon Dioxide Anion Gap BUN Creatinine GFR Calculation Glucose Uric Acid Calcium Phosphorus Magnesium Total Bilirubin Direct Bilirubin GGT AST ALT Alkaline Phosphatase Lactate Dehydrogenase Total Protein Albumin Globulin Albumin/Globulin Ratio Triglycerides 08/18/19 05:30 WBC RBC Hgb Hct MCV MCH MCHC RDW Plt Count MPV Gran % Lymph % (Auto) [place] % (Auto) Eos % (Auto) Baso % (Auto) Gran # Lymph # (Auto) [place] # (Auto) Eos # (Auto) Baso # (Auto) Differential Comment PT INR VBG Lactic Acid Sodium 133 Potassium 5.0 Chloride 101 Carbon Dioxide 20 L Anion Gap 12.0 BUN 77 H Creatinine 1.7 H GFR Calculation 36 Glucose 86 Uric Acid 4.0 Calcium 9.3 Phosphorus 2.9 Magnesium 2.3 Total Bilirubin 1.4 H Direct Bilirubin 0.5 H GGT 64 H AST 24 ALT 15 Alkaline Phosphatase 85 Lactate Dehydrogenase 419 H Total Protein 5.4 L Albumin 3.4 Globulin 2.0 L Albumin/Globulin Ratio 1.7 Triglycerides 116 Medical - DS: A/P - Patient/Caregiver Discharge Instructions Activity: increase activity as tolerated Diet: Cardiac Additional Instructions: -Oncology would like patient to follow-up at the clinic in 1 week. (-Follow-up with Dr. Suarez for management of myeloproliferative disorder) -f/u with cardiology outpt per Nephrology note: Continue torsemide 10 mg p.o. daily, for weight gain of 3 or more pounds per 24 hours increase the torsemide to 20 mg until back to try dry weigh Prescriptions: Torsemide [Demadex] 10 mg PO DAILY #30 tab Metoprolol Tartrate [Lopressor] 12.5 mg PO BID #30 tab - Follow up Plan Follow up with: Rita Suarez MD [Physician] - (Please call to schedule an appointment) Sarah Jaimes PA-C [Physician] - 09/17/19 1:00 pm Mitch Almodovar MD [Physician] - 08/28/19 9:45 am Yannick Bahena MD [Primary Care Provider] - 09/03/19 11:15 am Disposition: Home, Self-Care Care Plan Goals: This discharge packet is provided to you to help keep you informed about your care. We want to ensure you get everything you need when you go home. You will also be receiving a call from us in a few days to follow up with you and see how you are doing since your discharge. This gives us a chance to listen to any concerns you maybe experiencing since you were discharged or any additional needs you may have, as well as providing us feedback on your care experience. We strive to always provide excellent care and thank you for your feedback and for choosing [facility]. Prognosis: Fair Rehab Potential: Fair Overall status at discharge: patient is progressing back to baseline Medical - DS: Qual - VTE Deep Vein Thrombosis/Pulmonary Embolism Present on Admission: No
[2019-08-18] MEDS: METOPROLOL TARTRATE 25 MG TABLET PO SCH (09:59)
[2019-08-18] MEDS ORDERED: WARFARIN 7.5 MG TABLET PO ONE (14:00)
== END 2019-08-18 15:12 | disposition home or self-care (01) | DRG 314 ==
LOC: ED 12:39 → ICU 17:49 → MEDSUR 08-16 14:30
PROVIDERS: ADMIT Internal Medicine; ATTEND Internal Medicine

== ENCOUNTER 2019-09-18 09:15 | Inpatient (IN) ==
--- NOTE | 2019-09-18 09:56 | XRay Report ---
CLINICAL INFORMATION: shortness of breath, fluid overload COMPARISON: 09/17/2019 FINDINGS: Moderate cardiomegaly is unchanged. Automated defibrillator remains in stable satisfactory position. Mediastinum is normal. Pulmonary vessels have returned to normal in caliber. No edema. There is minor bibasilar atelectasis. Small bilateral pleural effusions are unchanged IMPRESSION: Resolution of CHF. Small persistent bilateral pleural effusions Interpreted and Authenticated by: Bradford Hightower 09/18/19
--- NOTE | 2019-09-18 10:04 | Emergency Department Note ---
HPI General Chief complaint: Shortness of Breath/Dyspnea Stated complaint: Shortness of Breath Time Seen by Provider: 09/18/19 10:01 Source: patient Mode of arrival: ambulatory Limitations: no limitations History of Present Illness HPI Narrative: 84-year old patient presenting with chief complaint of dyspnea. Patient's dyspnea arose over the course of days weeks months. Patient with associated symptoms of cough, sputum, gradual progression, orthopnea, fever. Past medical history is significant for CHF with last echo showing EF at 20%, deconditioning. This patient's dyspnea was exacerbated by exertion within 50-100 feet of walking or several minutes of exercise. Also was associated with a nocturnal component. Symptoms are continuous. Additional associated symptoms such as cough, sputum production, nasal congestion, chest pain, peripheral edema, joint swelling, muscle weakness were also inquired; patient is positive for peripheral edema, orthopnea. Patient primarily with dyspnea sensation of air hunger. Related Data Home Medications Medication Instructions Recorded Confirmed ascorbic acid (vitamin C) 1,000 mg 500 mg PO QDAY tab 09/12/14 09/18/19 tablet aspirin 81 mg tablet,delayed 81 mg PO HS tab 09/12/14 09/18/19 release glucosamine-chondroitin 500 mg-400 1 tab-cap PO BID cap 09/12/14 09/18/19 mg capsule multivitamin 1 tab-cap PO QDAY cap 09/12/14 09/18/19 [id number]-[id number] [id number] 1 each PO HS each 05/09/19 09/18/19 montelukast 10 mg tablet 10 mg PO QHS tab 08/13/19 09/18/19 sennosides 8.6 mg tablet 25.8 mg PO BID tab 08/13/19 09/18/19 torsemide 10 mg tablet 10 mg PO DAILY tab 09/18/19 09/18/19 Previous Rx's Medication Instructions Recorded nebulizers #1 each 03/04/15 nitroglycerin 0.4 mg sublingual 0.4 mg SUBLINGUAL Q5MIN PRN #25 tab 02/17/16 tablet warfarin 5 mg tablet See Rx Instructions .ROUTE 11/25/16 .COMPLEX #1 tab levothyroxine 125 mcg tablet 125 mcg PO QDAY #90 tab 08/15/17 CPAP machine and accessories #1 each 11/30/17 allopurinol 100 mg tablet 400 mg PO QDAY #360 tab 12/05/17 budesonide 180 mcg/actuation 1 inh INHALATION BID #1 each 12/05/17 breath activated powder inhaler calcitriol 0.25 mcg capsule 0.25 mcg PO Q OTHER DAY #20 cap 02/05/19 metoprolol succinate 25 mg 25 mg PO DAILY #90 tab 09/10/19 tablet,extended release 24 hr Allergies Allergy/AdvReac Type Severity Reaction Status Date / Time oxycodone [Oxycodone] Allergy Mild Nausea Verified 09/18/19 14:55 sulfacetamide Allergy Unknown Unknown Verified 09/18/19 14:55 niacin AdvReac Intermediate Unknown Verified 09/18/19 14:55 colchicine [From Colcrys] AdvReac Mild swollen Verified 09/18/19 14:55 feet doxycycline calcium Allergy Unknown Unknown Uncoded 09/18/19 14:55 Review of Systems All systems ED: reviewed and negative except as stated. 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) Hyperparathyroidism, secondary renal (Chronic) Secondary hyperparathyroidism of renal origin (Chronic) Cough (Acute) Abdominal aortic aneurysm (AAA) 3.0 cm to 5.5 cm in diameter in male (Acute) COPD (chronic obstructive pulmonary disease) (Acute) Hypothyroidism (Acute) ART on CPAP (Acute) Chronic myeloproliferative disorder (Chronic 05/19/15) Benign prostatic hypertrophy (Chronic) Gout (Chronic) 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) Slow transit constipation (Chronic) Neuropathy (Chronic) Edema (Chronic) Gastroesophageal reflux disease (Chronic) Abdominal distension (Chronic) 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) Vasomotor rhinitis (Chronic) Splenomegaly (Chronic) Secondary hyperparathyroidism of renal origin (Chronic) Allergic rhinitis (Chronic) Restless leg syndrome (Chronic) Raynauds syndrome (Chronic) Protein C deficiency (Chronic) Polycythemia vera (Chronic) Hx of venous thrombosis and embolism (Chronic) Obstructive sleep apnea, adult (Chronic) Hypothyroidism (acquired) (Chronic) Hypertensive renal disease (Chronic) Hypertension, essential (Chronic) Hyperlipidemia (Chronic) Fatigue (Chronic) Congestive heart failure (Chronic) Chronic kidney disease, stage III (moderate) (Chronic) Cardiomyopathy (Chronic) CAD (coronary artery disease) (Chronic) 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 Abdominal aortic aneurysm (Resolved) Abdominal distension (Chronic) usg neg, shows 17 cm cyst in liver appears benigh and 21 cm spleen. also poor abdominal wall tone. Acute exacerbation of chronic bronchitis (Resolved) treat with prednisone and zithromax hopefully will get better now that he will have a nebulizer. Acute gout (Resolved) on allopurinol 300, he has ckd and polycythemia, as risk factors. Uric acid 6.8, pt already of 300mg allopurinol with no good response, start on uloric 40mg once daily ,stop allopuinol. Allergic rhinitis (Chronic) 07/11/2014 Anemia in chronic kidney disease (Chronic) Anemia, iron deficiency (Chronic) Asymptomatic cholelithiasis (Resolved) Atrial fibrillation (Chronic) Benign prostatic hypertrophy (Chronic) CAD (coronary artery disease) (Chronic) and stenting Cardiomyopathy (Chronic) Cardiorenal syndrome with renal failure (Chronic) Slowly progressive, lasix increased last visit with Dr Ley, now tried Ujles in low dose with clinical worsening Chronic combined systolic and diastolic CHF (congestive heart failure) (Chronic) Combined systolic and diastolic congestive heart failure, AICD in place On a combination of low-dose carvedilol digoxin spironolactone and now twice a day furosemide Chronic combined systolic and diastolic CHF (congestive heart failure) (Chronic) On furosemide, BB, low dose aldactone, did not tolerate low dose Sacubitril/valsartan qHS AICD in place Warfarin Chronic kidney disease, stage III (moderate) (Chronic) Stable CKD 3 over the last 4 years Minimal proteinuria Chronic myeloproliferative disorder (Chronic 05/19/15) 05/19/2015-[facility] Common femoral artery injury (Resolved) Congestive heart failure (Chronic) 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 but inhalers did not help at all, at this time, given age, h/o productive cough x 1 yr and a neg x ray chest ,will get a CT of the lungs to r/o any other pathology. NOt a candidate for contrast given CKD. Deep vein thrombosis (Inactive) recurrent Protein C def Degenerative joint disease (Resolved) Edema (Chronic) Fatigue (Chronic) Gastroesophageal reflux disease (Chronic) On pantoprazole, doing well. Gastrointestinal bleeding (Resolved) Gout (Chronic) Hepatic cyst (Resolved) History of cardioversion (Resolved) History of colonic polyps (Resolved) History of peptic ulcer disease (Resolved) Hx of gout (Resolved) Hx of venous thrombosis and embolism (Chronic) Hyperlipidemia (Chronic) LDL ok Hypermagnesemia (Resolved) due to ckd and mg supplements, plan to stop same and monitor. Hyperparathyroidism, secondary renal (Chronic) Stable on low-dose calcitriol every other day Hypersplenism (Resolved) Hypertension, essential (Chronic) bp stable, con coreg, continue same. 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 Probably has an element of high cell turnover and increased uric acid precursor production as well as diuretics, Hypoglycemia (Resolved) Likely pseudohypoglycemia, due to elevated rbc count, no symptoms, workup neg so far, only cpeptide mildly high. Consider CT abdomen if patient has symptoms. Hypothyroidism (acquired) (Chronic) halfway current use of anticoagulant therapy (Chronic) Myelofibrosis (Resolved) Myocardial infarction, old (Resolved) 1997 Nephrolithiasis (Resolved) Neuropathy (Chronic) MUltifactorial in the feet, capcasin cream topical for now, pt to buy otc, Obstructive sleep apnea, adult (Chronic) Occasional numbness/prickling/tingling of fingers and toes (Inactive) Polycythemia vera (Chronic) Protein C deficiency (Chronic) Raynauds syndrome (Chronic) Restless leg syndrome (Chronic) Secondary hyperparathyroidism of renal origin (Chronic) PTH and vitamin D at goal calcium and phos at goal ct calcitriol 0.25mcg qod Simple cyst of kidney (Inactive) Slow transit constipation (Chronic) chr constipation, plan to increase fiber in diet, advise use of prunes, increase hydration. Splenomegaly (Chronic) Supraventricular tachycardia (Resolved) Tricuspid regurgitation (Resolved) Urinary retention (Inactive) Vasomotor rhinitis (Chronic) Surgical History 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) 03/06/2013 History of intravascular stent placement (Resolved) cardiac History of left knee replacement (Inactive) History of lumbar surgery (Resolved) Lumbar disc surgery L4-5 History of surgical fusion joint (Inactive) Fusion DIP L ring finger History of total cystectomy (Resolved) 12/28/2012 Hx of adenoidectomy (Inactive) Hx of arthroscopic knee surgery (Inactive) right knee Hx of CABG (Resolved) 08/2006 Hx of cataract surgery (Inactive) Hx of tonsillectomy (Inactive) Hx of transurethral resection of prostate (Resolved) Hx of vasectomy (Resolved) Status post cystourethroscopy with dilation of urethral stricture (Inactive) 12/28/2012 Family History Mother Diabetes mellitus Father Cardiac disease at 86yrs old Brother Cerebrovascular accident Social History Smoking Status: Never smoker Alcohol Intake Frequency: does not drink Substance Use: does not use Exam Narrative Narrative: Vital signs and evaluated for evidence of hypoxia or hemodynamic compromise specifically tachycardia/hypotension General: Alert, interactive, appropriate Head: Atraumatic, normocephalic Eyes: Extraocular movements intact, sclera anicteric, no conjunctival injection Ears: Pinnae normal, no discharge Mouth: Oral mucosa moist, no acute swelling or evidence of infection Nares: No nasal discharge, patent bilaterally Neck: Trachea midline, full range of motion Chest: Symmetrical chest wall rise, breathing normally; nonlabored respirations Cardiovascular: Patient with excellent perfusion to the extremities; with tachycardia Extremities: Full range of motion joints, no obvious deformities; edema +3 bilaterally Neuro: Alert, oriented x3, cranial nerves II through XII grossly intact, patient without lateralizing findings such as weakness Psychiatric: Normal affect, normal mood General Limitations: no limitations Course Vital Signs Vital signs: Vital Signs Temperature 97.7 F 09/18/19 09:16 Pulse Rate 105 H 09/18/19 09:16 Respiratory Rate 20 09/18/19 09:16 Blood Pressure 100/68 09/18/19 09:16 Pulse Oximetry (%) 96 09/18/19 09:16 Temperature 98.3 F 09/19/19 04:00 Pulse Rate 88 09/19/19 06:00 Respiratory Rate 18 09/19/19 06:00 Blood Pressure 101/64 09/19/19 06:00 Pulse Oximetry (%) 94 09/19/19 06:00 [facility] MDM Narrative Medical decision making narrative: Acute dyspnea differential diagnosis considered in this case included MO, heart failure, cardiac tamponade, bronchospasm, pulmonary embolism, pneumothorax, pneumonia or infection, and upper airway obstruction. After review of chart and patient history/physical exam/labs as well as imaging the differential diagnosis addressed was acute hypoxic respiratory failure, COPD exacerbation, pneumonia, sepsis, pulmonary edema, pneumothorax, metabolic acidosis, acute respiratory distress syndrome, panic attack, airflow obstruction, restrictive lung disease, aspiration, congestive heart failure, hypercapnia, influenza, bronchitis, upper respiratory infection, pulmonary embolism, cardiac tamponade, valvular obstruction, MO/ACS, and arrhythmia. Patient was sent over from clinic noting that his systolic blood pressure was very low 91-92 and provider was concerned that attempting to diurese him as an outpatient would result in significant hypotension. In my medical opinion this patient has dyspnea that reasonably does require admission to the hospital. Patient with excellent oxygenation at rest however with very minimal exertion patient becomes acutely hypoxic into the low 80s. Patient does have elevation of his BNP his creatinine is pretty stable over time his chest x- ray does not really demonstrate findings suggestive of acute volume overload. However his lower extremity edema is profound his blood pressure was low as an outpatient and patient reasonably should be admitted to the hospital for this issue. Lab Data Result diagrams: 09/18/19 09:36 09/18/19 09:36 Labs: Lab Results 09/18/19 09/18/19 09/18/19 Range/Units 09:36 09:36 09:36 WBC 8.3 (4.50-11.00) K/mcL RBC 3.75 L (4.63-6.08) M/mcL Hgb 12.2 L (13.7-17.5) g/dL Hct 40.6 (40.1-51.0) % MCV 108.3 H (80.0-100.0) fL MCH 32.5 (26.0-34.0) pg MCHC 30.0 L (31.0-36.0) g/dL RDW 24.1 H (11.5-14.5) % Plt Count 59 L (140-440) K/mcL MPV TNP Gran % 69.4 (38.0-78.0) % Lymph % (Auto) 8.5 L (15.5-49.0) % [place] % (Auto) 20.6 H (1.0-12.0) % Eos % (Auto) 0.5 (0.0-7.0) % Baso % (Auto) 1.0 (0.0-2.0) % Gran # 5.75 (1.80-8.00) K/mcL Lymph # (Auto) 0.70 L (1.50-4.80) K/mcL [place] # (Auto) 1.70 H (0.10-0.90) K/mcL Eos # (Auto) 0.04 (0.00-0.70) K/mcL Baso # (Auto) 0.08 (0.00-0.30) K/mcL Differential Comment PT (11.9-14.5) sec INR (0.9-1.1) Sodium 136 (133-145) mmol/L Potassium 3.7 (3.3-5.1) mmol/L Chloride 101 (96-108) mmol/L Carbon Dioxide 22 (22-30) mmol/L Anion Gap 13.0 (8-16) BUN 52 H (8-23) mg/dl Creatinine 2.0 H (0.7-1.2) mg/dl GFR Calculation 30 Glucose 88 (70-105) mg/dL Calcium 9.5 (8.6-10.4) mg/dl Total Bilirubin 1.7 H (0.0-1.0) mg/dL AST 30 (0-37) U/l ALT 17 (0-40) U/l Alkaline Phosphatase 82 (39-117) U/L Total Creatine Kinase 20 L (24-195) IU/L CK-MB (CK-2) 1.8 (0-4.9) ng/ml Myoglobin 101 H (28-72) ng/ml Troponin T < 0.01 (0-0.03) ng/ml NT-Pro-B Natriuret Pep 9838.0 H (0-450) pg/ml Total Protein 5.8 L (5.9-8.4) gm/dL Albumin 3.9 (3.2-5.2) gm/dL Globulin 1.9 L (2.2-3.7) gm/dL Albumin/Globulin Ratio 2.1 (1.0-2.3) 09/18/19 Range/Units 09:36 WBC (4.50-11.00) K/mcL RBC (4.63-6.08) M/mcL Hgb (13.7-17.5) g/dL Hct (40.1-51.0) % MCV (80.0-100.0) fL MCH (26.0-34.0) pg MCHC (31.0-36.0) g/dL RDW (11.5-14.5) % Plt Count (140-440) K/mcL MPV Gran % (38.0-78.0) % Lymph % (Auto) (15.5-49.0) % [place] % (Auto) (1.0-12.0) % Eos % (Auto) (0.0-7.0) % Baso % (Auto) (0.0-2.0) % Gran # (1.80-8.00) K/mcL Lymph # (Auto) (1.50-4.80) K/mcL [place] # (Auto) (0.10-0.90) K/mcL Eos # (Auto) (0.00-0.70) K/mcL Baso # (Auto) (0.00-0.30) K/mcL Differential Comment PT 21.8 H (11.9-14.5) sec INR 1.8 H (0.9-1.1) Sodium (133-145) mmol/L Potassium (3.3-5.1) mmol/L Chloride (96-108) mmol/L Carbon Dioxide (22-30) mmol/L Anion Gap (8-16) BUN (8-23) mg/dl Creatinine (0.7-1.2) mg/dl GFR Calculation Glucose (70-105) mg/dL Calcium (8.6-10.4) mg/dl Total Bilirubin (0.0-1.0) mg/dL AST (0-37) U/l ALT (0-40) U/l Alkaline Phosphatase (39-117) U/L Total Creatine Kinase (24-195) IU/L CK-MB (CK-2) (0-4.9) ng/ml Myoglobin (28-72) ng/ml Troponin T (0-0.03) ng/ml NT-Pro-B Natriuret Pep (0-450) pg/ml Total Protein (5.9-8.4) gm/dL Albumin (3.2-5.2) gm/dL Globulin (2.2-3.7) gm/dL Albumin/Globulin Ratio (1.0-2.3) EKG Data EKG #1: EKG attestation: Yes I reviewed and interpreted this EKG. EKG results narrative: EKG: Rate: 114, ME: N/A, rhythm: Atrial fibrillation, patient without ST elevations to suggest STEMI, patient without concerning T wave inversions or other findings to suggest NSTEMI Discharge Plan Patient/Caregiver Discharge Instructions Pt seen by [employer]ING [employer]ATE [employer]/PA only: No Clinical Impression: Acute on chronic diastolic CHF (congestive heart failure), CKD (chronic kidney disease), stage IV Patient Disposition: Xfer As Outpt/Obs ([facility]) Condition: Serious Discharge Date/Time: 09/18/19 14:27
[2019-09-18 10:19] LABS: Basophils # (Auto) 0.08 K/mcL (0.00-0.30); Eosinophils # (Auto) 0.04 K/mcL (0.00-0.70); Eosinophils % (Auto) 0.5 % (0.0-7.0); Granulocytes % (Auto) 69.4 % (38.0-78.0); Hematocrit 40.6 % (40.1-51.0); Hemoglobin 12.2 g/dL (13.7-17.5); Lymphocytes % (Auto) 8.5 % (15.5-49.0); Mean Cell Volume 108.3 fL (80.0-100.0); Monocytes % (Auto) 20.6 % (1.0-12.0); Platelet Count 59 K/mcL (140-440); RBC 3.75 M/mcL (4.63-6.08); Red Cell Distribution Width 24.1 % (11.5-14.5); WBC 8.3 K/mcL (4.50-11.00)
[2019-09-18 10:31] LABS: Myoglobin 101 ng/ml (28-72)
[2019-09-18 10:32] LABS: Creatine Kinase MB 1.8 ng/ml (0-4.9)
[2019-09-18 10:34] LABS: ALT/SGPT 17 U/l (0-40); AST/SGOT 30 U/l (0-37); Albumin 3.9 gm/dL (3.2-5.2); Albumin/Globulin Ratio 2.1 (1.0-2.3); Alkaline Phosphatase 82 U/L (39-117); Bilirubin,Total 1.7 mg/dL (0.0-1.0); Blood Urea Nitrogen 52 mg/dl (8-23); Calcium 9.5 mg/dl (8.6-10.4); Carbon Dioxide 22 mmol/L (22-30); Chloride 101 mmol/L (96-108); Creatine Kinase 20 IU/L (24-195); Globulin 1.9 gm/dL (2.2-3.7); Glomerular Filtration Rate 30; Glucose 88 mg/dL (70-105)
[2019-09-18] MEDS ORDERED: FUROSEMIDE 20 MG/2 ML VIAL IV ONE (10:53)
--- NOTE | 2019-09-18 14:09 | Internal Med History&Physical ---
HPI History of Present Illness Patient information: Note initiated : 09/18/19 at 2:00 pm Service Date, if different from initiated Date: [] Patient: Dank Garner a 84 y/o M admitted on for SOB . Chief Complaint: [] History of present illness: Mr. Garner is a 84 year old M Presented ED with shortness of breath and edema. He was sent in by his guideman for heart failure and felt to be needing IV diuresis. He was here in july for heart failure and hypotension. Diuresed and his blood pressure medications were reduced. Feels like his been short of breath progressing over the past months and noticed a little bit more past few days as well. His diuretics have been changed by nephrology for the past couple weeks. He feels like his lower extremity swelling is worse. He complains of orthopnea that he has had for quite a while but feels worse lately. In the ED his oxygen seemed to be okay while at rest but when he exerted himself it dropped in the 80s. He needs oxygen therapy at home for heart failure. He does have a cough occasionally nothing new but does produce some clear sometimes white sputum. Short of breath with exertion. Review of Systems: Pertinent positives as above. Occasional headache, constipation. Denies fever/chills/nausea/vomiting/chest or abdominal pain/diarrhea. Remaining 10 point review of system reviewed negative [facility] Medical History (Updated 09/18/19 @ 13:01 by Barrington Velazquez MD) Abdominal aortic aneurysm (Ruled-out) Abdominal aortic aneurysm (Ruled-out) USg done neg, ct abdo pelvis done neg in 2012, only usg in 2013 had shown this, which I now believe could be a over read given multiple subsequent studies not showing the aneurysm. Abdominal aortic aneurysm (Resolved) Abdominal distension (Chronic) usg neg, shows 17 cm cyst in liver appears benigh and 21 cm spleen. also poor abdominal wall tone. Acute exacerbation of chronic bronchitis (Resolved) treat with prednisone and zithromax hopefully will get better now that he will have a nebulizer. Acute gout (Resolved) on allopurinol 300, he has ckd and polycythemia, as risk factors. Uric acid 6.8, pt already of 300mg allopurinol with no good response, start on uloric 40mg once daily ,stop allopuinol. Allergic rhinitis (Chronic) 07/11/2014 Anemia in chronic kidney disease (Chronic) Anemia, iron deficiency (Chronic) Asymptomatic cholelithiasis (Resolved) Atrial fibrillation (Chronic) Benign prostatic hypertrophy (Chronic) CAD (coronary artery disease) (Chronic) and stenting Cardiomyopathy (Chronic) Cardiorenal syndrome with renal failure (Chronic) Slowly progressive, lasix increased last visit with Dr Ley, now tried Jules in low dose with clinical worsening Chronic combined systolic and diastolic CHF (congestive heart failure) (Chronic) Combined systolic and diastolic congestive heart failure, AICD in place On a combination of low-dose carvedilol digoxin spironolactone and now twice a day furosemide Chronic combined systolic and diastolic CHF (congestive heart failure) (Chronic) On furosemide, BB, low dose aldactone, did not tolerate low dose Sacubitril/valsartan qHS AICD in place Warfarin Chronic kidney disease, stage III (moderate) (Chronic) Stable CKD 3 over the last 4 years Minimal proteinuria Chronic myeloproliferative disorder (Chronic 05/19/15) 05/19/2015-[facility] Common femoral artery injury (Resolved) Congestive heart failure (Chronic) 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 but inhalers did not help at all, at this time, given age, h/o productive cough x 1 yr and a neg x ray chest ,will get a CT of the lungs to r/o any other pathology. NOt a candidate for contrast given CKD. Deep vein thrombosis (Inactive) recurrent Protein C def Degenerative joint disease (Resolved) Edema (Chronic) Fatigue (Chronic) Gastroesophageal reflux disease (Chronic) On pantoprazole, doing well. Gastrointestinal bleeding (Resolved) Gout (Chronic) Hepatic cyst (Resolved) History of cardioversion (Resolved) History of colonic polyps (Resolved) History of peptic ulcer disease (Resolved) Hx of gout (Resolved) Hx of venous thrombosis and embolism (Chronic) Hyperlipidemia (Chronic) LDL ok Hypermagnesemia (Resolved) due to ckd and mg supplements, plan to stop same and monitor. Hyperparathyroidism, secondary renal (Chronic) Stable on low-dose calcitriol every other day Hypersplenism (Resolved) Hypertension, essential (Chronic) bp stable, con coreg, continue same. 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 Probably has an element of high cell turnover and increased uric acid precursor production as well as diuretics, Hypoglycemia (Resolved) Likely pseudohypoglycemia, due to elevated rbc count, no symptoms, workup neg so far, only cpeptide mildly high. Consider CT abdomen if patient has symptoms. Hypothyroidism (acquired) (Chronic) detention current use of anticoagulant therapy (Chronic) Myelofibrosis (Resolved) Myocardial infarction, old (Resolved) 1997 Nephrolithiasis (Resolved) Neuropathy (Chronic) MUltifactorial in the feet, capcasin cream topical for now, pt to buy otc, Obstructive sleep apnea, adult (Chronic) Occasional numbness/prickling/tingling of fingers and toes (Inactive) Polycythemia vera (Chronic) Protein C deficiency (Chronic) Raynauds syndrome (Chronic) Restless leg syndrome (Chronic) Secondary hyperparathyroidism of renal origin (Chronic) PTH and vitamin D at goal calcium and phos at goal ct calcitriol 0.25mcg qod Simple cyst of kidney (Inactive) Slow transit constipation (Chronic) chr constipation, plan to increase fiber in diet, advise use of prunes, increase hydration. Splenomegaly (Chronic) Supraventricular tachycardia (Resolved) Tricuspid regurgitation (Resolved) Urinary retention (Inactive) Vasomotor rhinitis (Chronic) Surgical History 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) 03/06/2013 History of intravascular stent placement (Resolved) cardiac History of left knee replacement (Inactive) History of lumbar surgery (Resolved) Lumbar disc surgery L4-5 History of surgical fusion joint (Inactive) Fusion DIP L ring finger History of total cystectomy (Resolved) 12/28/2012 Hx of adenoidectomy (Inactive) Hx of arthroscopic knee surgery (Inactive) right knee Hx of CABG (Resolved) 08/2006 Hx of cataract surgery (Inactive) Hx of tonsillectomy (Inactive) Hx of transurethral resection of prostate (Resolved) Hx of vasectomy (Resolved) Status post cystourethroscopy with dilation of urethral stricture (Inactive) 12/28/2012 Family History Mother Diabetes mellitus Father Cardiac disease at 86yrs old Brother Cerebrovascular accident Social History marital status: education level: college occupational status: retired other: 3 Children, 2 grandchildren smoking status: Never smoker alcohol intake frequency: does not drink substance use type: does not use MEDS/ALLERGIES Home Medications and Allergies Home Medications Medication Instructions Recorded Confirmed Type ascorbic acid (vitamin C) 1,000 mg 500 mg PO QDAY tab 09/12/14 09/18/19 History tablet aspirin 81 mg tablet,delayed 81 mg PO HS tab 09/12/14 09/18/19 History release glucosamine-chondroitin 500 mg-400 1 tab-cap PO BID cap 09/12/14 09/18/19 History mg capsule multivitamin 1 tab-cap PO QDAY cap 09/12/14 09/18/19 History nebulizers #1 each 03/04/15 09/18/19 Rx nitroglycerin 0.4 mg sublingual 0.4 mg SUBLINGUAL Q5MIN PRN #25 tab 02/17/16 09/18/19 Rx tablet warfarin 5 mg tablet See Rx Instructions .ROUTE 11/25/16 09/18/19 Rx .COMPLEX #1 tab levothyroxine 125 mcg tablet 125 mcg PO QDAY #90 tab 08/15/17 09/18/19 Rx CPAP machine and accessories #1 each 11/30/17 09/18/19 Rx allopurinol 100 mg tablet 400 mg PO QDAY #360 tab 12/05/17 09/18/19 Rx budesonide 180 mcg/actuation 1 inh INHALATION BID #1 each 12/05/17 09/18/19 Rx breath activated powder inhaler calcitriol 0.25 mcg capsule 0.25 mcg PO Q OTHER DAY #20 cap 02/05/19 09/18/19 Rx hsw-els-ovddycqm [id number] 1 each PO DAILY each 05/09/19 09/18/19 History montelukast 10 mg tablet 10 mg PO QHS tab 08/13/19 09/18/19 History sennosides 8.6 mg tablet 25.8 mg PO PRN PRN tab 08/13/19 09/18/19 History metoprolol succinate 25 mg 25 mg PO DAILY #90 tab 09/10/19 09/18/19 Rx tablet,extended release 24 hr torsemide 10 mg tablet 20 mg PO DAILY tab 09/18/19 09/18/19 History Allergies Allergy/AdvReac Type Severity Reaction Status Date / Time niacin Allergy Severe Unknown Verified 08/28/19 10:17 oxycodone [Oxycodone] Allergy Mild Nausea Verified 08/28/19 10:17 colchicine [From Colcrys] Allergy Unknown Unknown Verified 08/28/19 10:17 sulfacetamide Allergy Unknown Unknown Verified 08/28/19 10:17 doxycycline calcium Allergy Unknown Unknown Uncoded 08/28/19 10:17 EXAM Constitutional Vitals: Temp Pulse Resp BP Pulse Ox 97.7 F 110 H 27 H 106/78 90 09/18/19 09:16 09/18/19 11:31 09/18/19 13:43 09/18/19 13:31 09/18/19 12:24 Exam: General: Alert, Awake, No acute Distress Eyes/N/T: EOMI, PERRL, MMM Head/Neck: neck supple, normocephalic atraumatic, JVD CV: mildly tachy but reg, No murmurs, Pulm: mild rales at bases, no wheezing/rhonchi/rales Abd: soft, nontender, +BS x4 Ext: no clubbing/cyanosis, 3+ b/l LE edema Neuro: Alert, no focal deficits, moves all extremities, CN 2-12 grossly intact, symmetrical strength b/l upper/lower, sensations intact b/l upper/lower Skin: warm/dry DATA Data Completed and Pending Labs on day of discharge: Labs from last 24 hours 09/18/19 09/18/19 09/18/19 09:36 09:36 09:36 WBC RBC Hgb Hct MCV MCH MCHC RDW Plt Count MPV Gran % Lymph % (Auto) Wilcox % (Auto) Eos % (Auto) Baso % (Auto) Gran # Lymph # (Auto) Wilcox # (Auto) Eos # (Auto) Baso # (Auto) Differential Comment PT Pending INR Pending Sodium 136 Potassium 3.7 Chloride 101 Carbon Dioxide 22 Anion Gap 13.0 BUN 52 H Creatinine 2.0 H GFR Calculation 30 Glucose 88 Calcium 9.5 Total Bilirubin 1.7 H AST 30 ALT 17 Alkaline Phosphatase 82 Total Creatine Kinase 20 L CK-MB (CK-2) 1.8 Myoglobin 101 H Troponin T < 0.01 NT-Pro-B Natriuret Pep 9838.0 H Total Protein 5.8 L Albumin 3.9 Globulin 1.9 L Albumin/Globulin Ratio 2.1 09/18/19 09:36 WBC 8.3 RBC 3.75 L Hgb 12.2 L Hct 40.6 MCV 108.3 H MCH 32.5 MCHC 30.0 L RDW 24.1 H Plt Count 59 L MPV TNP Gran % 69.4 Lymph % (Auto) 8.5 L Wilcox % (Auto) 20.6 H Eos % (Auto) 0.5 Baso % (Auto) 1.0 Gran # 5.75 Lymph # (Auto) 0.70 L Wilcox # (Auto) 1.70 H Eos # (Auto) 0.04 Baso # (Auto) 0.08 Differential Comment PT INR Sodium Potassium Chloride Carbon Dioxide Anion Gap BUN Creatinine GFR Calculation Glucose Calcium Total Bilirubin AST ALT Alkaline Phosphatase Total Creatine Kinase CK-MB (CK-2) Myoglobin Troponin T NT-Pro-B Natriuret Pep Total Protein Albumin Globulin Albumin/Globulin Ratio A/P Narrative A/P Narrative: A: *Acute on chronic systolic (EF 25-30%) heart failure with some component of ri ght heart failure and valvular component with mod-sev TR: *Low Blood pressure: On Toprol at home -systolic 90's-110's *Acute hypoxic resp failure: -desats on 80's on room air with extertion *COPD (not on home O2) *ART on CPAP: *AFib: on toprol *CAD w/CABG, iCMP with ACID: *CKD IV: *Anemia chronic: *Hypothyroidism: *h/o Myeloproliferative d/o with anemia/thrombocytopenia: Follows with Dr. Jones sythe * P: -IV lasix, monitor BP -Add Digoxn for inotropic support in light of Afib/systolic CHF, maintenance 0.0625 daily - follow levels closely given CKD -BB when closer to euvolemia -records from [employer] (Dr. Brice) -home cpap -home IH's -Likely needs home oxygen in the setting of significant heart failure COPD, RT to eval prior to d/c - -pt/ot -Follow-up with cardiology outpatient -ppx: Warfarin per pharmacy DNR Time Spent With Patient Time: Total time spent is greater than 50% in coordination of care (as documented) at patient's floor/unit and/or counseling patient:
[2019-09-18 14:23] LABS: INR 1.8 (0.9-1.1); Prothrombin Time 21.8 sec (11.9-14.5)
[2019-09-18] MEDS ORDERED: ONDANSETRON 4 MG/2 ML VIAL IV PRN (14:31)
[2019-09-18] MEDS ORDERED: MAGNESIUM SULFATE 2 GM/50 ML BAG IV PRN (14:31)
[2019-09-18] MEDS ORDERED: METOPROLOL TARTRATE 5 MG/5 ML VIAL IV PRN (14:31)
[2019-09-18] MEDS ORDERED: IPRATROPIUM/ALBUTEROL 3 ML AMPUL.NEB NEB PRN (14:31)
[2019-09-18] MEDS ORDERED: POTASSIUM CHLORIDE 20 MEQ TABLET PO PRN ×2 (14:31)
[2019-09-18] MEDS ORDERED: SENNOSIDES 1 TABLET PO PRN ×2 (14:31)
[2019-09-18] MEDS ORDERED: POTASSIUM CHLORIDE 40 MEQ in DEXTROSE 5% IN WATER 500 ML IV PRN (14:31)
[2019-09-18] MEDS ORDERED: DIGOXIN 500 MCG/2 ML AMPUL IV ONE ×2 (14:31→20:30)
[2019-09-18] MEDS ORDERED: LACTULOSE 20 GM/30 ML ORAL.SOL PO PRN (14:31)
[2019-09-18] MEDS ORDERED: NITROGLYCERIN 0.4 MG TAB.SUBL SL PRN (14:38)
[2019-09-18] MEDS: ALBUMIN HUMAN 12.5 GM/50 ML BAG IV SCH (15:46)
[2019-09-18] MEDS: FUROSEMIDE 40 MG/4 ML VIAL IV SCH (15:47)
[2019-09-18] MEDS: 0.9 % SODIUM CHLORIDE 10 ML SYRINGE IV SCH ×2 (15:49→22:26)
[2019-09-18] MEDS ORDERED: WARFARIN 5 MG TABLET PO ONE (16:00)
[2019-09-18 19:40] LABS: Appearance,Urine CLEAR; Bilirubin,Urine NEG (NEG); Color,Urine YELLOW; Culture Indicated,Urine NO; Glucose,Urine (UA) NEGATIVE (NEG); Ketones,Urine NEG (NEG); Leukocyte Esterase,Urine NEG /uL (NEG); Nitrate,Urine NEG (NEG); Protein,Urine NEG (NEG); Specific Gravity,Urine 1.009 (1.000-1.035); Urine Blood NEG mg/dL (<0.03); Urobilinogen,Urine NEG (NEG)
[2019-09-18] MEDS: DOCUSATE SODIUM 100 MG CAPSULE PO SCH (20:52)
[2019-09-18] MEDS: MONTELUKAST 10 MG TABLET PO SCH (20:52)
[2019-09-18] MEDS: BUDESONIDE INH SCH (20:53)
[2019-09-19] MEDS: ACETAMINOPHEN 325 MG TABLET PO PRN (00:19)
[2019-09-19] MEDS: 0.9 % SODIUM CHLORIDE 10 ML SYRINGE IV SCH ×3 (06:09→20:28)
[2019-09-19 07:26] LABS: Basophils # (Auto) 0.07 K/mcL (0.00-0.30); Basophils % (Auto) 1.1 % (0.0-2.0); Eosinophils # (Auto) 0.03 K/mcL (0.00-0.70); Eosinophils % (Auto) 0.5 % (0.0-7.0); Granulocytes % (Auto) 68.8 % (38.0-78.0); Hematocrit 36.3 % (40.1-51.0); Hemoglobin 10.9 g/dL (13.7-17.5); Lymphocytes # (Auto) 0.45 K/mcL (1.50-4.80); Lymphocytes % (Auto) 7.1 % (15.5-49.0); Mean Cell Volume 108.4 fL (80.0-100.0); Monocytes # (Auto) 1.42 K/mcL (0.10-0.90); Monocytes % (Auto) 22.5 % (1.0-12.0); Platelet Count 53 K/mcL (140-440); RBC 3.35 M/mcL (4.63-6.08); Red Cell Distribution Width 23.9 % (11.5-14.5); WBC 6.3 K/mcL (4.50-11.00)
--- NOTE | 2019-09-19 07:30 | Internal Med Progress Note ---
SUBJECTIVE Subjective Patient information: Note initiated : 09/19/19 at 7:26 am Service Date, if different from initiated Date: [] Patient: Dank Garner 84 y/o M admitted on 09/18/19 for SOB . Chief Complaint: [] Interval history: Narrative: History of present illness: Mr. Garner is a 84 year old M Presented ED with shortness of breath and edema. He was sent in by his reinsurance accountant for heart failure and felt to be needing IV diuresis. He was here in july for heart failure and hypotension. Diuresed and his blood pressure medications were reduced. Feels like his been short of breath progressing over the past months and noticed a little bit more past few days as well. His diuretics have been changed by nephrology for the past couple weeks. He feels like his lower extremity swelling is worse. He complains of orthopnea that he has had for quite a while but feels worse lately. In the ED his oxygen seemed to be okay while at rest but when he exerted himself it dropped in the 80s. He needs oxygen therapy at home for heart failure. He does have a cough occasionally nothing new but does produce some clear sometimes white sputum. Short of breath with exertion. 09/18 Feeling a little better today. Decent sleep. Was up with physical therapy this morning is short of breath but may be a little better. Does feel very weak. He feels his leg swelling is much improved and maybe is abdominal swelling as well. Review of Systems: denies headache/fever/chills/nausea/vomiting/chest or abdominal pain/diarrhea. Otherwise see above. Constitutional Vitals: Vital Signs Temp Pulse Resp BP Pulse Ox 98.3 F 88 18 101/64 94 09/19/19 04:00 09/19/19 06:00 09/19/19 06:00 09/19/19 06:00 09/19/19 06:00 Period Temp Pulse Resp BP Sys/Ordoñez Pulse Ox Last 24 Hr 97 F-98.3 F 88-120 16-27 94-110/64-85 90-100 Intake and Output 09/18/19 09/19/19 09/19/19 21:59 05:59 13:59 Intake Total 50 540 Output Total 673 809 275 Balance -625 -85 -275 Weight 95.98 kg Intake & Output: Intake & Output 09/18/19 09/19/19 09/19/19 21:59 05:59 13:59 Intake Total 50 540 Output Total 673 303 115 Balance -625 -85 -275 Weight 95.98 kg Intake: IV 50 Oral 540 Output: Void Amount 679 206 100 Other: Urine Appearance Clear Clear Clear Urine Color Bright Yellow Dark Yellow Dark Yellow Exam: General: Alert, Awake, No acute Distress Eyes/N/T: EOMI, Head/Neck: neck supple, JVD CV: regular rate, No murmurs, Pulm: mild rales at bases but right improved, no wheezing/rhonchi/rales Abd: soft, nontender, +BS x4 Ext: no clubbing/cyanosis, 1+ b/l LE edema - much improved Neuro: Alert, no focal deficits, moves all extremities, Skin: warm/dry OBJ DATA Labs CBC & Chem 7: 09/19/19 05:28 09/19/19 05:28 Labs: Abnormal Lab Results 09/18/19 09/18/19 09/18/19 09:36 09:36 09:36 RBC 3.75 L Hgb 12.2 L MCV 108.3 H MCHC 30.0 L RDW 24.1 H Plt Count 59 L Lymph % (Auto) 8.5 L Ransom % (Auto) 20.6 H Lymph # (Auto) 0.70 L Ransom # (Auto) 1.70 H PT 21.8 H INR 1.8 H BUN 52 H Creatinine 2.0 H Total Bilirubin 1.7 H Total Creatine Kinase 20 L Myoglobin 101 H NT-Pro-B Natriuret Pep 9838.0 H Total Protein 5.8 L Globulin 1.9 L Meds: Medications Acetaminophen (Tylenol) 650 mg PO Q6HP PRN PRN Reason: PAIN/FEVER > 101 Last Admin: 09/19/19 00:19 Dose: 650 mg Documented by: Albuterol/Ipratropium (Duoneb) 3 ml NEB Q4HP PRN PRN Reason: Shortness Of Breath Allopurinol (Zyloprim) 400 mg PO QDAY CHAI Calcitriol (Rocaltrol) 0.25 mcg PO MoWeFr@0900 COUNTS INCLUDE 234 BEDS AT THE [facility] Docusate Sodium (Colace) 100 mg PO BID COUNTS INCLUDE 234 BEDS AT THE [facility] Last Admin: 09/18/19 20:52 Dose: 100 mg Documented by: Furosemide (Lasix) 40 mg IV BIDD COUNTS INCLUDE 234 BEDS AT THE [facility] Last Admin: 09/18/19 15:47 Dose: 40 mg Documented by: Potassium Chloride 40 meq/ (Dextrose) 520 mls @ 130 mls/hr IV UD PRN PRN Reason: Potassium < 3 Magnesium Sulfate (Magnesium Sulfate) 2 gm in 50 mls @ 50 mls/hr IV UD PRN PRN Reason: Magnesium </= 1.6 Albumin Human (Buminate) 12.5 gm in 50 mls @ 100 mls/hr IV BIDD COUNTS INCLUDE 234 BEDS AT THE [facility] Stop: 09/19/19 08:29 Last Infusion: 09/18/19 16:16 Dose: Infused Documented by: Lactulose (Cephulac) 20 gm PO DAILYP PRN PRN Reason: Constipation Levothyroxine Sodium (Synthroid) 125 mcg PO QAMAC COUNTS INCLUDE 234 BEDS AT THE [facility] Metoprolol Tartrate (Lopressor) 5 mg IV Q2HP PRN PRN Reason: Tachyarrhythmias HR>110 Montelukast Sodium (Singular) 10 mg PO QHS COUNTS INCLUDE 234 BEDS AT THE [facility] Last Admin: 09/18/19 20:52 Dose: 10 mg Documented by: Nitroglycerin (Nitrostat) 0.4 mg SL Q5M PRN PRN Reason: Chest Pain Ondansetron HCl (Zofran) 4 mg IV Q4HP PRN PRN Reason: Nausea And Vomiting Budesonide [ Pulmicort Flexhaler] Inhaler 1 dose INH BID COUNTS INCLUDE 234 BEDS AT THE [facility] Last Admin: 09/18/19 20:53 Dose: Not Given Documented by: Polyethylene Glycol (Miralax) 17 gm PO DAILYP PRN PRN Reason: Constipation Potassium Chloride (Kdur) 40 meq PO UD PRN PRN Reason: Potssium is 3-3.5 Potassium Chloride (Kdur) 40 meq PO UD PRN PRN Reason: Potassium < 3 Senna (Senokot) 2 tab PO DAILYP PRN PRN Reason: Constipation Sodium Chloride (Saline Flush) 10 ml IV Q8 COUNTS INCLUDE 234 BEDS AT THE [facility] Last Admin: 09/19/19 06:09 Dose: 10 ml Documented by: Warfarin Sodium (Coumadin Per Pharmacy) 1 order PO UD COUNTS INCLUDE 234 BEDS AT THE [facility] A/P Narrative A/P Narrative: Narrative: A: *Acute on chronic systolic (EF 25-30%) heart failure with some component of right heart failure and valvular component with mod-sev TR: -good UOP *Low Blood pressure: On Toprol at home -initially systolic 90's-110's, now staying above 100 *Acute hypoxic resp failure: -desats on 80's on room air with extertion -room air at rest *COPD (not on home O2) *ART on CPAP: *AFib: on toprol *CAD w/CABG, iCMP with ACID: *CKD IV: *Anemia chronic: *Hypothyroidism: *h/o Myeloproliferative d/o with anemia/thrombocytopenia: Follows with Dr. Suarez * P: -IV lasix, monitor BP -Add Digoxn for inotropic support in light of Afib/systolic CHF, maintenance 0.0625 daily vs qod - follow levels closely given CKD -likely restart BB in AM, dose dependent on BP -records from [facility] [employer] (Dr. Brice) -home cpap -home IH's -Likely needs home oxygen in the setting of significant heart failure & COPD, RT to eval prior to d/c -pt/ot -Follow-up with cardiology outpatient -ppx: Warfarin per pharmacy DNR Time Spent With Patient Time: Total time spent is greater than 50% in coordination of care (as documented) at patient's floor/unit and/or counseling patient: QUALITY VTE Deep Vein Thrombosis/Pulmonary Embolism Present on Admission: No
[2019-09-19] MEDS: FUROSEMIDE 40 MG/4 ML VIAL IV SCH ×2 (07:34→16:10)
[2019-09-19] MEDS: ALBUMIN HUMAN 12.5 GM/50 ML BAG IV SCH (07:34)
[2019-09-19] MEDS: LEVOTHYROXINE 125 MCG TABLET PO SCH (07:34)
[2019-09-19 07:36] LABS: ALT/SGPT 15 U/l (0-40); AST/SGOT 29 U/l (0-37); Albumin 3.6 gm/dL (3.2-5.2); Albumin/Globulin Ratio 2.3 (1.0-2.3); Alkaline Phosphatase 72 U/L (39-117); Bilirubin,Direct 0.7 mg/dL (0.0-0.3); Bilirubin,Total 1.9 mg/dL (0.0-1.0); Blood Urea Nitrogen 55 mg/dl (8-23); Calcium 9.2 mg/dl (8.6-10.4); Carbon Dioxide 21 mmol/L (22-30); Chloride 103 mmol/L (96-108); Globulin 1.6 gm/dL (2.2-3.7); Glomerular Filtration Rate 30; Glucose 83 mg/dL (70-105); Lactate Dehydrogenase 545 U/L (94-250); Phosphorous 3.6 mg/dL (2.7-4.5); Triglycerides 95 mg/dl (<150); Uric Acid 4.6 mg/dL (2.5-8.0)
[2019-09-19 08:19] LABS: INR 2.1 (0.9-1.1); Prothrombin Time 23.9 sec (11.9-14.5)
[2019-09-19] MEDS: CALCITRIOL 0.25 MCG CAPSULE PO SCH (09:23)
[2019-09-19] MEDS: DOCUSATE SODIUM 100 MG CAPSULE PO SCH ×2 (09:23→20:27)
[2019-09-19] MEDS: ALLOPURINOL 100 MG TABLET PO SCH (09:23)
[2019-09-19] MEDS: BUDESONIDE INH SCH ×2 (09:23→20:28)
[2019-09-19] MEDS ORDERED: [UNRECOGNIZED DRUG - OTHER] SCH (11:30)
[2019-09-19] MEDS: DIGOXIN 125 MCG TABLET PO SCH (13:53)
[2019-09-19] MEDS ORDERED: WARFARIN 2.5 MG TABLET PO ONE (15:00)
[2019-09-19] MEDS: MONTELUKAST 10 MG TABLET PO SCH (20:27)
[2019-09-20] MEDS: ACETAMINOPHEN 325 MG TABLET PO PRN (03:57)
[2019-09-20] MEDS: 0.9 % SODIUM CHLORIDE 10 ML SYRINGE IV SCH ×3 (05:38→23:00)
[2019-09-20] MEDS: LEVOTHYROXINE 125 MCG TABLET PO SCH (07:37)
[2019-09-20] MEDS: FUROSEMIDE 40 MG/4 ML VIAL IV SCH ×2 (07:37→17:02)
[2019-09-20 07:55] LABS: INR 2.1 (0.9-1.1); Prothrombin Time 23.7 sec (11.9-14.5)
[2019-09-20 07:58] LABS: Digoxin 0.7 ng/mL
[2019-09-20 08:00] LABS: ALT/SGPT 11 U/l (0-40); AST/SGOT 36 U/l (0-37); Albumin 3.5 gm/dL (3.2-5.2); Albumin/Globulin Ratio 1.8 (1.0-2.3); Alkaline Phosphatase 71 U/L (39-117); Bilirubin,Direct 0.6 mg/dL (0.0-0.3); Bilirubin,Total 1.9 mg/dL (0.0-1.0); Blood Urea Nitrogen 38 mg/dl (8-23); Calcium 9.2 mg/dl (8.6-10.4); Carbon Dioxide 18 mmol/L (22-30); Chloride 102 mmol/L (96-108); Globulin 1.9 gm/dL (2.2-3.7); Glomerular Filtration Rate 28; Glucose 92 mg/dL (70-105); Lactate Dehydrogenase 642 U/L (94-250); Phosphorous 3.5 mg/dL (2.7-4.5); Triglycerides 104 mg/dl (<150); Uric Acid 4.9 mg/dL (2.5-8.0)
[2019-09-20] MEDS: BUDESONIDE INH SCH ×2 (08:50→20:19)
[2019-09-20] MEDS: ALLOPURINOL 100 MG TABLET PO SCH (08:53)
[2019-09-20] MEDS: POLYETHYLENE GLYCOL 3350 17 GM PACKET PO PRN (08:53)
[2019-09-20] MEDS: DOCUSATE SODIUM 100 MG CAPSULE PO SCH ×2 (08:53→20:19)
--- NOTE | 2019-09-20 13:30 | Internal Med Progress Note ---
SUBJECTIVE Subjective Patient information: Note initiated : 09/20/19 at 1:27 pm Service Date, if different from initiated Date: [] Patient: Dank Garner 84 y/o M admitted on 09/18/19 for SOB . 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 Patient also has myeloproliferative disorder probably causing the CKD, history of bladder outlet obstruction secondary to enlarged prostate, he has history of CABG and several PCI with a ICD implanted in 2012 with echocardiogram showing ejection fraction 25 to 30% with a moderate reduction in RV systolic function, his RV moderate to severely dilated. He has been having progressively worsening shortness of breath and congestive heart failure. Even with minimal activities patient is getting short of breath and hypoxic. During admission the attending physician discussed with cardiology and patient was started on digoxin and Lasix patient having low normal blood pressure which is limitation to use of diuretics. 09/18 Feeling a little better today. Decent sleep. Was up with physical therapy this morning is short of breath but may be a little better. Does feel very weak. He feels his leg swelling is much improved and maybe is abdominal swelling as well. 09/19 Continued having shortness of breath even with minimal activities Blood pressure remain low normal Continue digoxin Continue Lasix Discussed with the patient about the poor prognosis and patient wants to be DNR Interval history: Narrative: Review of system Constitutional-tired and lethargic Respiratory-continue to be short of breath with activities and hypoxic with minimal activities Cardiac-regular, no palpitations, dizziness present GI-abdominal distention continued Extremities-pedal edema improved still 2+ Neuro-alert oriented no motor or sensory deficit Constitutional Vitals: Vital Signs Temp Pulse Resp BP Pulse Ox 97.6 F 80 20 107/64 97 09/20/19 12:00 09/20/19 12:00 09/20/19 12:00 09/20/19 12:00 09/20/19 12:00 Period Temp Pulse Resp BP Sys/Ordoñez Pulse Ox Last 24 Hr 97.2 F-98.6 F 80-108 16-24 96-116/58-72 91-97 Intake and Output 09/19/19 09/20/19 09/20/19 21:59 05:59 13:59 Intake Total 300 250 540 Output Total 325 600 Balance -25 -350 540 Weight 209 lb 2 oz 209 lb 2 oz Patient Weight 09/21/19 05:59 Weight 209 lb 2 oz Intake & Output: Intake & Output 09/19/19 09/20/19 09/20/19 21:59 05:59 13:59 Intake Total 300 250 540 Output Total 325 600 Balance -25 -350 540 Weight 209 lb 2 oz 209 lb 2 oz Intake: Oral 300 250 540 Output: Void Amount 325 600 Other: Meal Dinner Breakfast Percent of Meal Consumed 100% 100% Feeding Ability Independent Independent Urine Appearance Clear Clear Urine Color Bright Yellow Light [place] Urine Odor Normal Normal Stool Size Small Stool Color Brown Stool Consistency Formed # Voids 1 1 # Bowel Movements 1 General appearance: moderate distress Head Head exam: Present atraumatic, normal inspection and normocephalic Eye Eye exam: Present EOMI; Absent conjunctival injection Pupils: Absent irregular ENT ENT exam: Present mucous membranes dry, normal external ear exam and normal oropharynx Neck Neck exam: Present full ROM and normal inspection; Absent lymphadenopathy and tenderness Respiratory Respiratory exam: Present accessory muscle use, decreased breath sounds, prolonged expiratory phase, respiratory distress, rhonchi and wheezes; Absent chest wall tenderness Cardiovascular Cardiovascular exam: Present irregular rhythm, JVD, rubs, +S3 and systolic murmur GI/Abdominal GI/Abdominal exam: Present soft, diminished bowel sounds and distended Extremities Exam Extremities exam: Present full ROM and pedal edema; Absent joint swelling, tenderness and Silver's sign Neurological Exam Neurological exam: Present alert, oriented X3 and reflexes normal; Absent abnormal gait and motor sensory deficit Psychiatric Psychiatric exam: Present depressed; Absent agitated and anxious OBJ DATA Labs CBC & Chem 7: 09/19/19 05:28 09/20/19 05:25 Labs: Abnormal Lab Results 09/20/19 09/20/19 09/19/19 05:25 05:25 05:28 RBC Hgb Hct MCV MCHC RDW Plt Count Lymph % (Auto) [place] % (Auto) Lymph # (Auto) [place] # (Auto) PT 23.7 H INR 2.1 H Carbon Dioxide 18 L 21 L Anion Gap 17.0 H BUN 38 H 55 H Creatinine 2.1 H 2.0 H Total Bilirubin 1.9 H 1.9 H Direct Bilirubin 0.6 H 0.7 H Lactate Dehydrogenase 642 H 545 H Total Creatine Kinase Myoglobin NT-Pro-B Natriuret Pep Total Protein 5.4 L 5.2 L Globulin 1.9 L 1.6 L 09/19/19 09/19/19 09/18/19 05:28 05:28 09:36 RBC 3.35 L Hgb 10.9 L Hct 36.3 L MCV 108.4 H MCHC 30.0 L RDW 23.9 H Plt Count 53 L Lymph % (Auto) 7.1 L [place] % (Auto) 22.5 H Lymph # (Auto) 0.45 L [place] # (Auto) 1.42 H PT 23.9 H 21.8 H INR 2.1 H 1.8 H Carbon Dioxide Anion Gap BUN Creatinine Total Bilirubin Direct Bilirubin Lactate Dehydrogenase Total Creatine Kinase Myoglobin NT-Pro-B Natriuret Pep Total Protein Globulin 09/18/19 09/18/19 09:36 09:36 RBC 3.75 L Hgb 12.2 L Hct MCV 108.3 H MCHC 30.0 L RDW 24.1 H Plt Count 59 L Lymph % (Auto) 8.5 L [place] % (Auto) 20.6 H Lymph # (Auto) 0.70 L [place] # (Auto) 1.70 H PT INR Carbon Dioxide Anion Gap BUN 52 H Creatinine 2.0 H Total Bilirubin 1.7 H Direct Bilirubin Lactate Dehydrogenase Total Creatine Kinase 20 L Myoglobin 101 H NT-Pro-B Natriuret Pep 9838.0 H Total Protein 5.8 L Globulin 1.9 L Meds: Medications Acetaminophen (Tylenol) 650 mg PO Q6HP PRN PRN Reason: PAIN/FEVER > 101 Last Admin: 09/20/19 03:57 Dose: 650 mg Documented by: Albuterol/Ipratropium (Duoneb) 3 ml NEB Q4HP PRN PRN Reason: Shortness Of Breath Allopurinol (Zyloprim) 400 mg PO QDAY [facility] Last Admin: 09/20/19 08:53 Dose: 400 mg Documented by: Calcitriol (Rocaltrol) 0.25 mcg PO MoWeFr@0900 [facility] Last Admin: 09/19/19 09:23 Dose: 0.25 mcg Documented by: Digoxin (Lanoxin) 62.5 mcg PO DAILY@1400 [facility] Last Admin: 09/19/19 13:53 Dose: 62.5 mcg Documented by: Docusate Sodium (Colace) 100 mg PO BID [facility] Last Admin: 09/20/19 08:53 Dose: 100 mg Documented by: Furosemide (Lasix) 40 mg IV BIDD [facility] Last Admin: 09/20/19 07:37 Dose: 40 mg Documented by: Potassium Chloride 40 meq/ (Dextrose) 520 mls @ 130 mls/hr IV UD PRN PRN Reason: Potassium < 3 Magnesium Sulfate (Magnesium Sulfate) 2 gm in 50 mls @ 50 mls/hr IV UD PRN PRN Reason: Magnesium </= 1.6 Lactulose (Cephulac) 20 gm PO DAILYP PRN PRN Reason: Constipation Levothyroxine Sodium (Synthroid) 125 mcg PO QAMAC [facility] Last Admin: 09/20/19 07:37 Dose: 125 mcg Documented by: Metoprolol Tartrate (Lopressor) 5 mg IV Q2HP PRN PRN Reason: Tachyarrhythmias HR>110 Montelukast Sodium (Singular) 10 mg PO QHS [facility] Last Admin: 09/19/19 20:27 Dose: 10 mg Documented by: Nitroglycerin (Nitrostat) 0.4 mg SL Q5M PRN PRN Reason: Chest Pain Ondansetron HCl (Zofran) 4 mg IV Q4HP PRN PRN Reason: Nausea And Vomiting Budesonide [ Pulmicort Flexhaler] Inhaler 1 dose INH BID [facility] Last Admin: 09/20/19 08:50 Dose: Not Given Documented by: Polyethylene Glycol (Miralax) 17 gm PO DAILYP PRN PRN Reason: Constipation Last Admin: 09/20/19 08:53 Dose: 17 gm Documented by: Potassium Chloride (Kdur) 40 meq PO UD PRN PRN Reason: Potssium is 3-3.5 Potassium Chloride (Kdur) 40 meq PO UD PRN PRN Reason: Potassium < 3 Senna (Senokot) 2 tab PO DAILYP PRN PRN Reason: Constipation Sodium Chloride (Saline Flush) 10 ml IV Q8 [facility] Last Admin: 09/20/19 05:38 Dose: 10 ml Documented by: Warfarin Sodium (Coumadin Per Pharmacy) 1 order PO [facility] [place] Warfarin Sodium (Coumadin) 5 mg PO ONCE@1400 ONE Stop: 09/20/19 14:01 A/P Narrative A/P Narrative: Narrative: Acute on chronic systolic heart failure Chronic ischemic cardiomyopathy Ejection fraction 25 to 30% earlier this year RV dilation Moderate to severe tricuspid regurgitation Plan Continue IV Lasix and monitor blood pressure Started him on digoxin Monitor electrolytes and replace potassium Follow-up with cardiology Status post ICD Acute hypoxic respiratory failure Due to congestive heart failure Monitor oxygenation CPAP continue Probably need home oxygen COPD Monitor oxygenation No evidence of exacerbation Atrial fibrillation-rate controlled Patient is on Toprol Started him on digoxin Hold the medication for systolic blood pressure less than 100 CAD status post CABG Status post AICD Follow-up with cardiology Poor prognosis with a continued cardiomyopathy Patient wants to be DNR Myeloproliferative disorder CKD stage IV Monitor creatinine Monitor urine output Chronic anemia Monitor hemoglobin Ordered vitamin B12 level Myeloproliferative disorder with thrombocytopenia and anemia Follow-up with oncology Time Spent With Patient Time: Total time spent is greater than 50% in coordination of care (as documented) at patient's floor/unit and/or counseling patient: QUALITY VTE Deep Vein Thrombosis/Pulmonary Embolism Present on Admission: No
[2019-09-20] MEDS: DIGOXIN 125 MCG TABLET PO SCH (13:57)
[2019-09-20] MEDS ORDERED: WARFARIN 5 MG TABLET PO ONE (14:00)
[2019-09-20] MEDS: MONTELUKAST 10 MG TABLET PO SCH (20:19)
[2019-09-21] MEDS: FUROSEMIDE 40 MG/4 ML VIAL IV SCH ×2 (07:20→16:47)
[2019-09-21] MEDS: 0.9 % SODIUM CHLORIDE 10 ML SYRINGE IV SCH ×3 (07:20→20:19)
[2019-09-21] MEDS: LEVOTHYROXINE 125 MCG TABLET PO SCH (07:20)
[2019-09-21 07:32] LABS: INR 2.3 (0.9-1.1); Prothrombin Time 25.7 sec (11.9-14.5)
[2019-09-21 07:57] LABS: Basophils # (Auto) 0.09 K/mcL (0.00-0.30); Basophils % (Auto) 1.6 % (0.0-2.0); Eosinophils # (Auto) 0.02 K/mcL (0.00-0.70); Eosinophils % (Auto) 0.4 % (0.0-7.0); Granulocytes % (Auto) 67.2 % (38.0-78.0); Hematocrit 36.2 % (40.1-51.0); Hemoglobin 10.7 g/dL (13.7-17.5); Lymphocytes # (Auto) 0.95 K/mcL (1.50-4.80); Lymphocytes % (Auto) 16.7 % (15.5-49.0); Mean Cell Volume 108.1 fL (80.0-100.0); Mean Corpuscular HGB Conc 29.6 g/dL (31.0-36.0); Monocytes % (Auto) 14.1 % (1.0-12.0); Platelet Count 48 K/mcL (140-440); RBC 3.35 M/mcL (4.63-6.08); Red Cell Distribution Width 23.5 % (11.5-14.5); WBC 5.7 K/mcL (4.50-11.00)
[2019-09-21 08:03] LABS: ALT/SGPT 14 U/l (0-40); AST/SGOT 32 U/l (0-37); Albumin 3.5 gm/dL (3.2-5.2); Albumin/Globulin Ratio 1.8 (1.0-2.3); Alkaline Phosphatase 87 U/L (39-117); Bilirubin,Total 1.9 mg/dL (0.0-1.0); Calcium 9.3 mg/dl (8.6-10.4); Chloride 100 mmol/L (96-108); Glomerular Filtration Rate 30; Glucose 84 mg/dL (70-105)
[2019-09-21 08:05] LABS: Blood Urea Nitrogen 62 mg/dl (8-23); Carbon Dioxide 23 mmol/L (22-30)
[2019-09-21] MEDS: CALCITRIOL 0.25 MCG CAPSULE PO SCH (09:24)
[2019-09-21] MEDS: ALLOPURINOL 100 MG TABLET PO SCH (09:24)
[2019-09-21] MEDS: DOCUSATE SODIUM 100 MG CAPSULE PO SCH ×2 (09:24→20:19)
[2019-09-21] MEDS: POLYETHYLENE GLYCOL 3350 17 GM PACKET PO PRN (09:25)
[2019-09-21] MEDS: BUDESONIDE INH SCH ×2 (09:25→20:19)
--- NOTE | 2019-09-21 13:10 | Internal Med Progress Note ---
SUBJECTIVE Subjective Patient information: Note initiated : 09/21/19 at 1:09 pm Service Date, if different from initiated Date: [] Patient: Dakn Garner 84 y/o M admitted on 09/18/19 for SOB . 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 Patient also has myeloproliferative disorder probably causing the CKD, history of bladder outlet obstruction secondary to enlarged prostate, he has history of CABG and several PCI with a ICD implanted in 2012 with echocardiogram showing ejection fraction 25 to 30% with a moderate reduction in RV systolic function, his RV moderate to severely dilated. He has been having progressively worsening shortness of breath and congestive heart failure. Even with minimal activities patient is getting short of breath and hypoxic. During admission the attending physician discussed with cardiology and patient was started on digoxin and Lasix patient having low normal blood pressure which is limitation to use of diuretics. 09/18 Feeling a little better today. Decent sleep. Was up with physical therapy this morning is short of breath but may be a little better. Does feel very weak. He feels his leg swelling is much improved and maybe is abdominal swelling as well. 09/19 Continued having shortness of breath even with minimal activities Blood pressure remain low normal Continue digoxin Continue Lasix Discussed with the patient about the poor prognosis and patient wants to be DNR 09/20 Patient continues to having hypoxia with activities Slight improvement from yesterday His kidney function stable around 2.0 with BUN slightly elevated Continue Lasix and digoxin Discussed with the patient's about discharge options SNF versus home with home health Review of system Constitutional-tired and lethargic Respiratory-continue to be short of breath with activities and hypoxic with minimal activities Cardiac-regular, no palpitations, dizziness present GI-abdominal distention continued Extremities-pedal edema improved still 2+ Neuro-alert oriented no motor or sensory deficit Constitutional Vitals: Vital Signs Temp Pulse Resp BP Pulse Ox 97.1 F 103 H 20 105/66 96 09/21/19 10:00 09/21/19 10:09/21/19 10:09/21/19 10:09/21/19 10:00 Period Temp Pulse Resp BP Sys/Ordoñez Pulse Ox Last 24 Hr 97.0 F-97.9 F 89-112 18-22 100-120/58-86 90-99 Intake and Output 09/20/19 09/21/19 09/21/19 21:59 05:59 13:59 Intake Total 450 340 Output Total 600 250 250 Balance -150 -250 90 Weight 210 lb Intake & Output: Intake & Output 09/20/19 09/21/19 09/21/19 21:59 05:59 13:59 Intake Total 450 340 Output Total 600 250 250 Balance -150 -250 90 Weight 210 lb Intake: Oral 450 340 Output: Void Amount 600 250 250 Other: Meal Breakfast Percent of Meal Consumed 100% Feeding Ability Independent Urine Appearance Clear Clear Clear Urine Color Bright Yellow Bright Yellow Bright Yellow Urine Odor Normal Normal Normal Head Head exam: Present atraumatic, normal inspection and normocephalic Eye Eye exam: Present EOMI; Absent periorbital swelling and scleral icterus ENT ENT exam: Present normal exam and normal oropharynx Neck Neck exam: Present full ROM; Absent lymphadenopathy and tenderness Respiratory Respiratory exam: Present accessory muscle use, decreased breath sounds, rales, respiratory distress and wheezes Cardiovascular Cardiovascular exam: Present irregular rhythm, JVD, +S3 and systolic murmur GI/Abdominal GI/Abdominal exam: Present soft, diminished bowel sounds and distended Extremities Exam Extremities exam: Present pedal edema; Absent joint swelling, tenderness and Silver's sign Neurological Exam Neurological exam: Present alert, oriented X3 and reflexes normal; Absent altered and motor sensory deficit Psychiatric Psychiatric exam: Absent agitated, anxious, depressed and homicidal ideation OBJ DATA Labs CBC & Chem 7: 09/21/19 05:30 09/21/19 05:30 Labs: Abnormal Lab Results 09/21/19 09/21/19 09/21/19 05:30 05:30 05:30 RBC 3.35 L Hgb 10.7 L Hct 36.2 L MCV 108.1 H MCHC 29.6 L RDW 23.5 H Plt Count 48 L* Lymph % (Auto) [place] % (Auto) 14.1 H Lymph # (Auto) 0.95 L [place] # (Auto) PT 25.7 H INR 2.3 H Carbon Dioxide Anion Gap BUN 62 H Creatinine 2.0 H Total Bilirubin 1.9 H Direct Bilirubin Lactate Dehydrogenase Total Protein 5.5 L Globulin 2.0 L 09/20/19 09/20/19 09/19/19 05:25 05:25 05:28 RBC Hgb Hct MCV MCHC RDW Plt Count Lymph % (Auto) [place] % (Auto) Lymph # (Auto) [place] # (Auto) PT 23.7 H INR 2.1 H Carbon Dioxide 18 L 21 L Anion Gap 17.0 H BUN 38 H 55 H Creatinine 2.1 H 2.0 H Total Bilirubin 1.9 H 1.9 H Direct Bilirubin 0.6 H 0.7 H Lactate Dehydrogenase 642 H 545 H Total Protein 5.4 L 5.2 L Globulin 1.9 L 1.6 L 09/19/19 09/19/19 09/18/19 05:28 05:28 09:36 RBC 3.35 L Hgb 10.9 L Hct 36.3 L MCV 108.4 H MCHC 30.0 L RDW 23.9 H Plt Count 53 L Lymph % (Auto) 7.1 L [place] % (Auto) 22.5 H Lymph # (Auto) 0.45 L [place] # (Auto) 1.42 H PT 23.9 H 21.8 H INR 2.1 H 1.8 H Carbon Dioxide Anion Gap BUN Creatinine Total Bilirubin Direct Bilirubin Lactate Dehydrogenase Total Protein Globulin Meds: Medications Acetaminophen (Tylenol) 650 mg PO Q6HP PRN PRN Reason: PAIN/FEVER > 101 Last Admin: 09/20/19 03:57 Dose: 650 mg Documented by: Albuterol/Ipratropium (Duoneb) 3 ml NEB Q4HP PRN PRN Reason: Shortness Of Breath Allopurinol (Zyloprim) 400 mg PO QDAY [facility] Last Admin: 09/21/19 09:24 Dose: 400 mg Documented by: Calcitriol (Rocaltrol) 0.25 mcg PO MoWeFr@0900 [facility] Last Admin: 09/21/19 09:24 Dose: 0.25 mcg Documented by: Digoxin (Lanoxin) 62.5 mcg PO DAILY@1400 [facility] Last Admin: 09/20/19 13:57 Dose: 62.5 mcg Documented by: Docusate Sodium (Colace) 100 mg PO BID [facility] Last Admin: 09/21/19 09:24 Dose: 100 mg Documented by: Furosemide (Lasix) 40 mg IV BIDD [facility] Last Admin: 09/21/19 07:20 Dose: 40 mg Documented by: Potassium Chloride 40 meq/ (Dextrose) 520 mls @ 130 mls/hr IV UD PRN PRN Reason: Potassium < 3 Magnesium Sulfate (Magnesium Sulfate) 2 gm in 50 mls @ 50 mls/hr IV UD PRN PRN Reason: Magnesium </= 1.6 Lactulose (Cephulac) 20 gm PO DAILYP PRN PRN Reason: Constipation Levothyroxine Sodium (Synthroid) 125 mcg PO QAMAC [facility] Last Admin: 09/21/19 07:20 Dose: 125 mcg Documented by: Metoprolol Tartrate (Lopressor) 5 mg IV Q2HP PRN PRN Reason: Tachyarrhythmias HR>110 Montelukast Sodium (Singular) 10 mg PO QHS [facility] Last Admin: 09/20/19 20:19 Dose: 10 mg Documented by: Nitroglycerin (Nitrostat) 0.4 mg SL Q5M PRN PRN Reason: Chest Pain Ondansetron HCl (Zofran) 4 mg IV Q4HP PRN PRN Reason: Nausea And Vomiting Budesonide [ Pulmicort Flexhaler] Inhaler 1 dose INH BID [facility] Last Admin: 09/21/19 09:25 Dose: Not Given Documented by: Polyethylene Glycol (Miralax) 17 gm PO DAILYP PRN PRN Reason: Constipation Last Admin: 09/21/19 09:25 Dose: 17 gm Documented by: Potassium Chloride (Kdur) 40 meq PO UD PRN PRN Reason: Potssium is 3-3.5 Potassium Chloride (Kdur) 40 meq PO UD PRN PRN Reason: Potassium < 3 Senna (Senokot) 2 tab PO DAILYP PRN PRN Reason: Constipation Sodium Chloride (Saline Flush) 10 ml IV Q8 [facility] Last Admin: 09/21/19 07:20 Dose: 10 ml Documented by: Warfarin Sodium (Coumadin Per Pharmacy) [address] [facility] [place] Warfarin Sodium (Coumadin) 2.5 mg PO ONCE@1400 ONE Stop: 09/21/19 14:01 A/P Narrative A/P Narrative: Narrative: Time Spent With Patient Time: Total time spent is greater than 50% in coordination of care (as documented) at patient's floor/unit and/or counseling patient: QUALITY VTE Deep Vein Thrombosis/Pulmonary Embolism Present on Admission: No
[2019-09-21] MEDS: DIGOXIN 125 MCG TABLET PO SCH (13:56)
[2019-09-21] MEDS ORDERED: WARFARIN 2.5 MG TABLET PO ONE (14:00)
[2019-09-21] MEDS: MONTELUKAST 10 MG TABLET PO SCH (20:19)
[2019-09-22] MEDS: ACETAMINOPHEN 325 MG TABLET PO PRN ×2 (00:17→22:58)
[2019-09-22 07:15] LABS: ALT/SGPT 15 U/l (0-40); AST/SGOT 29 U/l (0-37); Albumin 3.5 gm/dL (3.2-5.2); Albumin/Globulin Ratio 1.8 (1.0-2.3); Alkaline Phosphatase 82 U/L (39-117); Bilirubin,Total 1.7 mg/dL (0.0-1.0); Blood Urea Nitrogen 62 mg/dl (8-23); Calcium 9.2 mg/dl (8.6-10.4); Carbon Dioxide 25 mmol/L (22-30); Chloride 99 mmol/L (96-108); Globulin 1.9 gm/dL (2.2-3.7); Glomerular Filtration Rate 32; Glucose 91 mg/dL (70-105)
[2019-09-22 07:36] LABS: INR 2.2 (0.9-1.1); Prothrombin Time 25.2 sec (11.9-14.5)
[2019-09-22] MEDS: LEVOTHYROXINE 125 MCG TABLET PO SCH (07:45)
[2019-09-22 07:55] LABS: Basophils # (Auto) 0.05 K/mcL (0.00-0.30); Basophils % (Auto) 0.9 % (0.0-2.0); Eosinophils # (Auto) 0.03 K/mcL (0.00-0.70); Eosinophils % (Auto) 0.5 % (0.0-7.0); Granulocytes % (Auto) 65.2 % (38.0-78.0); Hematocrit 34.9 % (40.1-51.0); Hemoglobin 10.5 g/dL (13.7-17.5); Lymphocytes # (Auto) 0.55 K/mcL (1.50-4.80); Lymphocytes % (Auto) 9.8 % (15.5-49.0); Mean Corpuscular HGB Conc 30.1 g/dL (31.0-36.0); Monocytes # (Auto) 1.33 K/mcL (0.10-0.90); Monocytes % (Auto) 23.6 % (1.0-12.0); Platelet Count 40 K/mcL (140-440); RBC 3.23 M/mcL (4.63-6.08); Red Cell Distribution Width 23.4 % (11.5-14.5); WBC 5.6 K/mcL (4.50-11.00)
[2019-09-22] MEDS: 0.9 % SODIUM CHLORIDE 10 ML SYRINGE IV SCH ×3 (09:33→21:03)
[2019-09-22] MEDS: FUROSEMIDE 40 MG/4 ML VIAL IV SCH ×2 (09:34→16:33)
[2019-09-22] MEDS: BUDESONIDE INH SCH ×3 (09:34→21:10)
[2019-09-22] MEDS: ALLOPURINOL 100 MG TABLET PO SCH (09:34)
[2019-09-22] MEDS: DOCUSATE SODIUM 100 MG CAPSULE PO SCH ×2 (09:34→21:03)
--- NOTE | 2019-09-22 12:23 | Internal Med Progress Note ---
SUBJECTIVE Subjective Patient information: Note initiated : 09/22/19 at 12:22 pm Service Date, if different from initiated Date: [] Patient: Dank Garner 84 y/o M admitted on 09/18/19 for SOB . Chief Complaint: [] This is a 84-year-old gentleman with a ischemic cardiomyopathy with ejection fraction 25% has been following with a clipman status post ICD and CKD stage IV. 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 He has been having progressively worsening shortness of breath and congestive heart failure. Even with minimal activities patient is getting short of breath and hypoxic. During admission the attending physician discussed with cardiology and patient was started on digoxin and Lasix patient having low normal blood pressure which is limitation to use of diuretics. 09/18 Feeling a little better today. Decent sleep. Was up with physical therapy this morning is short of breath but may be a little better. Does feel very weak. He feels his leg swelling is much improved and maybe is abdominal swelling as well. 09/19 Continued having shortness of breath even with minimal activities Blood pressure remain low normal Continue digoxin Continue Lasix Discussed with the patient about the poor prognosis and patient wants to be DNR 09/20 Patient continues to having hypoxia with activities Slight improvement from yesterday His kidney function stable around 2.0 with BUN slightly elevated Continue Lasix and digoxin Discussed with the patient's about discharge options SNF versus home with home health 09/21 Patient is overall feeling better But after sitting up patient was a little dizzy and tired but able to walk with the physical therapy Patient continues to progress Monitoring urine output and renal panel closely Continue IV Lasix 40 twice daily for now nephrology monitoring the patient Review of system Constitutional-tired and lethargic Respiratory-continue to be short of breath with activities and hypoxic with minimal activities Cardiac-regular, no palpitations, dizziness present GI-abdominal distention continued Extremities-pedal edema improved still 2+ Neuro-alert oriented no motor or sensory deficit Interval history: Narrative: Constitutional Vitals: Vital Signs Temp Pulse Resp BP Pulse Ox 98.1 F 97 H 20 112/96 99 09/22/19 12:13 09/22/19 08:00 09/22/19 12:13 09/22/19 12:13 09/22/19 12:13 Period Temp Pulse Resp BP Sys/Ordoñez Pulse Ox Last 24 Hr 97.0 F-99.0 F 97-104 14-20 93-126/56-106 91-100 Intake and Output 09/21/19 09/22/19 09/22/19 21:59 05:59 13:59 Intake Total 960 Output Total 700 275 Balance 260 -275 Weight 209 lb Intake & Output: Intake & Output 09/21/19 09/22/19 09/22/19 21:59 05:59 13:59 Intake Total 960 Output Total 700 275 Balance 260 -275 Weight 209 lb Intake: Oral 960 Output: Void Amount 700 275 Other: Meal Dinner Percent of Meal Consumed 100% Feeding Ability Independent Urine Appearance Clear Clear Urine Color Bright Yellow Dark Yellow Urine Odor Normal Strong Stool Size Small Small Stool Color Brown Brown Stool Consistency Soft Soft Formed # Voids 1 # Bowel Movements 1 General appearance: mild distress Head Head exam: Present atraumatic, normal inspection and normocephalic Eye Eye exam: Present EOMI; Absent periorbital swelling and scleral icterus Respiratory Respiratory exam: Present rales and wheezes; Absent accessory muscle use and respiratory distress Cardiovascular Cardiovascular exam: Present JVD and +S3; Absent +S4 GI/Abdominal GI/Abdominal exam: Present soft and distended; Absent tenderness Neurological Exam Neurological exam: Present alert, oriented X3 and reflexes normal; Absent motor sensory deficit Psychiatric Psychiatric exam: Present normal affect; Absent agitated, anxious, depressed, flat affect, homicidal ideation and suicidal ideation OBJ DATA Labs CBC & Chem 7: 09/22/19 05:20 09/22/19 05:20 Labs: Abnormal Lab Results 09/22/19 09/22/19 09/22/19 05:20 05:20 05:20 RBC 3.23 L Hgb 10.5 L Hct 34.9 L MCV 108.0 H MCHC 30.1 L RDW 23.4 H Plt Count 40 L* Lymph % (Auto) 9.8 L [place] % (Auto) 23.6 H Lymph # (Auto) 0.55 L [place] # (Auto) 1.33 H PT 25.2 H INR 2.2 H Carbon Dioxide Anion Gap BUN 62 H Creatinine 1.9 H Total Bilirubin 1.7 H Direct Bilirubin Lactate Dehydrogenase Total Protein 5.4 L Globulin 1.9 L 09/21/19 09/21/19 09/21/19 05:30 05:30 05:30 RBC 3.35 L Hgb 10.7 L Hct 36.2 L MCV 108.1 H MCHC 29.6 L RDW 23.5 H Plt Count 48 L* Lymph % (Auto) [place] % (Auto) 14.1 H Lymph # (Auto) 0.95 L [place] # (Auto) PT 25.7 H INR 2.3 H Carbon Dioxide Anion Gap BUN 62 H Creatinine 2.0 H Total Bilirubin 1.9 H Direct Bilirubin Lactate Dehydrogenase Total Protein 5.5 L Globulin 2.0 L 09/20/19 09/20/19 05:25 05:25 RBC Hgb Hct MCV MCHC RDW Plt Count Lymph % (Auto) [place] % (Auto) Lymph # (Auto) [place] # (Auto) PT 23.7 H INR 2.1 H Carbon Dioxide 18 L Anion Gap 17.0 H BUN 38 H Creatinine 2.1 H Total Bilirubin 1.9 H Direct Bilirubin 0.6 H Lactate Dehydrogenase 642 H Total Protein 5.4 L Globulin 1.9 L Meds: Medications Acetaminophen (Tylenol) 650 mg PO Q6HP PRN PRN Reason: PAIN/FEVER > 101 Last Admin: 09/22/19 00:17 Dose: 650 mg Documented by: Albuterol/Ipratropium (Duoneb) 3 ml NEB Q4HP PRN PRN Reason: Shortness Of Breath Allopurinol (Zyloprim) 400 mg PO QDAY [facility] Last Admin: 09/22/19 09:34 Dose: 400 mg Documented by: Calcitriol (Rocaltrol) 0.25 mcg PO MoWeFr@0900 [facility] Last Admin: 09/21/19 09:24 Dose: 0.25 mcg Documented by: Digoxin (Lanoxin) 62.5 mcg PO DAILY@1400 [facility] Last Admin: 09/21/19 13:56 Dose: 62.5 mcg Documented by: Docusate Sodium (Colace) 100 mg PO BID [facility] Last Admin: 09/22/19 09:34 Dose: 100 mg Documented by: Furosemide (Lasix) 40 mg IV BIDD [facility] Last Admin: 09/22/19 09:34 Dose: 40 mg Documented by: Potassium Chloride 40 meq/ (Dextrose) 520 mls @ 130 mls/hr IV UD PRN PRN Reason: Potassium < 3 Magnesium Sulfate (Magnesium Sulfate) 2 gm in 50 mls @ 50 mls/hr IV UD PRN PRN Reason: Magnesium </= 1.6 Lactulose (Cephulac) 20 gm PO DAILYP PRN PRN Reason: Constipation Levothyroxine Sodium (Synthroid) 125 mcg PO QAMAC [facility] Last Admin: 09/22/19 07:45 Dose: 125 mcg Documented by: Metoprolol Tartrate (Lopressor) 5 mg IV Q2HP PRN PRN Reason: Tachyarrhythmias HR>110 Montelukast Sodium (Singular) 10 mg PO QHS [facility] Last Admin: 09/21/19 20:19 Dose: 10 mg Documented by: Nitroglycerin (Nitrostat) 0.4 mg SL Q5M PRN PRN Reason: Chest Pain Ondansetron HCl (Zofran) 4 mg IV Q4HP PRN PRN Reason: Nausea And Vomiting Budesonide [ Pulmicort Flexhaler] Inhaler 1 dose INH BID [facility] Last Admin: 09/22/19 09:34 Dose: 1 dose Documented by: Polyethylene Glycol (Miralax) 17 gm PO DAILYP PRN PRN Reason: Constipation Last Admin: 09/21/19 09:25 Dose: 17 gm Documented by: Potassium Chloride (Kdur) 40 meq PO UD PRN PRN Reason: Potssium is 3-3.5 Potassium Chloride (Kdur) 40 meq PO UD PRN PRN Reason: Potassium < 3 Senna (Senokot) 2 tab PO DAILYP PRN PRN Reason: Constipation Sodium Chloride (Saline Flush) 10 ml IV Q8 [facility] Last Admin: 09/22/19 09:33 Dose: 10 ml Documented by: Warfarin Sodium (Coumadin Per Pharmacy) 1 order PO [facility] Warfarin Sodium (Coumadin) 5 mg PO ONCE@1400 [facility] Stop: 09/22/19 14:01 A/P Narrative A/P Narrative: Narrative: Acute on chronic systolic heart failure Chronic ischemic cardiomyopathy Ejection fraction 25 to 30% earlier this year RV dilation Moderate to severe tricuspid regurgitation Plan Continue IV Lasix and monitor blood pressure His electrolytes has been monitored and renal function stable around 2.0 creatinine and BUN around 60 Continue digoxin and monitor potassium level Monitor electrolytes and replace potassium Follow-up with cardiology Status post ICD Patient would benefit from outpatient cardiac rehab Acute hypoxic respiratory failure Due to congestive heart failure Monitor oxygenation CPAP continue Probably need home oxygen COPD Monitor oxygenation No evidence of exacerbation Atrial fibrillation-rate controlled Patient is on Toprol Started him on digoxin Hold the medication for systolic blood pressure less than 100 CAD status post CABG Status post AICD Follow-up with cardiology Poor prognosis with a continued cardiomyopathy Patient wants to be DNR Myeloproliferative disorder CKD stage IV Monitor creatinine Monitor urine output Chronic anemia Monitor hemoglobin B12 level normal Myeloproliferative disorder with thrombocytopenia and anemia Follow-up with oncology Time Spent With Patient Time: Total time spent is greater than 50% in coordination of care (as documented) at patient's floor/unit and/or counseling patient: QUALITY VTE Deep Vein Thrombosis/Pulmonary Embolism Present on Admission: No
[2019-09-22] MEDS ORDERED: WARFARIN 5 MG TABLET PO ONE (14:00)
[2019-09-22] MEDS: DIGOXIN 125 MCG TABLET PO SCH (14:23)
[2019-09-22] MEDS: MONTELUKAST 10 MG TABLET PO SCH (21:03)
[2019-09-23 07:11] LABS: ALT/SGPT 15 U/l (0-40); AST/SGOT 32 U/l (0-37); Albumin 3.6 gm/dL (3.2-5.2); Alkaline Phosphatase 85 U/L (39-117); Bilirubin,Total 1.7 mg/dL (0.0-1.0); Blood Urea Nitrogen 70 mg/dl (8-23); Calcium 9.4 mg/dl (8.6-10.4); Carbon Dioxide 25 mmol/L (22-30); Chloride 97 mmol/L (96-108); Globulin 1.8 gm/dL (2.2-3.7); Glomerular Filtration Rate 32; Glucose 89 mg/dL (70-105)
[2019-09-23] MEDS: LEVOTHYROXINE 125 MCG TABLET PO SCH (07:35)
[2019-09-23 07:41] LABS: Prothrombin Time 23.5 sec (11.9-14.5)
[2019-09-23 07:50] LABS: Basophils # (Auto) 0.09 K/mcL (0.00-0.30); Basophils % (Auto) 1.7 % (0.0-2.0); Eosinophils # (Auto) 0.02 K/mcL (0.00-0.70); Eosinophils % (Auto) 0.4 % (0.0-7.0); Granulocytes % (Auto) 65.1 % (38.0-78.0); Hematocrit 35.3 % (40.1-51.0); Hemoglobin 10.5 g/dL (13.7-17.5); Lymphocytes # (Auto) 0.53 K/mcL (1.50-4.80); Lymphocytes % (Auto) 9.9 % (15.5-49.0); Mean Corpuscular HGB Conc 29.7 g/dL (31.0-36.0); Monocytes # (Auto) 1.23 K/mcL (0.10-0.90); Monocytes % (Auto) 22.9 % (1.0-12.0); Platelet Count 37 K/mcL (140-440); RBC 3.24 M/mcL (4.63-6.08); Red Cell Distribution Width 23.5 % (11.5-14.5); WBC 5.4 K/mcL (4.50-11.00)
[2019-09-23] MEDS: 0.9 % SODIUM CHLORIDE 10 ML SYRINGE IV SCH ×3 (08:22→20:49)
[2019-09-23] MEDS: BUDESONIDE INH SCH ×2 (08:22→20:48)
[2019-09-23] MEDS: FUROSEMIDE 40 MG/4 ML VIAL IV SCH (08:22)
[2019-09-23] MEDS: ALLOPURINOL 100 MG TABLET PO SCH (08:23)
[2019-09-23] MEDS: DOCUSATE SODIUM 100 MG CAPSULE PO SCH ×2 (08:23→20:48)
[2019-09-23] MEDS: ACETAMINOPHEN 325 MG TABLET PO PRN (08:23)
[2019-09-23] MEDS ORDERED: POTASSIUM CHLORIDE 20 MEQ TABLET PO SCH (08:50)
[2019-09-23] MEDS ORDERED: POTASSIUM CHLORIDE 20 MEQ TABLET PO PRN ×2 (10:41)
[2019-09-23] MEDS ORDERED: POTASSIUM CHLORIDE 40 MEQ in DEXTROSE 5% IN WATER 500 ML IV PRN (10:41)
[2019-09-23] MEDS ORDERED: IPRATROPIUM/ALBUTEROL 3 ML AMPUL.NEB NEB PRN (10:41)
[2019-09-23] MEDS ORDERED: LACTULOSE 20 GM/30 ML ORAL.SOL PO PRN (10:41)
[2019-09-23] MEDS ORDERED: ACETAMINOPHEN 325 MG TABLET PO PRN (10:41)
[2019-09-23] MEDS ORDERED: SENNOSIDES 1 TABLET PO PRN (10:41)
[2019-09-23] MEDS ORDERED: ONDANSETRON 4 MG/2 ML VIAL IV PRN (10:41)
[2019-09-23] MEDS ORDERED: NITROGLYCERIN 0.4 MG TAB.SUBL SL PRN (10:41)
[2019-09-23] MEDS ORDERED: POLYETHYLENE GLYCOL 3350 17 GM PACKET PO PRN (10:41)
[2019-09-23] MEDS ORDERED: MAGNESIUM SULFATE 2 GM/50 ML BAG IV PRN (10:41)
[2019-09-23] MEDS ORDERED: METOPROLOL TARTRATE 5 MG/5 ML VIAL IV PRN (10:41)
[2019-09-23] MEDS ORDERED: WARFARIN 5 MG TABLET PO ONE (14:00)
[2019-09-23] MEDS: DIGOXIN 125 MCG TABLET PO SCH (14:43)
[2019-09-23] MEDS ORDERED: FUROSEMIDE 80 MG TABLET PO SCH (16:00)
[2019-09-23] MEDS: FUROSEMIDE 80 MG TABLET PO SCH (16:38)
[2019-09-23] MEDS ORDERED: MONTELUKAST 10 MG TABLET PO SCH (21:00)
--- NOTE | 2019-09-23 22:15 | Internal Med Progress Note ---
SUBJECTIVE Subjective Patient information: Note initiated : 09/23/19 at 10:13 pm Service Date, if different from initiated Date: [] Patient: Dank Garner 84 y/o M admitted on 09/18/19 for SOB . 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 Patient also has myeloproliferative disorder probably causing the CKD, history of bladder outlet obstruction secondary to enlarged prostate, he has history of CABG and several PCI with a ICD implanted in 2012 with echocar diogram showing ejection fraction 25 to 30% with a moderate reduction in RV systolic function, his RV moderate to severely dilated. He has been having progressively worsening shortness of breath and congestive heart failure. Even with minimal activities patient is getting short of breath and hypoxic. During admission the attending physician discussed with cardiology and patient was started on digoxin and Lasix patient having low normal blood pressure which is limitation to use of diuretics. 09/18 Feeling a little better today. Decent sleep. Was up with physical therapy this morning is short of breath but may be a little better. Does feel very weak. He feels his leg swelling is much improved and maybe is abdominal swelling as well. 09/19 Continued having shortness of breath even with minimal activities Blood pressure remain low normal Continue digoxin Continue Lasix Discussed with the patient about the poor prognosis and patient wants to be DNR 09/20 Patient continues to having hypoxia with activities Slight improvement from yesterday His kidney function stable around 2.0 with BUN slightly elevated Continue Lasix and digoxin Discussed with the patient's about discharge options SNF versus home with home health 09/21 Patient is overall feeling better But after sitting up patient was a little dizzy and tired but able to walk with the physical therapy Patient continues to progress Monitoring urine output and renal panel closely Continue IV Lasix 40 twice daily for now nephrology monitoring the patient 09/22 Patient continues to feel better He was able to walk some minimal shortness of breath Patient feels very tired after walking Continue Lasix dosing changed to 80 p.o. twice daily Patient would like to go home with home health Review of system Constitutional-tired and lethargic Respiratory-continue to be short of breath with activities and hypoxic with minimal activities Cardiac-intermittent palpitation and dizziness GI-abdominal distention continued Extremities-pedal edema improved Neuro-alert oriented no motor or sensory deficit Interval history: Narrative: Constitutional Vitals: Vital Signs Temp Pulse Resp BP Pulse Ox 98.9 F 103 H 20 116/70 92 09/23/19 20:55 09/23/19 16:00 09/23/19 16:00 09/23/19 20:55 09/23/19 20:55 Period Temp Pulse Resp BP Sys/Ordoñez Pulse Ox Last 24 Hr 96.9 F-98.9 F 88-103 16-20 97-116/62-83 89-99 Intake and Output 09/23/19 09/23/19 09/24/19 13:59 21:59 05:59 Intake Total 280 480 Output Total 725 300 Balance -445 180 Intake & Output: Intake & Output 09/23/19 09/23/19 09/24/19 13:59 21:59 05:59 Intake Total 280 480 Output Total 725 300 Balance -445 180 Intake: Oral 280 480 Output: Void Amount 725 300 Other: Meal Breakfast Percent of Meal Consumed 75% Feeding Ability Independent Urine Appearance Clear Clear Urine Color Dark Yellow Bright Yellow Urine Odor Strong Stool Size Small Stool Color Brown Stool Consistency Soft # Bowel Movements 1 1 General appearance: moderate distress Eye Eye exam: Present EOMI; Absent periorbital swelling and scleral icterus Pupils: Absent irregular ENT ENT exam: Present mucous membranes dry, normal external ear exam and normal oropharynx Respiratory Respiratory exam: Present accessory muscle use, rales and respiratory distress Cardiovascular Cardiovascular exam: Present diastolic murmur, JVD and +S3 GI/Abdominal GI/Abdominal exam: Present normal bowel sounds and distended; Absent diminished bowel sounds and tenderness Neurological Exam Neurological exam: Present alert and oriented X3; Absent motor sensory deficit Psychiatric Psychiatric exam: Absent agitated, anxious and depressed OBJ DATA Labs CBC & Chem 7: 09/23/19 05:25 09/23/19 05:25 Labs: Abnormal Lab Results 09/23/19 09/23/19 09/23/19 05:25 05:25 05:25 RBC 3.24 L Hgb 10.5 L Hct 35.3 L MCV 109.0 H MCHC 29.7 L RDW 23.5 H Plt Count 37 L* Lymph % (Auto) 9.9 L [place] % (Auto) 22.9 H Lymph # (Auto) 0.53 L [place] # (Auto) 1.23 H PT 23.5 H INR 2.0 H BUN 70 H Creatinine 1.9 H Total Bilirubin 1.7 H Total Protein 5.4 L Globulin 1.8 L 09/22/19 09/22/19 09/22/19 05:20 05:20 05:20 RBC 3.23 L Hgb 10.5 L Hct 34.9 L MCV 108.0 H MCHC 30.1 L RDW 23.4 H Plt Count 40 L* Lymph % (Auto) 9.8 L [place] % (Auto) 23.6 H Lymph # (Auto) 0.55 L [place] # (Auto) 1.33 H PT 25.2 H INR 2.2 H BUN 62 H Creatinine 1.9 H Total Bilirubin 1.7 H Total Protein 5.4 L Globulin 1.9 L 09/21/19 09/21/19 09/21/19 05:30 05:30 05:30 RBC 3.35 L Hgb 10.7 L Hct 36.2 L MCV 108.1 H MCHC 29.6 L RDW 23.5 H Plt Count 48 L* Lymph % (Auto) [place] % (Auto) 14.1 H Lymph # (Auto) 0.95 L [place] # (Auto) PT 25.7 H INR 2.3 H BUN 62 H Creatinine 2.0 H Total Bilirubin 1.9 H Total Protein 5.5 L Globulin 2.0 L Meds: Medications Acetaminophen (Tylenol) 650 mg PO Q6HP PRN PRN Reason: PAIN/FEVER > 101 Albuterol/Ipratropium (Duoneb) 3 ml NEB Q4HP PRN PRN Reason: Shortness Of Breath Allopurinol (Zyloprim) 400 mg PO QDAY [facility] Calcitriol (Rocaltrol) 0.25 mcg PO MoWeFr@0900 [facility] Digoxin (Lanoxin) 62.5 mcg PO DAILY@1400 [facility] Last Admin: 09/23/19 14:43 Dose: 62.5 mcg Documented by: Docusate Sodium (Colace) 100 mg PO BID [facility] Last Admin: 09/23/19 20:48 Dose: 100 mg Documented by: Furosemide (Lasix) 80 mg PO BIDD [facility] Last Admin: 09/23/19 16:38 Dose: 80 mg Documented by: Magnesium Sulfate (Magnesium Sulfate) 2 gm in 50 mls @ 50 mls/hr IV UD PRN PRN Reason: Magnesium </= 1.6 Potassium Chloride 40 meq/ (Dextrose) 520 mls @ 130 mls/hr IV UD PRN PRN Reason: Potassium < 3 Lactulose (Cephulac) 20 gm PO DAILYP PRN PRN Reason: Constipation [facility] Metoprolol Tartrate (Lopressor) 5 mg IV Q2HP PRN PRN Reason: Tachyarrhythmias HR>110 Montelukast Sodium (Singular) 10 mg PO QHS [facility] Last Admin: 09/23/19 20:48 Dose: 10 mg Documented by: Nitroglycerin (Nitrostat) 0.4 mg SL Q5M PRN PRN Reason: Chest Pain Ondansetron HCl (Zofran) 4 mg IV Q4HP PRN PRN Reason: Nausea And Vomiting Budesonide [ Pulmicort Flexhaler] Inhaler 1 dose INH BID [facility] Last Admin: 09/23/19 20:48 Dose: 1 dose Documented by: Polyethylene Glycol (Miralax) 17 gm PO DAILYP PRN PRN Reason: Constipation Potassium Chloride (Kdur) 40 meq PO QAMCC [facility] Potassium Chloride (Kdur) 40 meq PO UD PRN PRN Reason: Potssium is 3-3.5 Potassium Chloride (Kdur) 40 meq PO UD PRN PRN Reason: Potassium < 3 Senna (Senokot) 2 tab PO DAILYP PRN PRN Reason: Constipation Sodium Chloride (Saline Flush) 10 ml IV Q8 [facility] Last Admin: 09/23/19 20:49 Dose: 10 ml Documented by: Warfarin Sodium (Coumadin Per Pharmacy) 1 order PO UD [facility] A/P Narrative A/P Narrative: Narrative: Acute on chronic systolic heart failure Chronic ischemic cardiomyopathy Ejection fraction 25 to 30% earlier this year RV dilation Moderate to severe tricuspid regurgitation Plan Continue IV Lasix and monitor blood pressure His electrolytes has been monitored and renal function stable around 2.0 creatinine and BUN around 60 Continue digoxin and monitor potassium level Monitor electrolytes and replace potassium Follow-up with cardiology Status post ICD Patient would benefit from outpatient cardiac rehab Acute hypoxic respiratory failure Due to congestive heart failure Monitor oxygenation CPAP continue Probably need home oxygen COPD Monitor oxygenation No evidence of exacerbation Atrial fibrillation-rate controlled Patient is on Toprol Started him on digoxin Hold the medication for systolic blood pressure less than 100 CAD status post CABG Status post AICD Follow-up with cardiology Poor prognosis with a continued cardiomyopathy Patient wants to be DNR Discussed with the patient and patient would like to go home with home health Myeloproliferative disorder CKD stage IV Monitor creatinine Monitor urine output Chronic anemia Monitor hemoglobin B12 level normal Myeloproliferative disorder with thrombocytopenia and anemia Follow-up with oncology Time Spent With Patient Time: Total time spent is greater than 50% in coordination of care (as documented) at patient's floor/unit and/or counseling patient: QUALITY VTE Deep Vein Thrombosis/Pulmonary Embolism Present on Admission: No
[2019-09-24] MEDS: 0.9 % SODIUM CHLORIDE 10 ML SYRINGE IV SCH (05:59)
[2019-09-24 06:12] LABS: ALT/SGPT 15 U/l (0-40); AST/SGOT 34 U/l (0-37); Albumin 3.7 gm/dL (3.2-5.2); Albumin/Globulin Ratio 1.9 (1.0-2.3); Alkaline Phosphatase 90 U/L (39-117); Bilirubin,Total 1.7 mg/dL (0.0-1.0); Blood Urea Nitrogen 75 mg/dl (8-23); Calcium 9.5 mg/dl (8.6-10.4); Carbon Dioxide 26 mmol/L (22-30); Chloride 98 mmol/L (96-108); Glomerular Filtration Rate 34; Glucose 93 mg/dL (70-105)
[2019-09-24 06:20] LABS: Basophils # (Auto) 0.07 K/mcL (0.00-0.30); Basophils % (Auto) 1.2 % (0.0-2.0); Eosinophils # (Auto) 0.03 K/mcL (0.00-0.70); Eosinophils % (Auto) 0.5 % (0.0-7.0); Granulocytes % (Auto) 64.6 % (38.0-78.0); Hematocrit 36.5 % (40.1-51.0); Hemoglobin 10.8 g/dL (13.7-17.5); Lymphocytes # (Auto) 0.56 K/mcL (1.50-4.80); Lymphocytes % (Auto) 9.6 % (15.5-49.0); Mean Corpuscular HGB Conc 29.6 g/dL (31.0-36.0); Monocytes # (Auto) 1.41 K/mcL (0.10-0.90); Monocytes % (Auto) 24.1 % (1.0-12.0); Platelet Count 35 K/mcL (140-440); RBC 3.38 M/mcL (4.63-6.08); Red Cell Distribution Width 23.5 % (11.5-14.5); WBC 5.9 K/mcL (4.50-11.00)
[2019-09-24 06:22] LABS: INR 1.9 (0.9-1.1); Prothrombin Time 22.5 sec (11.9-14.5)
[2019-09-24] MEDS: BUDESONIDE INH SCH (07:15)
[2019-09-24] MEDS ORDERED: LEVOTHYROXINE 125 MCG TABLET PO SCH (07:30)
[2019-09-24] MEDS ORDERED: POTASSIUM CHLORIDE 20 MEQ TABLET PO SCH (08:00)
[2019-09-24] MEDS: DOCUSATE SODIUM 100 MG CAPSULE PO SCH (08:55)
[2019-09-24] MEDS: FUROSEMIDE 80 MG TABLET PO SCH (08:55)
[2019-09-24] MEDS ORDERED: CALCITRIOL 0.25 MCG CAPSULE PO SCH (09:00)
[2019-09-24] MEDS ORDERED: ALLOPURINOL 100 MG TABLET PO SCH (09:00)
--- NOTE | 2019-09-24 13:17 | Discharge Summary ---
Discharge Provider Provider Patient information: Note initiated : 09/24/19 at 1:15 pm Service Date, if different from initiated Date: [] Patient: Dank Garner 84 y/o M admitted on 09/18/19 for SOB . Chief [facility] [address] 1935 [address]Service Date:09/18/19 Admit Date: 09/18/19 [place], [place] [id number] # [id number] Frankie Jimenez M.D. MR #: [id number] Internal Med Progress Note Signed SUBJECTIVE Subjective Patient information: Note initiated : 09/23/19 at 10:13 pm Service Date, if different from initiated Date: [] Patient: Dank Garner 84 y/o M admitted on 09/18/19 for SOB . Chief Complaint: This is a 84-year-old gentleman with a ischemic cardiomyopathy with ejection fraction 25% has been following with a perinatal director status post ICD and CKD stage IV. Patient also has myeloproliferative disorder probably causing the CKD, history of bladder outlet obstruction secondary to enlarged prostate, he has history of CABG and several PCI with a ICD implanted in 2012 with echocardiogram showing ejection fraction 25 to 30% with a moderate reduction in RV systolic function, his RV moderate to severely dilated. He has been having progressively worsening shortness of breath and congestive heart failure. Even with minimal activities patient is getting short of breath and hypoxic. During admission the attending physician discussed with cardiology and patient was started on digoxin and Lasix patient having low normal blood pressure which is limitation to use of diuretics. 09/18 Feeling a little better today. Decent sleep. Was up with physical therapy this morning is short of breath but may be a little better. Does feel very weak. He feels his leg swelling is much improved and maybe is abdominal swelling as well. 09/19 Continued having shortness of breath even with minimal activities Blood pressure remain low normal Continue digoxin Continue Lasix Discussed with the patient about the poor prognosis and patient wants to be DNR 09/20 Patient continues to having hypoxia with activities Slight improvement from yesterday His kidney function stable around 2.0 with BUN slightly elevated Continue Lasix and digoxin Discussed with the patient's about discharge options SNF versus home with home health 09/21 Patient is overall feeling better But after sitting up patient was a little dizzy and tired but able to walk with the physical therapy Patient continues to progress Monitoring urine output and renal panel closely Continue IV Lasix 40 twice daily for now nephrology monitoring the patient 09/22 Patient continues to feel better He was able to walk some minimal shortness of breath Patient feels very tired after walking Continue Lasix dosing changed to 80 p.o. twice daily Patient would like to go home with home health 09/23 Patient is feeling better having some shortness of breath somewhat improved significantly discussed with him and he wants to be discharged home home health it would benefit from cardiac rehab Review of system Constitutional-tired and lethargic Respiratory-continue to be short of breath with activities and hypoxic with minimal activities Cardiac-intermittent palpitation and dizziness GI-abdominal distention continued Extremities-pedal edema improved Neuro-alert oriented no motor or sensory deficit Acute on chronic systolic heart failure Chronic ischemic cardiomyopathy Ejection fraction 25 to 30% earlier this year RV dilation Moderate to severe tricuspid regurgitation Plan Continue Lasix 40 bid and monitor blood pressure His electrolytes has been monitored and renal function stable around 2.0 creatinine and BUN around 60 Continue digoxin and monitor potassium level Monitor electrolytes and replace potassium Follow-up with cardiology Status post ICD Patient would benefit from outpatient cardiac rehab Acute hypoxic respiratory failure Due to congestive heart failure Monitor oxygenation CPAP continue COPD Monitor oxygenation No evidence of exacerbation Atrial fibrillation-rate controlled Patient is on Toprol Started him on digoxin Hold the medication for systolic blood pressure less than 100 CAD status post CABG Status post AICD Follow-up with cardiology Poor prognosis with a continued cardiomyopathy Patient wants to be DNR Discussed with the patient and patient would like to go home with home health Myeloproliferative disorder CKD stage IV Monitor creatinine Monitor urine output Chronic anemia Monitor hemoglobin B12 level normal Myeloproliferative disorder with thrombocytopenia and anemia Follow-up with oncology Date of admission: 09/18/19 14:20 Discharge date: 09/24/19 Primary care physician: Yannick Bahena MD Consults: 09/18/19 13:00 Consult to Physician [CONS] Stat Comment: Consulting Provider: Marco Guillaume Reason For Exam: Physician to Consult Discharge Meds Discharge Medications Active and Home Medications: Home Medications ascorbic acid (vitamin C) 1,000 mg tablet 500 mg PO QDAY tab 09/12/14 [History Confirmed 09/18/19 Last Taken 09/18/19 08:00] aspirin 81 mg tablet,delayed release 81 mg PO HS tab 09/12/14 [History Confirmed 09/18/19 Last Taken 09/17/19 21:00] glucosamine-chondroitin 500 mg-400 mg capsule 1 tab-cap PO BID cap 09/12/14 [History Confirmed 09/18/19 Last Taken 09/18/19 08:00] multivitamin 1 tab-cap PO QDAY cap 09/12/14 [History Confirmed 09/18/19 Last Taken 09/18/19 08:00] nebulizers #1 each 03/04/15 [Rx Confirmed 09/18/19 Last Taken Unknown] nitroglycerin 0.4 mg sublingual tablet 0.4 mg SUBLINGUAL Q5MIN PRN #25 tab 02/17/16 [Rx Confirmed 09/18/19 Last Taken Unknown] warfarin 5 mg tablet See Rx Instructions .ROUTE .COMPLEX #1 tab 11/25/16 [Rx Confirmed 09/18/19 Last Taken 09/18/19 5 mg] levothyroxine 125 mcg tablet 125 mcg PO QDAY #90 tab 08/15/17 [Rx Confirmed 09/18/19 Last Taken 09/18/19 07:30] CPAP machine and accessories #1 each 11/30/17 [Rx Confirmed 09/18/19 Last Taken 08/12/19 20:00] budesonide 180 mcg/actuation breath activated powder inhaler 1 inh INHALATION BID #1 each 12/05/17 [Rx Confirmed 09/18/19 Last Taken 09/18/19 08:00] calcitriol 0.25 mcg capsule 0.25 mcg PO Q OTHER DAY #20 cap 02/05/19 [Rx Confirmed 09/18/19 Last Taken 09/17/19 08:00] krf-evy-obgdcuru [id number] 1 each PO HS each 05/09/19 [History Confirmed 09/18/19 Last Taken 09/17/19 21:00] montelukast 10 mg tablet 10 mg PO QHS tab 08/13/19 [History Confirmed 09/18/19 Last Taken 09/17/19 21:00] sennosides 8.6 mg tablet 25.8 mg PO BID tab 08/13/19 [History Confirmed 09/18/19 Last Taken 09/18/19 08:00] metoprolol succinate 25 mg tablet,extended release 24 hr 25 mg PO DAILY #90 tab 09/10/19 [Rx Confirmed 09/18/19 Last Taken 09/18/19 08:00] allopurinol 100 mg PO QDAY #30 tab 09/24/19 [Rx Last Taken Unknown] digoxin 62.5 mcg PO DAILY@1400 30 Days #2 tab 09/24/19 [Rx Last Taken Unknown] furosemide 40 mg PO BIDD 30 Days #120 tab 09/24/19 [Rx Last Taken Unknown] potassium chloride [Klor-Con M20] 40 meq PO QAMCC 30 Days #60 tab 09/24/19 [Rx Last Taken Unknown] COURSE Hospital Course Discharge diagnosis: acute on chronic chf Time Spent with Patient Time attestation: Total time spent providing and/or coordinating discharge services: EXAM Constitutional Vitals: Temp Pulse Resp BP Pulse Ox 97.8 F 48 L 18 113/73 97 09/24/19 11:26 09/24/19 11:26 09/24/19 11:26 09/24/19 11:26 09/24/19 11:26 General appearance: no acute distress Head Head exam: Present atraumatic and normal inspection Eye Eye exam: Present EOMI; Absent periorbital swelling and scleral icterus ENT ENT exam: Present normal exam and normal oropharynx Neck Neck exam: Absent lymphadenopathy and tenderness Respiratory Respiratory exam: Absent accessory muscle use, rales and respiratory distress Cardiovascular Cardiovascular exam: Present diastolic murmur and systolic murmur; Absent JVD and +S3 GI/Abdominal GI/Abdominal exam: Present normal bowel sounds, soft and distended Neurological Exam Neurological exam: Present alert, oriented X3 and reflexes normal; Absent motor sensory deficit Discharge Data Data Completed and Pending Labs on day of discharge: Labs from last 24 hours 09/24/19 09/24/19 09/24/19 05:10 05:10 05:10 WBC 5.9 RBC 3.38 L Hgb 10.8 L Hct 36.5 L MCV 108.0 H MCH 32.0 MCHC 29.6 L RDW 23.5 H Plt Count 35 L* MPV TNP Gran % 64.6 Lymph % (Auto) 9.6 L Barry % (Auto) 24.1 H Eos % (Auto) 0.5 Baso % (Auto) 1.2 Gran # 3.79 Lymph # (Auto) 0.56 L Barry # (Auto) 1.41 H Eos # (Auto) 0.03 Baso # (Auto) 0.07 Differential Comment Few nrbcs on scan PT 22.5 H INR 1.9 H Sodium 137 Potassium 4.1 Chloride 98 Carbon Dioxide 26 Anion Gap 13.0 BUN 75 H Creatinine 1.8 H GFR Calculation 34 Glucose 93 Calcium 9.5 Magnesium 2.2 Total Bilirubin 1.7 H AST 34 ALT 15 Alkaline Phosphatase 90 Total Protein 5.7 L Albumin 3.7 Globulin 2.0 L Albumin/Globulin Ratio 1.9 Discharge Plan Patient/Caregiver Discharge Instructions Activity: ambulate only with your walker and as per physical therapy Diet: Cardiac Instructions: Heart Failure (DC) Prescriptions: New allopurinol 100 mg Tablet 100 mg PO QDAY Qty: 30 RF: 1 digoxin 125 mcg (0.125 mg) Tablet 62.5 mcg PO DAILY@1400 30 Days Qty: 2 RF: 0 furosemide 20 mg tablet 40 mg PO BIDD 30 Days Qty: 120 RF: 0 potassium chloride [Klor-Con M20] 20 mEq Tablet,Er Particles/Crystals 40 meq PO QAC 30 Days Qty: 60 RF: 0 Continued levothyroxine 125 mcg tablet 125 mcg PO QDAY Qty: 90 RF: 3 budesonide [Pulmicort Flexhaler] 180 mcg/actuation aerosol powdr breath activated 1 inh INHALATION BID Qty: 1 RF: 2 calcitriol 0.25 mcg capsule 0.25 mcg PO Q OTHER DAY Qty: 20 RF: 4 metoprolol succinate 25 mg tablet extended release 24 hr 25 mg PO DAILY Qty: 90 RF: 3 ascorbic acid (vitamin C) 1,000 mg tablet 500 mg PO QDAY RF: 0 aspirin 81 mg tablet,delayed release (DR/EC) 81 mg PO HS RF: 0 glucosamine-chondroitin 500-400 mg capsule 1 tab-cap PO BID RF: 0 nitroglycerin 0.4 mg tablet, sublingual 0.4 mg SUBLINGUAL Q5MIN PRN (Reason: chest pain) Qty: 25 RF: 1 warfarin 5 mg tablet See Rx Instructions .ROUTE .COMPLEX Qty: 1 RF: 0 sennosides [senna] 8.6 mg tablet 25.8 mg PO BID RF: 0 omw-[id number]-trhkbojv [phone] tablet 1 each PO HS RF: 0 montelukast 10 mg tablet 10 mg PO QHS RF: 0 Discontinued allopurinol 100 mg tablet 400 mg PO QDAY Qty: 360 RF: 1 torsemide 10 mg tablet 10 mg PO DAILY RF: 0 No Action (DME) nebulizers misc See Dose Instructions .ROUTE .MEDSUPPLY Qty: 1 RF: 0 (DME) CPAP machine and accessories Qty: 1 RF: 0 multivitamin capsule 1 tab-cap PO QDAY RF: 0 Other Ambulatory Orders: Physical Therapy at Discharge - General (Routine) Location: None Selected Ordered By: Frankie Jimenez Follow Up Plan Follow up with: Vic Rodriguez MD [Physician] - (7-10 days) Yannick Bahena MD [Primary Care Provider] - (7 days) Patient Disposition: Home Health Service Plan of Treatment: Discharge with home health PT Consider cardiac rehab Follow-up with cardiology in 7 to 10 days Follow-up with the primary care provider in 7 days Continue taking digoxin Continue Lasix and needs reassessment with the primary care provider and cardiology Prognosis: Serious Rehab Potential: Critical Overall status at discharge: patient is progressing back to baseline Discharge Orders: Discharge Order (Routine); Ordered 09/24/19 Ordered By: Frankie Jimenez QUALITY VTE Deep Vein Thrombosis/Pulmonary Embolism Present on Admission: No
[2019-09-24] MEDS ORDERED: WARFARIN 5 MG TABLET PO ONE (14:00)
[2019-09-24] MEDS: DIGOXIN 125 MCG TABLET PO SCH (14:25)
== END 2019-09-24 15:05 | disposition home health service (06) | DRG 291 ==
LOC: ED 09:15 → ICU 14:20 → MEDSUR 09-24 08:05
PROVIDERS: ADMIT Internal Medicine; ATTEND Internal Medicine

== ENCOUNTER 2019-10-04 14:32 | Inpatient (IN) ==
--- NOTE | 2019-10-04 15:12 | XRay Report ---
INDICATION: shortness of breath TECHNIQUE: AP portable upright chest x-ray COMPARISON: Previous chest x-rays dated 10/01/2019, 09/18/2019 FINDINGS:Previous median sternotomy. Left transvenous pacemaker leads are unchanged Lungs:Left basilar infiltrate consistent with pneumonia. There is also pulmonary congestion without definite pulmonary edema. No other focal pulmonary parenchymal abnormality. No pulmonary parenchymal mass Heart, vascular: Mild cardiomegaly. Pulmonary vascularity is normal. No pulmonary edema or pulmonary congestion Mediastinum, jose:No mediastinal widening. No hilar mass Pleura:No pleural fluid. No pleural-based mass or calcification Skeletal:Negative. IMPRESSION: 1. Left basilar infiltrate consistent with pneumonia 2. Cardiomegaly. No definite pulmonary edema Interpreted and Authenticated by: Bradford Steve 10/04/19
[2019-10-04] MEDS ORDERED: FUROSEMIDE 40 MG/4 ML VIAL IV ONE (15:23)
--- NOTE | 2019-10-04 15:33 | Emergency Department Note ---
SOB HPI General Chief Complaint: Shortness of Breath/Dyspnea Stated Complaint: Water on Legs/Lungs, Heart Problems Time Seen by Provider: 10/04/19 14:45 Source: patient Mode of arrival: wheelchair Limitations: no limitations History of Present Illness HPI Narrative: Narrative: This patient has a long history of congestive heart failure with 2 recent admissions 5 days each. He is now short of breath and edematous and feeling like he needs to be admitted again. He feels a little weak and dizzy and has slight abdominal discomfort slight nausea but no chest pain no cough he does feel short of breath he is dyspneic on exertion. He has had no diarrhea. MD Complaint: shortness of breath Onset (ago): day(s) Context: recent illness and occurred during exertion Severity: moderate Consistency/Duration: constant Improves with: oxygen, upright position and medication Worsens with: lying flat Known history of: congestive heart failure Associated symptoms: Reports orthopnea and abdominal pain; Denies chest pain, cough and wheezing Treatment prior to arrival: diuretics Related Data Home Medications Medication Instructions Recorded Confirmed ascorbic acid (vitamin C) 1,000 mg 500 mg PO QDAY tab 09/12/14 09/26/19 tablet aspirin 81 mg tablet,delayed 81 mg PO HS tab 09/12/14 09/26/19 release glucosamine-chondroitin 500 mg-400 1 tab-cap PO BID cap 09/12/14 09/26/19 mg capsule multivitamin 1 tab-cap PO QDAY cap 09/12/14 09/26/19 montelukast 10 mg tablet 10 mg PO QHS tab 08/13/19 09/26/19 sennosides 8.6 mg tablet 25.8 mg PO BID tab 08/13/19 09/26/19 allopurinol 100 mg tablet 400 mg PO QDAY tab 09/26/19 09/26/19 magnesium chloride 71.5 mg 71.5 mg PO 3XW tab 09/26/19 09/26/19 (magnesium chloride) tablet,delayed release Previous Rx's Medication Instructions Recorded nebulizers #1 each 03/04/15 nitroglycerin 0.4 mg sublingual 0.4 mg SUBLINGUAL Q5MIN PRN #25 tab 02/17/16 tablet warfarin 5 mg tablet See Rx Instructions .ROUTE 11/25/16 .COMPLEX #1 tab levothyroxine 125 mcg tablet 125 mcg PO QDAY #90 tab 08/15/17 CPAP machine and accessories #1 each 11/30/17 budesonide 180 mcg/actuation 1 inh INHALATION BID #1 each 12/05/17 breath activated powder inhaler metoprolol succinate 25 mg 25 mg PO DAILY #90 tab 09/10/19 tablet,extended release 24 hr digoxin 62.5 mcg PO DAILY@1400 30 Days #2 09/24/19 tab furosemide 40 mg PO BIDD 30 Days #120 tab 09/24/19 potassium chloride [Klor-Con M20] 40 meq PO QAMCC 30 Days #60 tab 09/24/19 calcitriol 0.25 mcg capsule 0.25 mcg PO Q OTHER DAY #30 cap 09/26/19 Allergies Allergy/AdvReac Type Severity Reaction Status Date / Time oxycodone [Oxycodone] Allergy Mild Nausea Verified 10/04/19 14:38 sulfacetamide Allergy Unknown Unknown Verified 10/04/19 14:38 niacin AdvReac Intermediate Unknown Verified 10/04/19 14:38 colchicine [From Colcrys] AdvReac Mild swollen Verified 10/04/19 14:38 feet doxycycline calcium Allergy Unknown Unknown Uncoded 09/18/19 14:55 Review of Systems ROS ROS Narrative: Narrative: All systems ED: reviewed and negative except as stated. Constitutional: Reports weakness; Denies fever, chills and sweats Cardiovascular: Reports as per HPI, dyspnea on exertion, orthopnea, edema and paroxysmal nocturnal dyspnea; Denies chest pain Respiratory: Reports as per HPI and shortness of breath; Denies cough Gastrointestinal: Reports as per HPI, abdominal pain and nausea Genitourinary: Denies dysuria PFSH Narrative Patient History Narrative: Narrative: Medical/Surgical/Family History All Active Problems (Updated 10/04/19 @ 19:18 by Juan Kyle MD) Pneumonia (Acute) Acute on chronic clinical systolic heart failure (Acute) Acute on chronic diastolic CHF (congestive heart failure) (Acute) Lumbar radiculopathy (Acute) Cholelithiasis (Acute) Laceration (Acute) Encounter for removal of sutures (Acute) Cardiogenic shock (Acute) CKD (chronic kidney disease), stage IV (Chronic) Chronic combined systolic and diastolic CHF (congestive heart failure) (Chronic) Cardiorenal syndrome with renal failure (Chronic) 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) Hyperparathyroidism, secondary renal (Chronic) Secondary hyperparathyroidism of renal origin (Chronic) Cough (Acute) Abdominal aortic aneurysm (AAA) 3.0 cm to 5.5 cm in diameter in male (Acute) COPD (chronic obstructive pulmonary disease) (Acute) Hypothyroidism (Acute) ART on CPAP (Acute) Chronic myeloproliferative disorder (Chronic 05/19/15) Benign prostatic hypertrophy (Chronic) Gout (Chronic) 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) Slow transit constipation (Chronic) Neuropathy (Chronic) Edema (Chronic) Gastroesophageal reflux disease (Chronic) Abdominal distension (Chronic) 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) Vasomotor rhinitis (Chronic) Splenomegaly (Chronic) Secondary hyperparathyroidism of renal origin (Chronic) Allergic rhinitis (Chronic) Restless leg syndrome (Chronic) Raynauds syndrome (Chronic) Protein C deficiency (Chronic) Polycythemia vera (Chronic) Hx of venous thrombosis and embolism (Chronic) Obstructive sleep apnea, adult (Chronic) Hypothyroidism (acquired) (Chronic) Hypertensive renal disease (Chronic) Hypertension, essential (Chronic) Hyperlipidemia (Chronic) Fatigue (Chronic) Congestive heart failure (Chronic) Chronic kidney disease, stage III (moderate) (Chronic) Cardiomyopathy (Chronic) CAD (coronary artery disease) (Chronic) 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 Abdominal aortic aneurysm (Resolved) Abdominal distension (Chronic) usg neg, shows 17 cm cyst in liver appears benigh and 21 cm spleen. also poor abdominal wall tone. Acute exacerbation of chronic bronchitis (Resolved) treat with prednisone and zithromax hopefully will get better now that he will have a nebulizer. Acute gout (Resolved) on allopurinol 300, he has ckd and polycythemia, as risk factors. Uric acid 6.8, pt already of 300mg allopurinol with no good response, start on uloric 40mg once daily ,stop allopuinol. Allergic rhinitis (Chronic) 07/11/2014 Anemia in chronic kidney disease (Chronic) Anemia, iron deficiency (Chronic) Asymptomatic cholelithiasis (Resolved) Atrial fibrillation (Chronic) Benign prostatic hypertrophy (Chronic) CAD (coronary artery disease) (Chronic) and stenting Cardiomyopathy (Chronic) Cardiorenal syndrome with renal failure (Chronic) Slowly progressive, lasix increased last visit with Dr Ley, now tried Jules in low dose with clinical worsening Chronic combined systolic and diastolic CHF (congestive heart failure) (Chronic) Combined systolic and diastolic congestive heart failure, AICD in place On a combination of low-dose carvedilol digoxin spironolactone and now twice a day furosemide Chronic combined systolic and diastolic CHF (congestive heart failure) (Chronic) On furosemide, BB, low dose aldactone, did not tolerate low dose Sacubitril/valsartan qHS AICD in place Warfarin Chronic kidney disease, stage III (moderate) (Chronic) Stable CKD 3 over the last 4 years Minimal proteinuria Chronic myeloproliferative disorder (Chronic 05/19/15) 05/19/2015-[facility] Common femoral artery injury (Resolved) Congestive heart failure (Chronic) 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 but inhalers did not help at all, at this time, given age, h/o productive cough x 1 yr and a neg x ray chest ,will get a CT of the lungs to r/o any other pathology. NOt a candidate for contrast given CKD. Deep vein thrombosis (Inactive) recurrent Protein C def Degenerative joint disease (Resolved) Edema (Chronic) Fatigue (Chronic) Gastroesophageal reflux disease (Chronic) On pantoprazole, doing well. Gastrointestinal bleeding (Resolved) Gout (Chronic) Hepatic cyst (Resolved) History of cardioversion (Resolved) History of colonic polyps (Resolved) History of peptic ulcer disease (Resolved) Hx of gout (Resolved) Hx of venous thrombosis and embolism (Chronic) Hyperlipidemia (Chronic) LDL ok Hypermagnesemia (Resolved) due to ckd and mg supplements, plan to stop same and monitor. Hyperparathyroidism, secondary renal (Chronic) Stable on low-dose calcitriol every other day Hypersplenism (Resolved) Hypertension, essential (Chronic) bp stable, con coreg, continue same. 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 Probably has an element of high cell turnover and increased uric acid precursor production as well as diuretics, Hypoglycemia (Resolved) Likely pseudohypoglycemia, due to elevated rbc count, no symptoms, workup neg so far, only cpeptide mildly high. Consider CT abdomen if patient has symptoms. 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) Myelofibrosis (Resolved) Myocardial infarction, old (Resolved) 1997 Nephrolithiasis (Resolved) Neuropathy (Chronic) MUltifactorial in the feet, capcasin cream topical for now, pt to buy otc, Obstructive sleep apnea, adult (Chronic) Occasional numbness/prickling/tingling of fingers and toes (Inactive) Polycythemia vera (Chronic) Protein C deficiency (Chronic) Raynauds syndrome (Chronic) Restless leg syndrome (Chronic) Secondary hyperparathyroidism of renal origin (Chronic) PTH and vitamin D at goal calcium and phos at goal ct calcitriol 0.25mcg qod Simple cyst of kidney (Inactive) Slow transit constipation (Chronic) chr constipation, plan to increase fiber in diet, advise use of prunes, increase hydration. Splenomegaly (Chronic) Supraventricular tachycardia (Resolved) Tricuspid regurgitation (Resolved) Urinary retention (Inactive) Vasomotor rhinitis (Chronic) Surgical History 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) 03/06/2013 History of intravascular stent placement (Resolved) cardiac History of left knee replacement (Inactive) History of lumbar surgery (Resolved) Lumbar disc surgery L4-5 History of surgical fusion joint (Inactive) Fusion DIP L ring finger History of total cystectomy (Resolved) 12/28/2012 Hx of adenoidectomy (Inactive) Hx of arthroscopic knee surgery (Inactive) right knee Hx of CABG (Resolved) 08/2006 Hx of cataract surgery (Inactive) Hx of tonsillectomy (Inactive) Hx of transurethral resection of prostate (Resolved) Hx of vasectomy (Resolved) Status post cystourethroscopy with dilation of urethral stricture (Inactive) 12/28/2012 Family History Mother Diabetes mellitus Father Cardiac disease at 86yrs old Brother Cerebrovascular accident Social History Smoking Status: Never smoker Alcohol Intake Frequency: does not drink Substance Use: does not use Exam Narrative Narrative: Narrative: General Limitations: no limitations Head Head: atraumatic and normocephalic Eye Eye: Present normal appearance and EOMI; Absent scleral icterus and conjunctival injection ENT ENT: Present normal exam and normal oropharynx Chest Chest: Present normal inspection and symmetric chest wall rise Respiratory Respiratory: Present decreased breath sounds; Absent respiratory distress, rales/crackles and wheezes Cardiovascular Cardiovascular: Present regular rate, normal rhythm and normal heart sounds Adbominal Abdominal: Present soft, distention and normal bowel sounds; Absent tenderness, guarding, rebound and rigidity Expanded Abdominal Abdominal Tenderness: Present diffuse and mild Extremities Extremities: Present pedal edema and pretibial edema Neurological Neurological: Present alert Psychiatric Psychiatric: Present flat affect Skin Skin: Present warm, dry and normal color; Absent diaphoresis Course Vital Signs Vital signs: Vital Signs Temperature 97.3 F 10/04/19 14:34 Pulse Rate 99 H 10/04/19 14:34 Respiratory Rate 18 10/04/19 14:34 Blood Pressure 119/72 10/04/19 14:34 Pulse Oximetry (%) 94 10/04/19 14:34 Temperature 97.3 F 10/04/19 14:34 Pulse Rate 101 H 10/04/19 19:00 Respiratory Rate 25 H 10/04/19 19:00 Blood Pressure 100/63 10/04/19 19:00 Pulse Oximetry (%) 94 10/04/19 19:00 [facility] Narrative Medical decision making narrative: Narrative: Radiologist thought this patient had pneumonia and not heart failure although his BNP is 9000 and he does have edema. We did blood cultures and gave him Levaquin and Rocephin but also some Lasix at 40 mg IV. I discussed the case with Dr. Berry and he will be admitted to the hospital. Lab Data Lab results reviewed: Yes I reviewed the patient's lab results. Result diagrams: 10/04/19 14:55 10/04/19 14:55 Labs: Lab Results 10/04/19 10/04/19 10/04/19 Range/Units 14:41 14:41 14:55 WBC 10.5 (4.50-11.00) K/mcL RBC 3.66 L (4.63-6.08) M/mcL Hgb 11.8 L (13.7-17.5) g/dL Hct 39.1 L (40.1-51.0) % MCV 106.8 H (80.0-100.0) fL MCH 32.2 (26.0-34.0) pg MCHC 30.2 L (31.0-36.0) g/dL RDW 23.5 H (11.5-14.5) % Plt Count 49 L* (140-440) K/mcL MPV TNP Gran % 70.0 (38.0-78.0) % Lymph % (Auto) 17.0 (15.5-49.0) % [place] % (Auto) 8.0 (1.0-12.0) % Eos % (Auto) 0 (0.0-7.0) % Baso % (Auto) 1.0 (0.0-2.0) % Gran # (1.80-8.00) K/mcL Lymph # (Auto) (1.50-4.80) K/mcL [place] # (Auto) (0.10-0.90) K/mcL Eos # (Auto) (0.00-0.70) K/mcL Baso # (Auto) (0.00-0.30) K/mcL Differential Comment Few nrbcs on scan VBG Lactic Acid (0.5-2.0) mmol/L Sodium (133-145) mmol/L Potassium (3.3-5.1) mmol/L Chloride (96-108) mmol/L Carbon Dioxide (22-30) mmol/L Anion Gap (8-16) BUN (8-23) mg/dl Creatinine (0.7-1.2) mg/dl GFR Calculation Glucose (70-105) mg/dL Calcium (8.6-10.4) mg/dl Total Bilirubin (0.0-1.0) mg/dL AST (0-37) U/l ALT (0-40) U/l Alkaline Phosphatase (39-117) U/L Troponin T < 0.01 (0-0.03) ng/ml NT-Pro-B Natriuret Pep 9382.0 H (0-450) pg/ml Total Protein (5.9-8.4) gm/dL Albumin (3.2-5.2) gm/dL Globulin (2.2-3.7) gm/dL Albumin/Globulin Ratio (1.0-2.3) 10/04/19 10/04/19 Range/Units 14:55 15:35 WBC (4.50-11.00) K/mcL RBC (4.63-6.08) M/mcL Hgb (13.7-17.5) g/dL Hct (40.1-51.0) % MCV (80.0-100.0) fL MCH (26.0-34.0) pg MCHC (31.0-36.0) g/dL RDW (11.5-14.5) % Plt Count (140-440) K/mcL MPV Gran % (38.0-78.0) % Lymph % (Auto) (15.5-49.0) % [place] % (Auto) (1.0-12.0) % Eos % (Auto) (0.0-7.0) % Baso % (Auto) (0.0-2.0) % Gran # (1.80-8.00) K/mcL Lymph # (Auto) (1.50-4.80) K/mcL [place] # (Auto) (0.10-0.90) K/mcL Eos # (Auto) (0.00-0.70) K/mcL Baso # (Auto) (0.00-0.30) K/mcL Differential Comment VBG Lactic Acid 1.4 (0.5-2.0) mmol/L Sodium 138 (133-145) mmol/L Potassium 4.8 (3.3-5.1) mmol/L Chloride 100 (96-108) mmol/L Carbon Dioxide 22 (22-30) mmol/L Anion Gap 16.0 (8-16) BUN 65 H (8-23) mg/dl Creatinine 2.3 H (0.7-1.2) mg/dl GFR Calculation 25 Glucose 84 (70-105) mg/dL Calcium 9.6 (8.6-10.4) mg/dl Total Bilirubin 1.9 H (0.0-1.0) mg/dL AST 43 H (0-37) U/l ALT 19 (0-40) U/l Alkaline Phosphatase 106 (39-117) U/L Troponin T (0-0.03) ng/ml NT-Pro-B Natriuret Pep (0-450) pg/ml Total Protein 6.1 (5.9-8.4) gm/dL Albumin 4.1 (3.2-5.2) gm/dL Globulin 2.0 L (2.2-3.7) gm/dL Albumin/Globulin Ratio 2.1 (1.0-2.3) Radiology Data Radiology results reviewed: Yes I reviewed the patient's radiology results. Discharge Plan Patient/Caregiver Discharge Instructions Pt seen by [employer]/PA only: No Clinical Impression: Pneumonia, Chronic combined systolic and diastolic CHF (congestive heart failure) Patient Disposition: Xfer As Inpt ([facility]) Follow up with: Yannick Bahena MD [Primary Care Provider] - Prescriptions: No Action (DME) nebulizers [facility] See Dose Instructions .ROUTE .MEDSUPPLY Qty: 1 RF: 0 levothyroxine 125 mcg tablet 125 mcg PO QDAY Qty: 90 RF: 3 (DME) CPAP machine and accessories Qty: 1 RF: 0 budesonide [Pulmicort Flexhaler] 180 mcg/actuation aerosol powdr breath activated 1 inh INHALATION BID Qty: 1 RF: 2 metoprolol succinate 25 mg tablet extended release 24 hr 25 mg PO DAILY Qty: 90 RF: 3 ascorbic acid (vitamin C) 1,000 mg tablet 500 mg PO QDAY RF: 0 aspirin 81 mg tablet,delayed release (DR/EC) 81 mg PO HS RF: 0 glucosamine-chondroitin 500-400 mg capsule 1 tab-cap PO BID RF: 0 multivitamin capsule 1 tab-cap PO QDAY RF: 0 nitroglycerin 0.4 mg tablet, sublingual 0.4 mg SUBLINGUAL Q5MIN PRN (Reason: chest pain) Qty: 25 RF: 1 warfarin 5 mg tablet See Rx Instructions .ROUTE .COMPLEX Qty: 1 RF: 0 sennosides [senna] 8.6 mg tablet 25.8 mg PO BID RF: 0 montelukast 10 mg tablet 10 mg PO QHS RF: 0 allopurinol 100 mg tablet 400 mg PO QDAY RF: 0 Slow-Mag 71.5 mg tablet,delayed release (DR/EC) 71.5 mg PO 3XW RF: 0 calcitriol 0.25 mcg capsule 0.25 mcg PO Q OTHER DAY Qty: 30 RF: 6 digoxin 125 mcg (0.125 mg) Tablet 62.5 mcg PO DAILY@1400 30 Days Qty: 2 RF: 0 furosemide 20 mg tablet 40 mg PO BIDD 30 Days Qty: 120 RF: 0 potassium chloride [Klor-Con M20] 20 mEq Tablet,Er Particles/Crystals 40 meq PO QAMCC 30 Days Qty: 60 RF: 0
[2019-10-04 15:43] LABS: Hematocrit 39.1 % (40.1-51.0); Hemoglobin 11.8 g/dL (13.7-17.5); Mean Cell Volume 106.8 fL (80.0-100.0); Mean Corpuscular HGB Conc 30.2 g/dL (31.0-36.0); Platelet Count 49 K/mcL (140-440); RBC 3.66 M/mcL (4.63-6.08); Red Cell Distribution Width 23.5 % (11.5-14.5); WBC 10.5 K/mcL (4.50-11.00)
[2019-10-04] MEDS ORDERED: cefTRIAXone 1 GM VIAL IV ONE (16:07)
[2019-10-04] MEDS ORDERED: DOXYCYCLINE 100 MG in DEXTROSE 5% IN WATER 100 ML IV ONE (16:07)
[2019-10-04 16:13] LABS: ALT/SGPT 19 U/l (0-40); AST/SGOT 43 U/l (0-37); Albumin 4.1 gm/dL (3.2-5.2); Albumin/Globulin Ratio 2.1 (1.0-2.3); Alkaline Phosphatase 106 U/L (39-117); Bilirubin,Total 1.9 mg/dL (0.0-1.0); Blood Urea Nitrogen 65 mg/dl (8-23); Calcium 9.6 mg/dl (8.6-10.4); Carbon Dioxide 22 mmol/L (22-30); Chloride 100 mmol/L (96-108); Glomerular Filtration Rate 25; Glucose 84 mg/dL (70-105)
[2019-10-04] MEDS ORDERED: LEVOFLOXACIN 750 MG/150 ML BAG IV ONE (16:18)
[2019-10-04] MEDS ORDERED: BENZONATATE 100 MG CAPSULE PO ONE (16:21)
[2019-10-04 16:28] LABS: Eosinophils % (Auto) 0 % (0.0-7.0)
--- NOTE | 2019-10-04 19:42 | Internal Med History&Physical ---
HPI History of Present Illness Patient information: Note initiated : 10/04/19 at 7:32 pm Service Date, if different from initiated Date: [] Patient: Dank Garner a 84 y/o M admitted on for Water on Legs/Lungs, Heart Problems. Chief Complaint: MsJatinder, shortness of breath History of present illness: Mr. Garner is a 84 year old M with a history of ICM/CABG/A. 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 Patient was discharged has been gaining weight and getting progressively short of breath with increasing exertional dyspnea/orthopnea, productive cough and progressive decline in functional status. He lives with his and has not been able to take care of self. Symptoms associated with dizziness lightheadedness and malaise. He presents to the ER initial work-up with chest infiltrate consistent with pneumonia atop congestive heart failure. Patient was started antibiotics after cultures were drawn. He was started on diuretics. Hospital service was consulted. At the time of my evaluation patient is very fatigued and weak but was able to answer most of the questions. Following discharge from hospital he never really felt well. He denies sick contacts. Denies fever, chills but endorses to yellow productive sputum. Denies headache, photophobia, dysuria but endorses to multiple episodes of loose stool over the last few days. Review of systems 10 point review system was performed and is negative except for ones cussed above [facility] Medical History (Updated 10/04/19 @ 19:18 by Juan Kyle MD) Abdominal aortic aneurysm (Ruled-out) Abdominal aortic aneurysm (Ruled-out) USg done neg, ct abdo pelvis done neg in 2013, only usg in 2013 had shown this, which I now believe could be a over read given multiple subsequent studies not showing the aneurysm. Abdominal aortic aneurysm (Resolved) Abdominal distension (Chronic) usg neg, shows 17 cm cyst in liver appears benigh and 21 cm spleen. also poor abdominal wall tone. Acute exacerbation of chronic bronchitis (Resolved) treat with prednisone and zithromax hopefully will get better now that he will have a nebulizer. Acute gout (Resolved) on allopurinol 300, he has ckd and polycythemia, as risk factors. Uric acid 6.8, pt already of 300mg allopurinol with no good response, start on uloric 40mg once daily ,stop allopuinol. Allergic rhinitis (Chronic) 07/11/2014 Anemia in chronic kidney disease (Chronic) Anemia, iron deficiency (Chronic) Asymptomatic cholelithiasis (Resolved) Atrial fibrillation (Chronic) Benign prostatic hypertrophy (Chronic) CAD (coronary artery disease) (Chronic) and stenting Cardiomyopathy (Chronic) Cardiorenal syndrome with renal failure (Chronic) Slowly progressive, lasix increased last visit with Dr Ley, now tried Jules in low dose with clinical worsening Chronic combined systolic and diastolic CHF (congestive heart failure) (Chronic) Combined systolic and diastolic congestive heart failure, AICD in place On a combination of low-dose carvedilol digoxin spironolactone and now twice a day furosemide Chronic combined systolic and diastolic CHF (congestive heart failure) (Chronic) On furosemide, BB, low dose aldactone, did not tolerate low dose Sacubitril/valsartan qHS AICD in place Warfarin Chronic kidney disease, stage III (moderate) (Chronic) Stable CKD 3 over the last 4 years Minimal proteinuria Chronic myeloproliferative disorder (Chronic 05/19/15) 05/19/2015-[facility] Common femoral artery injury (Resolved) Congestive heart failure (Chronic) 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 but inhalers did not help at all, at this time, given age, h/o productive cough x 1 yr and a neg x ray chest ,will get a CT of the lungs to r/o any other pathology. NOt a candidate for contrast given CKD. Deep vein thrombosis (Inactive) recurrent Protein C def Degenerative joint disease (Resolved) Edema (Chronic) Fatigue (Chronic) Gastroesophageal reflux disease (Chronic) On pantoprazole, doing well. Gastrointestinal bleeding (Resolved) Gout (Chronic) Hepatic cyst (Resolved) History of cardioversion (Resolved) History of colonic polyps (Resolved) History of peptic ulcer disease (Resolved) Hx of gout (Resolved) Hx of venous thrombosis and embolism (Chronic) Hyperlipidemia (Chronic) LDL ok Hypermagnesemia (Resolved) due to ckd and mg supplements, plan to stop same and monitor. Hyperparathyroidism, secondary renal (Chronic) Stable on low-dose calcitriol every other day Hypersplenism (Resolved) Hypertension, essential (Chronic) bp stable, con coreg, continue same. 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 Probably has an element of high cell turnover and increased uric acid precursor production as well as diuretics, Hypoglycemia (Resolved) Likely pseudohypoglycemia, due to elevated rbc count, no symptoms, workup neg so far, only cpeptide mildly high. Consider CT abdomen if patient has symptoms. 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) Myelofibrosis (Resolved) Myocardial infarction, old (Resolved) 1997 Nephrolithiasis (Resolved) Neuropathy (Chronic) MUltifactorial in the feet, capcasin cream topical for now, pt to buy otc, Obstructive sleep apnea, adult (Chronic) Occasional numbness/prickling/tingling of fingers and toes (Inactive) Polycythemia vera (Chronic) Protein C deficiency (Chronic) Raynauds syndrome (Chronic) Restless leg syndrome (Chronic) Secondary hyperparathyroidism of renal origin (Chronic) PTH and vitamin D at goal calcium and phos at goal ct calcitriol 0.25mcg qod Simple cyst of kidney (Inactive) Slow transit constipation (Chronic) chr constipation, plan to increase fiber in diet, advise use of prunes, increase hydration. Splenomegaly (Chronic) Supraventricular tachycardia (Resolved) Tricuspid regurgitation (Resolved) Urinary retention (Inactive) Vasomotor rhinitis (Chronic) Surgical History 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) 03/06/2013 History of intravascular stent placement (Resolved) cardiac History of left knee replacement (Inactive) History of lumbar surgery (Resolved) Lumbar disc surgery L4-5 History of surgical fusion joint (Inactive) Fusion DIP L ring finger History of total cystectomy (Resolved) 12/28/2012 Hx of adenoidectomy (Inactive) Hx of arthroscopic knee surgery (Inactive) right knee Hx of CABG (Resolved) 08/2006 Hx of cataract surgery (Inactive) Hx of tonsillectomy (Inactive) Hx of transurethral resection of prostate (Resolved) Hx of vasectomy (Resolved) Status post cystourethroscopy with dilation of urethral stricture (Inactive) 12/28/2012 Family History Mother Diabetes mellitus Father Cardiac disease at 86yrs old Brother Cerebrovascular accident Social History marital status: education level: college occupational status: retired other: 3 Children, 2 grandchildren smoking status: Never smoker alcohol intake frequency: does not drink substance use type: does not use MEDS/ALLERGIES Home Medications and Allergies Home Medications Medication Instructions Recorded Confirmed Type ascorbic acid (vitamin C) 1,000 mg 500 mg PO QDAY tab 09/12/14 10/05/19 History tablet aspirin 81 mg tablet,delayed 81 mg PO HS tab 09/12/14 10/05/19 History release glucosamine-chondroitin 500 mg-400 1 tab-cap PO BID cap 09/12/14 10/05/19 History mg capsule multivitamin 1 tab-cap PO QDAY cap 09/12/14 10/05/19 History nebulizers #1 each 03/04/15 10/04/19 Rx nitroglycerin 0.4 mg sublingual 0.4 mg SUBLINGUAL Q5MIN PRN #25 tab 02/17/16 10/05/19 Rx tablet warfarin 5 mg tablet See Rx Instructions .ROUTE 11/25/16 10/05/19 Rx .COMPLEX #1 tab levothyroxine 125 mcg tablet 125 mcg PO QDAY #90 tab 08/15/17 10/05/19 Rx CPAP machine and accessories #1 each 11/30/17 10/04/19 Rx budesonide 180 mcg/actuation 1 inh INHALATION BID #1 each 12/05/17 10/05/19 Rx breath activated powder inhaler montelukast 10 mg tablet 10 mg PO QHS tab 08/13/19 10/05/19 History sennosides 8.6 mg tablet 25.8 mg PO BID tab 08/13/19 10/05/19 History metoprolol succinate 25 mg 25 mg PO DAILY #90 tab 09/10/19 10/05/19 Rx tablet,extended release 24 hr digoxin 62.5 mcg PO DAILY@1400 30 Days #2 09/24/19 10/05/19 Rx tab furosemide 40 mg PO BIDD 30 Days #120 tab 09/24/19 10/05/19 Rx potassium chloride [Klor-Con M20] 40 meq PO QAMCC 30 Days #60 tab 09/24/19 10/05/19 Rx allopurinol 100 mg tablet 400 mg PO QDAY tab 09/26/19 10/05/19 History calcitriol 0.25 mcg capsule 0.25 mcg PO Q OTHER DAY #30 cap 09/26/19 10/05/19 Rx magnesium chloride 71.5 mg 71.5 mg PO MOWEFR@0900 tab 09/26/19 10/05/19 History (magnesium chloride) tablet,delayed release Allergies Allergy/AdvReac Type Severity Reaction Status Date / Time oxycodone [Oxycodone] Allergy Mild Nausea Verified 10/04/19 14:38 sulfacetamide Allergy Unknown Unknown Verified 10/04/19 14:38 niacin AdvReac Intermediate Unknown Verified 10/04/19 14:38 colchicine [From Colcrys] AdvReac Mild swollen Verified 10/04/19 14:38 feet doxycycline calcium Allergy Unknown Unknown Uncoded 09/18/19 14:55 EXAM Constitutional Vitals: Temp Pulse Resp BP Pulse Ox 97.3 F 109 H 23 H 114/73 97 10/04/19 14:34 10/04/19 19:15 10/04/19 19:15 10/04/19 19:15 10/04/19 19:15 Head normocephalic Oral cavity moist No ear nose discharge Eye movement symmetrical Neck supple JVD noted S1-S2 irregular Nonlabored breathing, basilar crackles Nondistended nontender abdomen Lower extremity bilateral lymphedema pitting, no cyanosis clubbing, joint swelling Skin no suspicious lesion Psych anxious but alert cooperative Neuro normal higher function, moving all 4 extremities DATA Data Completed and Pending Labs on day of discharge: Labs from last 24 hours 10/04/19 10/04/19 10/04/19 15:35 14:55 14:55 WBC 10.5 RBC 3.66 L Hgb 11.8 L Hct 39.1 L MCV 106.8 H MCH 32.2 MCHC 30.2 L RDW 23.5 H Plt Count 49 L* MPV TNP Gran % 70.0 Lymph % (Auto) 17.0 Anderson % (Auto) 8.0 Eos % (Auto) 0 Baso % (Auto) 1.0 Gran # Lymph # (Auto) Anderson # (Auto) Eos # (Auto) Baso # (Auto) Differential Comment Few nrbcs on scan VBG Lactic Acid 1.4 Sodium 138 Potassium 4.8 Chloride 100 Carbon Dioxide 22 Anion Gap 16.0 BUN 65 H Creatinine 2.3 H GFR Calculation 25 Glucose 84 Calcium 9.6 Total Bilirubin 1.9 H AST 43 H ALT 19 Alkaline Phosphatase 106 Troponin T NT-Pro-B Natriuret Pep Total Protein 6.1 Albumin 4.1 Globulin 2.0 L Albumin/Globulin Ratio 2.1 10/04/19 10/04/19 14:41 14:41 WBC RBC Hgb Hct MCV MCH MCHC RDW Plt Count MPV Gran % Lymph % (Auto) Anderson % (Auto) Eos % (Auto) Baso % (Auto) Gran # Lymph # (Auto) Anderson # (Auto) Eos # (Auto) Baso # (Auto) Differential Comment VBG Lactic Acid Sodium Pending Potassium Pending Chloride Pending Carbon Dioxide Pending Anion Gap Pending BUN Pending Creatinine Pending GFR Calculation Pending Glucose Pending Calcium Pending Total Bilirubin Pending AST Pending ALT Pending Alkaline Phosphatase Pending Troponin T < 0.01 NT-Pro-B Natriuret Pep 9382.0 H Total Protein Pending Albumin Pending Globulin Pending Albumin/Globulin Ratio Pending A/P Narrative A/P Narrative: * Acute decompensated heart failure -recent hospitalization. Discharged a week ago. Continue aggressive diuresis/optimize CHF management . Restart beta- aaron/digoxin * Bibasilar infiltrate consistent with healthcare associated pneumonia. Initiate broad-spectrum antibiotic coverage, cultures drawn. Aspiration precautions/check COVID-19 * Chronic ischemic cardiomyopathy-continue aspirin/beta-aaron. Status post ICD * History atrial fibrillation currently rate controlled. Continue beta-blockers digoxin/anticoagulation on Coumadin. * History of COPD-no evidence of exacerbation. Continue bronchodilators. * History of myeloproliferative disorder. Follows up outpatient with oncology. * CKD stage IV-monitor renal function and avoid nephrotoxins. * Chronic anemia. Monitor * DNR Plan * Inpatient admission * Antibiotic coverage * Aggressive diuresis * PT OT/nutrition support * Pre-existing medical condition management home meds Time Spent With Patient Time: Total time spent is greater than 50% in coordination of care (as documented) at patient's floor/unit and/or counseling patient: 65 minutes
[2019-10-04] MEDS ORDERED: ASPIRIN 81 MG TAB.CHEW PO SCH (21:00)
[2019-10-04] MEDS ORDERED: [UNRECOGNIZED DRUG - OTHER] INH ONE (21:23)
[2019-10-04] MEDS ORDERED: BISACODYL 10 MG SUPP.RECT PR PRN (21:23)
[2019-10-04] MEDS ORDERED: MELATONIN 3 MG TABLET PO PRN (21:23)
[2019-10-04] MEDS ORDERED: ONDANSETRON 4 MG/2 ML VIAL IV PRN (21:23)
[2019-10-04] MEDS ORDERED: IPRATROPIUM/ALBUTEROL 3 ML AMPUL.NEB NEB PRN (21:23)
[2019-10-04] MEDS ORDERED: ACETAMINOPHEN 650 MG/65 ML BOTTLE IV PRN (21:23)
[2019-10-04] MEDS ORDERED: ONDANSETRON 4 MG ODT TABLET SL PRN (21:23)
[2019-10-04] MEDS ORDERED: POLYETHYLENE GLYCOL 3350 17 GM PACKET PO PRN (21:23)
[2019-10-04] MEDS ORDERED: BUDESONIDE INHALATION SCH (21:23)
[2019-10-04] MEDS ORDERED: hydrALAZINE 20 MG/ML VIAL IV PRN (21:23)
[2019-10-04] MEDS ORDERED: VANCOMYCIN PER PHARMACY IV SCH (21:23)
[2019-10-04] MEDS ORDERED: MAGNESIUM SULFATE 2 GM/50 ML BAG IV PRN (21:23)
[2019-10-04] MEDS ORDERED: NITROGLYCERIN 0.4 MG TAB.SUBL SL PRN (21:41)
[2019-10-04] MEDS ORDERED: VANCOMYCIN 1,500 MG in 0.9 % SODIUM CHLORIDE 500 ML IV ONE (22:00)
[2019-10-04] MEDS: GLUCOSAMINE/CHONDROITIN SULF A 1 CAP CAPSULE PO SCH (22:11)
[2019-10-04] MEDS: CYANOCOBALAMIN (VITAMIN B-12) 500 MCG TABLET PO SCH (22:12)
[2019-10-04] MEDS: MONTELUKAST 10 MG TABLET PO SCH (22:13)
[2019-10-04] MEDS: NEUTRA PHOS 1 PACKET PO SCH (22:13)
[2019-10-04] MEDS: SENNOSIDES/DOCUSATE SODIUM 1 TAB TABLET PO SCH (22:15)
[2019-10-04] MEDS: FUROSEMIDE 40 MG/4 ML VIAL IV SCH (22:15)
[2019-10-04] MEDS: DOCUSATE SODIUM 100 MG CAPSULE PO SCH (22:15)
[2019-10-04] MEDS: SENNOSIDES 1 TABLET PO SCH (22:15)
[2019-10-04] MEDS: 0.9 % SODIUM CHLORIDE 10 ML SYRINGE IV SCH (22:16)
[2019-10-04] MEDS ORDERED: ASPIRIN 81 MG TAB.CHEW ONE (22:40)
[2019-10-04] MEDS: PIPERACILLIN SODIUM/TAZOBACTAM 3.375 GM in DEXTROSE 5% IN WATER 50 ML IV SCH (22:43)
[2019-10-05] MEDS: PIPERACILLIN SODIUM/TAZOBACTAM 3.375 GM in DEXTROSE 5% IN WATER 50 ML IV SCH ×4 (05:00→21:30)
[2019-10-05] MEDS: FUROSEMIDE 40 MG/4 ML VIAL IV SCH ×3 (05:09→21:30)
[2019-10-05] MEDS: ACETAMINOPHEN 325 MG TABLET PO PRN ×3 (05:09→21:20)
[2019-10-05] MEDS: 0.9 % SODIUM CHLORIDE 10 ML SYRINGE IV SCH ×4 (05:10→21:21)
[2019-10-05 06:06] LABS: Hematocrit 33.9 % (40.1-51.0); Hemoglobin 10.2 g/dL (13.7-17.5); Mean Cell Volume 107.6 fL (80.0-100.0); Mean Corpuscular HGB Conc 30.1 g/dL (31.0-36.0); Platelet Count 43 K/mcL (140-440); RBC 3.15 M/mcL (4.63-6.08); Red Cell Distribution Width 23.5 % (11.5-14.5); WBC 7.7 K/mcL (4.50-11.00)
[2019-10-05 06:30] LABS: ALT/SGPT 17 U/l (0-40); AST/SGOT 37 U/l (0-37); Albumin 3.4 gm/dL (3.2-5.2); Albumin/Globulin Ratio 1.8 (1.0-2.3); Alkaline Phosphatase 94 U/L (39-117); Bilirubin,Direct 0.8 mg/dL (0.0-0.3); Bilirubin,Total 1.7 mg/dL (0.0-1.0); Blood Urea Nitrogen 61 mg/dl (8-23); Calcium 9.2 mg/dl (8.6-10.4); Carbon Dioxide 21 mmol/L (22-30); Chloride 100 mmol/L (96-108); Globulin 1.9 gm/dL (2.2-3.7); Glomerular Filtration Rate 25; Glucose 83 mg/dL (70-105); Phosphorous 4.6 mg/dL (2.7-4.5); Triglycerides 140 mg/dl (<150)
[2019-10-05 06:32] LABS: INR 2.4 (0.9-1.1); Lactate Dehydrogenase 688 U/L (94-250); Prothrombin Time 26.9 sec (11.9-14.5)
[2019-10-05] MEDS: LEVOTHYROXINE 125 MCG TABLET PO SCH (06:58)
[2019-10-05 08:08] LABS: Anisocytosis 2+ (NONE SEEN); Band Neutrophils % 4 % (0-10); Blast Cells 6 % (0-0); Hypochromasia 1+ (NONE SEEN); Lymphocytes % 9 % (15-49); Metamyelocytes % 2 % (0-0); Monocytes % (Manual) 10 % (1-12); Myelocytes % 2 % (0-0); Nucleated Red Blood Cells 12 % (0-0); Platelet Estimate MK DECR (NORMAL); Polychromasia 2+ (NONE SEEN); Promyelocytes % 1 % (0-0); RBC Morphology ABNORM (NORMAL); Reactive Lymphocytes 1 % (0-2); Segmented Neutrophils % 65 % (38-78); Toxic Granulation 1+ (NONE SEEN)
[2019-10-05] MEDS: POTASSIUM CHLORIDE 20 MEQ TABLET PO SCH (08:18)
[2019-10-05] MEDS: METOLAZONE 2.5 MG TABLET PO SCH (08:18)
[2019-10-05] MEDS: DOCUSATE SODIUM 100 MG CAPSULE PO SCH ×2 (08:19→21:21)
[2019-10-05 08:20] LABS: Macrocytosis 1+ (NONE SEEN)
[2019-10-05] MEDS: GLUCOSAMINE/CHONDROITIN SULF A 1 CAP CAPSULE PO SCH ×2 (09:09→21:20)
[2019-10-05] MEDS: CALCITRIOL 0.25 MCG CAPSULE PO SCH (09:09)
[2019-10-05] MEDS: METOPROLOL SUCCINATE 25 MG TAB.XL.24H PO SCH (09:09)
[2019-10-05] MEDS: CYANOCOBALAMIN (VITAMIN B-12) 500 MCG TABLET PO SCH ×2 (09:09→21:20)
[2019-10-05] MEDS: THIAMINE 100 MG TABLET PO SCH (09:09)
[2019-10-05] MEDS: ALLOPURINOL 100 MG TABLET PO SCH (09:09)
[2019-10-05] MEDS: Budesonide [Pulmicort Flexhaler] INH SCH ×3 (09:10→21:21)
[2019-10-05] MEDS: NEUTRA PHOS 1 PACKET PO SCH ×4 (09:10→21:21)
[2019-10-05] MEDS: MULTIVIT,THER IRON,CA,FA & MIN 1 TABLET PO SCH (09:10)
[2019-10-05] MEDS: ASCORBIC ACID 500 MG TABLET PO SCH (09:10)
[2019-10-05] MEDS: MAGNESIUM CHLORIDE 71.5 MG PO SCH ×2 (09:10→16:04)
[2019-10-05] MEDS: SENNOSIDES 1 TABLET PO SCH ×2 (09:11→21:21)
--- NOTE | 2019-10-05 11:06 | Internal Med Progress Note ---
SUBJECTIVE Subjective Patient information: Note initiated : 10/05/19 at 11:02 am Service Date, if different from initiated Date: [] Patient: Dank Garner a 84 y/o M admitted on 10/04/19 for Water on Legs/Lungs, Heart Problems. Chief Complaint: [] Interval history: Narrative: History of present illness: Mr. Garner is a 84 year old M with a history of ICM/CABG/A. 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 Patient was discharged has been gaining weight and getting progressively short of breath with increasing exertional dyspnea/orthopnea, productive cough and progressive decline in functional status. He lives with his and has not been able to take care of self. Symptoms associated with dizziness lightheadedness and malaise. He presents to the ER initial work-up with chest infiltrate consistent with pneumonia atop congestive heart failure. Patient was started antibiotics after cultures were drawn. He was started on diuretics. Hospital service was consulted. At the time of my evaluation patient is very fatigued and weak but was able to answer most of the questions. Following discharge from hospital he never really felt well. He denies sick contacts. Denies fever, chills but endorses to yellow productive sputum. Denies headache, photophobia, dysuria but endorses to multiple episodes of loose stool over the last few days. 10/04-patient doing a lot better. Improved work of breathing, diuresed over 1600 cc. On antibiotic coverage. Continue beta-aaron/digoxin/diuretics. Coumadin dosing based on INR. Continue PT OT/nutrition support. Discharge planning likely SNF Constitutional Vitals: Vital Signs Temp Pulse Resp BP Pulse Ox 98.0 F 86 28 H 97/77 93 10/05/19 07:00 10/05/19 06:00 10/05/19 08:28 10/05/19 08:28 10/05/19 08:28 Period Temp Pulse Resp BP Sys/Ordoñez Pulse Ox Last 24 Hr 97.0 F-98.0 F 86-109 16-31 91-123/58-79 93-99 Intake and Output 10/04/19 10/05/19 10/05/19 21:59 05:59 13:59 Intake Total 150 1047 360 Output Total 775 1515 625 Hsqfiso -625 -468 -265 Weight 93.939 kg alert oriented Improved shortness of breath Diminished breath sounds bases No anxiety Improving lymphedema Intake & Output: Intake & Output 10/04/19 10/05/19 10/05/19 21:59 05:59 13:59 Intake Total 150 1047 360 Output Total 775 1515 625 [facility] -625 -468 -265 Weight 93.939 kg Intake: IV 150 600 Zosyn 3.375 gm In Dextrose 5% 100 in Water 50 ml @ 100 mls/hr IV Q6H [facility] Rx#:[id number] Vancomycin 1,500 mg In Sodium 500 Chloride 0.9% 500 ml @ 333.3 mls/hr IV ONCE ONE Rx#: [id number] Oral 447 360 Output: Void Amount 071 9533 193 Other: Meal Egg salad cup with crackers Breakfast Percent of Meal Consumed 100% 100% Feeding Ability Independent Independent Urine Appearance Clear Clear Urine Color Bright Yellow Bright Yellow OBJ DATA Labs CBC & Chem 7: 10/05/19 05:00 10/05/19 05:00 Labs: Abnormal Lab Results 10/05/19 10/05/19 10/05/19 05:00 05:00 05:00 RBC 3.15 L Hgb 10.2 L Hct 33.9 L MCV 107.6 H MCHC 30.1 L RDW 23.5 H Plt Count 43 L* Lymphocytes % 9 L Metamyelocytes % 2 H Myelocytes % 2 H Promyelocytes % 1 H Nucleated RBCs 12 H WBC Morphology Abnorm A Blast Cells 6 H Toxic Granulation 1+ A Platelet Estimate Mk decr A RBC Morphology Abnorm A Polychromasia 2+ A Hypochromasia 1+ A Anisocytosis 2+ A Macrocytosis 1+ A PT 26.9 H INR 2.4 H Carbon Dioxide 21 L Anion Gap 18.0 H BUN 61 H Creatinine 2.3 H Phosphorus 4.6 H Total Bilirubin 1.7 H Direct Bilirubin 0.8 H AST Lactate Dehydrogenase 688 H NT-Pro-B Natriuret Pep Total Protein 5.3 L Globulin 1.9 L 10/04/19 10/04/19 10/04/19 14:55 14:55 14:41 RBC 3.66 L Hgb 11.8 L Hct 39.1 L MCV 106.8 H MCHC 30.2 L RDW 23.5 H Plt Count 49 L* Lymphocytes % Metamyelocytes % Myelocytes % Promyelocytes % Nucleated RBCs WBC Morphology Blast Cells Toxic Granulation Platelet Estimate RBC Morphology Polychromasia Hypochromasia Anisocytosis Macrocytosis PT INR Carbon Dioxide Anion Gap BUN 65 H Creatinine 2.3 H Phosphorus Total Bilirubin 1.9 H Direct Bilirubin AST 43 H Lactate Dehydrogenase NT-Pro-B Natriuret Pep 9382.0 H Total Protein Globulin 2.0 L Meds: Medications Acetaminophen (Tylenol) 650 mg PO Q4-6HP PRN; Protocol PRN Reason: Per Pain Protocol/Fever > 101 Last Admin: 10/05/19 05:09 Dose: 650 mg Documented by: Albuterol/Ipratropium (Duoneb) 3 ml NEB Q4HP PRN PRN Reason: Shortness Of Breath Allopurinol (Zyloprim) 400 mg PO QDAY [facility] Last Admin: 10/05/19 09:09 Dose: 400 mg Documented by: Ascorbic Acid (Vitamin C) 500 mg PO DAILY [facility] Last Admin: 10/05/19 09:10 Dose: 500 mg Documented by: Aspirin (Aspirin) 81 mg PO HS [facility] Bisacodyl (Dulcolax) 10 mg MN Q2-3DAYS PRN PRN Reason: Constipation Calcitriol (Rocaltrol) 0.25 mcg PO MoWeFr@0900 [facility] Last Admin: 10/05/19 09:09 Dose: 0.25 mcg Documented by: Cyanocobalamin (Vitamin B-12) 1,000 mcg PO BID [facility] Stop: 10/09/19 09:01 Last Admin: 10/05/19 09:09 Dose: 1,000 mcg Documented by: Digoxin (Lanoxin) 62.5 mcg PO DAILY@1400 [facility] Docusate Sodium (Colace) 100 mg PO BID [facility] Last Admin: 10/05/19 08:19 Dose: Not Given Documented by: Furosemide (Lasix) 40 mg IV Q8 [facility] Last Admin: 10/05/19 05:09 Dose: 40 mg Documented by: Glucosamine/Chondroitin (Glucosamine-Chondroitin Cap) 1 cap PO BID [facility] Last Admin: 10/05/19 09:09 Dose: 1 cap Documented by: Hydralazine HCl (Apresoline) 10 mg IV Q4-6HP PRN PRN Reason: Hypertension Acetaminophen (Ofirmev) 650 mg in 65 mls @ 130 mls/hr IV Q6HP PRN; Protocol PRN Reason: Per Pain Protocol/Fever > 101 Magnesium Sulfate (Magnesium Sulfate) 2 gm in 50 mls @ 50 mls/hr IV UD PRN PRN Reason: MG = or < 1.7 Piperacillin Sod/Tazobactam (Sod 3.375 gm/ Dextrose) 50 mls @ 100 mls/hr IV Q6H [facility]; Protocol Last Admin: 10/05/19 10:55 Dose: 100 mls/hr Documented by: Iron Carb/Multivit/[place]/Folic Acid (Multivitamin W/Minerals) 1 tab PO DAILY [facility] Last Admin: 10/05/19 09:10 Dose: 1 tab Documented by: Levothyroxine Sodium (Synthroid) 125 mcg PO ACB [facility] Last Admin: 10/05/19 06:58 Dose: 125 mcg Documented by: Melatonin (Melatonin 3mg Tablet) 3 mg PO HSP PRN PRN Reason: Insomnia Metolazone (Zaroxolyn) 2.5 mg PO DAILY@0830 [facility] Last Admin: 10/05/19 08:18 Dose: 2.5 mg Documented by: Metoprolol Succinate (Toprol Xl) 25 mg PO DAILY [facility] Last Admin: 10/05/19 09:09 Dose: 25 mg Documented by: Montelukast Sodium (Singular) 10 mg PO QHS [facility] Last Admin: 10/04/19 22:13 Dose: 10 mg Documented by: Nitroglycerin (Nitrostat) 0.4 mg SL Q5M PRN PRN Reason: Chest Pain Ondansetron HCl (Zofran Odt) 4 mg SL Q4-6HP PRN; Protocol PRN Reason: Nausea And Vomiting Ondansetron HCl (Zofran) 4 mg IV Q4-6HP PRN; Protocol PRN Reason: Nausea And Vomiting Magnesium Chloride [ Slow-Mag] 71.5 Mg Tablet 1 dose PO MoWeFr@0900 [facility] Last Admin: 10/05/19 09:10 Dose: Not Given Documented by: Budesonide [ (Pulmicort Flexhaler]) 1 dose INH BID [facility] Last Admin: 10/05/19 10:56 Dose: 1 dose Documented by: Polyethylene Glycol (Miralax) 17 gm PO DAILYP PRN PRN Reason: Constipation Potassium Chloride (Kdur) 40 meq PO QAMCC [facility] Last Admin: 10/05/19 08:18 Dose: 40 meq Documented by: Potassium/Phosphorus/Sodium (Neutra Phos) 2 packet PO TID [facility] Stop: 10/07/19 15:01 Last Admin: 10/05/19 09:14 Dose: Not Given Documented by: Senna (Senokot) 2 tab PO BID [facility] Last Admin: 10/05/19 09:11 Dose: Not Given Documented by: Senna/Docusate Sodium (Senna Plus Tablet) 1 tab PO HS [facility] Last Admin: 10/04/19 22:15 Dose: Not Given Documented by: Sodium Chloride (Saline Flush) 10 ml IV Q8 [facility] Last Admin: 10/05/19 05:10 Dose: 10 ml Documented by: Thiamine HCl (Vitamin B1) 100 mg PO DAILY [facility] Last Admin: 10/05/19 09:09 Dose: 100 mg Documented by: Vancomycin HCl (Vancomycin Per Pharmacy) 1 order IV UD [facility]; Protocol Warfarin Sodium (Coumadin Per Pharmacy) 1 order PO UD [facility] Warfarin Sodium (Coumadin) 5 mg PO ONCE@1400 [facility] Stop: 10/05/19 14:01 A/P Narrative A/P Narrative: * Acute decompensated heart failure -clinical improvement noted with aggressive diuresis. Continue optimize CHF management , beta-aaron/digoxin * Bibasilar infiltrate consistent with healthcare associated pneumonia. Continue broad-spectrum antibiotic coverage, cultures drawn. Aspiration precautions/check COVID-19 * Chronic ischemic cardiomyopathy-continue aspirin/beta-aaron. Status post ICD * History atrial fibrillation currently rate controlled. Continue beta-blockers digoxin/anticoagulation on Coumadin. * History of COPD-no evidence of exacerbation. Continue bronchodilators. * History of myeloproliferative disorder. Follows up outpatient with oncology. * CKD stage IV-monitor renal function and avoid nephrotoxins. * Chronic anemia. Monitor * DNR Plan * Continue diuresis/antibiotic coverage * Pre-existing medical condition management as above * PT OT/nutrition support * Discharge planning per case management likely SNF Time Spent With Patient Time: Total time spent is greater than 50% in coordination of care (as documented) at patient's floor/unit and/or counseling patient:
[2019-10-05] MEDS ORDERED: WARFARIN 5 MG TABLET PO ONE (14:00)
[2019-10-05] MEDS: DIGOXIN 125 MCG TABLET PO SCH (14:26)
[2019-10-05 18:12] LABS: Vancomycin,Random 11.9 ug/mL
[2019-10-05] MEDS: MONTELUKAST 10 MG TABLET PO SCH (21:20)
[2019-10-05] MEDS: ASPIRIN 81 MG TAB.CHEW PO SCH (21:20)
[2019-10-05] MEDS: SENNOSIDES/DOCUSATE SODIUM 1 TAB TABLET PO SCH (21:21)
[2019-10-06] MEDS: PIPERACILLIN SODIUM/TAZOBACTAM 3.375 GM in DEXTROSE 5% IN WATER 50 ML IV SCH ×4 (04:13→22:20)
[2019-10-06] MEDS: 0.9 % SODIUM CHLORIDE 10 ML SYRINGE IV SCH ×5 (04:14→22:20)
[2019-10-06] MEDS: FUROSEMIDE 40 MG/4 ML VIAL IV SCH (05:55)
[2019-10-06 07:06] LABS: Hematocrit 35.3 % (40.1-51.0); Hemoglobin 10.3 g/dL (13.7-17.5); Mean Corpuscular HGB Conc 29.2 g/dL (31.0-36.0); Platelet Count 35 K/mcL (140-440); RBC 3.21 M/mcL (4.63-6.08); Red Cell Distribution Width 23.3 % (11.5-14.5); WBC 7.6 K/mcL (4.50-11.00)
[2019-10-06 07:07] LABS: INR 2.3 (0.9-1.1); Prothrombin Time 25.8 sec (11.9-14.5)
[2019-10-06 07:12] LABS: ALT/SGPT 16 U/l (0-40); AST/SGOT 35 U/l (0-37); Albumin 3.7 gm/dL (3.2-5.2); Albumin/Globulin Ratio 2.1 (1.0-2.3); Alkaline Phosphatase 94 U/L (39-117); Bilirubin,Direct 0.7 mg/dL (0.0-0.3); Bilirubin,Total 1.8 mg/dL (0.0-1.0); Blood Urea Nitrogen 62 mg/dl (8-23); Calcium 9.3 mg/dl (8.6-10.4); Carbon Dioxide 23 mmol/L (22-30); Chloride 98 mmol/L (96-108); Globulin 1.8 gm/dL (2.2-3.7); Glomerular Filtration Rate 23; Glucose 85 mg/dL (70-105); Phosphorous 4.5 mg/dL (2.7-4.5); Triglycerides 109 mg/dl (<150); Uric Acid 4.8 mg/dL (2.5-8.0)
[2019-10-06 07:17] LABS: Lactate Dehydrogenase 707 U/L (94-250)
[2019-10-06] MEDS: LEVOTHYROXINE 125 MCG TABLET PO SCH (07:34)
[2019-10-06] MEDS ORDERED: VANCOMYCIN 1,500 MG in 0.9 % SODIUM CHLORIDE 500 ML IV ONE (09:00)
[2019-10-06] MEDS: METOLAZONE 2.5 MG TABLET PO SCH (09:03)
[2019-10-06] MEDS: POTASSIUM CHLORIDE 20 MEQ TABLET PO SCH (09:04)
[2019-10-06] MEDS: METOPROLOL SUCCINATE 25 MG TAB.XL.24H PO SCH (09:04)
[2019-10-06] MEDS: DOCUSATE SODIUM 100 MG CAPSULE PO SCH ×2 (09:04→21:32)
[2019-10-06] MEDS: CYANOCOBALAMIN (VITAMIN B-12) 500 MCG TABLET PO SCH ×2 (09:05→21:32)
[2019-10-06] MEDS: THIAMINE 100 MG TABLET PO SCH (09:05)
[2019-10-06] MEDS: Budesonide [Pulmicort Flexhaler] INH SCH ×2 (09:05→21:33)
[2019-10-06] MEDS: ALLOPURINOL 100 MG TABLET PO SCH (09:05)
[2019-10-06] MEDS: NEUTRA PHOS 1 PACKET PO SCH ×3 (09:05→21:31)
[2019-10-06] MEDS: GLUCOSAMINE/CHONDROITIN SULF A 1 CAP CAPSULE PO SCH ×2 (09:05→21:32)
[2019-10-06] MEDS: ASCORBIC ACID 500 MG TABLET PO SCH (09:05)
[2019-10-06] MEDS: MULTIVIT,THER IRON,CA,FA & MIN 1 TABLET PO SCH (09:05)
[2019-10-06] MEDS: SENNOSIDES 1 TABLET PO SCH ×2 (09:05→21:33)
[2019-10-06 09:06] LABS: Anisocytosis 2+ (NONE SEEN); Band Neutrophils % 3 % (0-10); Eosinophils % (Manual) 1 % (0-7); Lymphocytes % 27 % (15-49); Macrocytosis 2+ (NONE SEEN); Monocytes % (Manual) 5 % (1-12); Nucleated Red Blood Cells 6 % (0-0); Ovalocytes 1+ (NONE SEEN); Platelet Estimate MK DECR (NORMAL); Polychromasia 2+ (NONE SEEN); RBC Morphology ABNORM (NORMAL); Reactive Lymphocytes 1 % (0-2); Segmented Neutrophils % 63 % (38-78)
--- NOTE | 2019-10-06 10:37 | Internal Med Progress Note ---
SUBJECTIVE Subjective Patient information: Note initiated : 10/06/19 at 10:32 am Service Date, if different from initiated Date: [] Patient: Dank Garner a 84 y/o M admitted on 10/04/19 for Water on Legs/Lungs, Heart Problems. Chief Complaint: History of present illness: Mr. Garner is a 84 year old M with a history of ICM/CABG/A. 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 Patient was discharged has been gaining weight and getting progressively short of breath with increasing exertional dyspnea/orthopnea, productive cough and progressive decline in functional status. He lives with his and has not been able to take care of self. Symptoms associated with dizziness lightheadedness and malaise. He presents to the ER initial work-up with chest infiltrate consistent with pneumonia atop congestive heart failure. Patient was started antibiotics after cultures were drawn. He was started on diuretics. Hospital service was consulted. At the time of my evaluation patient is very fatigued and weak but was able to answer most of the questions. Following discharge from hospital he never really felt well. He denies sick contacts. Denies fever, chills but endorses to yellow productive sputum. Denies headache, photophobia, dysuria but endorses to multiple episodes of loose stool over the last few days. 10/04-patient doing a lot better. Improved work of breathing, diuresed over 1600 cc. On antibiotic coverage. Continue beta-aaron/digoxin/diuretics. Coumadin dosing based on INR. Continue PT OT/nutrition support. Discharge planning likely SNF 10/05-responding well with aggressive diuresis with over 3000 cc net negative. Transition to oral diuretics. Continue antibiotic coverage. Much improved respiratory status. On room air. Feels a lot better. Ongoing physical therapy and tolerating diet. 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 Creatinine 2.5. Constitutional Vitals: Vital Signs Temp Pulse Resp BP Pulse Ox 97.0 F 79 24 H 98/64 97 10/06/19 08:09 10/06/19 01:00 10/06/19 08:17 10/06/19 08:09 10/06/19 08:09 Period Temp Pulse Resp BP Sys/Ordoñez Pulse Ox Last 24 Hr 96.9 F-97.5 F 79-79 16-29 88-113/55-96 91-100 Intake and Output 10/05/19 10/06/19 10/06/19 21:59 05:59 13:59 Intake Total 410 287 50 Output Total 925 1450 Balance -515 1163 50 Weight 92.487 kg alert oriented Improved lymphedema Nonlabored breathing No pallor No anxiety Intake & Output: Intake & Output 10/05/19 10/06/19 10/06/19 21:59 05:59 13:59 Intake Total 410 287 50 Output Total 925 1450 Balance -515 -1163 50 Weight 92.487 kg Intake: IV 50 50 50 Zosyn 3.375 gm In Dextrose 5% 50 50 50 in Water 50 ml @ 100 mls/hr IV Q6H [facility] Rx#:[id number] Oral 360 237 Output: Urine Catheter Amount 250 Void Amount 925 1200 Other: Meal Dinner Percent of Meal Consumed 100% Feeding Ability Independent Urine Appearance Clear Clear Urine Color Bright Yellow Bright Yellow Urine Odor Normal # Voids 200 OBJ DATA Labs CBC & Chem 7: 10/06/19 05:00 10/06/19 05:00 Labs: Abnormal Lab Results 10/06/19 10/06/19 10/06/19 05:00 05:00 05:00 RBC 3.21 L Hgb 10.3 L Hct 35.3 L MCV 110.0 H MCHC 29.2 L RDW 23.3 H Plt Count 35 L* Lymphocytes % Metamyelocytes % Myelocytes % Promyelocytes % Nucleated RBCs 6 H WBC Morphology Blast Cells Toxic Granulation Platelet Estimate Mk decr A RBC Morphology Abnorm A Polychromasia 2+ A Hypochromasia Anisocytosis 2+ A Macrocytosis 2+ A Ovalocytes 1+ A PT 25.8 H INR 2.3 H Carbon Dioxide Anion Gap BUN 62 H Creatinine 2.5 H Phosphorus Total Bilirubin 1.8 H Direct Bilirubin 0.7 H AST Lactate Dehydrogenase 707 H NT-Pro-B Natriuret Pep Total Protein 5.5 L Globulin 1.8 L 10/05/19 10/05/19 10/05/19 05:00 05:00 05:00 RBC 3.15 L Hgb 10.2 L Hct 33.9 L MCV 107.6 H MCHC 30.1 L RDW 23.5 H Plt Count 43 L* Lymphocytes % 9 L Metamyelocytes % 2 H Myelocytes % 2 H Promyelocytes % 1 H Nucleated RBCs 12 H WBC Morphology Abnorm A Blast Cells 6 H Toxic Granulation 1+ A Platelet Estimate Mk decr A RBC Morphology Abnorm A Polychromasia 2+ A Hypochromasia 1+ A Anisocytosis 2+ A Macrocytosis 1+ A Ovalocytes PT 26.9 H INR 2.4 H Carbon Dioxide 21 L Anion Gap 18.0 H BUN 61 H Creatinine 2.3 H Phosphorus 4.6 H Total Bilirubin 1.7 H Direct Bilirubin 0.8 H AST Lactate Dehydrogenase 688 H NT-Pro-B Natriuret Pep Total Protein 5.3 L Globulin 1.9 L 10/04/19 10/04/19 10/04/19 14:55 14:55 14:41 RBC 3.66 L Hgb 11.8 L Hct 39.1 L MCV 106.8 H MCHC 30.2 L RDW 23.5 H Plt Count 49 L* Lymphocytes % Metamyelocytes % Myelocytes % Promyelocytes % Nucleated RBCs WBC Morphology Blast Cells Toxic Granulation Platelet Estimate RBC Morphology Polychromasia Hypochromasia Anisocytosis Macrocytosis Ovalocytes PT INR Carbon Dioxide Anion Gap BUN 65 H Creatinine 2.3 H Phosphorus Total Bilirubin 1.9 H Direct Bilirubin AST 43 H Lactate Dehydrogenase NT-Pro-B Natriuret Pep 9382.0 H Total Protein Globulin 2.0 L Meds: Medications Acetaminophen (Tylenol) 650 mg PO Q4-6HP PRN; Protocol PRN Reason: Per Pain Protocol/Fever > 101 Last Admin: 10/05/19 21:20 Dose: 650 mg Documented by: Albuterol/Ipratropium (Duoneb) 3 ml NEB Q4HP PRN PRN Reason: Shortness Of Breath Allopurinol (Zyloprim) 400 mg PO QDAY [facility] Last Admin: 10/06/19 09:05 Dose: 400 mg Documented by: Ascorbic Acid (Vitamin C) 500 mg PO DAILY [facility] Last Admin: 10/06/19 09:05 Dose: 500 mg Documented by: Aspirin (Aspirin) 81 mg PO HS [facility] Last Admin: 10/05/19 21:20 Dose: 81 mg Documented by: Bisacodyl (Dulcolax) 10 mg [place] Q2-3DAYS PRN PRN Reason: Constipation Calcitriol (Rocaltrol) 0.25 mcg PO MoWeFr@0900 [facility] Last Admin: 10/05/19 09:09 Dose: 0.25 mcg Documented by: Cyanocobalamin (Vitamin B-12) 1,000 mcg PO BID [facility] Stop: 10/09/19 09:01 Last Admin: 10/06/19 09:05 Dose: 1,000 mcg Documented by: Digoxin (Lanoxin) 62.5 mcg PO DAILY@1400 [facility] Last Admin: 10/05/19 14:26 Dose: 62.5 mcg Documented by: Docusate Sodium (Colace) 100 mg PO BID [facility] Last Admin: 10/06/19 09:04 Dose: 100 mg Documented by: Furosemide (Lasix) 40 mg PO TID [facility] Glucosamine/Chondroitin (Glucosamine-Chondroitin Cap) 1 cap PO BID [facility] Last Admin: 10/06/19 09:05 Dose: 1 cap Documented by: Hydralazine HCl (Apresoline) 10 mg IV Q4-6HP PRN PRN Reason: Hypertension Acetaminophen (Ofirmev) 650 mg in 65 mls @ 130 mls/hr IV Q6HP PRN; Protocol PRN Reason: Per Pain Protocol/Fever > 101 Magnesium Sulfate (Magnesium Sulfate) 2 gm in 50 mls @ 50 mls/hr IV UD PRN PRN Reason: MG = or < 1.7 Piperacillin Sod/Tazobactam (Sod 3.375 gm/ Dextrose) 50 mls @ 100 mls/hr IV Q6H [facility]; Protocol Last Infusion: 10/06/19 06:00 Dose: Infused Documented by: Iron Carb/Multivit/[place]/Folic Acid (Multivitamin W/Minerals) 1 tab PO DAILY [facility] Last Admin: 10/06/19 09:05 Dose: 1 tab Documented by: Levothyroxine Sodium (Synthroid) 125 mcg PO ACB [facility] Last Admin: 10/06/19 07:34 Dose: 125 mcg Documented by: Melatonin (Melatonin 3mg Tablet) 3 mg PO HSP PRN PRN Reason: Insomnia Metolazone (Zaroxolyn) 2.5 mg PO DAILY@0830 [facility] Last Admin: 10/06/19 09:03 Dose: 2.5 mg Documented by: Metoprolol Succinate (Toprol Xl) 25 mg PO DAILY [facility] Last Admin: 10/06/19 09:04 Dose: 25 mg Documented by: Montelukast Sodium (Singular) 10 mg PO QHS [facility] Last Admin: 10/05/19 21:20 Dose: 10 mg Documented by: Nitroglycerin (Nitrostat) 0.4 mg SL Q5M PRN PRN Reason: Chest Pain Ondansetron HCl (Zofran Odt) 4 mg SL Q4-6HP PRN; Protocol PRN Reason: Nausea And Vomiting Ondansetron HCl (Zofran) 4 mg IV Q4-6HP PRN; Protocol PRN Reason: Nausea And Vomiting Magnesium Chloride [ Slow-Mag] 71.5 Mg Tablet 1 dose PO MoWeFr@0900 [facility] Last Admin: 10/05/19 16:04 Dose: 1 dose Documented by: Budesonide [ (Pulmicort Flexhaler]) 1 dose INH BID [facility] Last Admin: 10/06/19 09:05 Dose: 1 dose Documented by: Polyethylene Glycol (Miralax) 17 gm PO DAILYP PRN PRN Reason: Constipation Potassium Ch[facility] ([facility]ur) [facility] Last Admin: 10/06/19 09:04 Dose: 40 meq Documented by: Potassium/Phosphorus/Sodium (Neutra Phos) 2 packet PO TID [facility] Stop: 10/07/19 15:01 Last Admin: 10/06/19 09:05 Dose: 2 packet Documented by: Senna (Senokot) 2 tab PO BID [facility] Last Admin: 10/06/19 09:05 Dose: 2 tab Documented by: Senna/Docusate Sodium (Senna Plus Tablet) 1 tab PO HS [facility] Last Admin: 10/05/19 21:21 Dose: Not Given Documented by: Sodium Chloride (Saline Flush) 10 ml IV Q8 [facility] Last Admin: 10/06/19 09:06 Dose: 10 ml Documented by: Thiamine HCl (Vitamin B1) 100 mg PO DAILY [facility] Last Admin: 10/06/19 09:05 Dose: 100 mg Documented by: Vancomycin HCl (Vancomycin Per Pharmacy) 1 order IV [facility]; Protocol Warfarin Sodium (Coumadin Per Pharmacy) 1 order PO UD [facility] A/P Narrative A/P Narrative: * Acute decompensated heart failure -systolic with EF 25%. Clinical improvement noted with aggressive diuresis. Continue beta-aaron/digoxin. Transition to oral diuretics with Lasix metolazone combo * Bibasilar infiltrate consistent with healthcare associated pneumonia. Continue broad-spectrum antibiotic coverage, cultures drawn. Aspiration precautions/check COVID-19 * Chronic ischemic cardiomyopathy-with EF 25%. Continue aspirin/beta-aaron. Status post ICD * History atrial fibrillation currently rate controlled. Continue beta-blockers digoxin/anticoagulation on Coumadin. INR therapeutic * History of COPD-at baseline. Continue bronchodilators. * History of myeloproliferative disorder with thrombocytopenia. Follows up outpatient with oncology. * CKD stage IV-monitor renal function and avoid nephrotoxins. Creatinine 2.5. * Chronic anemia. Monitor * DNR * Prophylaxis anticoagulated on Coumadin Plan * Continue diuresis/antibiotic coverage * Pre-existing medical condition management as above * PT OT/nutrition support * Continue Lasix metolazone * Monitor renal function * Discharge planning per case management likely SNF Time Spent With Patient Time: Total time spent is greater than 50% in coordination of care (as documented) at patient's floor/unit and/or counseling patient: 35 minutes
[2019-10-06] MEDS: DIGOXIN 125 MCG TABLET PO SCH (13:39)
[2019-10-06] MEDS ORDERED: WARFARIN 5 MG TABLET PO ONE (14:00)
[2019-10-06] MEDS: FUROSEMIDE 40 MG TABLET PO SCH ×2 (15:48→21:32)
[2019-10-06] MEDS: ACETAMINOPHEN 325 MG TABLET PO PRN ×2 (15:49→22:52)
[2019-10-06] MEDS: ASPIRIN 81 MG TAB.CHEW PO SCH (21:32)
[2019-10-06] MEDS: SENNOSIDES/DOCUSATE SODIUM 1 TAB TABLET PO SCH (21:33)
[2019-10-06] MEDS: MONTELUKAST 10 MG TABLET PO SCH (21:36)
[2019-10-07] MEDS: PIPERACILLIN SODIUM/TAZOBACTAM 3.375 GM in DEXTROSE 5% IN WATER 50 ML IV SCH ×4 (04:28→21:39)
[2019-10-07] MEDS: 0.9 % SODIUM CHLORIDE 10 ML SYRINGE IV SCH ×3 (04:34→21:27)
[2019-10-07 06:51] LABS: Chloride 97 mmol/L (96-108)
[2019-10-07 06:53] LABS: ALT/SGPT 18 U/l (0-40); AST/SGOT 53 U/l (0-37); Albumin 3.6 gm/dL (3.2-5.2); Albumin/Globulin Ratio 1.7 (1.0-2.3); Alkaline Phosphatase 93 U/L (39-117); Bilirubin,Direct 0.7 mg/dL (0.0-0.3); Bilirubin,Total 1.8 mg/dL (0.0-1.0); Blood Urea Nitrogen 61 mg/dl (8-23); Calcium 9.4 mg/dl (8.6-10.4); Carbon Dioxide 23 mmol/L (22-30); Globulin 2.1 gm/dL (2.2-3.7); Glomerular Filtration Rate 22; Glucose 88 mg/dL (70-105); Lactate Dehydrogenase 855 U/L (94-250); Phosphorous 5.6 mg/dL (2.7-4.5); Triglycerides 120 mg/dl (<150); Uric Acid 4.8 mg/dL (2.5-8.0)
[2019-10-07 06:56] LABS: Hematocrit 36.1 % (40.1-51.0); Hemoglobin 10.5 g/dL (13.7-17.5); INR 2.5 (0.9-1.1); Mean Cell Volume 110.7 fL (80.0-100.0); Mean Corpuscular HGB Conc 29.1 g/dL (31.0-36.0); Platelet Count 43 K/mcL (140-440); Prothrombin Time 27.8 sec (11.9-14.5); RBC 3.26 M/mcL (4.63-6.08); Red Cell Distribution Width 23.6 % (11.5-14.5); WBC 7.9 K/mcL (4.50-11.00)
[2019-10-07] MEDS: LEVOTHYROXINE 125 MCG TABLET PO SCH (07:38)
[2019-10-07] MEDS: SENNOSIDES 1 TABLET PO SCH ×2 (08:22→21:27)
[2019-10-07] MEDS: DOCUSATE SODIUM 100 MG CAPSULE PO SCH ×2 (08:22→21:27)
[2019-10-07 08:46] LABS: Anisocytosis 2+ (NONE SEEN); Band Neutrophils % 2 % (0-10); Lymphocytes % 28 % (15-49); Macrocytosis 2+ (NONE SEEN); Metamyelocytes % 2 % (0-0); Myelocytes % 1 % (0-0); Nucleated Red Blood Cells 7 % (0-0); Platelet Estimate MK DECR (NORMAL); Polychromasia 3+ (NONE SEEN); RBC Morphology ABNORM (NORMAL); Reactive Lymphocytes 3 % (0-2); Segmented Neutrophils % 64 % (38-78)
--- NOTE | 2019-10-07 08:46 | Internal Med Progress Note ---
SUBJECTIVE Subjective Patient information: Note initiated : 10/07/19 at 8:42 am Service Date, if different from initiated Date: [] Patient: Dank Garner a 84 y/o M admitted on 10/04/19 for Water on Legs/Lungs, Heart Problems. History of present illness: Mr. Garner is a 84 year old M with a history of ICM/CABG/A. 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 Patient was discharged has been gaining weight and getting progressively short of breath with increasing exertional dyspnea/orthopnea, productive cough and progressive decline in functional status. He lives with his and has not been able to take care of self. Symptoms associated with dizziness lightheadedness and malaise. He presents to the ER initial work-up with chest infiltrate consistent with pneumonia atop congestive heart failure. Patient was started antibiotics after cultures were drawn. He was started on diuretics. Hospital service was consulted. At the time of my evaluation patient is very fatigued and weak but was able to answer most of the questions. Following discharge from hospital he never really felt well. He denies sick contacts. Denies fever, chills but endorses to yellow productive sputum. Denies headache, photophobia, dysuria but endorses to multiple episodes of loose stool over the last few days. 10/04-patient doing a lot better. Improved work of breathing, diuresed over 1600 cc. On antibiotic coverage. Continue beta-aaron/digoxin/diuretics. Coumadin dosing based on INR. Continue PT OT/nutrition support. Discharge planning likely SNF 10/05-responding well with aggressive diuresis with over 3000 cc net negative. Transition to oral diuretics. Continue antibiotic coverage. Much improved respiratory status. On room air. Feels a lot better. Ongoing physical therapy and tolerating diet. 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 Creatinine 2.5. -10/06-patient doing well. No overnight events. Diuresed in excess of 4000 cc negative. No overnight fever chills. No concerns expressed by nursing staff. Continue diuresis and anticipate discharge in 24 hours. Interval history: Narrative: Constitutional Vitals: Vital Signs Temp Pulse Resp BP Pulse Ox 96.8 F L 85 18 97/71 98 10/07/19 04:22 10/07/19 00:00 10/07/19 04:43 10/07/19 04:43 10/07/19 02:00 Period Temp Pulse Resp BP Sys/Ordoñez Pulse Ox Last 24 Hr 96.8 F-98.6 F 83-85 12-30 94-108/58-73 92-98 Intake and Output 10/06/19 10/07/19 10/07/19 21:59 05:59 13:59 Intake Total 407 510 Output Total 900 475 Balance -493 35 Weight 91.989 kg Alert oriented Nonlabored breathing lymphedema resolved No anxiety Intake & Output: Intake & Output 10/06/19 10/07/19 10/07/19 21:59 05:59 13:59 Intake Total 407 510 Output Total 900 475 Balance -493 35 Weight 91.989 kg Intake: IV 50 100 Zosyn 3.375 gm In Dextrose 5% 50 100 in Water 50 ml @ 100 mls/hr IV Q6H [facility] Rx#:[id number] Oral 357 410 Output: Void Amount 900 475 Other: Urine Appearance Clear Clear Urine Color Bright Yellow Bright Yellow Urine Odor Normal Stool Color Brown Stool Consistency Loose # Voids 1 # Bowel Movements 1 OBJ DATA Labs CBC & Chem 7: 10/07/19 05:15 10/07/19 05:15 Labs: Abnormal Lab Results 10/07/19 10/07/19 10/07/19 05:15 05:15 05:15 RBC 3.26 L Hgb 10.5 L Hct 36.1 L MCV 110.7 H MCHC 29.1 L RDW 23.6 H Plt Count 43 L* Lymphocytes % Metamyelocytes % Myelocytes % Promyelocytes % Nucleated RBCs WBC Morphology Blast Cells Toxic Granulation Platelet Estimate RBC Morphology Polychromasia Hypochromasia Anisocytosis Macrocytosis Ovalocytes PT 27.8 H INR 2.5 H Carbon Dioxide Anion Gap BUN 61 H Creatinine 2.6 H Phosphorus 5.6 H Total Bilirubin 1.8 H Direct Bilirubin 0.7 H AST 53 H Lactate Dehydrogenase 855 H NT-Pro-B Natriuret Pep Total Protein 5.7 L Globulin 2.1 L 10/06/19 10/06/19 10/06/19 05:00 05:00 05:00 RBC 3.21 L Hgb 10.3 L Hct 35.3 L MCV 110.0 H MCHC 29.2 L RDW 23.3 H Plt Count 35 L* Lymphocytes % Metamyelocytes % Myelocytes % Promyelocytes % Nucleated RBCs 6 H WBC Morphology Blast Cells Toxic Granulation Platelet Estimate Mk decr A RBC Morphology Abnorm A Polychromasia 2+ A Hypochromasia Anisocytosis 2+ A Macrocytosis 2+ A Ovalocytes 1+ A PT 25.8 H INR 2.3 H Carbon Dioxide Anion Gap BUN 62 H Creatinine 2.5 H Phosphorus Total Bilirubin 1.8 H Direct Bilirubin 0.7 H AST Lactate Dehydrogenase 707 H NT-Pro-B Natriuret Pep Total Protein 5.5 L Globulin 1.8 L 10/05/19 10/05/19 10/05/19 05:00 05:00 05:00 RBC 3.15 L Hgb 10.2 L Hct 33.9 L MCV 107.6 H MCHC 30.1 L RDW 23.5 H Plt Count 43 L* Lymphocytes % 9 L Metamyelocytes % 2 H Myelocytes % 2 H Promyelocytes % 1 H Nucleated RBCs 12 H WBC Morphology Abnorm A Blast Cells 6 H Toxic Granulation 1+ A Platelet Estimate Mk decr A RBC Morphology Abnorm A Polychromasia 2+ A Hypochromasia 1+ A Anisocytosis 2+ A Macrocytosis 1+ A Ovalocytes PT 26.9 H INR 2.4 H Carbon Dioxide 21 L Anion Gap 18.0 H BUN 61 H Creatinine 2.3 H Phosphorus 4.6 H Total Bilirubin 1.7 H Direct Bilirubin 0.8 H AST Lactate Dehydrogenase 688 H NT-Pro-B Natriuret Pep Total Protein 5.3 L Globulin 1.9 L 10/04/19 10/04/19 10/04/19 14:55 14:55 14:41 RBC 3.66 L Hgb 11.8 L Hct 39.1 L MCV 106.8 H MCHC 30.2 L RDW 23.5 H Plt Count 49 L* Lymphocytes % Metamyelocytes % Myelocytes % Promyelocytes % Nucleated RBCs WBC Morphology Blast Cells Toxic Granulation Platelet Estimate RBC Morphology Polychromasia Hypochromasia Anisocytosis Macrocytosis Ovalocytes PT INR Carbon Dioxide Anion Gap BUN 65 H Creatinine 2.3 H Phosphorus Total Bilirubin 1.9 H Direct Bilirubin AST 43 H Lactate Dehydrogenase NT-Pro-B Natriuret Pep 9382.0 H Total Protein Globulin 2.0 L Meds: Medications Acetaminophen (Tylenol) 650 mg PO Q4-6HP PRN; Protocol PRN Reason: Per Pain Protocol/Fever > 101 Last Admin: 10/06/19 22:52 Dose: 650 mg Documented by: Albuterol/Ipratropium (Duoneb) 3 ml NEB Q4HP PRN PRN Reason: Shortness Of Breath Allopurinol (Zyloprim) 400 mg PO QDAY [facility] Last Admin: 10/06/19 09:05 Dose: 400 mg Documented by: Ascorbic Acid (Vitamin C) 500 mg PO DAILY [facility] Last Admin: 10/06/19 09:05 Dose: 500 mg Documented by: Aspirin (Aspirin) 81 mg PO HS [facility] Last Admin: 10/06/19 21:32 Dose: 81 mg Documented by: Bisacodyl (Dulcolax) 10 mg [place] Q2-3DAYS PRN PRN Reason: Constipation Calcitriol (Rocaltrol) 0.25 mcg PO MoWeFr@0900 [facility] Last Admin: 10/05/19 09:09 Dose: 0.25 mcg Documented by: Cyanocobalamin (Vitamin B-12) 1,000 mcg PO BID [facility] Stop: 10/09/19 09:01 Last Admin: 10/06/19 21:32 Dose: 1,000 mcg Documented by: Digoxin (Lanoxin) 62.5 mcg PO DAILY@1400 [facility] Last Admin: 10/06/19 13:39 Dose: 62.5 mcg Documented by: Docusate Sodium (Colace) 100 mg PO BID [facility] Last Admin: 10/07/19 08:22 Dose: Not Given Documented by: Furosemide (Lasix) 40 mg PO TID [facility] Last Admin: 10/06/19 21:32 Dose: 40 mg Documented by: Glucosamine/Chondroitin (Glucosamine-Chondroitin Cap) 1 cap PO BID [facility] Last Admin: 10/06/19 21:32 Dose: 1 cap Documented by: Hydralazine HCl (Apresoline) 10 mg IV Q4-6HP PRN PRN Reason: Hypertension Acetaminophen (Ofirmev) 650 mg in 65 mls @ 130 mls/hr IV Q6HP PRN; Protocol PRN Reason: Per Pain Protocol/Fever > 101 Magnesium Sulfate (Magnesium Sulfate) 2 gm in 50 mls @ 50 mls/hr IV UD PRN PRN Reason: MG = or < 1.7 Piperacillin Sod/Tazobactam (Sod 3.375 gm/ Dextrose) 50 mls @ 100 mls/hr IV Q6H [facility]; Protocol Last Infusion: 10/07/19 05:13 Dose: Infused Documented by: Vancomycin HCl 1,000 mg/ (Sodium Chloride) 250 mls @ 250 mls/hr IV ONCE ONE Stop: 10/07/19 10:59 Iron Carb/Multivit/[employer]/Folic Acid (Multivitamin W/Minerals) 1 tab PO DAILY [facility] Last Admin: 10/06/19 09:05 Dose: 1 tab Documented by: Levothyroxine Sodium (Synthroid) 125 mcg PO ACB [facility] Last Admin: 10/07/19 07:38 Dose: 125 mcg Documented by: Melatonin (Melatonin 3mg Tablet) 3 mg PO HSP PRN PRN Reason: Insomnia Metolazone (Zaroxolyn) 2.5 mg PO DAILY@0830 [facility] Last Admin: 10/06/19 09:03 Dose: 2.5 mg Documented by: Metoprolol Succinate (Toprol Xl) 25 mg PO DAILY [facility] Last Admin: 10/06/19 09:04 Dose: 25 mg Documented by: Montelukast Sodium (Singular) 10 mg PO QHS [facility] Last Admin: 10/06/19 21:36 Dose: 10 mg Documented by: Nitroglycerin (Nitrostat) 0.4 mg SL Q5M PRN PRN Reason: Chest Pain Ondansetron HCl (Zofran Odt) 4 mg SL Q4-6HP PRN; Protocol PRN Reason: Nausea And Vomiting Ondansetron HCl (Zofran) 4 mg IV Q4-6HP PRN; Protocol PRN Reason: Nausea And Vomiting Magnesium Chloride [ Slow-Mag] 71.5 Mg Tablet 1 dose PO MoWeFr@0900 [facility] Last Admin: 10/05/19 16:04 Dose: 1 dose Documented by: Budesonide [ (Pulmicort Flexhaler]) 1 dose INH BID [facility] Last Admin: 10/06/19 21:33 Dose: 1 dose Documented by: Polyethylene Glycol (Miralax) 17 gm PO DAILYP PRN PRN Reason: Constipation Potassium Chloride (Kdur) 40 meq PO QAMCC [facility] Last Admin: 10/06/19 09:04 Dose: 40 meq Documented by: Potassium/Phosphorus/Sodium (Neutra Phos) 2 packet PO TID [facility] Stop: 10/07/19 15:01 Last Admin: 10/06/19 21:31 Dose: 2 packet Documented by: Senna (Senokot) 2 tab PO BID [facility] Last Admin: 10/07/19 08:22 Dose: Not Given Documented by: Senna/Docusate Sodium (Senna Plus Tablet) 1 tab PO HS [facility] Last Admin: 10/06/19 21:33 Dose: Not Given Documented by: Sodium Chloride (Saline Flush) 10 ml IV Q8 [facility] Last Admin: 10/07/19 04:34 Dose: 10 ml Documented by: Thiamine HCl (Vitamin B1) 100 mg PO DAILY [facility] Last Admin: 10/06/19 09:05 Dose: 100 mg Documented by: Vancomycin HCl (Vancomycin Per Pharmacy) 1 order IV UD [facility]; Protocol Warfarin Sodium (Coumadin Per Pharmacy) 1 order PO UD [facility] A/P Narrative A/P Narrative: * Acute decompensated heart failure -systolic with EF 25%. Clinical improvement noted with aggressive diuresis. Continue beta-aaron/digoxin. Continue oral diuretics with Lasix metolazone combo * Bibasilar infiltrate consistent with healthcare associated pneumonia. De- escalate antibiotics. Await COVID 19 * Chronic ischemic cardiomyopathy-with EF 25%. Continue aspirin/beta-aaron. Status post ICD * History atrial fibrillation currently rate controlled. Continue beta-blockers digoxin/anticoagulation on Coumadin. INR therapeutic * History of COPD-at baseline. Continue bronchodilators. * History of myeloproliferative disorder with thrombocytopenia. Follows up outpatient with oncology. * CKD stage IV-monitor renal function and avoid nephrotoxins. Creatinine 2.6. * Chronic anemia. Monitor * DNR * Prophylaxis anticoagulated on Coumadin Mary * Continue oral diuretics. * Interval chest imaging * PT OT/nutrition support * Continue Lasix metolazone * Discharge planning per case management likely SNF Time Spent With Patient Time: Total time spent is greater than 50% in coordination of care (as documented) at patient's floor/unit and/or counseling patient:35 mins
[2019-10-07] MEDS: Budesonide [Pulmicort Flexhaler] INH SCH ×2 (08:49→21:27)
[2019-10-07] MEDS: MULTIVIT,THER IRON,CA,FA & MIN 1 TABLET PO SCH (08:49)
[2019-10-07] MEDS: POTASSIUM CHLORIDE 20 MEQ TABLET PO SCH (08:50)
[2019-10-07] MEDS: METOPROLOL SUCCINATE 25 MG TAB.XL.24H PO SCH (08:50)
[2019-10-07] MEDS: FUROSEMIDE 40 MG TABLET PO SCH ×3 (08:50→21:26)
[2019-10-07] MEDS: ALLOPURINOL 100 MG TABLET PO SCH (08:50)
[2019-10-07] MEDS: ASCORBIC ACID 500 MG TABLET PO SCH (08:50)
[2019-10-07] MEDS: GLUCOSAMINE/CHONDROITIN SULF A 1 CAP CAPSULE PO SCH ×2 (08:50→21:27)
[2019-10-07] MEDS: THIAMINE 100 MG TABLET PO SCH (08:50)
[2019-10-07] MEDS: CYANOCOBALAMIN (VITAMIN B-12) 500 MCG TABLET PO SCH ×2 (08:50→21:26)
[2019-10-07] MEDS: METOLAZONE 2.5 MG TABLET PO SCH (08:50)
[2019-10-07] MEDS: NEUTRA PHOS 1 PACKET PO SCH ×2 (08:51→14:39)
--- NOTE | 2019-10-07 09:28 | XRay Report ---
INDICATION: pna TECHNIQUE: AP portable semiupright chest x-ray COMPARISON: Previous examinations dated 10/04/2019, 10/01/2019, 09/18/2019 FINDINGS:Previous median sternotomy. Left transvenous pacemaker is unchanged Lungs:Mild left basilar parenchymal density. This is improved since 10/04/2019. No new focal pulmonary parenchymal infiltrate or mass Heart, vascular:There is cardiomegaly, unchanged. There is probable pulmonary congestion. No pulmonary edema Mediastinum, jose:No mediastinal widening. No hilar mass Pleura:Slight blunting of left costophrenic angle. This is unchanged Skeletal:Negative. IMPRESSION: 1. Improved left basilar infiltrate 2. Cardiomegaly and probable pulmonary congestion Interpreted and Authenticated by: Bradford Steve 10/07/19
[2019-10-07] MEDS ORDERED: VANCOMYCIN 1,000 MG in 0.9 % SODIUM CHLORIDE 250 ML IV ONE (10:00)
[2019-10-07] MEDS: VANCOMYCIN ORAL SOL 1,000 MG/10 ML BOTTLE PO SCH ×3 (12:07→21:27)
[2019-10-07] MEDS ORDERED: WARFARIN 2.5 MG TABLET PO ONE (14:00)
[2019-10-07] MEDS: DIGOXIN 125 MCG TABLET PO SCH (14:00)
[2019-10-07] MEDS: ACETAMINOPHEN 325 MG TABLET PO PRN (14:01)
[2019-10-07] MEDS: MONTELUKAST 10 MG TABLET PO SCH (21:26)
[2019-10-07] MEDS: ASPIRIN 81 MG TAB.CHEW PO SCH (21:26)
[2019-10-07] MEDS: SENNOSIDES/DOCUSATE SODIUM 1 TAB TABLET PO SCH (21:27)
[2019-10-08] MEDS: ACETAMINOPHEN 325 MG TABLET PO PRN ×2 (03:24→08:05)
[2019-10-08] MEDS: PIPERACILLIN SODIUM/TAZOBACTAM 3.375 GM in DEXTROSE 5% IN WATER 50 ML IV SCH ×2 (04:09→09:15)
[2019-10-08] MEDS: 0.9 % SODIUM CHLORIDE 10 ML SYRINGE IV SCH ×3 (04:09→14:26)
[2019-10-08 06:26] LABS: Hematocrit 35.4 % (40.1-51.0); Hemoglobin 10.6 g/dL (13.7-17.5); Mean Cell Volume 107.9 fL (80.0-100.0); Mean Corpuscular HGB Conc 29.9 g/dL (31.0-36.0); Platelet Count 36 K/mcL (140-440); RBC 3.28 M/mcL (4.63-6.08); Red Cell Distribution Width 23.3 % (11.5-14.5); WBC 7.4 K/mcL (4.50-11.00)
[2019-10-08 06:48] LABS: INR 2.8 (0.9-1.1)
[2019-10-08 06:56] LABS: ALT/SGPT 19 U/l (0-40); AST/SGOT 37 U/l (0-37); Albumin 3.6 gm/dL (3.2-5.2); Albumin/Globulin Ratio 1.9 (1.0-2.3); Alkaline Phosphatase 92 U/L (39-117); Bilirubin,Direct 0.8 mg/dL (0.0-0.3); Bilirubin,Total 1.9 mg/dL (0.0-1.0); Blood Urea Nitrogen 65 mg/dl (8-23); Calcium 9.1 mg/dl (8.6-10.4); Carbon Dioxide 26 mmol/L (22-30); Globulin 1.9 gm/dL (2.2-3.7); Glomerular Filtration Rate 20; Glucose 98 mg/dL (70-105); Phosphorous 5.5 mg/dL (2.7-4.5); Triglycerides 136 mg/dl (<150); Uric Acid 4.9 mg/dL (2.5-8.0)
[2019-10-08 07:10] LABS: Chloride 95 mmol/L (96-108); Lactate Dehydrogenase 695 U/L (94-250)
[2019-10-08] MEDS: LEVOTHYROXINE 125 MCG TABLET PO SCH (07:36)
[2019-10-08] MEDS: METOLAZONE 2.5 MG TABLET PO SCH (07:36)
[2019-10-08] MEDS: POTASSIUM CHLORIDE 20 MEQ TABLET PO SCH (07:36)
[2019-10-08] MEDS: SENNOSIDES 1 TABLET PO SCH (07:37)
[2019-10-08] MEDS: DOCUSATE SODIUM 100 MG CAPSULE PO SCH (07:37)
[2019-10-08 08:15] LABS: Anisocytosis 2+ (NONE SEEN); Blast Cells 5 % (0-0); Eosinophils % (Manual) 1 % (0-7); Lymphocytes % 28 % (15-49); Macrocytosis 2+ (NONE SEEN); Metamyelocytes % 1 % (0-0); Monocytes % (Manual) 6 % (1-12); Myelocytes % 1 % (0-0); Nucleated Red Blood Cells 7 % (0-0); Ovalocytes 1+ (NONE SEEN); Platelet Estimate MK DECR (NORMAL); Poikilocytosis 2+ (NONE SEEN); Polychromasia 2+ (NONE SEEN); RBC Morphology ABNORM (NORMAL); Segmented Neutrophils % 58 % (38-78); Tear Drop Cells 1+ (NONE SEEN)
[2019-10-08] MEDS: CALCITRIOL 0.25 MCG CAPSULE PO SCH (09:19)
[2019-10-08] MEDS: GLUCOSAMINE/CHONDROITIN SULF A 1 CAP CAPSULE PO SCH (09:19)
[2019-10-08] MEDS: METOPROLOL SUCCINATE 25 MG TAB.XL.24H PO SCH (09:20)
[2019-10-08] MEDS: ALLOPURINOL 100 MG TABLET PO SCH (09:20)
[2019-10-08] MEDS: CYANOCOBALAMIN (VITAMIN B-12) 500 MCG TABLET PO SCH (09:20)
[2019-10-08] MEDS: ASCORBIC ACID 500 MG TABLET PO SCH (09:20)
[2019-10-08] MEDS: MULTIVIT,THER IRON,CA,FA & MIN 1 TABLET PO SCH (09:20)
[2019-10-08] MEDS: VANCOMYCIN ORAL SOL 1,000 MG/10 ML BOTTLE PO SCH ×2 (09:21→13:17)
[2019-10-08] MEDS: FUROSEMIDE 40 MG TABLET PO SCH ×2 (09:21→14:26)
[2019-10-08] MEDS: THIAMINE 100 MG TABLET PO SCH (09:21)
[2019-10-08] MEDS: MAGNESIUM CHLORIDE 71.5 MG PO SCH (09:23)
[2019-10-08] MEDS: Budesonide [Pulmicort Flexhaler] INH SCH (09:24)
--- NOTE | 2019-10-08 10:21 | Discharge Summary ---
Discharge Provider Provider Patient information: Note initiated : 10/08/19 at 10:15 am Service Date, if different from initiated Date: [] Patient: Dank Garner 84 y/o M admitted on 10/04/19 for Water on Legs/Lungs, Heart Problems. Chief Complaint: [] Date of admission: 10/04/19 21:19 Discharge date: 10/08/19 Primary care physician: Yannick Bahena MD Consults: 10/04/19 Consult to Physician [CONS] Stat Comment: Consulting Provider: Gordon Siddiqi Reason For Exam: Physician to Consult 10/05/19 15:56 Consult to Physician [CONS] Routine Comment: Consulting Provider: Bradford Larry Reason For Exam: Physician to Consult 10/08/19 09:22 Consult to Physician [CONS] Routine Comment: Consulting Provider: Bradford Larry Reason For Exam: Physician to Consult Discharge Meds Discharge Medications Home Medications ascorbic acid (vitamin C) 1,000 mg tablet 500 mg PO QDAY tab 09/12/14 [History Confirmed 10/05/19 Last Taken 10/04/19 09:00] aspirin 81 mg tablet,delayed release 81 mg PO HS tab 09/12/14 [History C onfirmed 10/05/19 Last Taken 10/03/19 21:00] glucosamine-chondroitin 500 mg-400 mg capsule 1 tab-cap PO BID cap 09/12/14 [History Confirmed 10/05/19 Last Taken 10/04/19 09:00] multivitamin 1 tab-cap PO QDAY cap 09/12/14 [History Confirmed 10/05/19 Last Taken 10/04/19 09:00] nebulizers #1 each 03/04/15 [Rx Confirmed 10/04/19 Last Taken Unknown] nitroglycerin 0.4 mg sublingual tablet 0.4 mg SUBLINGUAL Q5MIN PRN #25 tab 02/17/16 [Rx Confirmed 10/05/19 Last Taken Unknown] warfarin 5 mg tablet See Rx Instructions .ROUTE .COMPLEX #1 tab 11/25/16 [Rx Confirmed 10/05/19 Last Taken 10/03/19 21:00] levothyroxine 125 mcg tablet 125 mcg PO QDAY #90 tab 08/15/17 [Rx Confirmed 10/05/19 Last Taken 10/04/19 07:00] CPAP machine and accessories #1 each 11/30/17 [Rx Confirmed 10/04/19 Last Taken 08/12/19 20:00] budesonide 180 mcg/actuation breath activated powder inhaler 1 inh INHALATION BID #1 each 12/05/17 [Rx Confirmed 10/05/19 Last Taken 10/04/19 09:00] montelukast 10 mg tablet 10 mg PO QHS tab 08/13/19 [History Confirmed 10/05/19 Last Taken 10/03/19 21:00] sennosides 8.6 mg tablet 25.8 mg PO BID tab 08/13/19 [History Confirmed 10/05/19 Last Taken 10/04/19 09:00] metoprolol succinate 25 mg tablet,extended release 24 hr 25 mg PO DAILY #90 tab 09/10/19 [Rx Confirmed 10/05/19 Last Taken 10/04/19 09:00] digoxin 62.5 mcg PO DAILY@1400 30 Days #2 tab 09/24/19 [Rx Confirmed 10/05/19 Last Taken 10/03/19] potassium chloride [Klor-Con M20] 40 meq PO QAMCC 30 Days #60 tab 09/24/19 [Rx Confirmed 10/05/19 Last Taken 10/04/19 09:00] allopurinol 100 mg tablet 400 mg PO QDAY tab 09/26/19 [History Confirmed 10/05/19 Last Taken 10/04/19 09:00] calcitriol 0.25 mcg capsule 0.25 mcg PO Q OTHER DAY #30 cap 09/26/19 [Rx Confirmed 10/05/19 Last Taken 10/03/19] magnesium chloride 71.5 mg (magnesium chloride) tablet,delayed release 71.5 mg PO MOWEFR@0900 tab 09/26/19 [History Confirmed 10/05/19 Last Taken 10/03/19 09:00] furosemide 20 mg PO TID #90 tab 10/08/19 [Rx Last Taken Unknown] levofloxacin [Levaquin] 750 mg PO Q48 #2 tab 10/08/19 [Rx Last Taken Unknown] metolazone 2.5 mg PO Q48 #30 tab 10/08/19 [Rx Last Taken Unknown] vancomycin 250 mg PO QID #56 ea 10/08/19 [Rx Last Taken Unknown] COURSE Hospital Course Hospital Course: Discharge diagnosis C. difficile enterocolitis-continue 14 days oral vancomycin. Acute decompensated heart failure -systolic with EF 25%. Clinical improvement noted with aggressive diuresis. Continue beta-aaron/digoxin/diuretics. Bibasilar pneumonia -continue additional 3 days oral Levaquin. Chronic ischemic cardiomyopathy-with EF 25%. Continue aspirin/beta-aaron. Status post ICD History atrial fibrillation currently rate controlled. Continue beta-blockers digoxin/anticoagulation on Coumadin. INR therapeutic History of COPD-at baseline. Continue bronchodilators. History of myeloproliferative disorder with thrombocytopenia. Follows up outpatient with oncology. CKD stage IV-monitor renal function and avoid nephrotoxins. Creatinine 2.6. Chronic anemia. Stable Brief hospital course History of present illness: Mr. Garner is a 84 year old M with a history of ICM/CABG/A. 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 Patient was discharged has been gaining weight and getting progressively short of breath with increasing exertional dyspnea/orthopnea, productive cough and progressive decline in functional status. He lives with his and has not been able to take care of self. Symptoms associated with dizziness lightheadedness and malaise. He presents to the ER initial work-up with chest infiltrate consistent with pneumonia atop congestive heart failure. Patient was started antibiotics after cultures were drawn. He was started on diuretics. Hospital service was jimi tucker. At the time of my evaluation patient is very fatigued and weak but was able to answer most of the questions. Following discharge from hospital he never really felt well. He denies sick contacts. Denies fever, chills but endorses to yellow productive sputum. Denies headache, photophobia, dysuria but endorses to multiple episodes of loose stool over the last few days. 10/04-patient doing a lot better. Improved work of breathing, diuresed over 1600 cc. On antibiotic coverage. Continue beta-aaron/digoxin/diuretics. Coumadin dosing based on INR. Continue PT OT/nutrition support. Discharge planning likely SNF 10/05-responding well with aggressive diuresis with over 3000 cc net negative. Transition to oral diuretics. Continue antibiotic coverage. Much improved respiratory status. On room air. Feels a lot better. Ongoing physical therapy and tolerating diet. 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 Creatinine 2.5. -10/06-patient doing well. No overnight events. Diuresed in excess of 4000 cc negative. No overnight fever chills. No concerns expressed by nursing staff. Continue diuresis and anticipate discharge in 24 hours. 10/07-patient doing well. No overnight events. No fever chills nausea vomiting. Improved interval chest imaging. Continue antibiotic for additional 3 days. Discharging on oral vancomycin for C. difficile for 14 days. Continue Lasix metolazone combination Discharge diagnosis: . Time Spent with Patient Time attestation: Total time spent providing and/or coordinating discharge services: EXAM Constitutional Vitals: Temp Pulse Resp BP Pulse Ox 97.8 F 87 20 95/64 94 10/08/19 07:41 10/08/19 02:00 10/08/19 10:00 10/08/19 10:00 10/08/19 10:00 Discharge Data Data Completed and Pending Labs on day of discharge: Labs from last 24 hours 10/08/19 10/08/19 10/08/19 09:03 05:15 05:15 WBC RBC Hgb Hct MCV MCH MCHC RDW Plt Count MPV Total Counted Seg Neutrophils % Band Neutrophils % Lymphocytes % Monocytes % (Manual) Eosinophils % (Manual) Metamyelocytes % Myelocytes % Nucleated RBCs Blast Cells Platelet Estimate RBC Morphology Polychromasia Poikilocytosis Anisocytosis Macrocytosis Tear Drop Cells Ovalocytes PT 30.0 H INR 2.8 H Sodium 137 Potassium 4.0 Chloride 95 L Carbon Dioxide 26 Anion Gap 16.0 BUN 65 H Creatinine 2.8 H GFR Calculation 20 Glucose 98 Uric Acid 4.9 Calcium 9.1 Phosphorus 5.5 H Magnesium 2.3 Total Bilirubin 1.9 H Direct Bilirubin 0.8 H GGT 64 H AST 37 ALT 19 Alkaline Phosphatase 92 Lactate Dehydrogenase 695 H Total Protein 5.5 L Albumin 3.6 Globulin 1.9 L Albumin/Globulin Ratio 1.9 Triglycerides 136 Vancomycin Trough 18.2 SARS-CoV-2 (PCR) 10/08/19 10/05/19 05:15 09:50 WBC 7.4 RBC 3.28 L Hgb 10.6 L Hct 35.4 L MCV 107.9 H MCH 32.3 MCHC 29.9 L RDW 23.3 H Plt Count 36 L* MPV TNP Total Counted 100 Seg Neutrophils % 58 Band Neutrophils % Not Reportable Lymphocytes % 28 Monocytes % (Manual) 6 Eosinophils % (Manual) 1 Metamyelocytes % 1 H Myelocytes % 1 H Nucleated RBCs 7 H Blast Cells 5 H Platelet Estimate Mk decr A RBC Morphology Abnorm A Polychromasia 2+ A Poikilocytosis 2+ A Anisocytosis 2+ A Macrocytosis 2+ A Tear Drop Cells 1+ A Ovalocytes 1+ A PT INR Sodium Potassium Chloride Carbon Dioxide Anion Gap BUN Creatinine GFR Calculation Glucose Uric Acid Calcium Phosphorus Magnesium Total Bilirubin Direct Bilirubin GGT AST ALT Alkaline Phosphatase Lactate Dehydrogenase Total Protein Albumin Globulin Albumin/Globulin Ratio Triglycerides Vancomycin Trough SARS-CoV-2 (PCR) Not detected Preliminary micro results at discharge 10/04/19 16:26 Blood Culture - Preliminary Blood 10/04/19 16:28 Blood Culture - Preliminary Blood 10/06/19 13:57 Sputum Culture - Preliminary Sputum - Induced Discharge Plan Patient/Caregiver Discharge Instructions Activity: increase activity as tolerated Diet: Renal Activity Restrictions/Additional Instructions: Continue oral Levaquin for additional 3 days Continue diuretics -Lasix 20 mg 3 times a day with metolazone 2.5 mg every other day Limit measurements, take additional 40 mg Lasix for 3 days if weight gain is over 4 pounds above baseline Continue oral vancomycin for additional 14 days Prescriptions: New furosemide 40 mg Tablet 20 mg PO TID Qty: 90 RF: 0 metolazone 2.5 mg Tablet 2.5 mg PO Q48 Qty: 30 RF: 0 vancomycin 1,000 mg Recon Soln 250 mg PO QID Qty: 56 RF: 0 levofloxacin [Levaquin] 750 MG tablet 750 mg PO Q48 Qty: 2 RF: 0 Continued (DME) nebulizers [facility] See Dose Instructions .ROUTE .MEDSUPPLY Qty: 1 RF: 0 levothyroxine 125 mcg tablet 125 mcg PO QDAY Qty: 90 RF: 3 (DME) CPAP machine and accessories Qty: 1 RF: 0 budesonide [Pulmicort Flexhaler] 180 mcg/actuation aerosol powdr breath activated 1 inh INHALATION BID Qty: 1 RF: 2 metoprolol succinate 25 mg tablet extended release 24 hr 25 mg PO DAILY Qty: 90 RF: 3 ascorbic acid (vitamin C) 1,000 mg tablet 500 mg PO QDAY RF: 0 aspirin 81 mg tablet,delayed release (DR/EC) 81 mg PO HS RF: 0 glucosamine-chondroitin 500-400 mg capsule 1 tab-cap PO BID RF: 0 multivitamin capsule 1 tab-cap PO QDAY RF: 0 nitroglycerin 0.4 mg tablet, sublingual 0.4 mg SUBLINGUAL Q5MIN PRN (Reason: chest pain) Qty: 25 RF: 1 warfarin 5 mg tablet See Rx Instructions .ROUTE .COMPLEX Qty: 1 RF: 0 sennosides [senna] 8.6 mg tablet 25.8 mg PO BID RF: 0 montelukast 10 mg tablet 10 mg PO QHS RF: 0 allopurinol 100 mg tablet 400 mg PO QDAY RF: 0 Slow-Mag 71.5 mg tablet,delayed release (DR/EC) 71.5 mg PO MOWEFR@0900 RF: 0 calcitriol 0.25 mcg capsule 0.25 mcg PO Q OTHER DAY Qty: 30 RF: 6 digoxin 125 mcg (0.125 mg) Tablet 62.5 mcg PO DAILY@1400 30 Days Qty: 2 RF: 0 potassium chloride [Klor-Con M20] 20 mEq Tablet,Er Particles/Crystals 40 meq PO QAMCC 30 Days Qty: 60 RF: 0 Discontinued furosemide 20 mg tablet 40 mg PO BIDD 30 Days Qty: 120 RF: 0 Follow Up Plan Follow up with: Yannick Bahena MD [Primary Care Provider] - Patient Disposition: Xfer SNF Rehab Potential: Fair I certify that the patient requires SNF services: Yes Overall status at discharge: patient is progressing back to baseline Discharge Orders: Discharge Order (Routine); Ordered 10/08/19 Ordered By: Gordon Siddiqi
[2019-10-08] MEDS ORDERED: WARFARIN 1 MG TABLET PO ONE (14:00)
[2019-10-08] MEDS: DIGOXIN 125 MCG TABLET PO SCH (14:26)
== END 2019-10-08 15:25 | DRG 291 ==
LOC: ED 14:32 → ICU 14:32 → OBSVTOIN 21:19 → ICU 21:20
PROVIDERS: ADMIT Internal Medicine; ATTEND Internal Medicine

== ENCOUNTER 2019-11-13 14:46 | Inpatient (IN) ==
--- NOTE | 2019-11-13 15:21 | XRay Report ---
INDICATION: sob TECHNIQUE: AP portable upright chest x-ray COMPARISON: Previous chest x-rays dated 10/07/2019, 10/04/2019, 10/01/2019 FINDINGS: Lungs:Mild bibasilar parenchymal infiltrate. Findings may be secondary to pneumonia. No discrete pulmonary parenchymal mass. Heart, vascular: There is a left transvenous pacemaker, unchanged. Heart size is within normal limits. Pulmonary vascularity is prominent consistent with pulmonary congestion. No definite pulmonary edema Mediastinum, jose:No mediastinal widening. No hilar mass Pleura:No pleural fluid. No pleural-based mass or calcification Skeletal:Previous median sternotomy. Markers consistent with coronary artery bypass procedure IMPRESSION: 1. Findings consistent with pulmonary congestion 2. Mild bibasilar pulmonary parenchymal infiltrate. Findings may be secondary to pneumonia Interpreted and Authenticated by: Bradford Steve 11/13/19
--- NOTE | 2019-11-13 15:23 | Emergency Department Note ---
SOB HPI General Chief Complaint: Shortness of Breath/Dyspnea Stated Complaint: shortness of breath, swelling in bilateral lower l Time Seen by Provider: 11/13/19 15:01 Source: patient Mode of arrival: wheelchair Limitations: no limitations History of Present Illness HPI Narrative: Narrative: This patient comes in because he has been feeling short of breath for the last several days. He has had increasing edema in his lower extremities and has developed redness of his left lower extremities and the home health nurse thought he might have cellulitis. He has a chronic cough but no increase in cough. No chest pain no abdominal pain no nausea or vomiting. Related Data Home Medications Medication Instructions Recorded Confirmed montelukast 10 mg tablet 10 mg PO QHS tab 08/13/19 11/13/19 allopurinol 100 mg tablet 400 mg PO QDAY tab 09/26/19 11/13/19 magnesium chloride 71.5 mg 71.5 mg PO MOWEFR@0900 tab 09/26/19 11/13/19 (magnesium chloride) tablet,delayed release Saccharomyces boulardii 250 mg 250 mg PO QDAY cap 11/01/19 11/13/19 capsule budesonide [Pulmicort Flexhaler] 1 inh INHALATION BID 11/13/19 11/13/19 bumetanide 2 mg PO QDAY 11/13/19 11/13/19 calcitriol 0.25 mcg PO .MWF 11/13/19 11/13/19 digoxin 62.5 mcg PO .MWF 11/13/19 11/13/19 furosemide 40 mg PO BID 11/13/19 11/13/19 sacubitril-valsartan [Entresto] 1 tab PO BID 11/13/19 11/13/19 spironolactone 12.5 mg PO QDAY 11/13/19 11/13/19 torsemide 10 mg PO QDAY 11/13/19 11/13/19 Previous Rx's Medication Instructions Recorded nebulizers #1 each 03/04/15 warfarin 5 mg tablet See Rx Instructions .ROUTE 11/25/16 .COMPLEX #1 tab levothyroxine 125 mcg tablet 125 mcg PO QDAY #90 tab 08/15/17 CPAP machine and accessories #1 each 11/30/17 metolazone 2.5 mg tablet 2.5 mg PO .mwf #30 tab 11/07/19 metoprolol succinate 25 mg 25 mg PO DAILY #90 tab 11/07/19 tablet,extended release 24 hr potassium chloride 20 mEq 40 meq PO QDAY #180 tab 11/07/19 tablet,extended release(part/cryst) Allergies Allergy/AdvReac Type Severity Reaction Status Date / Time doxycycline Allergy Unknown Unknown Verified 11/13/19 14:50 sulfacetamide Allergy Unknown Unknown Verified 11/13/19 14:50 colchicine [From Colcrys] AdvReac Mild swollen Verified 11/13/19 14:50 feet niacin AdvReac Mild "sensitive" Verified 11/13/19 14:50 oxycodone [Oxycodone] AdvReac Mild Nausea Verified 11/13/19 14:50 Review of Systems ROS ROS Narrative: Narrative: All systems ED: reviewed and negative except as stated. [facility] Narrative Patient History Narrative: Narrative: Medical/Surgical/Family History All Active Problems (Updated 11/13/19 @ 19:29 by Juan Kyle MD) Pneumonia (Acute) Congestive heart failure (Acute) Cellulitis (Acute) Acute on chronic clinical systolic heart failure (Acute) Acute on chronic diastolic CHF (congestive heart failure) (Acute) Lumbar radiculopathy (Acute) Cholelithiasis (Acute) Laceration (Acute) Encounter for removal of sutures (Acute) Cardiogenic shock (Acute) CKD (chronic kidney disease), stage IV (Chronic) Chronic combined systolic and diastolic CHF (congestive heart failure) (Chronic) Cardiorenal syndrome with renal failure (Chronic) 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) Hyperparathyroidism, secondary renal (Chronic) Secondary hyperparathyroidism of renal origin (Chronic) Cough (Acute) Abdominal aortic aneurysm (AAA) 3.0 cm to 5.5 cm in diameter in male (Acute) COPD (chronic obstructive pulmonary disease) (Acute) Hypothyroidism (Acute) ART on CPAP (Acute) Chronic myeloproliferative disorder (Chronic 05/19/15) Benign prostatic hypertrophy (Chronic) Gout (Chronic) 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) Slow transit constipation (Chronic) Neuropathy (Chronic) Edema (Chronic) Gastroesophageal reflux disease (Chronic) Abdominal distension (Chronic) 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) Vasomotor rhinitis (Chronic) Splenomegaly (Chronic) Secondary hyperparathyroidism of renal origin (Chronic) Allergic rhinitis (Chronic) Restless leg syndrome (Chronic) Raynauds syndrome (Chronic) Protein C deficiency (Chronic) Polycythemia vera (Chronic) Hx of venous thrombosis and embolism (Chronic) Obstructive sleep apnea, adult (Chronic) Hypothyroidism (acquired) (Chronic) Hypertensive renal disease (Chronic) Hypertension, essential (Chronic) Hyperlipidemia (Chronic) Fatigue (Chronic) Congestive heart failure (Chronic) Chronic kidney disease, stage III (moderate) (Chronic) Cardiomyopathy (Chronic) CAD (coronary artery disease) (Chronic) Atrial fibrillation (Chronic) MCC current use of anticoagulant therapy (Chronic) Anemia, iron deficiency (Chronic) Anemia in chronic kidney disease (Chronic) Medical History (Updated 11/13/19 @ 19:29 by Juan Kyle MD) Abdominal aortic aneurysm (Ruled-out) Abdominal aortic aneurysm (Ruled-out) USg done neg, ct abdo pelvis done neg in 2012, only usg in 2013 had shown this, which I now believe could be a over read given multiple subsequent studies not showing the aneurysm. Abdominal aortic aneurysm (Resolved) Abdominal distension (Chronic) usg neg, shows 17 cm cyst in liver appears benigh and 21 cm spleen. also poor abdominal wall tone. Acute exacerbation of chronic bronchitis (Resolved) treat with prednisone and zithromax hopefully will get better now that he will have a nebulizer. Acute gout (Resolved) on allopurinol 300, he has ckd and polycythemia, as risk factors. Uric acid 6.8, pt already of 300mg allopurinol with no good response, start on uloric 40mg once daily ,stop allopuinol. Allergic rhinitis (Chronic) 07/11/2014 Anemia in chronic kidney disease (Chronic) Anemia, iron deficiency (Chronic) Asymptomatic cholelithiasis (Resolved) Atrial fibrillation (Chronic) Benign prostatic hypertrophy (Chronic) CAD (coronary artery disease) (Chronic) and stenting Cardiomyopathy (Chronic) Cardiorenal syndrome with renal failure (Chronic) Slowly progressive, lasix increased last visit with Dr Ley, now tried Jules in low dose with clinical worsening Chronic combined systolic and diastolic CHF (congestive heart failure) (Chronic) Combined systolic and diastolic congestive heart failure, AICD in place On a combination of low-dose carvedilol digoxin spironolactone and now twice a day furosemide Chronic combined systolic and diastolic CHF (congestive heart failure) (Chronic) On furosemide, BB, low dose aldactone, did not tolerate low dose Sacubitril/valsartan qHS AICD in place Warfarin Chronic kidney disease, stage III (moderate) (Chronic) Stable CKD 3 over the last 4 years Minimal proteinuria Chronic myeloproliferative disorder (Chronic 05/19/15) 05/19/2015-[place] Common femoral artery injury (Resolved) Congestive heart failure (Chronic) 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 but inhalers did not help at all, at this time, given age, h/o productive cough x 1 yr and a neg x ray chest ,will get a CT of the lungs to r/o any other pathology. NOt a candidate for contrast given CKD. Deep vein thrombosis (Inactive) recurrent Protein C def Degenerative joint disease (Resolved) Edema (Chronic) Fatigue (Chronic) Gastroesophageal reflux disease (Chronic) On pantoprazole, doing well. Gastrointestinal bleeding (Resolved) Gout (Chronic) Hepatic cyst (Resolved) History of cardioversion (Resolved) History of colonic polyps (Resolved) History of peptic ulcer disease (Resolved) Hx of gout (Resolved) Hx of venous thrombosis and embolism (Chronic) Hyperlipidemia (Chronic) LDL ok Hypermagnesemia (Resolved) due to ckd and mg supplements, plan to stop same and monitor. Hyperparathyroidism, secondary renal (Chronic) Stable on low-dose calcitriol every other day Hypersplenism (Resolved) Hypertension, essential (Chronic) bp stable, con coreg, continue same. 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 Probably has an element of high cell turnover and increased uric acid precursor production as well as diuretics, Hypoglycemia (Resolved) Likely pseudohypoglycemia, due to elevated rbc count, no symptoms, workup neg so far, only cpeptide mildly high. Consider CT abdomen if patient has symptoms. 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) Myelofibrosis (Resolved) Myocardial infarction, old (Resolved) 1997 Nephrolithiasis (Resolved) Neuropathy (Chronic) MUltifactorial in the feet, [place] cream topical for now, pt to buy otc, Obstructive sleep apnea, adult (Chronic) Occasional numbness/prickling/tingling of fingers and toes (Inactive) Polycythemia vera (Chronic) Protein C deficiency (Chronic) Raynauds syndrome (Chronic) Restless leg syndrome (Chronic) Secondary hyperparathyroidism of renal origin (Chronic) PTH and vitamin D at goal calcium and phos at goal ct calcitriol 0.25mcg qod Simple cyst of kidney (Inactive) Slow transit constipation (Chronic) chr constipation, plan to increase fiber in diet, advise use of prunes, increase hydration. Splenomegaly (Chronic) Supraventricular tachycardia (Resolved) Tricuspid regurgitation (Resolved) Urinary retention (Inactive) Vasomotor rhinitis (Chronic) Surgical History 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) 03/06/2013 History of intravascular stent placement (Resolved) cardiac History of left knee replacement (Inactive) History of lumbar surgery (Resolved) Lumbar disc surgery L4-5 History of surgical fusion joint (Inactive) Fusion DIP L ring finger History of total cystectomy (Resolved) 12/28/2012 Hx of adenoidectomy (Inactive) Hx of arthroscopic knee surgery (Inactive) right knee Hx of CABG (Resolved) 08/2006 Hx of cataract surgery (Inactive) Hx of tonsillectomy (Inactive) Hx of transurethral resection of prostate (Resolved) Hx of vasectomy (Resolved) Status post cystourethroscopy with dilation of urethral stricture (Inactive) 12/28/2012 Family History Mother Diabetes mellitus Father Cardiac disease at 86yrs old Brother Cerebrovascular accident Social History Smoking Status: Never smoker Alcohol Intake Frequency: does not drink Substance Use: does not use Exam Narrative Narrative: Narrative: General Limitations: no limitations Head Head: atraumatic, normocephalic and normal inspection Eye Eye: Present normal appearance, PERRL and EOMI; Absent scleral icterus and conjunctival injection ENT ENT: Present normal exam, normal oropharynx and mucous membranes moist Neck Neck: Present normal inspection Chest Chest: Present normal inspection and symmetric chest wall rise Respiratory Respiratory: Present normal lung sounds bilaterally; Absent respiratory distress, rales/crackles and wheezes Cardiovascular Cardiovascular: Present regular rate, normal rhythm and normal heart sounds Adbominal Abdominal: Present soft; Absent distention and tenderness Extremities Extremities: Present pedal edema and pretibial edema Neurological Neurological: Present alert Psychiatric Psychiatric: Present normal affect Skin Skin: Present warm, dry and erythema; Absent diaphoresis Course Vital Signs Vital signs: Vital Signs Temperature 97.0 F 11/13/19 14:47 Pulse Rate 86 11/13/19 14:47 Respiratory Rate 22 11/13/19 14:47 Blood Pressure 106/63 11/13/19 14:47 Pulse Oximetry (%) 100 11/13/19 14:47 Temperature 97.0 F 11/13/19 14:47 Pulse Rate 90 11/13/19 18:50 Respiratory Rate 23 H 11/13/19 19:02 Blood Pressure 126/80 11/13/19 19:02 Pulse Oximetry (%) 99 11/13/19 18:50 MDM MDM Narrative Medical decision making narrative: Narrative: This patient's chest x-ray is consistent with both heart failure and pneumonia. BNP was 10,000 and white count was also elevated at 13,000. Patient was cultured and started on vancomycin for his left leg cellulitis and Levaquin and Rocephin for his pneumonia. Also gave him 40 mg of Lasix IV. I discussed the case with Dr. Ahuja and he will be admitted to the hospital. Lab Data Lab results reviewed: Yes I reviewed the patient's lab results. Result diagrams: 11/13/19 15:22 11/13/19 15:22 Labs: Lab Results 11/13/19 11/13/19 11/13/19 Range/Units 15:22 15:22 15:22 WBC 13.0 H (4.50-11.00) K/mcL RBC 3.28 L (4.63-6.08) M/mcL Hgb 10.8 L (13.7-17.5) g/dL Hct 36.1 L (40.1-51.0) % MCV 110.1 H (80.0-100.0) fL MCH 32.9 (26.0-34.0) pg MCHC 29.9 L (31.0-36.0) g/dL RDW 24.5 H (11.5-14.5) % Plt Count 31 L* (140-440) K/mcL MPV TNP Gran % 67.1 (38.0-78.0) % Lymph % (Auto) 8.8 L (15.5-49.0) % Heard % (Auto) 22.3 H (1.0-12.0) % Eos % (Auto) 0.8 (0.0-7.0) % Baso % (Auto) 1.0 (0.0-2.0) % Gran # 8.70 H (1.80-8.00) K/mcL Lymph # (Auto) 1.14 L (1.50-4.80) K/mcL Heard # (Auto) 2.89 H (0.10-0.90) K/mcL Eos # (Auto) 0.11 (0.00-0.70) K/mcL Baso # (Auto) 0.13 (0.00-0.30) K/mcL Differential Comment PT (11.9-14.5) sec INR (0.9-1.1) VBG Lactic Acid 1.5 (0.5-2.0) mmol/L Sodium 137 (133-145) mmol/L Potassium 4.4 (3.3-5.1) mmol/L Chloride 97 (96-108) mmol/L Carbon Dioxide 23 (22-30) mmol/L Anion Gap 17.0 H (8-16) BUN 98 H (8-23) mg/dl Creatinine 2.9 H (0.7-1.2) mg/dl GFR Calculation 19 Glucose 89 (70-105) mg/dL Calcium 9.5 (8.6-10.4) mg/dl Total Bilirubin 1.5 H (0.0-1.0) mg/dL AST 37 (0-37) U/l ALT 17 (0-40) U/l Alkaline Phosphatase 83 (39-117) U/L Troponin T (0-0.03) ng/ml NT-Pro-B Natriuret Pep 77268.0 H (0-450) pg/ml Total Protein 5.9 (5.9-8.4) gm/dL Albumin 4.0 (3.2-5.2) gm/dL Globulin 1.9 L (2.2-3.7) gm/dL Albumin/Globulin Ratio 2.1 (1.0-2.3) Urine Color Urine Appearance Urine pH (5.0-9.0) Ur Specific [place] (1.000-1.035) Urine Protein (NEG) mg/dL Urine Glucose (UA) (NEG) mg/dL Urine Ketones (NEG) mg/dL Urine Occult Blood (<0.03) mg/dL Urine Nitrate (NEG) Urine Bilirubin (NEG) mg/dL Urine Urobilinogen (NEG) mg/dL Ur Leukocyte Esterase (NEG) /uL Urine RBC (0-1) /hpf Urine WBC (0-4) /hpf Ur Squamous Epith Cells (0-4) /hpf Urine Bacteria (0) /hpf Hyaline Casts (0-2) /lpf Urine Mucus (0) /hpf Ur Culture Indicated? 11/13/19 11/13/19 11/13/19 Range/Units 15:22 15:22 16:52 WBC (4.50-11.00) K/mcL RBC (4.63-6.08) M/mcL Hgb (13.7-17.5) g/dL Hct (40.1-51.0) % MCV (80.0-100.0) fL MCH (26.0-34.0) pg MCHC (31.0-36.0) g/dL RDW (11.5-14.5) % Plt Count (140-440) K/mcL MPV Gran % (38.0-78.0) % Lymph % (Auto) (15.5-49.0) % Heard % (Auto) (1.0-12.0) % Eos % (Auto) (0.0-7.0) % Baso % (Auto) (0.0-2.0) % Gran # (1.80-8.00) K/mcL Lymph # (Auto) (1.50-4.80) K/mcL Heard # (Auto) (0.10-0.90) K/mcL Eos # (Auto) (0.00-0.70) K/mcL Baso # (Auto) (0.00-0.30) K/mcL Differential Comment PT 27.3 H (11.9-14.5) sec INR 2.5 H (0.9-1.1) VBG Lactic Acid (0.5-2.0) mmol/L Sodium (133-145) mmol/L Potassium (3.3-5.1) mmol/L Chloride (96-108) mmol/L Carbon Dioxide (22-30) mmol/L Anion Gap (8-16) BUN (8-23) mg/dl Creatinine (0.7-1.2) mg/dl GFR Calculation Glucose (70-105) mg/dL Calcium (8.6-10.4) mg/dl Total Bilirubin (0.0-1.0) mg/dL AST (0-37) U/l ALT (0-40) U/l Alkaline Phosphatase (39-117) U/L Troponin T 0.02 (0-0.03) ng/ml NT-Pro-B Natriuret Pep (0-450) pg/ml Total Protein (5.9-8.4) gm/dL Albumin (3.2-5.2) gm/dL Globulin (2.2-3.7) gm/dL Albumin/Globulin Ratio (1.0-2.3) Urine Color Yellow Urine Appearance Clear Urine pH 5.0 (5.0-9.0) Ur Specific [place] 1.009 (1.000-1.035) Urine Protein Neg (NEG) mg/dL Urine Glucose (UA) Negative (NEG) mg/dL Urine Ketones Neg (NEG) mg/dL Urine Occult Blood Neg (<0.03) mg/dL Urine Nitrate Neg (NEG) Urine Bilirubin Neg (NEG) mg/dL Urine Urobilinogen Neg (NEG) mg/dL Ur Leukocyte Esterase Neg (NEG) /uL Urine RBC 0 (0-1) /hpf Urine WBC < 1 (0-4) /hpf Ur Squamous Epith Cells 0 (0-4) /hpf Urine Bacteria 0 (0) /hpf Hyaline Casts 6 H (0-2) /lpf Urine Mucus Few (0) /hpf Ur Culture Indicated? No Radiology Data Radiology results reviewed: Yes I reviewed the patient's radiology results. Discharge Plan Patient/Caregiver Discharge Instructions Pt seen by APPLICATION DEVELOPMENT SPECIALIST/PA only: No Clinical Impression: Pneumonia, Congestive heart failure, Cellulitis Patient Disposition: Xfer As Inpt ([facility]) Condition: Fair Follow up with: Yannick Bahena MD [Primary Care Provider] - Prescriptions: No Action (DME) nebulizers misc See Dose Instructions .ROUTE .MEDSUPPLY Qty: 1 RF: 0 levothyroxine 125 mcg tablet 125 mcg PO QDAY Qty: 90 RF: 3 (DME) CPAP machine and accessories Qty: 1 RF: 0 metolazone 2.5 mg tablet 2.5 mg PO .mwf Qty: 30 RF: 3 metoprolol succinate 25 mg tablet extended release 24 hr 25 mg PO DAILY Qty: 90 RF: 3 potassium chloride 20 mEq tablet,ER particles/crystals 40 meq PO QDAY Qty: 180 RF: 3 warfarin 5 mg tablet See Rx Instructions .ROUTE .COMPLEX Qty: 1 RF: 0 montelukast 10 mg tablet 10 mg PO QHS RF: 0 allopurinol 100 mg tablet 400 mg PO QDAY RF: 0 Slow-Mag 71.5 mg tablet,delayed release (DR/EC) 71.5 mg PO MOWEFR@0900 RF: 0 Saccharomyces boulardii [Daily Probiotic (S. boulardii)] 250 mg capsule 250 mg PO QDAY RF: 0 spironolactone 25 mg Tablet 12.5 mg PO QDAY RF: 0 bumetanide 1 mg Tablet 2 mg PO QDAY RF: 0 digoxin 125 mcg (0.125 mg) Tablet 62.5 mcg PO .MWF RF: 0 furosemide 20 mg Tablet 40 mg PO BID RF: 0 Pulmicort Flexhaler 180 mcg/actuation Aerosol Powdr Breath Activated 1 inh INHALATION BID RF: 0 Entresto 24-26 mg Tablet 1 tab PO BID RF: 0 torsemide 20 mg tablet 10 mg PO QDAY RF: 0 calcitriol 0.25 mcg capsule 0.25 mcg PO .MWF RF: 0
[2019-11-13] MEDS ORDERED: FUROSEMIDE 40 MG/4 ML VIAL IV ONE (16:05)
--- NOTE | 2019-11-13 16:08 | Ultrasound Report ---
INDICATION: edema COMPARISON: None. TECHNIQUE: Grayscale and color flow Doppler spectral imaging of the deep venous system in both lower extremities. FINDINGS: Luminal irregularity in the left common femoral vein consistent with recanalized chronic thrombus. Appearance is unchanged since 11/30/2012. Otherwise negative examination. No evidence for acute deep venous thrombosis. Negative right common femoral veins, femoral veins, popliteal veins. Posterior tibial veins and peroneal veins are negative. Greater and lesser saphenous veins are negative. IMPRESSION: 1. Negative examination for acute deep venous thrombosis. 2. Probable recanalized chronic deep venous thrombosis in the left common femoral vein. Findings are unchanged since 2012 Interpreted and Authenticated by: Bradford Steve 11/13/19
[2019-11-13 16:19] LABS: INR 2.5 (0.9-1.1); Prothrombin Time 27.3 sec (11.9-14.5)
[2019-11-13 16:24] LABS: Basophils # (Auto) 0.13 K/mcL (0.00-0.30); Eosinophils # (Auto) 0.11 K/mcL (0.00-0.70); Eosinophils % (Auto) 0.8 % (0.0-7.0); Granulocytes % (Auto) 67.1 % (38.0-78.0); Hematocrit 36.1 % (40.1-51.0); Hemoglobin 10.8 g/dL (13.7-17.5); Lymphocytes # (Auto) 1.14 K/mcL (1.50-4.80); Lymphocytes % (Auto) 8.8 % (15.5-49.0); Mean Cell Volume 110.1 fL (80.0-100.0); Mean Corpuscular HGB Conc 29.9 g/dL (31.0-36.0); Monocytes # (Auto) 2.89 K/mcL (0.10-0.90); Monocytes % (Auto) 22.3 % (1.0-12.0); Platelet Count 31 K/mcL (140-440); RBC 3.28 M/mcL (4.63-6.08); Red Cell Distribution Width 24.5 % (11.5-14.5)
[2019-11-13 16:34] LABS: ALT/SGPT 17 U/l (0-40); AST/SGOT 37 U/l (0-37); Albumin/Globulin Ratio 2.1 (1.0-2.3); Alkaline Phosphatase 83 U/L (39-117); Bilirubin,Total 1.5 mg/dL (0.0-1.0); Blood Urea Nitrogen 98 mg/dl (8-23); Calcium 9.5 mg/dl (8.6-10.4); Chloride 97 mmol/L (96-108); Globulin 1.9 gm/dL (2.2-3.7); Glomerular Filtration Rate 19; Glucose 89 mg/dL (70-105)
[2019-11-13 16:41] LABS: Carbon Dioxide 23 mmol/L (22-30)
[2019-11-13] MEDS ORDERED: VANCOMYCIN 1,000 MG in 0.9 % SODIUM CHLORIDE 250 ML IV ONE (17:50)
[2019-11-13] MEDS ORDERED: cefTRIAXone 1 GM VIAL IV ONE (17:50)
[2019-11-13] MEDS ORDERED: LEVOFLOXACIN 750 MG/150 ML BAG IV ONE (17:50)
[2019-11-13 18:15] LABS: Appearance,Urine CLEAR; Bacteria,Urine 0 /hpf (0); Bilirubin,Urine NEG (NEG); Color,Urine YELLOW; Culture Indicated,Urine NO; Glucose,Urine (UA) NEGATIVE (NEG); Ketones,Urine NEG (NEG); Leukocyte Esterase,Urine NEG /uL (NEG); Mucus,Urine FEW /hpf (0); Nitrate,Urine NEG (NEG); Protein,Urine NEG (NEG); Specific Gravity,Urine 1.009 (1.000-1.035); Urine Blood NEG mg/dL (<0.03); Urine Hyaline Cast 6 /lpf (0-2); Urine RBC 0 /hpf (0-1); Urine Squamous Epithelial Cell 0 /hpf (0-4); Urine WBC < 1 /hpf (0-4); Urobilinogen,Urine NEG (NEG)
[2019-11-13] MEDS ORDERED: NALOXONE HCL 0.4 MG/ML VIAL IV PRN ×2 (21:20→23:08)
[2019-11-13] MEDS ORDERED: ONDANSETRON 4 MG/2 ML VIAL IV PRN ×2 (21:20→23:08)
[2019-11-13] MEDS ORDERED: LEVALBUTEROL 0.63 MG/3 ML AMPUL.NEB NEB PRN ×2 (21:20→23:08)
[2019-11-13] MEDS ORDERED: traMADol 50 MG TABLET PO PRN ×2 (21:29→23:08)
[2019-11-13] MEDS ORDERED: DIGOXIN 125 MCG TABLET PO SCH (21:30)
[2019-11-13] MEDS ORDERED: WARFARIN 5 MG TABLET PO SCH ×2 (21:30→23:08)
[2019-11-13] MEDS ORDERED: CALCITRIOL 0.25 MCG CAPSULE PO SCH (21:30)
--- NOTE | 2019-11-13 21:57 | Internal Med History&Physical ---
HPI History of Present Illness Patient information: Note initiated : 11/13/19 at 9:43 pm Service Date, if different from initiated Date: [] Patient: Dank Garner a 84 y/o M admitted on for shortness of breath, swelling in bilateral lower l. Chief Complaint: [] History of present illness: Mr. Garner is a 84 year old M with a history of chronic thrombocytopenia, CKD, CHF, chronic myeloproliferative disease, COPD and atrial fibrillation who presented to the ER due to shortness of breath and left leg redness. Patient is a poor historian. As per patient, left lower leg has been red for about 1 week associated with pain. He denies any injury to the leg. Patient also reports that she has been having cough which has been worsening today associated with a white clear sputum. But he denies headache, dizziness, chest pain, fever, chills, abdominal pain, or dysuria. In the ER, chest x-ray showed pulmonary congestion and mild bibasilar pulmonary parenchymal infiltrate. 1 dose Lasix 40 mg, vancomycin and Levaquin waere given in the ER. When I saw this patient in the ER, other than the symptoms mentioned above, he was fine. Denied recent travel or sick contact. Review of Systems All systems: reviewed and no additional remarkable complaints except as stated PFSH PFSH All Active Problems Pneumonia (Acute) Congestive heart failure (Acute) Cellulitis (Acute) Acute on chronic clinical systolic heart failure (Acute) Acute on chronic diastolic CHF (congestive heart failure) (Acute) Lumbar radiculopathy (Acute) Cholelithiasis (Acute) Laceration (Acute) Encounter for removal of sutures (Acute) Cardiogenic shock (Acute) CKD (chronic kidney disease), stage IV (Chronic) Chronic combined systolic and diastolic CHF (congestive heart failure) (Chronic) Cardiorenal syndrome with renal failure (Chronic) 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) Hyperparathyroidism, secondary renal (Chronic) Secondary hyperparathyroidism of renal origin (Chronic) Cough (Acute) Abdominal aortic aneurysm (AAA) 3.0 cm to 5.5 cm in diameter in male (Acute) COPD (chronic obstructive pulmonary disease) (Acute) Hypothyroidism (Acute) ART on CPAP (Acute) Chronic myeloproliferative disorder (Chronic 05/19/15) Benign prostatic hypertrophy (Chronic) Gout (Chronic) 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) Slow transit constipation (Chronic) Neuropathy (Chronic) Edema (Chronic) Gastroesophageal reflux disease (Chronic) Abdominal distension (Chronic) 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) Vasomotor rhinitis (Chronic) Splenomegaly (Chronic) Secondary hyperparathyroidism of renal origin (Chronic) Allergic rhinitis (Chronic) Restless leg syndrome (Chronic) Raynauds syndrome (Chronic) Protein C deficiency (Chronic) Polycythemia vera (Chronic) Hx of venous thrombosis and embolism (Chronic) Obstructive sleep apnea, adult (Chronic) Hypothyroidism (acquired) (Chronic) Hypertensive renal disease (Chronic) Hypertension, essential (Chronic) Hyperlipidemia (Chronic) Fatigue (Chronic) Congestive heart failure (Chronic) Chronic kidney disease, stage III (moderate) (Chronic) Cardiomyopathy (Chronic) CAD (coronary artery disease) (Chronic) Atrial fibrillation (Chronic) 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 Abdominal aortic aneurysm (Resolved) Abdominal distension (Chronic) usg neg, shows 17 cm cyst in liver appears benigh and 21 cm spleen. also poor abdominal wall tone. Acute exacerbation of chronic bronchitis (Resolved) treat with prednisone and zithromax hopefully will get better now that he will have a nebulizer. Acute gout (Resolved) on allopurinol 300, he has ckd and polycythemia, as risk factors. Uric acid 6.8, pt already of 300mg allopurinol with no good response, start on uloric 40mg once daily ,stop allopuinol. Allergic rhinitis (Chronic) 07/11/2014 Anemia in chronic kidney disease (Chronic) Anemia, iron deficiency (Chronic) Asymptomatic cholelithiasis (Resolved) Atrial fibrillation (Chronic) Benign prostatic hypertrophy (Chronic) CAD (coronary artery disease) (Chronic) and stenting Cardiomyopathy (Chronic) Cardiorenal syndrome with renal failure (Chronic) Slowly progressive, lasix increased last visit with Dr Ley, now tried Jules in low dose with clinical worsening Chronic combined systolic and diastolic CHF (congestive heart failure) (Chronic) Combined systolic and diastolic congestive heart failure, AICD in place On a combination of low-dose carvedilol digoxin spironolactone and now twice a day furosemide Chronic combined systolic and diastolic CHF (congestive heart failure) (Chronic) On furosemide, BB, low dose aldactone, did not tolerate low dose Sacubitril/valsartan qHS AICD in place Warfarin Chronic kidney disease, stage III (moderate) (Chronic) Stable CKD 3 over the last 4 years Minimal proteinuria Chronic myeloproliferative disorder (Chronic 05/19/15) 05/19/2015[facility] Common femoral artery injury (Resolved) Congestive heart failure (Chronic) 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 but inhalers did not help at all, at this time, given age, h/o productive cough x 1 yr and a neg x ray chest ,will get a CT of the lungs to r/o any other pathology. NOt a candidate for contrast given CKD. Deep vein thrombosis (Inactive) recurrent Protein C def Degenerative joint disease (Resolved) Edema (Chronic) Fatigue (Chronic) Gastroesophageal reflux disease (Chronic) On pantoprazole, doing well. Gastrointestinal bleeding (Resolved) Gout (Chronic) Hepatic cyst (Resolved) History of cardioversion (Resolved) History of colonic polyps (Resolved) History of peptic ulcer disease (Resolved) Hx of gout (Resolved) Hx of venous thrombosis and embolism (Chronic) Hyperlipidemia (Chronic) LDL ok Hypermagnesemia (Resolved) due to ckd and mg supplements, plan to stop same and monitor. Hyperparathyroidism, secondary renal (Chronic) Stable on low-dose calcitriol every other day Hypersplenism (Resolved) Hypertension, essential (Chronic) bp stable, con coreg, continue same. 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 Probably has an element of high cell turnover and increased uric acid precursor production as well as diuretics, Hypoglycemia (Resolved) Likely pseudohypoglycemia, due to elevated rbc count, no symptoms, workup neg so far, only cpeptide mildly high. Consider CT abdomen if patient has symptoms. 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) Myelofibrosis (Resolved) Myocardial infarction, old (Resolved) 1997 Nephrolithiasis (Resolved) Neuropathy (Chronic) MUltifactorial in the feet, capcasin cream topical for now, pt to buy otc, Obstructive sleep apnea, adult (Chronic) Occasional numbness/prickling/tingling of fingers and toes (Inactive) Polycythemia vera (Chronic) Protein C deficiency (Chronic) Raynauds syndrome (Chronic) Restless leg syndrome (Chronic) Secondary hyperparathyroidism of renal origin (Chronic) PTH and vitamin D at goal calcium and phos at goal ct calcitriol 0.25mcg qod Simple cyst of kidney (Inactive) Slow transit constipation (Chronic) chr constipation, plan to increase fiber in diet, advise use of prunes, increase hydration. Splenomegaly (Chronic) Supraventricular tachycardia (Resolved) Tricuspid regurgitation (Resolved) Urinary retention (Inactive) Vasomotor rhinitis (Chronic) Surgical History 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) 03/06/2013 History of intravascular stent placement (Resolved) cardiac History of left knee replacement (Inactive) History of lumbar surgery (Resolved) Lumbar disc surgery L4-5 History of surgical fusion joint (Inactive) Fusion DIP L ring finger History of total cystectomy (Resolved) 12/28/2012 Hx of adenoidectomy (Inactive) Hx of arthroscopic knee surgery (Inactive) right knee Hx of CABG (Resolved) 08/2006 Hx of cataract surgery (Inactive) Hx of tonsillectomy (Inactive) Hx of transurethral resection of prostate (Resolved) Hx of vasectomy (Resolved) Status post cystourethroscopy with dilation of urethral stricture (Inactive) 12/28/2012 Family History Mother Diabetes mellitus Father Cardiac disease at 86yrs old Brother Cerebrovascular accident Social History marital status: education level: college occupational status: retired other: 3 Children, 2 grandchildren smoking status: Never smoker alcohol intake frequency: does not drink substance use type: does not use MEDS/ALLERGIES Home Medications and Allergies Home Medications Medication Instructions Recorded Confirmed Type nebulizers #1 each 03/04/15 11/13/19 Rx warfarin 5 mg tablet See Rx Instructions .ROUTE 11/25/16 11/13/19 Rx .COMPLEX #1 tab levothyroxine 125 mcg tablet 125 mcg PO QDAY #90 tab 08/15/17 11/13/19 Rx CPAP machine and accessories #1 each 11/30/17 11/13/19 Rx montelukast 10 mg tablet 10 mg PO QHS tab 08/13/19 11/13/19 History allopurinol 100 mg tablet 400 mg PO QDAY tab 09/26/19 11/13/19 History magnesium chloride 71.5 mg 71.5 mg PO MOWEFR@0900 tab 09/26/19 11/13/19 History (magnesium chloride) tablet,delayed release Saccharomyces boulardii 250 mg 250 mg PO QDAY cap 11/01/19 11/13/19 History capsule metolazone 2.5 mg tablet 2.5 mg PO .mwf #30 tab 11/07/19 11/13/19 Rx metoprolol succinate 25 mg 25 mg PO DAILY #90 tab 11/07/19 11/13/19 Rx tablet,extended release 24 hr potassium chloride 20 mEq 40 meq PO QDAY #180 tab 11/07/19 11/13/19 Rx tablet,extended release(part/cryst) budesonide [Pulmicort Flexhaler] 1 inh INHALATION BID 11/13/19 11/13/19 History bumetanide 2 mg PO QDAY 11/13/19 11/13/19 History calcitriol 0.25 mcg PO .MWF 11/13/19 11/13/19 History digoxin 62.5 mcg PO .MWF 11/13/19 11/13/19 History furosemide 40 mg PO BID 11/13/19 11/13/19 History sacubitril-valsartan [Entresto] 1 tab PO BID 11/13/19 11/13/19 History spironolactone 12.5 mg PO QDAY 11/13/19 11/13/19 History torsemide 10 mg PO QDAY 11/13/19 11/13/19 History Allergies Allergy/AdvReac Type Severity Reaction Status Date / Time doxycycline Allergy Unknown Unknown Verified 11/13/19 14:50 sulfacetamide Allergy Unknown Unknown Verified 11/13/19 14:50 colchicine [From Colcrys] AdvReac Mild swollen Verified 11/13/19 14:50 feet niacin AdvReac Mild "sensitive" Verified 11/13/19 14:50 oxycodone [Oxycodone] AdvReac Mild Nausea Verified 11/13/19 14:50 EXAM Constitutional Vitals: Temp Pulse Resp BP Pulse Ox 97.0 F 83 25 H 120/64 100 11/13/19 14:47 11/13/19 21:20 11/13/19 21:20 11/13/19 21:20 11/13/19 21:20 Additional findings Additional findings: General - No acute distress Eyes - PERRLA, EOM intact ENT no rhinorrhea, no noticeable or palpable swelling, no redness or rash around throat or on face Neck supple, no JVD, no thyromegaly Respiratory: Lungs -clear, no wheezing or crackles. Cardiovascular - RRR no m/r/g, GI - Normal bowel sounds, no distended, soft. Extremeties - No edema, cyanosis or clubbing. focal area over left lower leg erythema and tenderness. Hemo/lymphatic/immune no lymphadenopathy Neurological Alert and oriented x 3, no focal neurological deficits. Psychiatry flat affect DATA Data Completed and Pending Labs on day of discharge: Labs from last 24 hours 11/13/19 11/13/19 11/13/19 16:52 15:22 15:22 WBC RBC Hgb Hct MCV MCH MCHC RDW Plt Count MPV Gran % Lymph % (Auto) [place] % (Auto) Eos % (Auto) Baso % (Auto) Gran # Lymph # (Auto) [place] # (Auto) Eos # (Auto) Baso # (Auto) Differential Comment PT 27.3 H INR 2.5 H VBG Lactic Acid Sodium Potassium Chloride Carbon Dioxide Anion Gap BUN Creatinine GFR Calculation Glucose Calcium Total Bilirubin AST ALT Alkaline Phosphatase Troponin T 0.02 NT-Pro-B Natriuret Pep Total Protein Albumin Globulin Albumin/Globulin Ratio Urine Color Yellow Urine Appearance Clear Urine pH 5.0 Ur Specific [place] 1.009 Urine Protein Neg Urine Glucose (UA) Negative Urine Ketones Neg Urine Occult Blood Neg Urine Nitrate Neg Urine Bilirubin Neg Urine Urobilinogen Neg Ur Leukocyte Esterase Neg Urine RBC 0 Urine WBC < 1 Ur Squamous Epith Cells 0 Urine Bacteria 0 Hyaline Casts 6 H Urine Mucus Few Ur Culture Indicated? No 11/13/19 11/13/19 11/13/19 15:22 15:22 15:22 WBC 13.0 H RBC 3.28 L Hgb 10.8 L Hct 36.1 L MCV 110.1 H MCH 32.9 MCHC 29.9 L RDW 24.5 H Plt Count 31 L* MPV TNP Gran % 67.1 Lymph % (Auto) 8.8 L Sw[place] % (Auto) 22.3 H Eos % (Auto) 0.8 Baso % (Auto) 1.0 Gran # 8.70 H Lymph # (Auto) 1.14 L Swisher # (Auto) 2.89 H Eos # (Auto) 0.11 Baso # (Auto) 0.13 Differential Comment PT INR VBG Lactic Acid 1.5 Sodium 137 Potassium 4.4 Chloride 97 Carbon Dioxide 23 Anion Gap 17.0 H BUN 98 H Creatinine 2.9 H GFR Calculation 19 Glucose 89 Calcium 9.5 Total Bilirubin 1.5 H AST 37 ALT 17 Alkaline Phosphatase 83 Troponin T NT-Pro-B Natriuret Pep 11887.0 H Total Protein 5.9 Albumin 4.0 Globulin 1.9 L Albumin/Globulin Ratio 2.1 Urine Color Urine Appearance Urine pH Ur Specific [place] Urine Protein Urine Glucose (UA) Urine Ketones Urine Occult Blood Urine Nitrate Urine Bilirubin Urine Urobilinogen Ur Leukocyte Esterase Urine RBC Urine WBC Ur Squamous Epith Cells Urine Bacteria Hyaline Casts Urine Mucus Ur Culture Indicated? A/P Narrative A/P Narrative: 1. Left leg cellulitis He has Doppler no acute DVT In the ER 1 dose of vancomycin and Levaquin was given Continue Levaquin Blood culture 2. Chronic thrombocytopenia, 123 on 12/16/2015 No evidence of bleeding Repeat her platelets in the morning 3. 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 Acute on chronic systolic and diastolic CHF? with ICD Echocardiogram [id number] 40 mg Lasix was given in the ER Lasix 60 mg drip tomorrow Intake and output Daily weight 5. Bilateral pneumonia Chest x-ray showed pulmonary congestion and mild bibasilar pulmonary parenchymal infiltrate COVID-19 PCR was negative on October 04 COVID-19 swabbing Ferritin D-dimer LA, CRP, procalcitonin MRSA screen Sputum culture Levaquin 6. Chronic myeloproliferative disorder Follow with his oncologist 7. COPD Stable 8. Atrial fibrillation on salvage determiner anticoagulation Heart rate controlled Continue carvedilol Continue warfarin, therapeutic INR, dosing per pharmacy 9. DVT prophylaxis: Warfarin 10. CODE STATUS: DNR/DNI Patient declined CPR and intubation. Time Spent With Patient Time: Total time spent is greater than 50% in coordination of care (as documented) at patient's floor/unit and/or counseling patient:
[2019-11-13] MEDS ORDERED: 0.9 % SODIUM CHLORIDE 10 ML SYRINGE IV SCH (22:00)
[2019-11-13 23:37] LABS: Phosphorous 4.5 mg/dL (2.7-4.5)
[2019-11-13 23:57] LABS: Digoxin 0.6 ng/mL
[2019-11-14 00:01] LABS: Hemoglobin A1C 4.9 % HGB (4.0-6.0)
[2019-11-14] MEDS: 0.9 % SODIUM CHLORIDE 10 ML SYRINGE IV SCH ×3 (05:43→20:27)
[2019-11-14] MEDS ORDERED: FUROSEMIDE IV SCH (07:00)
[2019-11-14] MEDS ORDERED: SODIUM CHLORIDE 0.9% IV SCH (07:00)
[2019-11-14] MEDS: PANTOPRAZOLE 40 MG TABLET PO SCH (07:16)
[2019-11-14] MEDS: LEVOTHYROXINE 125 MCG TABLET PO SCH (07:17)
[2019-11-14] MEDS ORDERED: PANTOPRAZOLE 40 MG TABLET PO SCH (07:30)
[2019-11-14 07:49] LABS: Hematocrit 31.6 % (40.1-51.0); Hemoglobin 9.5 g/dL (13.7-17.5); Mean Cell Volume 108.6 fL (80.0-100.0); Mean Corpuscular HGB Conc 30.1 g/dL (31.0-36.0); Platelet Count 27 K/mcL (140-440); RBC 2.91 M/mcL (4.63-6.08); Red Cell Distribution Width 24.3 % (11.5-14.5); WBC 8.6 K/mcL (4.50-11.00)
[2019-11-14 07:55] LABS: ALT/SGPT 16 U/l (0-40); AST/SGOT 37 U/l (0-37); Albumin 3.6 gm/dL (3.2-5.2); Albumin/Globulin Ratio 1.9 (1.0-2.3); Alkaline Phosphatase 73 U/L (39-117); Bilirubin,Total 1.4 mg/dL (0.0-1.0); Blood Urea Nitrogen 96 mg/dl (8-23); C-Reactive Protein 0.5 mg/dl (0.0-0.8); Calcium 9.2 mg/dl (8.6-10.4); Carbon Dioxide 23 mmol/L (22-30); Chloride 98 mmol/L (96-108); Globulin 1.9 gm/dL (2.2-3.7); Glomerular Filtration Rate 18; Glucose 89 mg/dL (70-105)
[2019-11-14 08:01] LABS: INR 2.7 (0.9-1.1)
[2019-11-14 08:07] LABS: Ferritin 270.8 ng/ml (30-400)
[2019-11-14] MEDS ORDERED: METOPROLOL SUCCINATE 25 MG TAB.XL.24H PO SCH (09:00)
[2019-11-14] MEDS ORDERED: MAGNESIUM OXIDE 400 MG TABLET PO SCH (09:00)
[2019-11-14] MEDS ORDERED: SPIRONOLACTONE 25 MG TABLET PO SCH (09:00)
[2019-11-14] MEDS ORDERED: CALCITRIOL 0.25 MCG CAPSULE PO SCH (09:00)
[2019-11-14] MEDS ORDERED: BUDESONIDE INHALATION SCH (09:00)
[2019-11-14] MEDS ORDERED: LEVOTHYROXINE 125 MCG TABLET PO SCH (09:00)
[2019-11-14] MEDS ORDERED: MAGNESIUM CHLORIDE 71.5 MG PO SCH (09:00)
[2019-11-14] MEDS ORDERED: SACCHAROMYCES BOULARDII PO SCH (09:00)
[2019-11-14] MEDS ORDERED: ALLOPURINOL 100 MG TABLET PO SCH (09:00)
[2019-11-14] MEDS ORDERED: DOCUSATE SODIUM 100 MG CAPSULE PO SCH (09:00)
[2019-11-14] MEDS: DOCUSATE SODIUM 100 MG CAPSULE PO SCH ×2 (09:12→20:26)
[2019-11-14] MEDS: SPIRONOLACTONE 25 MG TABLET PO SCH (09:12)
[2019-11-14] MEDS: METOPROLOL SUCCINATE 25 MG TAB.XL.24H PO SCH (09:14)
[2019-11-14] MEDS: ALLOPURINOL 100 MG TABLET PO SCH (09:14)
[2019-11-14] MEDS: LACTOBACILLUS 1 CAPSULE PO SCH (09:14)
[2019-11-14] MEDS: BUDESONIDE 1 PUFF INHALER INH SCH ×3 (10:14→20:27)
--- NOTE | 2019-11-14 13:06 | Internal Med Progress Note ---
SUBJECTIVE Subjective Patient information: Note initiated : 11/14/19 at 12:58 pm Service Date, if different from initiated Date: [] Patient: Dank Garner 84 y/o M admitted on 11/13/19 for shortness of breath, swelling in bilateral lower l. Chief Complaint: [] Interval history: Mr. Garner is a 84 year old M with a history of chronic thrombocytopenia, CKD, CHF, chronic myeloproliferative disease, COPD and atrial fibrillation who presented to the ER due to shortness of breath and left leg redness. Patient is a poor historian. As per patient, left lower leg has been red for about 1 week associated with pain. He denies any injury to the leg. Patient also reports that she has been having cough which has been worsening today associated with a white clear sputum. But he denies headache, dizziness, chest pain, fever, chills, abdominal pain, or dysuria. In the ER, chest x-ray showed pulmonary congestion and mild bibasilar pulmonary parenchymal infiltrate. 1 dose Lasix 40 mg, vancomycin and Levaquin waere given in the ER. When I saw this patient in the ER, other than the symptoms mentioned above, he was fine. Denied recent travel or sick contact. 11/13 Pt feels fine and does not have new complaints. Denies fever, chills, nausea, or vomiting. No evidence of bleeding His platelet dropped to 27 today. I will hold warfarin temporarily. INR 2.7 Creatinine 3.0 CRP 0.5 Procalcitonin 0.44 Review of Systems All systems: reviewed and no additional remarkable complaints except as stated Constitutional Vitals: Vital Signs Temp Pulse Resp BP Pulse Ox 96.8 F L 74 18 109/57 99 11/14/19 11:47 11/14/19 11:47 11/14/19 11:47 11/14/19 11:47 11/14/19 11:47 Period Temp Pulse Resp BP Sys/Ordoñez Pulse Ox Last 24 Hr 96.5 F-97.8 F 74-99 14-26 88-139/27-82 91-100 Intake and Output 11/13/19 11/14/19 11/14/19 21:59 05:59 13:59 Intake Total 400 400 240 Output Total 640 977 550 Balance -240 -577 -310 Weight 94.347 kg 95.028 kg 95.028 kg Patient Weight 11/15/19 05:59 Weight 95.028 kg Intake & Output: Intake & Output 11/13/19 11/14/19 11/14/19 21:59 05:59 13:59 Intake Total 400 400 240 Output Total 640 977 550 Balance -240 -577 -310 Weight 94.347 kg 95.028 kg 95.028 kg Intake: IV 400 Vancomycin 1,000 mg In Sodium 250 Chloride 0.9% 250 ml @ 250 mls/ hr IV ONCE ONE Rx#:[id number] Oral 400 240 Output: Urine Catheter Amount 200 Void Amount 640 975 350 # of times incontinent of urine 2 Other: Meal Breakfast Percent of Meal Consumed 100% Feeding Ability Assist with Tray Set Up Urine Appearance Clear Clear Urine Color Dark Yellow Bright Yellow Urine Odor Normal Stool Size Small Stool Color Brown Stool Consistency Formed # Bowel Movements 1 Additional findings Additional findings: General - No acute distress Eyes - PERRLA, EOM intact ENT no rhinorrhea, no noticeable or palpable swelling, no redness or rash around throat or on face Neck supple, no JVD, no thyromegaly Respiratory: Lungs -clear, no wheezing or crackles. Cardiovascular - RRR no m/r/g, GI - Normal bowel sounds, no distended, soft. Extremeties - No edema, cyanosis or clubbing. focal area over left lower leg erythema and tenderness. Hemo/lymphatic/immune no lymphadenopathy Neurological Alert and oriented x 3, no focal neurological deficits. Psychiatry flat affect OBJ DATA Labs CBC & Chem 7: 11/14/19 06:28 11/14/19 06:28 Labs: Abnormal Lab Results 11/14/19 11/14/19 11/14/19 06:28 06:28 06:28 WBC RBC Hgb Hct MCV MCHC RDW Plt Count Lymph % (Auto) [place] % (Auto) Gran # Lymph # (Auto) [place] # (Auto) PT 29.0 H INR 2.7 H D-Dimer 1.05 H Anion Gap BUN 96 H Creatinine 3.0 H Total Bilirubin 1.4 H NT-Pro-B Natriuret Pep Total Protein 5.5 L Globulin 1.9 L Hyaline Casts 11/14/19 11/13/19 11/13/19 06:28 16:52 15:22 WBC RBC 2.91 L Hgb 9.5 L Hct 31.6 L MCV 108.6 H MCHC 30.1 L RDW 24.3 H Plt Count 27 L* Lymph % (Auto) [place] % (Auto) Gran # Lymph # (Auto) [place] # (Auto) PT 27.3 H INR 2.5 H D-Dimer Anion Gap BUN Creatinine Total Bilirubin NT-Pro-B Natriuret Pep Total Protein Globulin Hyaline Casts 6 H 11/13/19 11/13/19 15:22 15:22 WBC 13.0 H RBC 3.28 L Hgb 10.8 L Hct 36.1 L MCV 110.1 H MCHC 29.9 L RDW 24.5 H Plt Count 31 L* Lymph % (Auto) 8.8 L [place] % (Auto) 22.3 H Gran # 8.70 H Lymph # (Auto) 1.14 L [place] # (Auto) 2.89 H PT INR D-Dimer Anion Gap 17.0 H BUN 98 H Creatinine 2.9 H Total Bilirubin 1.5 H NT-Pro-B Natriuret Pep 30512.0 H Total Protein Globulin 1.9 L Hyaline Casts Meds: Medications Allopurinol (Zyloprim) 400 mg PO QDAY [facility] Last Admin: 11/14/19 09:14 Dose: 400 mg Documented by: Budesonide (Pulmicort) 1 puff INH BID [facility] Calcitriol (Rocaltrol) 0.25 mcg PO MoWeFr@0900 [facility] Last Admin: 11/14/19 09:14 Dose: 0.25 mcg Documented by: Digoxin (Lanoxin) 62.5 mcg PO MoWeFr@1400 [facility] Docusate Sodium (Colace) 100 mg PO BID [facility] Last Admin: 11/14/19 09:12 Dose: 100 mg Documented by: Levofloxacin (Levaquin) 500 mg in 100 mls @ 100 mls/hr IV Q48 [facility]; Protocol Lactobacillus Rhamnosus (Culturelle) 1 cap PO QDAY [facility] Last Admin: 11/14/19 09:14 Dose: 1 cap Documented by: Levalbuterol HCl (Xopenex) 0.63 mg NEB Q6HP PRN PRN Reason: Shortness Of Breath Levothyroxine Sodium (Synthroid) 125 mcg PO QAMAC [facility] Last Admin: 11/14/19 07:17 Dose: 125 mcg Documented by: Magnesium Oxide (Magnesium Oxide) 200 mg PO MOWEFR@0900 [facility] Last Admin: 11/14/19 09:13 Dose: 200 mg Documented by: Metoprolol Succinate (Toprol Xl) 25 mg PO DAILY [facility] Last Admin: 11/14/19 09:14 Dose: 25 mg Documented by: Montelukast Sodium (Singular) 10 mg PO QHS [facility] Morphine Sulfate (Morphine) 1 mg IV Q4HP PRN; Protocol PRN Reason: Per Pain Protocol Naloxone HCl (Narcan) 0.1 mg IV Q2MIN PRN PRN Reason: Opiate Reversal Ondansetron HCl (Zofran) 4 mg IV Q6HP PRN PRN Reason: Nausea And Vomiting Pantoprazole Sodium (Protonix) 40 mg PO QAMAC [facility] Last Admin: 11/14/19 07:16 Dose: 40 mg Documented by: Sodium Chloride (Saline Flush) 10 ml IV Q8 [facility] Last Admin: 11/14/19 05:43 Dose: 10 ml Documented by: Spironolactone (Aldactone) 12.5 mg PO QDAY [facility] Last Admin: 11/14/19 09:12 Dose: 12.5 mg Documented by: Tramadol HCl (Ultram) 50 mg PO Q6HP PRN; Protocol PRN Reason: Pain Warfarin Sodium (Coumadin Per Pharmacy) 1 order PO DAILY@1400 [facility] Warfarin Sodium (Coumadin) 5 mg PO ONCE@1400 ONE Stop: 11/14/19 14:01 A/P Narrative A/P Narrative: 1. Left leg cellulitis He has Doppler no acute DVT In the ER 1 dose of vancomycin and Levaquin was given Continue Levaquin Blood culture 2. Chronic thrombocytopenia, 123 on 12/16/2015 No evidence of bleeding Repeat her platelets in the morning I will hold warfarin 3. 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 Acute on chronic systolic and diastolic CHF? with ICD Echocardiogram pending [id number] 40 mg Lasix was given in the ER Lasix 60 mg drip today. Re-eval tomorrow Intake and output Daily weight Monitor renal function 5. Bilateral pneumonia Chest x-ray showed pulmonary congestion and mild bibasilar pulmonary parenchymal infiltrate COVID-19 PCR was negative on October 04 COVID-19 swabbing Ferritin D-dimer 1.05 LA, CRP 0.5, procalcitonin 0.44 MRSA screen negative Sputum culture Levaquin 6. Chronic myeloproliferative disorder Follow with his oncologist 7. COPD Stable 8. Atrial fibrillation on care home anticoagulation Heart rate controlled Continue carvedilol I would like to hold warfarin since his platelets dropped to 27 today. INR 2.7. 9. DVT prophylaxis: INR 2.7. Warfarin is on hold today. 10. CODE STATUS: DNR/DNI Patient declined CPR and intubation. Time Spent With Patient Time: Total time spent is greater than 50% in coordination of care (as macrina tucker) at patient's floor/unit and/or counseling patient: QUALITY VTE Deep Vein Thrombosis/Pulmonary Embolism Present on Admission: No
[2019-11-14] MEDS ORDERED: DIGOXIN 125 MCG TABLET PO SCH (14:00)
[2019-11-14] MEDS ORDERED: WARFARIN 5 MG TABLET PO ONE (14:00)
[2019-11-14] MEDS ORDERED: MONTELUKAST 10 MG TABLET PO SCH ×2 (21:00)
[2019-11-15] MEDS: 0.9 % SODIUM CHLORIDE 10 ML SYRINGE IV SCH ×3 (06:06→20:58)
[2019-11-15 07:42] LABS: Basophils % (Auto) 1.2 % (0.0-2.0); Eosinophils # (Auto) 0.03 K/mcL (0.00-0.70); Eosinophils % (Auto) 0.4 % (0.0-7.0); Granulocytes % (Auto) 71.5 % (38.0-78.0); Hematocrit 30.1 % (40.1-51.0); Hemoglobin 8.9 g/dL (13.7-17.5); Lymphocytes # (Auto) 0.65 K/mcL (1.50-4.80); Mean Cell Volume 110.7 fL (80.0-100.0); Mean Corpuscular HGB Conc 29.6 g/dL (31.0-36.0); Monocytes # (Auto) 1.54 K/mcL (0.10-0.90); Monocytes % (Auto) 18.9 % (1.0-12.0); Platelet Count 25 K/mcL (140-440); RBC 2.72 M/mcL (4.63-6.08); Red Cell Distribution Width 24.3 % (11.5-14.5); WBC 8.2 K/mcL (4.50-11.00)
[2019-11-15 07:45] LABS: INR 2.4 (0.9-1.1); Prothrombin Time 26.9 sec (11.9-14.5)
[2019-11-15 08:11] LABS: ALT/SGPT 13 U/l (0-40); AST/SGOT 28 U/l (0-37); Albumin 3.2 gm/dL (3.2-5.2); Albumin/Globulin Ratio 1.7 (1.0-2.3); Alkaline Phosphatase 67 U/L (39-117); Bilirubin,Total 1.2 mg/dL (0.0-1.0); Blood Urea Nitrogen 98 mg/dl (8-23); Calcium 8.8 mg/dl (8.6-10.4); Carbon Dioxide 20 mmol/L (22-30); Chloride 98 mmol/L (96-108); Globulin 1.9 gm/dL (2.2-3.7); Glomerular Filtration Rate 21; Glucose 122 mg/dL (70-105)
[2019-11-15] MEDS ORDERED: LEVOFLOXACIN 500 MG/100 ML BAG IV SCH ×2 (09:00)
[2019-11-15] MEDS: LEVOTHYROXINE 125 MCG TABLET PO SCH (09:06)
[2019-11-15] MEDS: ALLOPURINOL 100 MG TABLET PO SCH (09:06)
[2019-11-15] MEDS: LACTOBACILLUS 1 CAPSULE PO SCH (09:06)
[2019-11-15] MEDS: DOCUSATE SODIUM 100 MG CAPSULE PO SCH ×2 (09:07→20:55)
[2019-11-15] MEDS: PANTOPRAZOLE 40 MG TABLET PO SCH (09:07)
[2019-11-15] MEDS: BUDESONIDE 1 PUFF INHALER INH SCH ×2 (09:08→20:58)
[2019-11-15] MEDS: SPIRONOLACTONE 25 MG TABLET PO SCH (09:29)
[2019-11-15] MEDS: METOPROLOL SUCCINATE 25 MG TAB.XL.24H PO SCH (09:29)
[2019-11-15] MEDS ORDERED: ONDANSETRON 4 MG/2 ML VIAL IV PRN ×2 (18:13→19:03)
[2019-11-15] MEDS ORDERED: traMADol 50 MG TABLET PO PRN (18:53)
[2019-11-15] MEDS ORDERED: LEVALBUTEROL 0.63 MG/3 ML AMPUL.NEB NEB PRN (19:03)
[2019-11-15] MEDS ORDERED: NALOXONE HCL 0.4 MG/ML VIAL IV PRN (19:03)
--- NOTE | 2019-11-15 19:11 | Internal Med Progress Note ---
SUBJECTIVE Subjective Patient information: Note initiated : 11/15/19 at 6:59 pm Service Date, if different from initiated Date: [] Patient: Dank Garner 84 y/o M admitted on 11/13/19 for shortness of breath, swelling in bilateral lower l. Chief Complaint: [sob and leg swelling came in with infection left leg and marked edema. Has also abdominal wall swelling. states he had first NM about 1999 and then as EF has dropped he has marked swelling. Denies alcoholism or hx of cirrhosis. pt has had low blood pressure throughout this hospitalization preventing diuresis despite furosemide drip. also has been on bumex at home and previous metolazone. He is on entresto. Pts left leg erythema and pain persist. no skin ulceration. Constitutional Vitals: Vital Signs Temp Pulse Resp BP Pulse Ox 96.6 F L 87 22 102/58 96 11/15/19 16:00 11/15/19 16:00 11/15/19 16:00 11/15/19 16:00 11/15/19 16:00 Period Temp Pulse Resp BP Sys/Ordoñez Pulse Ox Last 24 Hr 96.2 F-97.9 F 76-87 20-24 94-110/52-62 95-97 Intake and Output 11/15/19 11/15/19 11/15/19 05:59 13:59 21:59 Intake Total 300 440 Output Total 325 650 Balance -25 -210 Gen WD WN WM in NAD CV RRR requent ectopy Lungs trace basilar crackles Abd abd wall swelling and pitting edema Legs pitting edema 3+-4 area of erythema mid medial calf no ulcer mild tender Intake & Output: Intake & Output 11/15/19 11/15/19 11/15/19 05:59 13:59 21:59 Intake Total 300 440 Output Total 325 650 Balance -25 -210 Intake: Oral 300 440 Output: Void Amount 325 650 Other: Meal Lunch Percent of Meal Consumed 100% Feeding Ability Independent Urine Appearance Clear Clear Urine Color Pale Dark Yellow Urine Odor Normal OBJ DATA Labs CBC & Chem 7: 11/15/19 06:00 11/15/19 06:00 Labs: Abnormal Lab Results 11/15/19 11/15/19 11/15/19 06:00 06:00 06:00 WBC RBC 2.72 L Hgb 8.9 L Hct 30.1 L MCV 110.7 H MCHC 29.6 L RDW 24.3 H Plt Count 25 L* Lymph % (Auto) 8.0 L [place] % (Auto) 18.9 H Gran # Lymph # (Auto) 0.65 L [place] # (Auto) 1.54 H PT 26.9 H INR 2.4 H D-Dimer Carbon Dioxide 20 L Anion Gap BUN 98 H Creatinine 2.7 H Glucose 122 H Total Bilirubin 1.2 H NT-Pro-B Natriuret Pep Total Protein 5.1 L Globulin 1.9 L Hyaline Casts 11/14/19 11/14/19 11/14/19 06:28 06:28 06:28 WBC RBC Hgb Hct MCV MCHC RDW Plt Count Lymph % (Auto) [place] % (Auto) Gran # Lymph # (Auto) [place] # (Auto) PT 29.0 H INR 2.7 H D-Dimer 1.05 H Carbon Dioxide Anion Gap BUN 96 H Creatinine 3.0 H Glucose Total Bilirubin 1.4 H NT-Pro-B Natriuret Pep Total Protein 5.5 L Globulin 1.9 L Hyaline Casts 11/14/19 11/13/19 11/13/19 06:28 16:52 15:22 WBC RBC 2.91 L Hgb 9.5 L Hct 31.6 L MCV 108.6 H MCHC 30.1 L RDW 24.3 H Plt Count 27 L* Lymph % (Auto) [place] % (Auto) Gran # Lymph # (Auto) [place] # (Auto) PT 27.3 H INR 2.5 H D-Dimer Carbon Dioxide Anion Gap BUN Creatinine Glucose Total Bilirubin NT-Pro-B Natriuret Pep Total Protein Globulin Hyaline Casts 6 H 11/13/19 11/13/19 15:22 15:22 WBC 13.0 H RBC 3.28 L Hgb 10.8 L Hct 36.1 L MCV 110.1 H MCHC 29.9 L RDW 24.5 H Plt Count 31 L* Lymph % (Auto) 8.8 L [place] % (Auto) 22.3 H Gran # 8.70 H Lymph # (Auto) 1.14 L [place] # (Auto) 2.89 H PT INR D-Dimer Carbon Dioxide Anion Gap 17.0 H BUN 98 H Creatinine 2.9 H Glucose Total Bilirubin 1.5 H NT-Pro-B Natriuret Pep 21471.0 H Total Protein Globulin 1.9 L Hyaline Casts Meds: Medications Allopurinol (Zyloprim) 400 mg PO QDAY [facility] Last Admin: 11/15/19 09:06 Dose: 400 mg Documented by: Allopurinol (Zylopriim) 150 mg PO DAILY [facility] Budesonide (Pulmicort) 1 puff INH BID [facility] Last Admin: 11/15/19 09:08 Dose: 1 puff Documented by: Calcitriol (Rocaltrol) 0.25 mcg PO MoWeFr@0900 [facility] Last Admin: 11/14/19 09:14 Dose: 0.25 mcg Documented by: Digoxin (Lanoxin) 62.5 mcg PO MoWeFr@1400 [facility] Last Admin: 11/14/19 14:12 Dose: 62.5 mcg Documented by: Docusate Sodium (Colace) 100 mg PO BID [facility] Last Admin: 11/15/19 09:07 Dose: Not Given Documented by: Lactobacillus Rhamnosus (Culturelle) 1 cap PO QDAY [facility] Last Admin: 11/15/19 09:06 Dose: 1 cap Documented by: Levalbuterol HCl (Xopenex) 0.63 mg NEB Q6HP PRN PRN Reason: Shortness Of Breath [facility] Last Admin: 11/15/19 09:06 Dose: 125 mcg Documented by: Magnesium Oxide (Magnesium Oxide) 200 mg PO MOWEFR@0900 [facility] Last Admin: 11/14/19 09:13 Dose: 200 mg Documented by: Metoprolol Succinate (Toprol Xl) 25 mg PO DAILY [facility] Last Admin: 11/15/19 09:29 Dose: 25 mg Documented by: Montelukast Sodium (Singular) 10 mg PO QHS [facility] Last Admin: 11/14/19 20:27 Dose: 10 mg Documented by: Morphine Sulfate (Morphine) 1 mg IV Q4HP PRN; Protocol PRN Reason: Per Pain Protocol Naloxone HCl (Narcan) 0.1 mg IV Q2MIN PRN PRN Reason: Opiate Reversal Ondansetron HCl (Zofran) 4 mg IV Q6HP PRN PRN Reason: Nausea And Vomiting Pantoprazole Sodium (Protonix) 40 mg PO QAMAC [facility] Last Admin: 11/15/19 09:07 Dose: 40 mg Documented by: Senna (Senokot) 2 tab PO HS [facility] Sodium Chloride (Saline Flush) 10 ml IV Q8 [facility] Last Admin: 11/15/19 13:06 Dose: Not Given Documented by: Spironolactone (Aldactone) 12.5 mg PO QDAY [facility] Last Admin: 11/15/19 09:29 Dose: 12.5 mg Documented by: Tramadol HCl (Ultram) 50 mg PO Q6HP PRN; Protocol PRN Reason: Pain Last Admin: 11/14/19 21:47 Dose: 50 mg Documented by: Tramadol HCl (Ultram) 50 mg PO BID PRN; Protocol PRN Reason: pain A/P Assessment and plan (1) Acute on chronic combined systolic (congestive) and diastolic (congestive) heart failure: Status: Acute Comment: unable to diurese due to poor cardiac output. will start dobutamine drip in ICU for 48 hours and give diuretics there. (2) Cellulitis: Status: Acute Comment: looks like strep. no pneumonia so will simplify to keflex. cont diuresis (3) CKD (chronic kidney disease), stage IV: Status: Chronic Comment: will need dialysis soon. especially if unable to diurese. (4) Cardiorenal syndrome with renal failure: Status: Chronic Comment: worsening despite entresto and will stop entresto. dobutamine diuresis in ICU. transfer there now. Time Spent With Patient Time: Total time spent is greater than 50% in coordination of care (as documented) at patient's floor/unit and/or counseling patient: 60 mins QUALITY VTE Deep Vein Thrombosis/Pulmonary Embolism Present on Admission: No
[2019-11-15] MEDS: 0.9 % SODIUM CHLORIDE 250 ML IV SCH (20:00)
[2019-11-15] MEDS: WATER IV SCH (20:00)
[2019-11-15] MEDS: DOBUTAMINE IV SCH (20:00)
[2019-11-15] MEDS: DEXTROSE 5% IV SCH (20:00)
[2019-11-15] MEDS: MONTELUKAST 10 MG TABLET PO SCH (20:55)
[2019-11-15] MEDS: SENNOSIDES 1 TABLET PO SCH (20:56)
[2019-11-15] MEDS: traMADol 50 MG TABLET PO PRN (20:56)
[2019-11-15] MEDS ORDERED: DOCUSATE SODIUM 100 MG CAPSULE PO SCH (21:00)
[2019-11-15] MEDS ORDERED: SENNOSIDES 1 TABLET PO SCH (21:00)
[2019-11-15] MEDS ORDERED: 0.9 % SODIUM CHLORIDE 10 ML SYRINGE IV SCH (22:00)
[2019-11-16] MEDS: DOBUTAMINE IV SCH (03:30)
[2019-11-16] MEDS: DEXTROSE 5% IV SCH (03:30)
[2019-11-16] MEDS: WATER IV SCH (03:30)
[2019-11-16] MEDS: 0.9 % SODIUM CHLORIDE 10 ML SYRINGE IV SCH ×4 (05:29→20:25)
[2019-11-16 06:19] LABS: INR 2.1 (0.9-1.1)
[2019-11-16 06:29] LABS: Basophils # (Auto) 0.04 K/mcL (0.00-0.30); Basophils % (Auto) 0.6 % (0.0-2.0); Eosinophils # (Auto) 0.02 K/mcL (0.00-0.70); Eosinophils % (Auto) 0.3 % (0.0-7.0); Hematocrit 26.8 % (40.1-51.0); Hemoglobin 8.1 g/dL (13.7-17.5); Lymphocytes # (Auto) 0.28 K/mcL (1.50-4.80); Lymphocytes % (Auto) 4.2 % (15.5-49.0); Mean Cell Volume 109.4 fL (80.0-100.0); Mean Corpuscular HGB Conc 30.2 g/dL (31.0-36.0); Monocytes # (Auto) 1.33 K/mcL (0.10-0.90); Monocytes % (Auto) 19.9 % (1.0-12.0); Platelet Count 22 K/mcL (140-440); RBC 2.45 M/mcL (4.63-6.08); WBC 6.7 K/mcL (4.50-11.00)
[2019-11-16 06:37] LABS: ALT/SGPT 13 U/l (0-40); AST/SGOT 26 U/l (0-37); Albumin 3.3 gm/dL (3.2-5.2); Albumin/Globulin Ratio 1.9 (1.0-2.3); Alkaline Phosphatase 69 U/L (39-117); Bilirubin,Total 1.2 mg/dL (0.0-1.0); Carbon Dioxide 20 mmol/L (22-30); Chloride 98 mmol/L (96-108); Globulin 1.7 gm/dL (2.2-3.7); Glomerular Filtration Rate 19; Glucose 107 mg/dL (70-105)
[2019-11-16 06:38] LABS: Blood Urea Nitrogen 100 mg/dl (8-23)
[2019-11-16] MEDS: LEVOTHYROXINE 125 MCG TABLET PO SCH (06:53)
[2019-11-16] MEDS: PANTOPRAZOLE 40 MG TABLET PO SCH (06:53)
[2019-11-16] MEDS: ALLOPURINOL 300 MG TABLET PO SCH (08:28)
[2019-11-16] MEDS: MAGNESIUM OXIDE 400 MG TABLET PO SCH (08:28)
[2019-11-16] MEDS: LACTOBACILLUS 1 CAPSULE PO SCH (08:29)
[2019-11-16] MEDS: CALCITRIOL 0.25 MCG CAPSULE PO SCH (08:29)
[2019-11-16] MEDS: DOCUSATE SODIUM 100 MG CAPSULE PO SCH ×2 (08:54→20:25)
[2019-11-16] MEDS ORDERED: ALLOPURINOL 300 MG TABLET PO SCH (09:00)
[2019-11-16] MEDS ORDERED: SPIRONOLACTONE 25 MG TABLET PO SCH (09:00)
[2019-11-16] MEDS ORDERED: WATER IV SCH (10:30)
[2019-11-16] MEDS ORDERED: DOBUTAMINE IV SCH (10:30)
[2019-11-16] MEDS ORDERED: DEXTROSE 5% IV SCH (10:30)
[2019-11-16] MEDS: CEPHALEXIN 500 MG CAPSULE PO SCH ×4 (11:42→20:27)
[2019-11-16] MEDS: BUMETANIDE 0.25 MG/ML VIAL IV SCH ×2 (11:43→20:23)
[2019-11-16] MEDS: BUDESONIDE 1 PUFF INHALER INH SCH ×3 (11:43→20:24)
[2019-11-16] MEDS ORDERED: DOBUTamine 250 MG in PREMIX 1 BAG IV SCH (11:45)
[2019-11-16] MEDS ORDERED: 0.9 % SODIUM CHLORIDE 250 ML IV SCH (11:45)
[2019-11-16] MEDS: METOLAZONE 2.5 MG TABLET PO SCH ×2 (11:45→17:59)
--- NOTE | 2019-11-16 11:46 | Internal Med Progress Note ---
SUBJECTIVE Subjective Patient information: Note initiated : 11/16/19 at 11:37 am Service Date, if different from initiated Date: [] Patient: Dank Garner 84 y/o M admitted on 11/13/19 for shortness of breath, swelling in bilateral lower l. Chief Complaint: leg swelling pt says is feeling better. increased urine output overnight to 75 cc/hr. diuretics yet to be started. has been on dobutamine 3-7mcg/kg/min since last 1999. Pt denies chest pain no significant arrhythmias. Constitutional Vitals: Vital Signs Temp Pulse Resp BP Pulse Ox 97.8 F 90 23 H 97/72 94 11/16/19 07:00 11/16/19 11:00 11/16/19 11:00 11/16/19 11:00 11/16/19 11:00 Period Temp Pulse Resp BP Sys/Ordoñez Pulse Ox Last 24 Hr 96.6 F-98.8 F 79-115 15-25 94-120/51-82 91-100 Intake and Output 11/15/19 11/16/19 11/16/19 21:59 05:59 13:59 Intake Total 18 502 610 Output Total 130 535 400 Balance -112 -33 210 Weight 96.36 kg Gen WDWN WM chronically ill appearing with muscle wasting CV RRR Lungs basilar crackles and poor air movement Abd soft mild distended. abd wall edema 2+ Calves 3+ to 4 edema bilat and pitting Skin erythema left pretibial angry red Ment alert and oriented x 3. Intake & Output: Intake & Output 11/15/19 11/16/19 11/16/19 21:59 05:59 13:59 Intake Total 18 502 610 Output Total 130 535 400 Balance -112 -33 210 Weight 96.36 kg Intake: Nourishment/Supplement quantity 90 (ml) IV 18 232 310 Sodium Chloride 0.9% 250 ml @ 60 20 mls/hr IV .[id number] [facility] Rx#: [id number] DOBUTamine 250 MG In Dextrose 5 18 232 250 % in Water 230 ml @ 3 MCG/KG/ MIN 17.554 mls/hr IV .[id number] [facility] Rx#:[id number] Oral 180 300 Output: Urine Catheter Amount 130 535 400 Other: Meal Nourishment/Supplement Breakfast Percent of Meal Consumed 100% 100% Feeding Ability Assist with Tray Set Up Independent Nourishment/Supplement name popsicle Urine Appearance Clear Clear Clear Small Blood Clots Uretheral (Jaimes) Clear Urine Color Dark Yellow Bright Yellow Bright Yellow Uretheral (Jaimes) Dark Yellow OBJ DATA Labs CBC & Chem 7: 11/16/19 04:42 11/16/19 04:42 Labs: Abnormal Lab Results 11/16/19 11/16/19 11/16/19 04:42 04:42 04:42 WBC RBC 2.45 L Hgb 8.1 L Hct 26.8 L MCV 109.4 H MCHC 30.2 L RDW 24.0 H Plt Count 22 L* Lymph % (Auto) 4.2 L [place] % (Auto) 19.9 H Gran # Lymph # (Auto) 0.28 L [place] # (Auto) 1.33 H PT 24.0 H INR 2.1 H D-Dimer Carbon Dioxide 20 L Anion Gap 17.0 H BUN 100 H Creatinine 2.9 H Glucose 107 H Total Bilirubin 1.2 H NT-Pro-B Natriuret Pep Total Protein 5.0 L Globulin 1.7 L Hyaline Casts 11/15/19 11/15/19 11/15/19 06:00 06:00 06:00 WBC RBC 2.72 L Hgb 8.9 L Hct 30.1 L MCV 110.7 H MCHC 29.6 L RDW 24.3 H Plt Count 25 L* Lymph % (Auto) 8.0 L [place] % (Auto) 18.9 H Gran # Lymph # (Auto) 0.65 L [place] # (Auto) 1.54 H PT 26.9 H INR 2.4 H D-Dimer Carbon Dioxide 20 L Anion Gap BUN 98 H Creatinine 2.7 H Glucose 122 H Total Bilirubin 1.2 H NT-Pro-B Natriuret Pep Total Protein 5.1 L Globulin 1.9 L Hyaline Casts 11/14/19 11/14/19 11/14/19 06:28 06:28 06:28 WBC RBC Hgb Hct MCV MCHC RDW Plt Count Lymph % (Auto) [place] % (Auto) Gran # Lymph # (Auto) [place] # (Auto) PT 29.0 H INR 2.7 H D-Dimer 1.05 H Carbon Dioxide Anion Gap BUN 96 H Creatinine 3.0 H Glucose Total Bilirubin 1.4 H NT-Pro-B Natriuret Pep Total Protein 5.5 L Globulin 1.9 L Hyaline Casts 11/14/19 11/13/19 11/13/19 06:28 16:52 15:22 WBC RBC 2.91 L Hgb 9.5 L Hct 31.6 L MCV 108.6 H MCHC 30.1 L RDW 24.3 H Plt Count 27 L* Lymph % (Auto) [place] % (Auto) Gran # Lymph # (Auto) [place] # (Auto) PT 27.3 H INR 2.5 H D-Dimer Carbon Dioxide Anion Gap BUN Creatinine Glucose Total Bilirubin NT-Pro-B Natriuret Pep Total Protein Globulin Hyaline Casts 6 H 11/13/19 11/13/19 15:22 15:22 WBC 13.0 H RBC 3.28 L Hgb 10.8 L Hct 36.1 L MCV 110.1 H MCHC 29.9 L RDW 24.5 H Plt Count 31 L* Lymph % (Auto) 8.8 L [place] % (Auto) 22.3 H Gran # 8.70 H Lymph # (Auto) 1.14 L [place] # (Auto) 2.89 H PT INR D-Dimer Carbon Dioxide Anion Gap 17.0 H BUN 98 H Creatinine 2.9 H Glucose Total Bilirubin 1.5 H NT-Pro-B Natriuret Pep 49174.0 H Total Protein Globulin 1.9 L Hyaline Casts Meds: Medications Allopurinol (Zylopriim) 150 mg PO DAILY [facility] Last Admin: 11/16/19 08:28 Dose: 150 mg Documented by: Budesonide (Pulmicort) 1 puff INH BID [facility] Last Admin: 11/15/19 20:58 Dose: 1 puff Documented by: Bumetanide (Bumex) 1 mg IV BID [facility] Calcitriol (Rocaltrol) 0.25 mcg PO MoWeFr@0900 [facility] Last Admin: 11/16/19 08:29 Dose: 0.25 mcg Documented by: Cephalexin HCl (Keflex) 500 mg PO QID [facility]; Protocol Digoxin (Lanoxin) 62.5 mcg PO MoWeFr@1400 [facility] Docusate Sodium (Colace) 100 mg PO BID [facility] Last Admin: 11/16/19 08:54 Dose: Not Given Documented by: Sodium Chloride (Sodium Chloride 0.9%) 250 mls @ 20 mls/hr IV .[id number] [facility] Last Infusion: 11/16/19 09:34 Dose: 5 mls/hr Documented by: Dobutamine HCl 250 mg/ (Dextrose) 250 mls @ 17.554 mls/hr IV .[id number] [facility] Last Admin: 11/16/19 11:05 Dose: 3 mcg/kg/min, 17.554 mls/hr Documented by: Lactobacillus Rhamnosus (Culturelle) 1 cap PO QDAY [facility] Last Admin: 11/16/19 08:29 Dose: 1 cap Documented by: Levalbuterol HCl (Xopenex) 0.63 mg NEB Q6HP PRN PRN Reason: Shortness Of Breath [facility] Admin: 11/16/19 06:53 Dose: 125 mcg Documented by: Magnesium Oxide (Magnesium Oxide) 200 mg PO MOWEFR@0900 [facility] Last Admin: 11/16/19 08:28 Dose: 200 mg Documented by: Metolazone (Zaroxolyn) 5 mg PO BID@0730,1600 [facility] Montelukast Sodium (Singular) 10 mg PO QHS [facility] Last Admin: 11/15/19 20:55 Dose: 10 mg Documented by: Morphine Sulfate (Morphine) 1 mg IV Q4HP PRN; Protocol PRN Reason: Per Pain Protocol Naloxone HCl (Narcan) 0.1 mg IV Q2MIN PRN PRN Reason: Opiate Reversal Ondansetron HCl (Zofran) 4 mg IV Q6HP PRN PRN Reason: Nausea And Vomiting Pantoprazole [facility] ([facility]) [facility] Last Admin: 11/16/19 06:53 Dose: 40 mg Documented by: Senkira (Senokot) 2 tab PO HS [facility] Last Admin: 11/15/19 20:56 Dose: 2 tab Documented by: Sodium Chloride (Saline Flush) 10 ml IV Q8 [facility] Last Admin: 11/16/19 05:29 Dose: 10 ml Documented by: Tramadol HCl (Ultram) 50 mg PO BID PRN; Protocol PRN Reason: pain Last Admin: 11/15/19 20:56 Dose: 50 mg Documented by: A/P Assessment and plan (1) Acute on chronic combined systolic (congestive) and diastolic (congestive) heart failure: Status: Acute Comment: improved with uo 75 cc hour on dobutamine. will start zaroxolyn and bumex bid. plan to diurese 20 lbs. will check cortisol and tsh also increase spironolactone to 25 mg daily (2) Cellulitis: Status: Acute Comment: looks like strep. no pneumonia so will simplify to keflex. cont diuresis (3) CKD (chronic kidney disease), stage IV: Status: Chronic Comment: at risk for needing dialysis for volume management. (4) Cardiorenal syndrome with renal failure: Status: Chronic Comment: worsening despite entresto and will stop entresto. dobutamine diuresis in ICU. Time Spent With Patient Time: Total time spent is greater than 50% in coordination of care (as documented) at patient's floor/unit and/or counseling patient: 50 mins critical care time QUALITY VTE Contraindication No VTE Prophylaxis: Contraindicated (platelets 22) Deep Vein Thrombosis/Pulmonary Embolism Present on Admission: No
[2019-11-16 12:22] LABS: Free T4 (Free Thyroxine) 1.17 ng/dl (0.7-1.7); Thyroid Stimulating Hormone 6.37 uIU/ml (0.27-5.01)
[2019-11-16] MEDS: SPIRONOLACTONE 25 MG TABLET PO SCH (13:51)
[2019-11-16] MEDS ORDERED: DIGOXIN 125 MCG TABLET PO SCH (14:00)
[2019-11-16] MEDS: MONTELUKAST 10 MG TABLET PO SCH (20:23)
[2019-11-16] MEDS: SENNOSIDES 1 TABLET PO SCH (20:25)
[2019-11-16] MEDS: 0.9 % SODIUM CHLORIDE 250 ML IV SCH ×2 (21:34→21:40)
[2019-11-16] MEDS ORDERED: GABAPENTIN 100 MG CAPSULE PO ONE ×2 (22:07→22:30)
[2019-11-16] MEDS ORDERED: POTASSIUM CHLORIDE 20 MEQ TABLET PO ONE ×2 (22:24→22:34)
[2019-11-17] MEDS ORDERED: DOBUTamine 250 ML IV ONE (00:47)
[2019-11-17] MEDS ORDERED: DOBUTamine 250 MG in PREMIX 1 BAG IV SCH (01:00)
[2019-11-17] MEDS: 0.9 % SODIUM CHLORIDE 10 ML SYRINGE IV SCH ×4 (05:19→20:45)
[2019-11-17 07:06] LABS: Basophils # (Auto) 0.04 K/mcL (0.00-0.30); Basophils % (Auto) 0.6 % (0.0-2.0); Eosinophils # (Auto) 0.03 K/mcL (0.00-0.70); Eosinophils % (Auto) 0.5 % (0.0-7.0); Granulocytes % (Auto) 72.7 % (38.0-78.0); Hematocrit 26.6 % (40.1-51.0); Hemoglobin 7.8 g/dL (13.7-17.5); Lymphocytes # (Auto) 0.37 K/mcL (1.50-4.80); Lymphocytes % (Auto) 5.8 % (15.5-49.0); Mean Cell Volume 109.5 fL (80.0-100.0); Mean Corpuscular HGB Conc 29.3 g/dL (31.0-36.0); Monocytes % (Auto) 20.4 % (1.0-12.0); Platelet Count 20 K/mcL (140-440); RBC 2.43 M/mcL (4.63-6.08); Red Cell Distribution Width 24.1 % (11.5-14.5); WBC 6.4 K/mcL (4.50-11.00)
[2019-11-17] MEDS: METOLAZONE 2.5 MG TABLET PO SCH ×2 (07:17→16:00)
[2019-11-17] MEDS: PANTOPRAZOLE 40 MG TABLET PO SCH (07:17)
[2019-11-17] MEDS: LEVOTHYROXINE 125 MCG TABLET PO SCH (07:17)
[2019-11-17 07:18] LABS: INR 1.8 (0.9-1.1); Prothrombin Time 21.8 sec (11.9-14.5)
[2019-11-17 07:32] LABS: ALT/SGPT 11 U/l (0-40); AST/SGOT 24 U/l (0-37); Albumin 3.3 gm/dL (3.2-5.2); Albumin/Globulin Ratio 1.8 (1.0-2.3); Alkaline Phosphatase 67 U/L (39-117); Bilirubin,Total 1.3 mg/dL (0.0-1.0); Blood Urea Nitrogen 98 mg/dl (8-23); Calcium 9.2 mg/dl (8.6-10.4); Carbon Dioxide 22 mmol/L (22-30); Chloride 96 mmol/L (96-108); Globulin 1.8 gm/dL (2.2-3.7); Glomerular Filtration Rate 18; Glucose 110 mg/dL (70-105)
[2019-11-17] MEDS ORDERED: BUMETANIDE 0.25 MG/ML VIAL IV SCH (08:00)
[2019-11-17] MEDS: SPIRONOLACTONE 25 MG TABLET PO SCH (09:07)
[2019-11-17] MEDS: ALLOPURINOL 300 MG TABLET PO SCH (09:07)
[2019-11-17] MEDS: LACTOBACILLUS 1 CAPSULE PO SCH (09:07)
[2019-11-17] MEDS: DOCUSATE SODIUM 100 MG CAPSULE PO SCH ×2 (09:07→20:44)
[2019-11-17] MEDS: CEPHALEXIN 500 MG CAPSULE PO SCH (09:08)
[2019-11-17] MEDS ORDERED: BUMETANIDE 0.25 MG/ML VIAL IV ONE (09:10)
[2019-11-17] MEDS: BUDESONIDE 1 PUFF INHALER INH SCH ×2 (09:19→20:45)
--- NOTE | 2019-11-17 13:14 | Internal Med Progress Note ---
SUBJECTIVE Subjective Patient information: Note initiated : 11/17/19 at 1:09 pm Service Date, if different from initiated Date: [] Patient: Dank Garner 84 y/o M admitted on 11/13/19 for shortness of breath, swelling in bilateral lower legs Chief Complaint: redness and pain in leg with cellluilitis treated for strep last night with diuresis had sharp stabbing pain in Left lower leg. better a fter rubbing it and gabapentin. Urine output inadequate volume loss last 24 hours. breathing is improved. Pt says doesnt want to be discharged to soon and not max improvement. Constitutional Vitals: Vital Signs Temp Pulse Resp BP Pulse Ox 98.4 F 100 H 24 H 111/66 99 11/17/19 12:02 11/17/19 12:02 11/17/19 12:02 11/17/19 12:02 11/17/19 12:02 Period Temp Pulse Resp BP Sys/Ordoñez Pulse Ox Last 24 Hr 97.2 F-98.8 F 55-111 14-35 101-121/60-76 89-100 Intake and Output 11/16/19 11/17/19 11/17/19 21:59 05:59 13:59 Intake Total 301 270 813 Output Total 816 087 3953 Balance -419 487 -807 Weight 96.162 kg 96.162 kg Patient Weight 11/18/19 05:59 Weight 96.162 kg Gen WDWN chronically ill appearing WM CV Irregular rate controlled lungs trace basilar crackles abd soft 2+ abd wall edema Calves 2+ edema althea wraps in place ment alert and oriented x 3 Intake & Output: Intake & Output 11/16/19 11/17/19 11/17/19 21:59 05:59 13:59 Intake Total 301 270 813 Output Total 938 783 7932 Balance -419 -487 -477 Weight 96.162 kg 96.162 kg Intake: IV 61 313 Sodium Chloride 0.9% 250 ml @ 61 63 20 mls/hr IV .[id number] [facility] Rx#: [id number] DOBUTamine 250 MG In Dextrose 5 250 % in Water 230 ml @ 3 MCG/KG/ MIN 17.554 mls/hr IV .[id number] [facility] Rx#:[id number] Oral 240 270 500 Output: Urine Catheter Amount 610 176 7692 Other: Meal snack Breakfast Percent of Meal Consumed 100% Nourishment/Supplement name applesauce with potassium medication Urine Appearance Clear Clear Clear Uretheral (Jaimes) Clear Clear Clear Urine Color Bright Yellow Dark Yellow Pale Uretheral (Jaimes) Bright Yellow Pale Dark Yellow OBJ DATA Labs CBC & Chem 7: 11/17/19 05:16 11/17/19 05:16 Labs: Abnormal Lab Results 11/17/19 11/17/19 11/17/19 05:16 05:16 05:16 RBC 2.43 L Hgb 7.8 L Hct 26.6 L MCV 109.5 H MCHC 29.3 L RDW 24.1 H Plt Count 20 L* Lymph % (Auto) 5.8 L [place] % (Auto) 20.4 H Lymph # (Auto) 0.37 L [place] # (Auto) 1.30 H PT 21.8 H INR 1.8 H Carbon Dioxide Anion Gap BUN 98 H Creatinine 3.1 H Glucose 110 H Total Bilirubin 1.3 H Total Protein 5.1 L Globulin 1.8 L TSH 11/16/19 11/16/19 11/16/19 04:42 04:42 04:42 RBC Hgb Hct MCV MCHC RDW Plt Count Lymph % (Auto) [place] % (Auto) Lymph # (Auto) [place] # (Auto) PT 24.0 H INR 2.1 H Carbon Dioxide 20 L Anion Gap 17.0 H BUN 100 H Creatinine 2.9 H Glucose 107 H Total Bilirubin 1.2 H Total Protein 5.0 L Globulin 1.7 L TSH 6.37 H 11/16/19 11/15/19 11/15/19 04:42 06:00 06:00 RBC 2.45 L Hgb 8.1 L Hct 26.8 L MCV 109.4 H MCHC 30.2 L RDW 24.0 H Plt Count 22 L* Lymph % (Auto) 4.2 L [place] % (Auto) 19.9 H Lymph # (Auto) 0.28 L [place] # (Auto) 1.33 H PT 26.9 H INR 2.4 H Carbon Dioxide 20 L Anion Gap BUN 98 H Creatinine 2.7 H Glucose 122 H Total Bilirubin 1.2 H Total Protein 5.1 L Globulin 1.9 L TSH 11/15/19 06:00 RBC 2.72 L Hgb 8.9 L Hct 30.1 L MCV 110.7 H MCHC 29.6 L RDW 24.3 H Plt Count 25 L* Lymph % (Auto) 8.0 L [place] % (Auto) 18.9 H Lymph # (Auto) 0.65 L [place] # (Auto) 1.54 H PT INR Carbon Dioxide Anion Gap BUN Creatinine Glucose Total Bilirubin Total Protein Globulin TSH Meds: Medications Allopurinol (Zylopriim) 150 mg PO DAILY [facility] Last Admin: 11/17/19 09:07 Dose: 150 mg Documented by: Budesonide (Pulmicort) 1 puff INH BID [facility] Last Admin: 11/17/19 09:19 Dose: 1 puff Documented by: Bumetanide (Bumex) 2 mg IV BIDD [facility] Calcitriol (Rocaltrol) 0.25 mcg PO MoWeFr@0900 [facility] Last Admin: 11/16/19 08:29 Dose: 0.25 mcg Documented by: Cephalexin HCl (Keflex) 250 mg PO BID [facility]; Protocol Digoxin (Lanoxin) 62.5 mcg PO MoWeFr@1400 [facility] Last Admin: 11/16/19 13:51 Dose: 62.5 mcg Documented by: Docusate Sodium (Colace) 100 mg PO BID [facility] Last Admin: 11/17/19 09:07 Dose: 100 mg Documented by: Sodium Chloride (Sodium Chloride 0.9%) 250 mls @ 20 mls/hr IV .[id number] [facility] Last Infusion: 11/17/19 10:20 Dose: 0 mls/hr Documented by: Dobutamine HCl/Dextrose 250 mg (/ Premix) 250 mls @ 28.908 mls/hr IV .[id number] [facility] Lactobacillus Rhamnosus (Culturelle) 1 cap PO QDAY [facility] Last Admin: 11/17/19 09:07 Dose: 1 cap Documented by: Levalbuterol HCl (Xopenex) 0.63 mg NEB Q6HP PRN PRN Reason: Shortness Of Breath Levothyroxine Sodium (Synthroid) 125 mcg PO QAMAC [facility] Last Admin: 11/17/19 07:17 Dose: 125 mcg Documented by: Magnesium Oxide (Magnesium Oxide) 200 mg PO MOWEFR@0900 [facility] Last Admin: 11/16/19 08:28 Dose: 200 mg Documented by: Metolazone (Zaroxolyn) 5 mg PO BID@0730,1600 [facility] Last Admin: 11/17/19 07:17 Dose: 5 mg Documented by: Montelukast Sodium (Singular) 10 mg PO QHS [facility] Last Admin: 11/16/19 20:23 Dose: 10 mg Documented by: Morphine Sulfate (Morphine) 1 mg IV Q4HP PRN; Protocol PRN Reason: Per Pain Protocol Last Admin: 11/16/19 21:38 Dose: 1 mg Documented by: Naloxone HCl (Narcan) 0.1 mg IV Q2MIN PRN PRN Reason: Opiate Reversal Ondansetron HCl (Zofran) 4 mg IV Q6HP PRN PRN Reason: Nausea And Vomiting Pantoprazole Sodium (Protonix) 40 mg PO QAMAC [facility] Last Admin: 11/17/19 07:17 Dose: 40 mg Documented by: Senna (Senokot) 2 tab PO HS [facility] Last Admin: 11/16/19 20:25 Dose: Not Given Documented by: Sodium Chloride (Saline Flush) 10 ml IV Q8 [facility] Last Admin: 11/17/19 05:19 Dose: 10 ml Documented by: Spironolactone (Aldactone) 25 mg PO DAILY [facility] Last Admin: 11/17/19 09:07 Dose: 25 mg Documented by: Tramadol HCl (Ultram) 50 mg PO BID [facility]; Protocol PRN Reason: pain Last Admin: 11/15/19 20:56 Dose: 50 mg Documented by: Warfarin Sodium (Coumadin) 2.5 mg PO ONCE@1400 [facility] Stop: 11/17/19 14:01 A/P Assessment and plan (1) Acute on chronic combined systolic (congestive) and diastolic (congestive) heart failure: Status: Acute Comment: improved with uo 75 cc hour on dobutamine. on zaroxolyn and bumex bid only modest diuresis over night. will increase dobu tamine to 5mcg/kg/min plan to diurese 20 lbs. will check cortisol and tsh also increase spironolactone to 25 mg daily (2) Cellulitis: Status: Acute Comment: looks like strep. no pneumonia so will simplify to keflex. cont diuresis gabapentin for nerve pain renal dosed. (3) CKD (chronic kidney disease), stage IV: Status: Chronic Comment: at risk for needing dialysis for volume management. (4) Cardiorenal syndrome with renal failure: Status: Chronic Comment: worsening despite entresto and will stop entresto. dobutamine diuresis in ICU. (5) Chronic myeloproliferative disorder: Status: Chronic Comment: 05/19/2015-[facility] pt with thrombocytopenia so warfarin stopped. no longer a good risk benefit ratio (6) Anemia in chronic kidney disease: Status: Chronic Comment: stable (7) Atrial fibrillation: Status: Chronic Comment: stop anticoagulation. check digoxin level. consider increase digoxin dose for rate control if level requires. Qualifiers: Atrial fibrillation type: chronic Qualified Code(s): I48.2 - Chronic atrial fibrillation Time Spent With Patient Time: Total time spent is greater than 50% in coordination of care (as docu mented) at patient's floor/unit and/or counseling patient: 50 mins critical care time QUALITY VTE Deep Vein Thrombosis/Pulmonary Embolism Present on Admission: No
[2019-11-17] MEDS ORDERED: LEVOTHYROXINE 50 MCG TABLET PO SCH (13:25)
[2019-11-17] MEDS ORDERED: LEVOTHYROXINE 50 MCG TABLET PO ONE (14:00)
[2019-11-17] MEDS ORDERED: WARFARIN 2.5 MG TABLET PO ONE (14:00)
[2019-11-17] MEDS: 0.9 % SODIUM CHLORIDE 250 ML IV SCH ×2 (14:03→21:25)
[2019-11-17] MEDS: DIGOXIN 125 MCG TABLET PO SCH (14:15)
[2019-11-17] MEDS: HYDROCORTISONE SOD SUCC 100 MG VIAL IV SCH ×2 (14:15→17:44)
[2019-11-17] MEDS: DOBUTamine 250 MG in PREMIX 1 BAG IV SCH ×3 (14:15→23:46)
[2019-11-17 15:43] LABS: Iron 52 mcg/dl (61-157); TIBC Calculation 235 ug/dl (228-428); Transferrin % Saturation 22 % (20-50)
[2019-11-17 15:46] LABS: Digoxin 0.4 ng/mL
[2019-11-17] MEDS: BUMETANIDE 0.25 MG/ML VIAL IV SCH (16:27)
[2019-11-17] MEDS: SENNOSIDES 1 TABLET PO SCH (20:44)
[2019-11-17] MEDS: CEPHALEXIN 250 MG CAPSULE PO SCH (20:44)
[2019-11-17] MEDS: MONTELUKAST 10 MG TABLET PO SCH (20:44)
[2019-11-17] MEDS ORDERED: METOPROLOL TARTRATE 25 MG TABLET ONE (22:46)
[2019-11-17] MEDS: METOPROLOL SUCCINATE 25 MG TAB.XL.24H PO SCH (22:47)
[2019-11-17] MEDS ORDERED: DIGOXIN 500 MCG/2 ML AMPUL IV ONE (23:13)
[2019-11-18] MEDS ORDERED: DIGOXIN 500 MCG/2 ML AMPUL IV ONE (00:15)
[2019-11-18] MEDS: HYDROCORTISONE SOD SUCC 100 MG VIAL IV SCH ×4 (00:25→17:37)
[2019-11-18] MEDS: 0.9 % SODIUM CHLORIDE 10 ML SYRINGE IV SCH ×3 (06:31→20:48)
[2019-11-18 07:15] LABS: Blood Urea Nitrogen 97 mg/dl (8-23); Carbon Dioxide 23 mmol/L (22-30); Chloride 96 mmol/L (96-108); Glomerular Filtration Rate 19; Glucose 139 mg/dL (70-105)
[2019-11-18] MEDS: LEVOTHYROXINE 150 MCG TABLET PO SCH (07:15)
[2019-11-18] MEDS: PANTOPRAZOLE 40 MG TABLET PO SCH (07:16)
[2019-11-18] MEDS: METOLAZONE 2.5 MG TABLET PO SCH ×2 (07:16→15:26)
[2019-11-18 07:32] LABS: INR 1.7 (0.9-1.1); Prothrombin Time 20.1 sec (11.9-14.5)
[2019-11-18] MEDS: DOCUSATE SODIUM 100 MG CAPSULE PO SCH ×2 (08:35→20:47)
[2019-11-18] MEDS: ALLOPURINOL 300 MG TABLET PO SCH (08:36)
[2019-11-18] MEDS: SPIRONOLACTONE 25 MG TABLET PO SCH (08:36)
[2019-11-18] MEDS: LACTOBACILLUS 1 CAPSULE PO SCH (08:36)
[2019-11-18] MEDS: CEPHALEXIN 250 MG CAPSULE PO SCH ×2 (08:36→20:47)
[2019-11-18] MEDS: METOPROLOL SUCCINATE 25 MG TAB.XL.24H PO SCH (08:36)
[2019-11-18] MEDS: BUDESONIDE 1 PUFF INHALER INH SCH ×2 (08:37→20:47)
[2019-11-18] MEDS: BUMETANIDE 0.25 MG/ML VIAL IV SCH ×2 (08:37→15:26)
--- NOTE | 2019-11-18 10:37 | Internal Med Progress Note ---
SUBJECTIVE Subjective Patient information: Note initiated : 11/18/19 at 10:33 am Service Date, if different from initiated Date: [] Patient: Dank Garner 84 y/o M admitted on 11/13/19 for shortness of breath, swelling in bilateral legs Chief Complaint: breathing and moving better still left leg pain 84 yo WM with hx of afib, severe thrombocytopenia and myeloproliferative disease, CKD 4, and sleep apnea on cpap but never a smoker. came in with acute on chronic combined systolic and diastolic CHF. He also has cellulitis left pretibial leg. Pt has been seeing Dr. Lopez and tried entresto but worsened. renal function. Pt here did poorly on furosemide drip and high dose push so I moved him to ICU with dobutamine at 3mcg/kg/min to 7mcg/kg/min and now back down to 3 with treatment of new finding adrenal insufficiency and underreplaced hypothyroidism. Pt is improved. His biggest concern is not to be discharge too early and have to come back. He knows he is not a candidate for cardiac transplant due to age and poor overall health. He has LVEF 25-30% and RV dilated biatiral dilated mod TR and RVSP 38mm Constitutional Vitals: Vital Signs Temp Pulse Resp BP Pulse Ox 97.5 F 79 21 113/63 95 11/18/19 04:14 11/18/19 06:00 11/18/19 06:00 11/18/19 06:00 11/18/19 06:00 Period Temp Pulse Resp BP Sys/Ordoñez Pulse Ox Last 24 Hr 97.2 F-98.8 F 39-124 15-35 103-125/59-75 93-99 Intake and Output 11/17/19 11/18/19 11/18/19 21:59 05:59 13:59 Intake Total 250 490 Output Total 1430 1010 160 Balance -1180 -520 -160 Weight 94.529 kg GEN WD chronically ill appear WM with proximal muscle wasting and anasarca CV Irregular rate controlled Lungs trace basilar crackles and decreased air movement in bases ABD soft NTND softer and the abd wall edema also improved 1+ now Calve 2+ edema down from 4+ left leg erythema with area of tender induration but improved from previous and not fluctuant. ment alert oriented and pleasant. Intake & Output: Intake & Output 11/17/19 11/18/19 11/18/19 21:59 05:59 13:59 Intake Total 250 490 Output Total 1430 1010 160 Balance -1180 -520 -160 Weight 94.529 kg Intake: IV 250 250 Dobutrex 250 mg In Premix 1 Bag 250 250 @ 5 MCG/KG/MIN 28.908 mls/hr IV .[id number] [facility] Rx#:[id number] Oral 240 Output: Urine Catheter Amount 1430 1010 160 Other: Urine Appearance Clear Clear Clear Uretheral (Jaimes) Clear Clear Urine Color Pale Bright Yellow Bright Yellow Uretheral (Jaimes) Pale Pale Bright Yellow Urine Odor Normal OBJ DATA Labs CBC & Chem 7: 11/17/19 05:16 11/18/19 04:46 Labs: Abnormal Lab Results 11/18/19 11/18/19 11/17/19 04:46 04:46 14:10 RBC Hgb Hct MCV MCHC RDW Plt Count Lymph % (Auto) [place] % (Auto) Lymph # (Auto) [place] # (Auto) PT 20.1 H INR 1.7 H Carbon Dioxide Anion Gap BUN 97 H Creatinine 2.9 H Glucose 139 H Iron 52 L Total Bilirubin Total Protein Globulin TSH 11/17/19 11/17/19 11/17/19 05:16 05:16 05:16 RBC 2.43 L Hgb 7.8 L Hct 26.6 L MCV 109.5 H MCHC 29.3 L RDW 24.1 H Plt Count 20 L* Lymph % (Auto) 5.8 L [place] % (Auto) 20.4 H Lymph # (Auto) 0.37 L [place] # (Auto) 1.30 H PT 21.8 H INR 1.8 H Carbon Dioxide Anion Gap BUN 98 H Creatinine 3.1 H Glucose 110 H Iron Total Bilirubin 1.3 H Total Protein 5.1 L Globulin 1.8 L TSH 11/16/19 11/16/19 11/16/19 04:42 04:42 04:42 RBC Hgb Hct MCV MCHC RDW Plt Count Lymph % (Auto) [place] % (Auto) Lymph # (Auto) [place] # (Auto) PT 24.0 H INR 2.1 H Carbon Dioxide 20 L Anion Gap 17.0 H BUN 100 H Creatinine 2.9 H Glucose 107 H Iron Total Bilirubin 1.2 H Total Protein 5.0 L Globulin 1.7 L TSH 6.37 H 11/16/19 04:42 RBC 2.45 L Hgb 8.1 L Hct 26.8 L MCV 109.4 H MCHC 30.2 L RDW 24.0 H Plt Count 22 L* Lymph % (Auto) 4.2 L [place] % (Auto) 19.9 H Lymph # (Auto) 0.28 L [place] # (Auto) 1.33 H PT INR Carbon Dioxide Anion Gap BUN Creatinine Glucose Iron Total Bilirubin Total Protein Globulin TSH Meds: Medications Allopurinol (Zylopriim) 150 mg PO DAILY [facility] Last Admin: 11/18/19 08:36 Dose: 150 mg Documented by: Budesonide (Pulmicort) 1 puff INH BID [facility] Last Admin: 11/18/19 08:37 Dose: 1 puff Documented by: Bumetanide (Bumex) 2 mg IV BIDD [facility] Last Admin: 11/18/19 08:37 Dose: 2 mg Documented by: Calcitriol (Rocaltrol) 0.25 mcg PO MoWeFr@0900 [facility] Last Admin: 11/16/19 08:29 Dose: 0.25 mcg Documented by: Cephalexin HCl (Keflex) 250 mg PO BID [facility]; Protocol Last Admin: 11/18/19 08:36 Dose: 250 mg Documented by: Digoxin (Lanoxin) 62.5 mcg PO DAILY@1400 [facility] Last Admin: 11/17/19 14:15 Dose: 62.5 mcg Documented by: Docusate Sodium (Colace) 100 mg PO BID [facility] Last Admin: 11/18/19 08:35 Dose: 100 mg Documented by: Hydrocortisone Sodium Succinate (Solu-Cortef) 50 mg IV Q6 [facility] Last Admin: 11/18/19 06:31 Dose: 50 mg Documented by: Sodium Chloride (Sodium Chloride 0.9%) 250 mls @ 20 mls/hr IV .[id number] [facility] Last Admin: 11/17/19 21:25 Dose: Not Given Documented by: Dobutamine HCl/Dextrose 250 mg (/ Premix) 250 mls @ 17.345 mls/hr IV .[id number] [facility] Last Admin: 11/17/19 23:46 Dose: 3 mcg/kg/min, 17.345 mls/hr Documented by: Lactobacillus Rhamnosus (Culturelle) 1 cap PO QDAY [facility] Last Admin: 11/18/19 08:36 Dose: 1 cap Documented by: Levalbuterol HCl (Xopenex) 0.63 mg NEB Q6HP PRN PRN Reason: Shortness Of Breath Levothyroxine Sodium (Synthroid) 150 mcg PO QAMAC [facility] Last Admin: 11/18/19 07:15 Dose: 150 mcg Documented by: Magnesium Oxide (Magnesium Oxide) 200 mg PO MOWEFR@0900 [facility] Last Admin: 11/16/19 08:28 Dose: 200 mg Documented by: Metolazone (Zaroxolyn) 5 mg PO BID@0730,1600 [facility] Last Admin: 11/18/19 07:16 Dose: 5 mg Documented by: Metoprolol Succinate (Toprol Xl) 12.5 mg PO DAILY [facility] Last Admin: 11/18/19 08:36 Dose: 12.5 mg Documented by: Montelukast Sodium (Singular) 10 mg PO QHS [facility] Last Admin: 11/17/19 20:44 Dose: 10 mg Documented by: Morphine Sulfate (Morphine) 1 mg IV Q4HP PRN; Protocol PRN Reason: Per Pain Protocol Last Admin: 11/16/19 21:38 Dose: 1 mg Documented by: Naloxone HCl (Narcan) 0.1 mg IV Q2MIN PRN PRN Reason: Opiate Reversal Ondansetron HCl (Zofran) 4 mg IV Q6HP PRN PRN Reason: Nausea And Vomiting Pantoprazole Sodium (Protonix) 40 mg PO QAMAC [facility] Last Admin: 11/18/19 07:16 Dose: 40 mg Documented by: Senna (Senokot) 2 tab PO HS [facility] Last Admin: 11/17/19 20:44 Dose: Not Given Documented by: Sodium Chloride (Saline Flush) 10 ml IV Q8 [facility] Last Admin: 11/18/19 06:31 Dose: 10 ml Documented by: Spironolactone (Aldactone) 25 mg PO DAILY [facility] Last Admin: 11/18/19 08:36 Dose: 25 mg Documented by: Tramadol HCl (Ultram) 50 mg PO BID PRN; Protocol PRN Reason: pain Last Admin: 11/15/19 20:56 Dose: 50 mg Documented by: A/P Assessment and plan (1) Acute on chronic combined systolic (congestive) and diastolic (congestive) heart failure: Status: Acute Comment: improved with dobutamine and also with increase in dose but at 5mcg/kg/min had tachycardia. once cortisol started and levothyroxine increased urine output has improved on lower dose dobutamine at 3. due to anasarca and renal failure his dig had been at low dose but was noted subtherapeutic at 0.4 level. dose was 62.5 mg qod. Now increased to 62.5 daily and had 125 mcg IV booster dose yest. recheck in morning. goal around 1.0 level. It is unusual that EF 30% can not support alleviating anasarca without ICU dobutamine so I think in part is stage 4 CKD but also adrenal failure. plan change to oral diuretics and therapeutic digoxin on continued oral cortisol switching in next 24-48 hours. (2) CKD (chronic kidney disease), stage IV: Status: Chronic Comment: at risk for needing dialysis for volume management. see above (3) Cardiorenal syndrome with renal failure: Status: Chronic Comment: worsening despite entresto and will stop entresto. dobutamine diuresis in ICU. another 24 hours. digoxin renal dosed. bumex, zaroxolyn and low dose spironlactone (4) Chronic myeloproliferative disorder: Status: Chronic Comment: 05/19/2015[facility] pt with thrombocytopenia so warfarin stopped. no longer a good risk benefit ratio (5) Atrial fibrillation: Status: Chronic Comment: stop anticoagulation high risk of hemorrhage. check digoxin level again tomorrow. Qualifiers: Atrial fibrillation type: chronic Qualified Code(s): I48.2 - Chronic atrial fibrillation (6) Adrenal cortex insufficiency: Status: Acute Comment: hydrocortisone 50 mg q8 drop to 20 bid for oral replacement and outpt follow up at discharge (7) Hypothyroidism: Status: Acute Comment: increase to 150 mcg daily Time Spent With Patient Time: Total time spent is greater than 50% in coordination of care (as documented) at patient's floor/unit and/or counseling patient: 45 mins critical care time QUALITY VTE Deep Vein Thrombosis/Pulmonary Embolism Present on Admission: No
[2019-11-18] MEDS: 0.9 % SODIUM CHLORIDE 250 ML IV SCH (11:35)
[2019-11-18] MEDS: DOBUTamine 250 MG in PREMIX 1 BAG IV SCH (14:44)
[2019-11-18] MEDS: DIGOXIN 125 MCG TABLET PO SCH (14:45)
[2019-11-18] MEDS: MONTELUKAST 10 MG TABLET PO SCH (20:47)
[2019-11-18] MEDS: SENNOSIDES 1 TABLET PO SCH (20:47)
[2019-11-19] MEDS: HYDROCORTISONE SOD SUCC 100 MG VIAL IV SCH ×4 (00:29→17:44)
[2019-11-19] MEDS: 0.9 % SODIUM CHLORIDE 250 ML IV SCH ×3 (00:42→13:33)
[2019-11-19] MEDS: traMADol 50 MG TABLET PO PRN ×2 (02:29→21:46)
[2019-11-19] MEDS: DOBUTamine 250 MG in PREMIX 1 BAG IV SCH (05:48)
[2019-11-19] MEDS: 0.9 % SODIUM CHLORIDE 10 ML SYRINGE IV SCH ×5 (05:49→22:50)
[2019-11-19 06:20] LABS: Basophils # (Auto) 0.05 K/mcL (0.00-0.30); Basophils % (Auto) 0.6 % (0.0-2.0); Eosinophils # (Auto) 0.01 K/mcL (0.00-0.70); Eosinophils % (Auto) 0.1 % (0.0-7.0); Granulocytes % (Auto) 79.4 % (38.0-78.0); Hematocrit 26.8 % (40.1-51.0); Lymphocytes # (Auto) 0.14 K/mcL (1.50-4.80); Lymphocytes % (Auto) 1.7 % (15.5-49.0); Mean Cell Volume 109.8 fL (80.0-100.0); Mean Corpuscular HGB Conc 29.9 g/dL (31.0-36.0); Monocytes # (Auto) 1.47 K/mcL (0.10-0.90); Monocytes % (Auto) 18.2 % (1.0-12.0); Platelet Count 21 K/mcL (140-440); RBC 2.44 M/mcL (4.63-6.08); Red Cell Distribution Width 23.7 % (11.5-14.5); WBC 8.1 K/mcL (4.50-11.00)
[2019-11-19 06:21] LABS: INR 1.7 (0.9-1.1); Prothrombin Time 20.3 sec (11.9-14.5)
[2019-11-19 07:07] LABS: Blood Urea Nitrogen 98 mg/dl (8-23); Carbon Dioxide 22 mmol/L (22-30); Glomerular Filtration Rate 18; Glucose 130 mg/dL (70-105)
[2019-11-19] MEDS: METOLAZONE 2.5 MG TABLET PO SCH ×2 (07:22→15:41)
[2019-11-19] MEDS: PANTOPRAZOLE 40 MG TABLET PO SCH (07:22)
[2019-11-19] MEDS: LEVOTHYROXINE 150 MCG TABLET PO SCH (07:22)
[2019-11-19 07:40] LABS: Chloride 95 mmol/L (96-108)
[2019-11-19] MEDS: BUMETANIDE 0.25 MG/ML VIAL IV SCH ×2 (08:14→17:41)
[2019-11-19] MEDS: CEPHALEXIN 250 MG CAPSULE PO SCH ×2 (09:18→21:02)
[2019-11-19] MEDS: CALCITRIOL 0.25 MCG CAPSULE PO SCH (09:18)
[2019-11-19] MEDS: DOCUSATE SODIUM 100 MG CAPSULE PO SCH ×2 (09:18→21:01)
[2019-11-19] MEDS: LACTOBACILLUS 1 CAPSULE PO SCH (09:18)
[2019-11-19] MEDS: ALLOPURINOL 300 MG TABLET PO SCH (09:19)
[2019-11-19] MEDS: SPIRONOLACTONE 25 MG TABLET PO SCH (09:20)
[2019-11-19] MEDS: METOPROLOL SUCCINATE 25 MG TAB.XL.24H PO SCH (09:21)
[2019-11-19] MEDS: MAGNESIUM OXIDE 400 MG TABLET PO SCH (09:23)
[2019-11-19] MEDS: BUDESONIDE 1 PUFF INHALER INH SCH ×2 (09:24→21:03)
[2019-11-19] MEDS: POTASSIUM CHLORIDE 20 MEQ TABLET PO SCH ×3 (09:25→17:44)
[2019-11-19] MEDS: DIGOXIN 125 MCG TABLET PO SCH (13:28)
[2019-11-19] MEDS ORDERED: POTASSIUM CHLORIDE 40 MEQ in DEXTROSE 5% IN WATER 500 ML IV ONE ×2 (17:00→17:02)
[2019-11-19] MEDS ORDERED: NALOXONE HCL 0.4 MG/ML VIAL IV PRN (17:02)
[2019-11-19] MEDS ORDERED: ONDANSETRON 4 MG/2 ML VIAL IV PRN (17:02)
[2019-11-19] MEDS ORDERED: 0.9 % SODIUM CHLORIDE 250 ML IV SCH ×2 (17:02)
[2019-11-19] MEDS ORDERED: LEVALBUTEROL 0.63 MG/3 ML AMPUL.NEB NEB PRN (17:02)
[2019-11-19] MEDS ORDERED: POTASSIUM CHLORIDE 20 MEQ TABLET PO SCH (17:30)
--- NOTE | 2019-11-19 18:51 | Internal Med Progress Note ---
SUBJECTIVE Subjective Patient information: Note initiated : 11/19/19 at 6:41 pm Service Date, if different from initiated Date: [] Patient: Dank Garner 84 y/o M admitted on 11/13/19 for shortness of breath, swelling in bilateral lower l. Chief Complaint: Follow-up congestive heart failure Interval history: Patient continues to diuresis, decreased lower extremity edema. Still feels fairly weak. Still has some dyspnea on exertion. No orthostatic symptoms. No cough or sputum. No chest pain. Pertinent ROS: As above Constitutional Vitals: Vital Signs Temp Pulse Resp BP Pulse Ox 97.4 F 104 H 16 102/48 96 11/19/19 12:04 11/19/19 14:00 11/19/19 14:01 11/19/19 18:01 11/19/19 18:01 Period Temp Pulse Resp BP Sys/Ordoñez Pulse Ox Last 24 Hr 97.4 F-97.8 F 104 16-22 84-117/48-97 93-100 Intake and Output 11/19/19 11/19/19 11/19/19 05:59 13:59 21:59 Intake Total 430 687 120 Output Total 900 400 50 Balance -470 287 70 General: Sitting up in chair no acute distress Chest: Diminished at bases bilaterally, respirations are unlabored Cardiovascular: Distant, irregular, 2+ lower extremity edema Abdomen: Soft, nontender Neuro: Alert, oriented x3, generally weak Intake & Output: Intake & Output 11/19/19 11/19/19 11/19/19 05:59 13:59 21:59 Intake Total 430 687 120 Output Total 900 400 50 Balance -470 287 70 Intake: IV 250 177 Sodium Chloride 0.9% 250 ml @ 72 20 mls/hr IV .[id number] [facility] Rx#: [id number] Dobutrex 250 mg In Premix 1 Bag 250 105 @ 3 MCG/KG/MIN 17.345 mls/hr IV .[id number] [facility] Rx#:[id number] Oral 180 510 120 Output: Urine Catheter Amount 900 400 50 Other: Meal Lunch Percent of Meal Consumed 100% 100% Feeding Ability Independent Independent Nourishment/Supplement name Azeri yogurt and peaches HS snack Urine Appearance Clear Clear Clear Uretheral (Jaimes) Clear Clear Clear Urine Color Bright Yellow Bright Yellow Bright Yellow Uretheral (Jaimes) Bright Yellow Dark Yellow Dark Yellow Straw Urine Odor Normal Stool Size Moderate Stool Color Brown Stool Consistency Soft OBJ DATA Labs CBC & Chem 7: 11/19/19 05:00 11/19/19 13:37 Labs: Abnormal Lab Results 11/19/19 11/19/19 11/19/19 13:37 05:00 05:00 RBC 2.44 L Hgb 8.0 L Hct 26.8 L MCV 109.8 H MCHC 29.9 L RDW 23.7 H Plt Count 21 L* Gran % 79.4 H Lymph % (Auto) 1.7 L [place] % (Auto) 18.2 H Lymph # (Auto) 0.14 L [place] # (Auto) 1.47 H PT INR Potassium 2.7 L* 2.8 L* Chloride 95 L Anion Gap 18.0 H BUN 98 H Creatinine 3.0 H Glucose 130 H Iron Total Bilirubin Total Protein Globulin 11/19/19 11/18/19 11/18/19 05:00 04:46 04:46 RBC Hgb Hct MCV MCHC RDW Plt Count Gran % Lymph % (Auto) [place] % (Auto) Lymph # (Auto) [place] # (Auto) PT 20.3 H 20.1 H INR 1.7 H 1.7 H Potassium Chloride Anion Gap BUN 97 H Creatinine 2.9 H Glucose 139 H Iron Total Bilirubin Total Protein Globulin 11/17/19 11/17/19 11/17/19 14:10 05:16 05:16 RBC Hgb Hct MCV MCHC RDW Plt Count Gran % Lymph % (Auto) [place] % (Auto) Lymph # (Auto) [place] # (Auto) PT 21.8 H INR 1.8 H Potassium Chloride Anion Gap BUN 98 H Creatinine 3.1 H Glucose 110 H Iron 52 L Total Bilirubin 1.3 H Total Protein 5.1 L Globulin 1.8 L 11/17/19 05:16 RBC 2.43 L Hgb 7.8 L Hct 26.6 L MCV 109.5 H MCHC 29.3 L RDW 24.1 H Plt Count 20 L* Gran % Lymph % (Auto) 5.8 L [place] % (Auto) 20.4 H Lymph # (Auto) 0.37 L [place] # (Auto) 1.30 H PT INR Potassium Chloride Anion Gap BUN Creatinine Glucose Iron Total Bilirubin Total Protein Globulin Meds: Medications Allopurinol (Zylopriim) 150 mg PO DAILY [facility] Budesonide (Pulmicort) 1 puff INH BID [facility] Bumetanide (Bumex) 2 mg IV BIDD [facility] Calcitriol (Rocaltrol) 0.25 mcg PO MoWeFr@0900 [facility] Cephalexin HCl (Keflex) 250 mg PO BID [facility]; Protocol Digoxin (Lanoxin) 62.5 mcg PO DAILY@1400 [facility] Docusate Sodium (Colace) 100 mg PO BID [facility] Hydrocortisone Sodium Succinate (Solu-Cortef) 50 mg IV Q6 [facility] Last Admin: 11/19/19 17:44 Dose: 50 mg Documented by: Potassium Chloride 40 meq/ (Dextrose) 520 mls @ 130 mls/hr IV ONCE ONE Stop: 11/19/19 20:59 Last Admin: 11/19/19 17:41 Dose: Not Given Documented by: Sodium Chloride (Sodium Chloride 0.9%) 250 mls @ 20 mls/hr IV .[id number] [facility] Last Admin: 11/19/19 18:16 Dose: Not Given Documented by: Sodium Chloride (Sodium Chloride 0.9%) 250 mls @ 20 mls/hr IV .[id number] [facility] Last Admin: 11/19/19 18:16 Dose: Not Given Documented by: Lactobacillus Rhamnosus (Culturelle) 1 cap PO QDAY [facility] Levalbuterol HCl (Xopenex) 0.63 mg NEB Q6HP PRN PRN Reason: Shortness Of Breath Levothyroxine Sodium (Synthroid) 150 mcg PO QAMAC [facility] Magnesium Oxide (Magnesium Oxide) 200 mg PO MOWEFR@0900 [facility] Metolazone (Zaroxolyn) 5 mg PO DAILY@0830 [facility] Metoprolol Succinate (Toprol Xl) 12.5 mg PO DAILY [facility] Montelukast Sodium (Singular) 10 mg PO QHS [facility] Morphine Sulfate (Morphine) 1 mg IV Q4HP PRN; Protocol PRN Reason: Per Pain Protocol Naloxone HCl (Narcan) 0.1 mg IV Q2MIN PRN PRN Reason: Opiate Reversal Ondansetron HCl (Zofran) 4 mg IV Q6HP PRN PRN Reason: Nausea And Vomiting Pantoprazole Sodium (Protonix) 40 mg PO QAMAC [facility] Potassium [facility] (K[facility]ur[facility] Last Admin: 11/19/19 17:44 Dose: 40 meq Documented by: Senna (Senokot) 2 tab PO HS [facility] Sodium Chloride (Saline Flush) 10 ml IV Q8 [facility] Spironolactone (Aldactone) 25 mg PO DAILY [facility] Tramadol HCl (Ultram) 50 mg PO BIDP PRN; Protocol PRN Reason: pain A/P Assessment and plan (1) Acute on chronic combined systolic (congestive) and diastolic (congestive) heart failure: Status: Acute Narrative A/P Narrative: Acute on chronic combined systolic (congestive) and diastolic (congestive) heart failure. Patient presented with anasarca, 4+ lower extremity edema. Has been on dobutamine with good diuresis once cortisol supplementation and higher dose of levothyroxine started. As diuresis significantly. Digoxin was increased from 62.5 mg every other day to 62.5 mg daily. Digoxin level 0.4 earlier, follow-up pending. Wean dobutamine to off Continue with IV diuretic If stable, likely to oral diuretic tomorrow Continue with hydrocortisone Hypokalemia. Likely secondary to diuresis. Received 80 mEq orally without significant change earlier today. Even with CKD4 will require IV supplementation and close monitoring. IV potassium supplementation Begin oral replacement twice daily Follow serum potassium closely given renal failure CKD (chronic kidney disease), stage IV. Creatinine currently tolerating diet basis. Continue to monitor Cardiorenal syndrome with renal failure. Entresto stopped during this hospitali zation. Now diuresing well as discussed above. Continue with heart failure management as above. Chronic myeloproliferative disorder. Due to significant thrombocytopenia, warfarin has been stopped. Continue to monitor, no current need for transfusion. Atrial fibrillation. Currently rate controlled. As discussed above, off warfarin. Continue digoxin, follow-up levels Adrenal cortex insufficiency. Serum cortisol low. Cardiac output improved with start of hydrocortisone. Currently on 50 mg every 8 hours. Continue with supplement, reduced to 20 mg twice daily orally at discharge Hypothyroidism. Levothyroxine previously increased to 150 MCG daily. Continue with current dose Time Spent With Patient Time: Total time spent is greater than 50% in coordination of care (as documented) at patient's floor/unit and/or counseling patient: Total time spent with greater than 50% in coordination of care (as documented) at patient's floor/unit and/or counseling patient:: Greater than 35 minutes QUALITY VTE Deep Vein Thrombosis/Pulmonary Embolism Present on Admission: No
[2019-11-19] MEDS: MONTELUKAST 10 MG TABLET PO SCH (21:00)
[2019-11-19] MEDS: SENNOSIDES 1 TABLET PO SCH (21:02)
[2019-11-20] MEDS: HYDROCORTISONE SOD SUCC 100 MG VIAL IV SCH ×4 (00:40→17:27)
[2019-11-20] MEDS: 0.9 % SODIUM CHLORIDE 10 ML SYRINGE IV SCH ×3 (05:49→22:00)
[2019-11-20 06:09] LABS: INR 1.6 (0.9-1.1); Prothrombin Time 19.9 sec (11.9-14.5)
[2019-11-20 06:26] LABS: Hematocrit 28.8 % (40.1-51.0); Hemoglobin 8.5 g/dL (13.7-17.5); Mean Cell Volume 109.1 fL (80.0-100.0); Mean Corpuscular HGB Conc 29.5 g/dL (31.0-36.0); Platelet Count 23 K/mcL (140-440); RBC 2.64 M/mcL (4.63-6.08); Red Cell Distribution Width 23.9 % (11.5-14.5); WBC 8.6 K/mcL (4.50-11.00)
[2019-11-20 06:34] LABS: Calcium 9.1 mg/dl (8.6-10.4); Carbon Dioxide 22 mmol/L (22-30); Glomerular Filtration Rate 15; Glucose 126 mg/dL (70-105)
[2019-11-20 06:44] LABS: Blood Urea Nitrogen 109 mg/dl (8-23); Chloride 94 mmol/L (96-108)
[2019-11-20] MEDS: PANTOPRAZOLE 40 MG TABLET PO SCH (07:23)
[2019-11-20] MEDS: LEVOTHYROXINE 150 MCG TABLET PO SCH (07:23)
[2019-11-20] MEDS ORDERED: BUMETANIDE 0.25 MG/ML VIAL IV SCH (08:00)
[2019-11-20] MEDS: LACTOBACILLUS 1 CAPSULE PO SCH (08:08)
[2019-11-20] MEDS: POTASSIUM CHLORIDE 20 MEQ TABLET PO SCH ×2 (08:08→17:27)
[2019-11-20] MEDS: DOCUSATE SODIUM 100 MG CAPSULE PO SCH ×2 (08:08→20:40)
[2019-11-20] MEDS: CEPHALEXIN 250 MG CAPSULE PO SCH ×2 (08:08→20:40)
[2019-11-20] MEDS: ALLOPURINOL 300 MG TABLET PO SCH (08:09)
[2019-11-20] MEDS ORDERED: METOLAZONE 2.5 MG TABLET PO SCH (08:30)
[2019-11-20] MEDS: BUMETANIDE 1 MG TABLET PO SCH ×2 (09:05→17:27)
[2019-11-20] MEDS: BUDESONIDE 1 PUFF INHALER INH SCH ×2 (09:45→20:43)
[2019-11-20] MEDS: METOPROLOL SUCCINATE 25 MG TAB.XL.24H PO SCH (10:23)
--- NOTE | 2019-11-20 11:51 | Ultrasound Report ---
INDICATION: Left garcia, fluctuant area, eval abscess/hematoma TECHNIQUE: Routine soft tissue ultrasound. Grayscale and color flow Doppler spectral imaging COMPARISON: None. FINDINGS: There is a subcutaneous abnormality in the soft tissues of the left anterior garcia. This is hypoechoic but not sonolucent. Appearance is consistent with a complex cyst. This measures 4.1 x 0.7 x 4.0 cm. No shadowing abnormality. No detectable gas. Findings are consistent with either liquefied hematoma or abscess. IMPRESSION: 1. Complex cystic abnormality in the subcutaneous soft tissues of the left anterior garcia 2. Findings are consistent with liquefied hematoma. Abscess is possible Interpreted and Authenticated by: Bradford Steve 11/20/19
[2019-11-20] MEDS: SPIRONOLACTONE 25 MG TABLET PO SCH (11:54)
[2019-11-20] MEDS ORDERED: DIGOXIN 125 MCG TABLET PO SCH (14:00)
[2019-11-20] MEDS: SENNOSIDES 1 TABLET PO SCH (20:40)
[2019-11-20] MEDS: MONTELUKAST 10 MG TABLET PO SCH (20:40)
--- NOTE | 2019-11-20 21:05 | Internal Med Progress Note ---
SUBJECTIVE Subjective Patient information: Note initiated : 11/20/19 at 9:01 pm Service Date, if different from initiated Date: [] Patient: Dank Garner 84 y/o M admitted on 11/13/19 for shortness of breath, swelling in bilateral lower l. Chief Complaint: Follow-up heart failure Interval history: Feeling a little bit stronger today. Still worried about going home early, given his frequent readmissions for heart failure. Dobutamine was weaned off yesterday afternoon, creatinine has crept up to 3.5 today. Changing over to oral diuretics. Also complaining of pain in his left garcia, this is what actually brought him to the hospital. He has been treated for cellulitis. Still with some erythema, a focal area that is more tender is also present. Pertinent ROS: Dyspnea improved, edema improved. Still with pain in the left garcia. No chest pain. Constitutional Vitals: Vital Signs Temp Pulse Resp BP Pulse Ox 97.5 F 90 18 104/69 98 11/20/19 16:01 11/20/19 18:15 11/20/19 18:01 11/20/19 18:01 11/20/19 18:01 Period Temp Pulse Resp BP Sys/Ordoñez Pulse Ox Last 24 Hr 97.3 F-97.9 F 85-90 16-22 91-120/52-74 89-100 Intake and Output 11/20/19 11/20/19 11/20/19 05:59 13:59 21:59 Intake Total 432 460 Output Total 350 235 850 Balance 82 -235 -390 Weight 210 lb 1.6 oz Patient Weight 11/21/19 05:59 Weight 210 lb 1.6 oz General: In no acute distress Chest: Diminished at bases, otherwise clear Cardiovascular: Irregular, trace edema Abdomen: Soft, nontender Extremities: Left lower extremity with approximately 2 x 3 cm area of erythema and swelling, mildly to moderate tender with mild fluctuance. Surrounding erythema without warmth Neuro: Alert, oriented x3, generalized weakness. Intake & Output: Intake & Output 11/20/19 11/20/19 11/20/19 05:59 13:59 21:59 Intake Total 432 460 Output Total 350 235 850 Balance 82 -235 -390 Weight 210 lb 1.6 oz Intake: IV 312 Potassium Chloride 40 Meq In 312 Dextrose 5% in Water 500 ml @ 130 mls/hr IV ONCE ONE Rx#: [id number] Oral 120 460 Output: Urine Catheter Amount 275 235 850 Void Amount 75 Other: Meal snack Lunch Dinner Percent of Meal Consumed 100% 100% 100% Feeding Ability Independent Urine Appearance Clear Clear Clear Uretheral (Jaimes) Clear Clear Urine Color Dark Yellow Dark Yellow Dark Yellow Uretheral (Jaimes) Dark Yellow Dark Yellow Dark Yellow Urine Odor Normal Normal Stool Size Moderate Large Stool Color Brown Brown Stool Consistency Soft Soft Formed Formed # Bowel Movements 1 # of times incontinent of 0 Bowels OBJ DATA Labs CBC & Chem 7: 11/20/19 05:00 11/20/19 05:00 Labs: Abnormal Lab Results 11/20/19 11/20/19 11/20/19 05:00 05:00 05:00 RBC 2.64 L Hgb 8.5 L Hct 28.8 L MCV 109.1 H MCHC 29.5 L RDW 23.9 H Plt Count 23 L* Gran % Lymph % (Auto) [place] % (Auto) Lymph # (Auto) [place] # (Auto) PT 19.9 H INR 1.6 H Potassium Chloride 94 L Anion Gap 19.0 H BUN 109 H* Creatinine 3.5 H Glucose 126 H 11/19/19 11/19/19 11/19/19 13:37 05:00 05:00 RBC 2.44 L Hgb 8.0 L Hct 26.8 L MCV 109.8 H MCHC 29.9 L RDW 23.7 H Plt Count 21 L* Gran % 79.4 H Lymph % (Auto) 1.7 L [place] % (Auto) 18.2 H Lymph # (Auto) 0.14 L [place] # (Auto) 1.47 H PT INR Potassium 2.7 L* 2.8 L* Chloride 95 L Anion Gap 18.0 H BUN 98 H Creatinine 3.0 H Glucose 130 H 11/19/19 11/18/19 11/18/19 05:00 04:46 04:46 RBC Hgb Hct MCV MCHC RDW Plt Count Gran % Lymph % (Auto) [place] % (Auto) Lymph # (Auto) [place] # (Auto) PT 20.3 H 20.1 H INR 1.7 H 1.7 H Potassium Chloride Anion Gap BUN 97 H Creatinine 2.9 H Glucose 139 H Meds: Medications Allopurinol (Zylopriim) 150 mg PO DAILY [facility] Last Admin: 11/20/19 08:09 Dose: 150 mg Documented by: Budesonide (Pulmicort) 1 puff INH BID [facility] Last Admin: 11/20/19 20:43 Dose: 1 puff Documented by: Bumetanide (Bumex) 2 mg PO BIDD [facility] Last Admin: 11/20/19 17:27 Dose: 2 mg Documented by: Calcitriol (Rocaltrol) 0.25 mcg PO MoWeFr@0900 [facility] Cephalexin HCl (Keflex) 250 mg PO BID [facility]; Protocol Last Admin: 11/20/19 20:40 Dose: 250 mg Documented by: Digoxin (Lanoxin) 62.5 mcg PO DAILY@1400 [facility] Last Admin: 11/20/19 16:01 Dose: 62.5 mcg Documented by: Docusate Sodium (Colace) 100 mg PO BID [facility] Last Admin: 11/20/19 20:40 Dose: Not Given Documented by: Hydrocortisone Sodium Succinate (Solu-Cortef) 50 mg IV Q6 [facility] Last Admin: 11/20/19 17:27 Dose: 50 mg Documented by: Lactobacillus Rhamnosus (Culturelle) 1 cap PO QDAY [facility] Last Admin: 11/20/19 08:08 Dose: 1 cap Documented by: Levalbuterol HCl (Xopenex) 0.63 mg NEB Q6HP PRN PRN Reason: Shortness Of Breath Levothyroxine Sodium (Synthroid) 150 mcg PO QAMAC [facility] Last Admin: 11/20/19 07:23 Dose: 150 mcg Documented by: Magnesium Oxide (Magnesium Oxide) 200 mg PO MOWEFR@0900 [facility] Metoprolol Succinate (Toprol Xl) 12.5 mg PO DAILY [facility] Last Admin: 11/20/19 10:23 Dose: 12.5 mg Documented by: Montelukast Sodium (Singular) 10 mg PO QHS [facility] Last Admin: 11/20/19 20:40 Dose: 10 mg Documented by: Morphine Sulfate (Morphine) 1 mg IV Q4HP PRN; Protocol PRN Reason: Per Pain Protocol Last Admin: 11/20/19 00:40 Dose: 1 mg Documented by: Naloxone HCl (Narcan) 0.1 mg IV Q2MIN PRN PRN Reason: Opiate Reversal Ondansetron HCl (Zofran) 4 mg IV Q6HP PRN PRN Reason: Nausea And Vomiting Pantoprazole Sodium (Protonix) 40 mg PO QAMAC [facility] Last Admin: 11/20/19 07:23 Dose: 40 mg Documented by: Potassium Chloride (Kdur) 40 meq PO BIDCC [facility] Last Admin: 11/20/19 17:27 Dose: 40 meq Documented by: Senna (Senokot) 2 tab PO HS [facility] Last Admin: 11/20/19 20:40 Dose: Not Given Documented by: Sodium Chloride (Saline Flush) 10 ml IV Q8 [facility] Last Admin: 11/20/19 16:04 Dose: 10 ml Documented by: Spironolactone (Aldactone) 25 mg PO DAILY [facility] Last Admin: 11/20/19 11:54 Dose: 25 mg Documented by: Tramadol HCl (Ultram) 50 mg PO BIDP PRN; Protocol PRN Reason: pain Last Admin: 11/19/19 21:46 Dose: 50 mg Documented by: Impressions Impression: Limited ultrasound of left garcia IMPRESSION: 1. Complex cystic abnormality in the subcutaneous soft tissues of the left anterior garcia 2. Findings are consistent with liquefied hematoma. Abscess is possible A/P Narrative A/P Narrative: Acute on chronic combined systolic (congestive) and diastolic (congestive) heart failure. Patient presented with anasarca, 4+ lower extremity edema. Was on dobutamine with good diuresis once cortisol supplementation and higher dose of levothyroxine started. Dobutamine weaned off yesterday, has had net diuresis of about 5 L. Interestingly his weight has not changed significantly. I suspect the intake and output recorded is more accurate than the weights. Digoxin was increased from 62.5 mg every other day to 62.5 mg daily. Discontinue metolazone Change Bumex to oral Continue with hydrocortisone Hypokalemia. Likely secondary to diuresis. Low normal potassium this morning. Received significant amounts of IV and p.o. potassium yesterday. Requires continued close monitoring given CKD stage IV Continue oral replacement twice daily until in the mid normal range then stop Follow serum potassium closely given renal failure CKD (chronic kidney disease), stage IV. Creatinine was tolerating diuresis, however creatinine increased from 3.0-3.5 today. Suspect that is due in part due to loss of inotropic effect of dobutamine. Decreasing intensity of diuresis as above Continue to monitor Cardiorenal syndrome with renal failure. Entresto stopped during this hospitalization. Diuresing as above Continue with heart failure management as above. Chronic myeloproliferative disorder. Due to significant thrombocytopenia, warfarin has been stopped. Continue to monitor, no current need for transfusion. Swelling and erythema of left garcia. This appears more consistent with a hematoma and some surrounding petechiae. Not surprising given his significant thrombocytopenia. He had been on warfarin at admission which was stopped due to bleeding risk. Ultrasound suggests hematoma, though cannot rule out abscess. However clinically this is more consistent with hematoma. Monitor Heating pad for discomfort Trial of lidocaine patch if heat not adequate for relief Atrial fibrillation. Currently rate controlled. As discussed above, off warfarin. Continue digoxin Adrenal cortex insufficiency. Serum cortisol low. Cardiac output improved with start of hydrocortisone. Currently on 50 mg every 8 hours. Continue with supplement, reduced to 20 mg twice daily orally at discharge Hypothyroidism. Levothyroxine previously increased to 150 MCG daily. Continue with current dose Time Spent With Patient Time: Total time spent is greater than 50% in coordination of care (as documented) at patient's floor/unit and/or counseling patient: QUALITY VTE Deep Vein Thrombosis/Pulmonary Embolism Present on Admission: No
[2019-11-21] MEDS: HYDROCORTISONE SOD SUCC 100 MG VIAL IV SCH ×5 (00:30→23:54)
[2019-11-21] MEDS: traMADol 50 MG TABLET PO PRN (03:40)
[2019-11-21] MEDS: 0.9 % SODIUM CHLORIDE 10 ML SYRINGE IV SCH ×3 (05:50→20:29)
[2019-11-21 07:46] LABS: Calcium 8.9 mg/dl (8.6-10.4); Carbon Dioxide 21 mmol/L (22-30); Chloride 97 mmol/L (96-108); Glomerular Filtration Rate 16; Glucose 116 mg/dL (70-105)
[2019-11-21 08:01] LABS: Blood Urea Nitrogen 118 mg/dl (8-23)
[2019-11-21] MEDS: BUMETANIDE 1 MG TABLET PO SCH (08:10)
[2019-11-21] MEDS: POTASSIUM CHLORIDE 20 MEQ TABLET PO SCH (08:10)
[2019-11-21] MEDS: PANTOPRAZOLE 40 MG TABLET PO SCH (08:10)
[2019-11-21] MEDS: LEVOTHYROXINE 150 MCG TABLET PO SCH (08:10)
[2019-11-21] MEDS ORDERED: MAGNESIUM OXIDE 400 MG TABLET PO SCH (09:00)
[2019-11-21] MEDS ORDERED: CALCITRIOL 0.25 MCG CAPSULE PO SCH (09:00)
[2019-11-21] MEDS: CEPHALEXIN 250 MG CAPSULE PO SCH ×2 (09:57→20:28)
[2019-11-21] MEDS: SPIRONOLACTONE 25 MG TABLET PO SCH (09:57)
[2019-11-21] MEDS: LACTOBACILLUS 1 CAPSULE PO SCH (09:57)
[2019-11-21] MEDS: DOCUSATE SODIUM 100 MG CAPSULE PO SCH ×2 (09:58→20:29)
[2019-11-21] MEDS: ALLOPURINOL 300 MG TABLET PO SCH (09:59)
[2019-11-21] MEDS: BUDESONIDE 1 PUFF INHALER INH SCH ×2 (10:03→20:28)
--- NOTE | 2019-11-21 11:13 | Internal Med Progress Note ---
SUBJECTIVE Subjective Patient information: Note initiated : 11/21/19 at 11:11 am Service Date, if different from initiated Date: [] Patient: Dank Garner 84 y/o M admitted on 11/13/19 for shortness of breath, swelling in bilateral lower l. Chief Complaint: [] Follow-up congestive heart failure Interval history: Overall thinks he is felt better than he has in some time. Still with some weakness. Feels like his breathing is stable, not as good as it has been in the past, but realizes this may be the new normal. Still has Jaimes catheter in place. Tolerating oral diuretics. BUN is continuing to increase. Pain and left garcia associated hematoma is improving with heat Constitutional Vitals: Vital Signs Temp Pulse Resp BP Pulse Ox 97.8 F 77 20 106/51 96 11/21/19 08:01 11/21/19 00:21 11/21/19 10:01 11/21/19 10:01 11/21/19 10:01 Period Temp Pulse Resp BP Sys/Ordoñez Pulse Ox Last 24 Hr 97.2 F-98.2 F 77-90 16-20 83-113/50-73 91-99 Intake and Output 11/20/19 11/21/19 11/21/19 21:59 05:59 13:59 Intake Total 580 90 60 Output Total 995 355 Balance -415 -265 60 Weight 210 lb 1.6 oz General: Sitting up in chair, looks more comfortable than from 2 days ago. Chest: Mildly diminished to bases, no rales Cardiovascular: Irregular. 2+ lower extremity edema. Abdomen: Firm, nontender Skin: Left lower extremity with decreased focal area of swelling and erythema. Surrounding erythema consistent with red cell deposition and not cellulitis Neuro: Mild generalized weakness, alert, oriented x3 Intake & Output: Intake & Output 11/20/19 11/21/19 11/21/19 21:59 05:59 13:59 Intake Total 580 90 60 Output Total 995 355 Balance -415 -265 60 Weight 210 lb 1.6 oz Intake: Oral 580 90 60 Output: Urine Catheter Amount 995 355 Other: Meal Dinner Percent of Meal Consumed 100% Urine Appearance Clear Clear Uretheral (Jaimes) Clear Urine Color Dark Yellow Dark Yellow Uretheral (Jaimes) Dark Yellow Urine Odor Normal Stool Size Large Large Stool Color Brown Brown Stool Consistency Soft Formed OBJ DATA Labs CBC & Chem 7: 11/20/19 05:00 11/21/19 05:05 Labs: Abnormal Lab Results 11/21/19 11/20/19 11/20/19 05:05 05:00 05:00 RBC 2.64 L Hgb 8.5 L Hct 28.8 L MCV 109.1 H MCHC 29.5 L RDW 23.9 H Plt Count 23 L* Gran % Lymph % (Auto) [place] % (Auto) Lymph # (Auto) [place] # (Auto) PT INR Potassium Chloride 94 L Carbon Dioxide 21 L Anion Gap 18.0 H 19.0 H BUN 118 H* 109 H* Creatinine 3.4 H 3.5 H Glucose 116 H 126 H 11/20/19 11/19/19 11/19/19 05:00 13:37 05:00 RBC 2.44 L Hgb 8.0 L Hct 26.8 L MCV 109.8 H MCHC 29.9 L RDW 23.7 H Plt Count 21 L* Gran % 79.4 H Lymph % (Auto) 1.7 L [place] % (Auto) 18.2 H Lymph # (Auto) 0.14 L [place] # (Auto) 1.47 H PT 19.9 H INR 1.6 H Potassium 2.7 L* Chloride Carbon Dioxide Anion Gap BUN Creatinine Glucose 11/19/19 11/19/19 05:00 05:00 RBC Hgb Hct MCV MCHC RDW Plt Count Gran % Lymph % (Auto) [place] % (Auto) Lymph # (Auto) [place] # (Auto) PT 20.3 H INR 1.7 H Potassium 2.8 L* Chloride 95 L Carbon Dioxide Anion Gap 18.0 H BUN 98 H Creatinine 3.0 H Glucose 130 H Meds: Medications Allopurinol (Zylopriim) 150 mg PO DAILY [facility] Last Admin: 11/21/19 09:59 Dose: 150 mg Documented by: Budesonide (Pulmicort) 1 puff INH BID [facility] Last Admin: 11/21/19 10:03 Dose: 1 puff Documented by: Bumetanide (Bumex) 2 mg PO BIDD [facility] Last Admin: 11/21/19 08:10 Dose: 2 mg Documented by: Calcitriol (Rocaltrol) 0.25 mcg PO MoWeFr@0900 [facility] Last Admin: 11/21/19 09:59 Dose: 0.25 mcg Documented by: Cephalexin HCl (Keflex) 250 mg PO BID [facility]; Protocol Last Admin: 11/21/19 09:57 Dose: 250 mg Documented by: Digoxin (Lanoxin) 62.5 mcg PO DAILY@1400 [facility] Last Admin: 11/20/19 16:01 Dose: 62.5 mcg Documented by: Docusate Sodium (Colace) 100 mg PO BID [facility] Last Admin: 11/21/19 09:58 Dose: 100 mg Documented by: Hydrocortisone Sodium Succinate (Solu-Cortef) 50 mg IV Q6 [facility] Last Admin: 11/21/19 05:50 Dose: 50 mg Documented by: Lactobacillus Rhamnosus (Culturelle) 1 cap PO QDAY [facility] Last Admin: 11/21/19 09:57 Dose: 1 cap Documented by: Levalbuterol HCl (Xopenex) 0.63 mg NEB Q6HP PRN PRN Reason: Shortness Of Breath Levothyroxine Sodium (Synthroid) 150 mcg PO [facility] Last Admin: 11/21/19 08:10 Dose: 150 mcg Documented by: Magnesium Oxide (Magnesium Oxide) 200 mg PO MOWEFR@0900 [facility] Last Admin: 11/21/19 09:58 Dose: 200 mg Documented by: Metoprolol Succinate (Toprol Xl) 12.5 mg PO DAILY [facility] Last Admin: 11/20/19 10:23 Dose: 12.5 mg Documented by: Montelukast Sodium (Singular) 10 mg PO QHS [facility] Last Admin: 11/20/19 20:40 Dose: 10 mg Documented by: Morphine Sulfate (Morphine) 1 mg IV Q4HP PRN; Protocol PRN Reason: Per Pain Protocol Last Admin: 11/20/19 00:40 Dose: 1 mg Documented by: Naloxone HCl (Narcan) 0.1 mg IV Q2MIN PRN PRN Reason: Opiate Reversal Ondansetron HCl (Zofran) 4 mg IV Q6HP PRN PRN Reason: Nausea And Vomiting Pantoprazole Sodium (Protonix) 40 mg PO QAMAC [facility] Last Admin: 11/21/19 08:10 Dose: 40 mg Documented by: Potassium Chloride (Kdur) 40 meq PO BIDCC [facility] Last Admin: 11/21/19 08:10 Dose: 40 meq Documented by: Senna (Senokot) 2 tab PO HS [facility] Last Admin: 11/20/19 20:40 Dose: Not Given Documented by: Sodium Chloride (Saline Flush) 10 ml IV Q8 [facility] Last Admin: 11/21/19 05:50 Dose: 10 ml Documented by: Spironolactone (Aldactone) 25 mg PO DAILY [facility] Last Admin: 11/21/19 09:57 Dose: 25 mg Documented by: Tramadol HCl (Ultram) 50 mg PO BIDP PRN; Protocol PRN Reason: pain Last Admin: 11/21/19 03:40 Dose: 50 mg Documented by: A/P Narrative A/P Narrative: Acute on chronic combined systolic (congestive) and diastolic (congestive) heart failure. Patient presented with anasarca, 4+ lower extremity edema. Was on dobutamine with good diuresis once cortisol supplementation and higher dose of levothyroxine started. Dobutamine weaned off Tuesday, has had net diuresis of about 6.5 L. Interestingly his weight has not changed significantly. I suspect the intake and output recorded is more accurate than the weights. Digoxin was increased from 62.5 mg every other day to 62.5 mg daily. Discontinued metolazone on Tuesday Change Bumex to daily from twice daily, given continued rise in BUN. Has been on oral Bumex since Tuesday Continue with hydrocortisone supplement, changed to oral at discharge Hypokalemia. Likely secondary to diuresis. Continues with low normal potassium this morning. Received significant amounts of IV and p.o. potassium Tuesday. Requires continued close monitoring given CKD stage IV. Continue KCl 40 mEq twice daily until in the mid normal range then stop Follow serum potassium closely given renal failure CKD (chronic kidney disease), stage IV. Creatinine was tolerating diuresis, however creatinine increased from 3.0-3.5 after dobutamine discontinued, 3.4 today. Suspect that is due in part due to loss of inotropic effect of dobutamine. Continuing to decrease intensity of diuresis as above Continue to monitor Cardiorenal syndrome with renal failure. Entresto stopped during this hospitalization. Diuresing as above Continue with heart failure management as above. Chronic myeloproliferative disorder. With significant thrombocytopenia, due to that warfarin has been stopped. Continue to monitor, no current need for transfusion. Swelling and erythema of left garcia. More consistent with a hematoma and some surrounding petechiae. Not surprising given his significant thrombocytopenia. He had been on warfarin at admission which was stopped due to bleeding risk. Ultrasound suggests hematoma, though cannot rule out abscess. However clinically this is more consistent with hematoma. Monitor Heating pad for discomfort Atrial fibrillation. Currently rate controlled. As discussed above, off warfarin. Continue digoxin Adrenal cortex insufficiency. Serum cortisol low. Cardiac output improved with start of hydrocortisone. Currently on 50 mg every 8 hours. Continue with supplement, reduced to 20 mg twice daily orally at discharge Hypothyroidism. Levothyroxine previously increased to 150 MCG daily. Continue with current dose Time Spent With Patient Time: Total time spent is greater than 50% in coordination of care (as documented) at patient's floor/unit and/or counseling patient: Total time spent with greater than 50% in coordination of care (as documented) at patient's floor/unit and/or counseling patient:: 25 - 35 minutes QUALITY VTE Deep Vein Thrombosis/Pulmonary Embolism Present on Admission: No
[2019-11-21] MEDS: METOPROLOL SUCCINATE 25 MG TAB.XL.24H PO SCH (11:17)
[2019-11-21] MEDS ORDERED: LEVALBUTEROL 0.63 MG/3 ML AMPUL.NEB NEB PRN (13:28)
[2019-11-21] MEDS ORDERED: NALOXONE HCL 0.4 MG/ML VIAL IV PRN (13:28)
[2019-11-21] MEDS ORDERED: ONDANSETRON 4 MG/2 ML VIAL IV PRN (13:28)
--- NOTE | 2019-11-21 13:41 | Internal Med Progress Note ---
SUBJECTIVE Subjective Patient information: Note initiated : 11/21/19 at 1:30 pm Service Date, if different from initiated Date: [] Patient: Dank Garner 84 y/o M admitted on 11/13/19 for shortness of breath, swelling in bilateral lower l. Chief Complaint: [] Interval history: History of present illness: Mr. Garner is a 84 year old M with a history of chronic thrombocytopenia, CKD, CHF, chronic myeloproliferative disease, COPD and atrial fibrillation who presented to the ER due to shortness of breath and left leg redness. Patient is a poor historian. As per patient, left lower leg has been red for about 1 week associated with pain. He denies any injury to the leg. Patient also reports that she has been having cough which has been worsening today associated with a white clear sputum. But he denies headache, dizziness, chest pain, fever, chills, abdominal pain, or dysuria. In the ER, chest x-ray showed pulmonary congestion and mild bibasilar pulmonary parenchymal infiltrate. 1 dose Lasix 40 mg, vancomycin and Levaquin waere given in the ER. When I saw this patient in the ER, other than the symptoms mentioned above, he was fine. Denied recent travel or sick contact. 11/13 Pt feels fine and does not have new complaints. Denies fever, chills, nausea, or vomiting. No evidence of bleeding His platelet dropped to 27 today. I will hold warfarin temporarily. INR 2.7 Creatinine 3.0 CRP 0.5 Procalcitonin 0.44 11/14 came in with infection left leg and marked edema. Has also abdominal wall swelling. states he had first NE about 1999 and then as EF has dropped he has marked swelling. Denies alcoholism or hx of cirrhosis. pt has had low blood pressure throughout this hospitalization preventing diuresis despite furosemide drip. also has been on bumex at home and previous metolazone. He is on entresto. Pts left leg erythema and pain persist. no skin ulceration 11/15 pt says is feeling better. increased urine output overnight to 75 cc/hr. diuretics yet to be started. has been on dobutamine 3-7mcg/kg/min since last 1999. Pt denies chest pain no significant arrhythmias. 11/16 last night with diuresis had sharp stabbing pain in Left lower leg. better after rubbing it and gabapentin. Urine output inadequate volume loss last 24 hours. breathing is improved. Pt says doesnt want to be discharged to soon and not max improvement. *cortisol low at 10.70 and tsh high at 6.37 will replace levothyroxine and hydrocortisone. this should help with diuresis and fluid mobilization quite a bit and is a helpful finding. *hr 110 and dig level was low 0.4 on 62.5 mcg qod. i gave 125mcg IV order now and increased to 62.5 mcg daily decrease dobutamine to 3mcg min due to tachycardia pt was treated with hydrocortisone due to cortisol 10 on dobutamine and in CHF which is abnormal. bp improved diuresis improved 11/17 84 yo WM with hx of afib, severe thrombocytopenia and myeloproliferative disease, CKD 4, and sleep apnea on cpap but never a smoker. came in with acute on chronic combined systolic and diastolic CHF. He also has cellulitis left pretibial leg. Pt has been seeing Dr. Lopez and tried entresto but worsened. renal function. Pt here did poorly on furosemide drip and high dose push so I moved him to ICU with dobutamine at 3mcg/kg/min to 7mcg/kg/min and now back down to 3 with treatment of new finding adrenal insufficiency and underreplaced hypothyroidism. Pt is improved. His biggest concern is not to be discharge too early and have to come back. He knows he is not a candidate for cardiac transplant due to age and poor overall health. He has LVEF 25-30% and RV dilated biatiral dilated mod TR and RVSP 38mm 11/18 Patient continues to diuresis, decreased lower extremity edema. Still feels fairly weak. Still has some dyspnea on exertion. No orthostatic symptoms. No cough or sputum. No chest pain. 11/19 Feeling a little bit stronger today. Still worried about going home early, given his frequent readmissions for heart failure. Dobutamine was weaned off yesterday afternoon, creatinine has crept up to 3.5 today. Changing over to oral diuretics. Also complaining of pain in his left garcia, this is what actually brought him to the hospital. He has been treated for cellulitis. Still with some erythema, a focal area that is more tender is also present. 11/20 Overall thinks he is felt better than he has in some time. Still with some weakness. Feels like his breathing is stable, not as good as it has been in the past, but realizes this may be the new normal. Still has Jaimes catheter in place. Tolerating oral diuretics. BUN is continuing to increase. Pain and l eft garcia associated hematoma is improving with heat 11/21 Constitutional Vitals: Vital Signs Temp Pulse Resp BP Pulse Ox 97.1 F 77 20 112/73 100 11/21/19 12:01 11/21/19 00:21 11/21/19 12:01 11/21/19 13:01 11/21/19 12:01 Period Temp Pulse Resp BP Sys/Ordoñez Pulse Ox Last 24 Hr 97.1 F-98.2 F 77-90 16- 83-112/50-73 91-100 Intake and Output 11/20/19 11/21/19 11/21/19 21:59 05:59 13:59 Intake Total 580 90 60 Output Total 995 355 160 Balance -415 -265 -100 Weight 95.3 kg 95.3 kg Patient Weight 11/22/19 05:59 Weight 95.3 kg Intake & Output: Intake & Output 11/20/19 11/21/19 11/21/19 21:59 05:59 13:59 Intake Total 580 90 60 Output Total 995 355 160 Balance -415 -265 -100 Weight 95.3 kg 95.3 kg Intake: Oral 580 90 60 Output: Urine Catheter Amount 995 355 160 Other: Meal Dinner Percent of Meal Consumed 100% Urine Appearance Clear Clear Clear Uretheral (Jaimes) Clear Urine Color Dark Yellow Dark Yellow Bright Yellow Uretheral (Jaimes) Dark Yellow Urine Odor Normal Normal Stool Size Large Large Stool Color Brown Brown Stool Consistency Soft Formed Exam: General: Alert, Awake, No acute Distress Eyes/N/T: EOMI, Head/Neck: neck supple, normocephalic atraumatic CV: irreg irreg, No murmurs, Pulm: Mildly diminished at bases, no rales or wheezing Abd: soft, nontender, +BS x4 Ext: no clubbing/cyanosis, 2+ b/l LE edema Neuro: Alert, no focal deficits, moves all extremities, Skin: OBJ DATA Labs CBC & Chem 7: 11/20/19 05:00 11/21/19 05:05 Labs: Abnormal Lab Results 11/21/19 11/20/19 11/20/19 05:05 05:00 05:00 RBC 2.64 L Hgb 8.5 L Hct 28.8 L MCV 109.1 H MCHC 29.5 L RDW 23.9 H Plt Count 23 L* Gran % Lymph % (Auto) [place] % (Auto) Lymph # (Auto) [place] # (Auto) PT INR Potassium Chloride 94 L Carbon Dioxide 21 L Anion Gap 18.0 H 19.0 H BUN 118 H* 109 H* Creatinine 3.4 H 3.5 H Glucose 116 H 126 H 11/20/19 11/19/19 11/19/19 05:00 13:37 05:00 RBC 2.44 L Hgb 8.0 L Hct 26.8 L MCV 109.8 H MCHC 29.9 L RDW 23.7 H Plt Count 21 L* Gran % 79.4 H Lymph % (Auto) 1.7 L [place] % (Auto) 18.2 H Lymph # (Auto) 0.14 L [place] # (Auto) 1.47 H PT 19.9 H INR 1.6 H Potassium 2.7 L* Chloride Carbon Dioxide Anion Gap BUN Creatinine Glucose 11/19/19 11/19/19 05:00 05:00 RBC Hgb Hct MCV MCHC RDW Plt Count Gran % Lymph % (Auto) [place] % (Auto) Lymph # (Auto) [place] # (Auto) PT 20.3 H INR 1.7 H Potassium 2.8 L* Chloride 95 L Carbon Dioxide Anion Gap 18.0 H BUN 98 H Creatinine 3.0 H Glucose 130 H Meds: Medications Allopurinol (Zylopriim) 150 mg PO DAILY [facility] Budesonide (Pulmicort) 1 puff INH BID [facility] Bumetanide (Bumex) 2 mg PO DAILY [facility] Calcitriol (Rocaltrol) 0.25 mcg PO MoWeFr@0900 [facility] Cephalexin HCl (Keflex) 250 mg PO BID [facility]; Protocol Digoxin (Lanoxin) 62.5 mcg PO DAILY@1400 [facility] Docusate Sodium (Colace) 100 mg PO BID [facility] Hydrocortisone Sodium Succinate (Solu-Cortef) 50 mg IV Q6 [facility] Lactobacillus Rhamnosus (Culturelle) 1 cap PO QDAY [facility] Levalbuterol HCl (Xopenex) 0.63 mg NEB Q6HP PRN PRN Reason: Shortness Of Breath Levothyroxine Sodium (Synthroid) 150 mcg PO QAMAC [facility] Magnesium Oxide (Magnesium Oxide) 200 mg PO MOWEFR@0900 [facility] Metoprolol Succinate (Toprol Xl) 12.5 mg PO DAILY [facility] Montelukast Sodium (Singular) 10 mg PO QHS [facility] Morphine Sulfate (Morphine) 1 mg IV Q4HP PRN; Protocol PRN Reason: Per Pain Protocol Naloxone HCl (Narcan) 0.1 mg IV Q2MIN PRN PRN Reason: Opiate Reversal Ondansetron HCl (Zofran) 4 mg IV Q6HP PRN PRN Reason: Nausea And Vomiting Pantoprazole Sodium (Protonix) 40 mg PO QAMAC [facility] Potassium Chloride (Kdur) 40 meq PO BIDCC [facility] Senna (Senokot) 2 tab PO HS [facility] Sodium Chloride (Saline Flush) 10 ml IV Q8 [facility] Spironolactone (Aldactone) 25 mg PO DAILY [facility] Tramadol HCl (Ultram) 50 mg PO BIDP PRN; Protocol PRN Reason: pain A/P Narrative A/P Narrative: A: *Acute on chronic systolic (EF 30-35%) CHF with some component of Right heart failure and valvular component with sev TR: -Patient presented with anasarca, 4+ lower extremity edema. Was on dobutamine with good diuresis once cortisol supplementation and higher dose of levothyroxine started. -Dobutamine weaned off Tuesday, has had net diuresis of about 6.5 L. -Interestingly his weight has not changed significantly. I suspect intake/output recorded more accurate than weights. -Digoxin was increased from 62.5 mg every other day to 62.5 mg daily. *Hypokalemia: Likely secondary to diuresis. -Requires continued close monitoring given CKD stage IV. *CKD IV: follows with Dr. Almodovar -Creatinine was tolerating diuresis, however creatinine increased from 3.0- 3.5 after dobutamine discontinued, 3.4 today. -Suspect that is due in part due to loss of inotropic effect of dobutamine. *Cardiorenal syndrome w/renal failure: Entresto stopped during this hospitalization. Diuresing as above *chronic Myeloproliferative d/o with anemia/thrombocytopenia: Follows with Dr. Suarez -With significant thrombocytopenia, due to that warfarin has been stopped. *Swelling and erythema of left garcia: More consistent with a hematoma and some surrounding petechiae -Not surprising given his significant thrombocytopenia -He had been on warfarin at admission which was stopped due to bleeding risk -Ultrasound suggests hematoma, though cannot rule out abscess. However clinically more consistent with hematoma. *Atrial fibrillation: Currently rate controlled. As discussed above, off warfarin. *Adrenal cortex insufficiency: Serum cortisol low. Cardiac output improved with start of hydrocortisone. -Currently on 50 mg every 8 hours. *Hypothyroidism. Levothyroxine previously increased to 150 MCG daily. *Goals of care: Pt with multiple hospitalizations for heart failure this year. Poor prognosis. May benefit from starting discussion with hospice team. P: Discontinued metolazone on Tuesday Change Bumex to daily from twice daily, given continued rise in BUN. Has been on oral Bumex since Tuesday Continue with hydrocortisone supplement, reduce to 20mg bid orally at discharge Continue KCl 40 mEq twice daily until in the mid normal range then stop Follow serum potassium closely given renal failure Continuing to decrease intensity of diuresis as above Continue with heart failure management as above. Heating pad for discomfort Continue digoxin/BB - -pt/ot -ppx: warfarin per pharm but held given thrombocytopenia <50k/ppi DNR Time Spent With Patient Time: Total time spent is greater than 50% in coordination of care (as documented) at patient's floor/unit and/or counseling patient: QUALITY VTE Deep Vein Thrombosis/Pulmonary Embolism Present on Admission: No
[2019-11-21] MEDS: DIGOXIN 125 MCG TABLET PO SCH (14:54)
[2019-11-21] MEDS ORDERED: POTASSIUM CHLORIDE 20 MEQ TABLET PO SCH (17:30)
[2019-11-21] MEDS ORDERED: HYDROCORTISONE SOD SUCC 100 MG VIAL IV SCH (18:00)
--- NOTE | 2019-11-21 19:40 | Discharge Summary ---
Discharge Provider Provider Patient information: Note initiated : 11/21/19 at 7:37 pm Service Date, if different from initiated Date: [] Patient: Dank Garner 84 y/o M admitted on 11/13/19 for shortness of breath, swelling in bilateral lower l. Chief Complaint: [] Date of admission: 11/13/19 22:30 Discharge date: 11/26/19 Primary care physician: Yannick Bahena MD Consults: 11/13/19 Consult to Physician [CONS] Stat Comment: Consulting Provider: Bon Ahuja Reason For Exam: Physician to Consult 11/15/19 08:26 Consult to Physician [CONS] Routine Comment: Consulting Provider: Bradford Larry Reason For Exam: Physician to Consult Discharge Meds Discharge Medications Home Medications nebulizers #1 each 03/04/15 [Rx Confirmed 11/13/19 Last Taken Unknown] CPAP machine and accessories #1 each 11/30/17 [Rx Confirmed 11/13/19 Last Taken 08/12/19 20:00] montelukast 10 mg tablet 10 mg PO QHS tab 08/13/19 [History Confirmed 11/13/19 Last Taken 11/12/19] allopurinol 100 mg tablet 400 mg PO QDAY tab 09/26/19 [History Confirmed 11/13/19 Last Taken 11/13/19 22:56] magnesium chloride 71.5 mg (magnesium chloride) tablet,delayed release 71.5 mg PO MOWEFR@0900 tab 09/26/19 [History Confirmed 11/13/19 Last Taken 11/12/19] Saccharomyces boulardii 250 mg capsule 250 mg PO QDAY cap 11/01/19 [History Confirmed 11/13/19 Last Taken 11/13/19] metolazone 2.5 mg tablet 2.5 mg PO .mwf #30 tab 11/07/19 [Rx Confirmed 11/13/19 Last Taken 11/12/19] potassium chloride 20 mEq tablet,extended release(part/cryst) 40 meq PO QDAY #180 tab 11/07/19 [Rx Confirmed 11/13/19 Last Taken 11/13/19] Pulmicort Flexhaler 1 inh INHALATION BID 11/13/19 [History Confirmed 11/13/19 Last Taken 11/13/19] bumetanide 2 mg PO QDAY 11/13/19 [History Confirmed 11/13/19 Last Taken Unknown] calcitriol 0.25 mcg PO .MWF 11/13/19 [History Confirmed 11/13/19 Last Taken 11/13/19 22:58] digoxin 62.5 mcg PO DAILY 11/13/19 [History Confirmed 11/13/19 Last Taken 11/13/19] hydrocortisone 10 mg PO QDAY #30 tab 11/21/19 [Rx Last Taken Unknown] hydrocortisone 15 mg PO QAM #30 tab 11/21/19 [Rx Last Taken Unknown] levothyroxine 150 mcg PO QAMAC #30 tab 11/21/19 [Rx Last Taken Unknown] metoprolol succinate 12.5 mg PO DAILY #10 tab 11/21/19 [Rx Last Taken Unknown] spironolactone 25 mg PO DAILY #30 tab 11/21/19 [Rx Last Taken Unknown] hydrocodone-acetaminophen 1 tab PO Q6HP PRN #30 tab 11/25/19 [Rx Last Taken Unknown] COURSE Hospital Course Hospital course: History of present illness: Mr. Garner is a 84 year old M with a history of chronic thrombocytopenia, CKD, CHF, chronic myeloproliferative disease, COPD and atrial fibrillation who presented to the ER due to shortness of breath and left leg redness. Patient is a poor historian. As per patient, left lower leg has been red for about 1 week associated with pain. He denies any injury to the leg. Patient also reports that she has been having cough which has been worsening today associated with a white clear sputum. But he denies headache, dizziness, chest pain, fever, chills, abdominal pain, or dysuria. In the ER, chest x-ray showed pulmonary congestion and mild bibasilar pulmonary parenchymal infiltrate. 1 dose Lasix 40 mg, vancomycin and Levaquin waere given in the ER. When I saw this patient in the ER, other than the symptoms mentioned above, he was fine. Denied recent travel or sick contact. 11/13 Pt feels fine and does not have new complaints. Denies fever, chills, nausea, or vomiting. No evidence of bleeding His platelet dropped to 27 today. I will hold warfarin temporarily. INR 2.7 Creatinine 3.0 CRP 0.5 Procalcitonin 0.44 11/14 came in with infection left leg and marked edema. Has also abdominal wall swelling. states he had first [place] about 1999 and then as EF has dropped he has marked swelling. Denies alcoholism or hx of cirrhosis. pt has had low blood pressure throughout this hospitalization preventing diuresis despite furosemide drip. also has been on bumex at home and previous metolazone. He is on entresto. Pts left leg erythema and pain persist. no skin ulceration 11/15 pt says is feeling better. increased urine output overnight to 75 cc/hr. diure tics yet to be started. has been on dobutamine 3-7mcg/kg/min since last 1999. Pt denies chest pain no significant arrhythmias. 11/16 last night with diuresis had sharp stabbing pain in Left lower leg. better after rubbing it and gabapentin. Urine output inadequate volume loss last 24 hours. breathing is improved. Pt says doesnt want to be discharged to soon and not max improvement. *cortisol low at 10.70 and tsh high at 6.37 will replace levothyroxine and hydrocortisone. this should help with diuresis and fluid mobilization quite a bit and is a helpful finding. *hr 110 and dig level was low 0.4 on 62.5 mcg qod. i gave 125mcg IV order now and increased to 62.5 mcg daily decrease dobutamine to 3mcg min due to tachycardia pt was treated with hydrocortisone due to cortisol 10 on dobutamine and in CHF which is abnormal. bp improved diuresis improved 11/17 84 yo WM with hx of afib, severe thrombocytopenia and myeloproliferative disease, CKD 4, and sleep apnea on cpap but never a smoker. came in with acute on chronic combined systolic and diastolic CHF. He also has cellulitis left pretibial leg. Pt has been seeing Dr. Lopez and tried entresto but worsened. renal function. Pt here did poorly on furosemide drip and high dose push so I moved him to ICU with dobutamine at 3mcg/kg/min to 7mcg/kg/min and now back down to 3 with treatment of new finding adrenal insufficiency and underreplaced hypothyroidism. Pt is improved. His biggest concern is not to be discharge too early and have to come back. He knows he is not a candidate for cardiac transplant due to age and poor overall health. He has LVEF 25-30% and RV dilated biatiral dilated mod TR and RVSP 38mm 11/18 Patient continues to diuresis, decreased lower extremity edema. Still feels fairly weak. Still has some dyspnea on exertion. No orthostatic symptoms. No cough or sputum. No chest pain. 11/19 Feeling a little bit stronger today. Still worried about going home early, given his frequent readmissions for heart failure. Dobutamine was weaned off yesterday afternoon, creatinine has crept up to 3.5 today. Changing over to oral diuretics. Also complaining of pain in his left garcia, this is what actually brought him to the hospital. He has been treated for cellulitis. Still with some erythema, a focal area that is more tender is also present. 11/20 Overall thinks he is felt better than he has in some time. Still with some weakness. Feels like his breathing is stable, not as good as it has been in the past, but realizes this may be the new normal. Still has Jaimes catheter in place. Tolerating oral diuretics. BUN is continuing to increase. Pain and left garcia associated hematoma is improving with heat 11/21 Patient states poor sleep last night for no particular reason. The shortness of breath is improved but still labored at times, otherwise feels close to baseline. Does have more edema but did not have wraps on last night. Renal function worsened today. Will hold diuretics till nephrology evaluates, patient still edematous. Had a discussion about goals of care given his severe cardiac pathology/heart failure and his poor renal function. He understands that he is continuing to decline and much more rapidly this year. Admitted that he would be surprised if he was alive in a year. Instructed him given his end-stage heart and kidneys it is very difficult to balance out his fluid status as evidenced by multiple adjustments on an outpatient basis and multiple hospital admissions. He actually would consider hemodialysis although I am not sure what kind of quality and extension it would bring to his life. 11/22 Patient states yesterday was a little rough. Normal candidate is going to be today. Has occasional cough which is decreased. Has shortness of breath similar yesterday. Had further discussions with him regarding goals of care with his at bedside. Dr. Emerson talked with him as well this morning. Lower semi-edema better with compression stockings. Creatinine no improvement today and BUN slightly worse. Platelets still low but stable. Mr. Garner had a discussion with the hospice care team today. He has decided to transition to hospice at home which will be coordinated on Tuesday. However he does not want to go straight comfort care at this moment he would like to continue current treatments with no escalation through the weekend and then plans on home with hospice on Tuesday. 11/23 No overnight event or new complaints. Renal function continues declining. 11/24 Slept all right. No new issues. Plan for home with hospice tomorrow. Stable at this time. Shortness of breath comes and goes, occasional cough. 11/25 Stable at this time. No new issues. Home with hospice today. A: *Acute on chronic systolic(EF 30-35%)/diastolic(III)CHF with some Right heart failure & valvular component with Sev TR: -Home Oxygen 2L's for last several months. -follows with Dr. Brice -Patient presented with anasarca, 4+ lower extremity edema. Was on dobutamine with good diuresis once cortisol supplementation and higher dose of levothyroxine started. -Dobutamine weaned off Tuesday, has had net diuresis of about 6.5 L. -Interestingly his weight has not changed significantly. I suspect intake/output recorded more accurate than weights. -Digoxin was increased from 62.5 mg every other day to 62.5 mg daily. *PATRICIA on CKD IV: follows with Dr. Almodovar -Creatinine was tolerating diuresis, however creatinine increased after dobutamine discontinued, -Suspect that is due in part due to loss of inotropic effect of dobutamine. -worsening *Cardiorenal syndrome w/renal failure: Entresto stopped during this hospitalization. *chronic Myeloproliferative d/o with anemia/thrombocytopenia: Follows with Dr. Suarez -With significant thrombocytopenia, due to that warfarin has been stopped. -Peripheral smear suggested of disease progression *Swelling and erythema of left garcia: More consistent with a hematoma and some surrounding petechiae -Not surprising given his significant thrombocytopenia -He had been on warfarin at admission which was stopped due to bleeding risk -Ultrasound suggests hematoma, though cannot rule out abscess. However clinically more consistent with hematoma. -has been on keflex *Atrial fibrillation: Currently rate controlled. As discussed above, off warfarin. *ART on CPAP: *Adrenal cortex insufficiency: Serum cortisol low. Cardiac output improved with start of hydrocortisone. *Hypothyroidism: Levothyroxine previously increased to 150 MCG daily. *Goals of care: Pt with multiple hospitalizations for heart failure this year. nearing ESRD. Poor prognosis. Discharge diagnosis: Acute on chronic heart failure chronic kidney disease stage IV cardiorenal Secondary discharge diagnosis: Cardiorenal syndrome chronic myeloproliferative disorder atrial fibrillation adrenal insufficiency hypothyroidism Time Spent with Patient Time attestation: Total time spent providing and/or coordinating discharge services: Time spent: Greater than 30 minutes EXAM Constitutional Vitals: Temp Pulse Resp BP Pulse Ox 98 F 77 16 103/65 96 11/21/19 16:10 11/21/19 00:21 11/21/19 19:03 11/21/19 19:03 11/21/19 19:03 Discharge Data Data Completed and Pending Labs on day of discharge: Labs from last 24 hours 11/21/19 05:05 Sodium 136 Potassium 3.6 Chloride 97 Carbon Dioxide 21 L Anion Gap 18.0 H BUN 118 H* Creatinine 3.4 H GFR Calculation 16 Glucose 116 H Calcium 8.9 Discharge Plan Patient/Caregiver Discharge Instructions Activity: increase activity as tolerated Diet: Low Sodium (2gm) Instructions: Heart Failure (GEN), A-fib (Atrial Fibrillation) (GEN), Cellulitis (GEN), Weight Management (GEN), Low-Sodium Diet (GEN), Fluid Restriction (GEN) Activity Restrictions/Additional Instructions: This discharge packet is provided to you to help keep you informed about your care. We want to ensure you get everything you need when you go home. You will also be receiving a call from us in a few days to follow up with you and see how you are doing since your discharge. This gives us a chance to listen to any concerns you maybe experiencing since you were discharged or any additional needs you may have, as well as providing us feedback on your care experience. We strive to always provide excellent care and thank you for your feedback and for choosing [facility]. Please follow up with wound clinic if your left leg cellulitis worsens Prescriptions: New levothyroxine 150 mcg Tablet 150 mcg PO QAMAC Qty: 30 RF: 0 metoprolol succinate 25 mg Tablet Extended Release 24 Hr 12.5 mg PO DAILY Qty: 10 RF: 0 spironolactone 25 mg Tablet 25 mg PO DAILY Qty: 30 RF: 0 hydrocortisone 10 mg tablet 15 mg PO QAM Qty: 30 RF: 0 hydrocortisone 10 mg tablet 10 mg PO QDAY Qty: 30 RF: 0 hydrocodone-acetaminophen 5-325 mg Tablet 1 tab PO Q6HP PRN (Reason: Per Pain Protocol) Qty: 30 RF: 0 Continued (DME) nebulizers misc See Dose Instructions .ROUTE .MEDSUPPLY Qty: 1 RF: 0 (DME) CPAP machine and accessories Qty: 1 RF: 0 metolazone 2.5 mg tablet 2.5 mg PO .mwf Qty: 30 RF: 3 potassium chloride 20 mEq tablet,ER particles/crystals 40 meq PO QDAY Qty: 180 RF: 3 montelukast 10 mg tablet 10 mg PO QHS RF: 0 allopurinol 100 mg tablet 400 mg PO QDAY RF: 0 Slow-Mag 71.5 mg tablet,delayed release (DR/EC) 71.5 mg PO MOWEFR@0900 RF: 0 Saccharomyces boulardii [Daily Probiotic (S. boulardii)] 250 mg capsule 250 mg PO QDAY RF: 0 bumetanide 1 mg Tablet 2 mg PO QDAY RF: 0 digoxin 125 mcg (0.125 mg) Tablet 62.5 mcg PO DAILY RF: 0 Pulmicort Flexhaler 180 mcg/actuation Aerosol Powdr Breath Activated 1 inh INHALATION BID RF: 0 calcitriol 0.25 mcg capsule 0.25 mcg PO .MWF RF: 0 Discontinued levothyroxine 125 mcg tablet 125 mcg PO QDAY Qty: 90 RF: 3 metoprolol succinate 25 mg tablet extended release 24 hr 25 mg PO DAILY Qty: 90 RF: 3 warfarin 5 mg tablet See Rx Instructions .ROUTE .COMPLEX Qty: 1 RF: 0 Entresto 24-26 mg Tablet 1 tab PO BID RF: 0 torsemide 20 mg tablet 40 mg PO QDAY RF: 0 Other Ambulatory Orders: Digoxin (Routine) Timeframe: 3 Days Facility: [facility] - Location: Laboratory Ordered By: Marco Guillaume Follow Up Plan Follow up with: Mitch Almodovar MD [Physician] - Yannick Bahena MD [Primary Care Provider] - 11/29/19 1:00 pm Patient Disposition: Hospice - Home Prognosis: Serious Rehab Potential: Serious Overall status at discharge: patient is not back to baseline Discharge Orders: Discharge Order (Routine); Ordered 11/26/19 Ordered By: Marco Guillaume QUALITY VTE Contraindication No VTE Prophylaxis: Contraindicated (platelets 22) Deep Vein Thrombosis/Pulmonary Embolism Present on Admission: No
[2019-11-21] MEDS: MONTELUKAST 10 MG TABLET PO SCH (20:28)
[2019-11-21] MEDS: SENNOSIDES 1 TABLET PO SCH (20:29)
[2019-11-22] MEDS: HYDROCORTISONE SOD SUCC 100 MG VIAL IV SCH ×3 (06:01→21:55)
[2019-11-22] MEDS: 0.9 % SODIUM CHLORIDE 10 ML SYRINGE IV SCH ×3 (06:01→22:27)
[2019-11-22] MEDS: LEVOTHYROXINE 150 MCG TABLET PO SCH (07:10)
[2019-11-22] MEDS: PANTOPRAZOLE 40 MG TABLET PO SCH (07:10)
[2019-11-22 07:11] LABS: ALT/SGPT 15 U/l (0-40); AST/SGOT 22 U/l (0-37); Albumin 3.6 gm/dL (3.2-5.2); Alkaline Phosphatase 71 U/L (39-117); Bilirubin,Direct 0.5 mg/dL (0.0-0.3); Bilirubin,Total 1.2 mg/dL (0.0-1.0); Calcium 9.4 mg/dl (8.6-10.4); Carbon Dioxide 23 mmol/L (22-30); Globulin 1.8 gm/dL (2.2-3.7); Glomerular Filtration Rate 13; Glucose 119 mg/dL (70-105); Phosphorous 3.3 mg/dL (2.7-4.5); Triglycerides 97 mg/dl (<150)
[2019-11-22 07:14] LABS: Chloride 95 mmol/L (96-108); Lactate Dehydrogenase 592 U/L (94-250)
[2019-11-22 07:31] LABS: Basophils # (Auto) 0.13 K/mcL (0.00-0.30); Blood Urea Nitrogen 124 mg/dl (8-23); Eosinophils # (Auto) 0.01 K/mcL (0.00-0.70); Eosinophils % (Auto) 0.1 % (0.0-7.0); Granulocytes % (Auto) 78.3 % (38.0-78.0); Hematocrit 32.9 % (40.1-51.0); Hemoglobin 9.8 g/dL (13.7-17.5); Lymphocytes # (Auto) 0.59 K/mcL (1.50-4.80); Lymphocytes % (Auto) 4.7 % (15.5-49.0); Mean Cell Volume 111.1 fL (80.0-100.0); Mean Corpuscular HGB Conc 29.8 g/dL (31.0-36.0); Monocytes # (Auto) 2.01 K/mcL (0.10-0.90); Monocytes % (Auto) 15.9 % (1.0-12.0); Platelet Count 28 K/mcL (140-440); RBC 2.96 M/mcL (4.63-6.08); Red Cell Distribution Width 24.4 % (11.5-14.5); WBC 12.6 K/mcL (4.50-11.00)
--- NOTE | 2019-11-22 07:50 | Internal Med Progress Note ---
SUBJECTIVE Subjective Patient information: Note initiated : 11/22/19 at 7:41 am Service Date, if different from initiated Date: [] Patient: Dank Garner 84 y/o M admitted on 11/13/19 for shortness of breath, swelling in bilateral lower l. Chief Complaint: [] Interval history: History of present illness: Mr. Garner is a 84 year old M with a history of chronic thrombocytopenia, CKD, CHF, chronic myeloproliferative disease, COPD and atrial fibrillation who presented to the ER due to shortness of breath and left leg redness. Patient is a poor historian. As per patient, left lower leg has been red for about 1 week associated with pain. He denies any injury to the leg. Patient also reports that she has been having cough which has been worsening today associated with a white clear sputum. But he denies headache, dizziness, chest pain, fever, chills, abdominal pain, or dysuria. In the ER, chest x-ray showed pulmonary congestion and mild bibasilar pulmonary parenchymal infiltrate. 1 dose Lasix 40 mg, vancomycin and Levaquin waere given in the ER. When I saw this patient in the ER, other than the symptoms mentioned above, he was fine. Denied recent travel or sick contact. 11/13 Pt feels fine and does not have new complaints. Denies fever, chills, nausea, or vomiting. No evidence of bleeding His platelet dropped to 27 today. I will hold warfarin temporarily. INR 2.7 Creatinine 3.0 CRP 0.5 Procalcitonin 0.44 11/14 came in with infection left leg and marked edema. Has also abdominal wall swelling. states he had first AL about 1999 and then as EF has dropped he has marked swelling. Denies alcoholism or hx of cirrhosis. pt has had low blood pressure throughout this hospitalization preventing diuresis despite furosemide drip. also has been on bumex at home and previous metolazone. He is on entresto. Pts left leg erythema and pain persist. no skin ulceration 11/15 pt says is feeling better. increased urine output overnight to 75 cc/hr. diuretics yet to be started. has been on dobutamine 3-7mcg/kg/min since last 1999. Pt denies chest pain no significant arrhythmias. 11/16 last night with diuresis had sharp stabbing pain in Left lower leg. better after rubbing it and gabapentin. Urine output inadequate volume loss last 24 hours. breathing is improved. Pt says doesnt want to be discharged to soon and not max improvement. *cortisol low at 10.70 and tsh high at 6.37 will replace levothyroxine and hydrocortisone. this should help with diuresis and fluid mobilization quite a bit and is a helpful finding. *hr 110 and dig level was low 0.4 on 62.5 mcg qod. i gave 125mcg IV order now and increased to 62.5 mcg daily decrease dobutamine to 3mcg min due to tachycardia pt was treated with hydrocortisone due to cortisol 10 on dobutamine and in CHF which is abnormal. bp improved diuresis improved 11/17 84 yo WM with hx of afib, severe thrombocytopenia and myeloproliferative disease, CKD 4, and sleep apnea on cpap but never a smoker. came in with acute on chronic combined systolic and diastolic CHF. He also has cellulitis left pretibial leg. Pt has been seeing Dr. Lopez and tried entresto but worsened. renal function. Pt here did poorly on furosemide drip and high dose push so I moved him to ICU with dobutamine at 3mcg/kg/min to 7mcg/kg/min and now back down to 3 with treatment of new finding adrenal insufficiency and underreplaced hypothyroidism. Pt is improved. His biggest concern is not to be discharge too early and have to come back. He knows he is not a candidate for cardiac transplant due to age and poor overall health. He has LVEF 25-30% and RV dilated biatiral dilated mod TR and RVSP 38mm 11/18 Patient continues to diuresis, decreased lower extremity edema. Still feels fairly weak. Still has some dyspnea on exertion. No orthostatic symptoms. No cough or sputum. No chest pain. 11/19 Feeling a little bit stronger today. Still worried about going home early, given his frequent readmissions for heart failure. Dobutamine was weaned off yesterday afternoon, creatinine has crept up to 3.5 today. Changing over to oral diuretics. Also complaining of pain in his left garcia, this is what actually brought him to the hospital. He has been treated for cellulitis. Still with some erythema, a focal area that is more tender is also present. 11/20 Overall thinks he is felt better than he has in some time. Still with some weakness. Feels like his breathing is stable, not as good as it has been in the past, but realizes this may be the new normal. Still has Jaimes catheter in place. Tolerating oral diuretics. BUN is continuing to increase. Pain and lef t garcia associated hematoma is improving with heat 11/21 Patient states poor sleep last night for no particular reason. The shortness of breath is improved but still labored at times, otherwise feels close to baseline. Does have more edema but did not have wraps on last night. Renal function worsened today. Will hold diuretics till nephrology evaluates, patient still edematous. Had a discussion about goals of care given his severe cardiac pathology/heart failure and his poor renal function. He understands that he is continuing to decline and much more rapidly this year. Admitted that he would be surprised if he was alive in a year. Instructed him given his end-stage heart and kidneys it is very difficult to balance out his fluid status as evidenced by multiple adjustments on an outpatient basis and multiple hospital admissions. He actually would consider hemodialysis although I am not sure what kind of quality and extension it would bring to his life. Review of Systems: denies headache/fever/chills/nausea/vomiting/chest or abdominal pain/diarrhea. Otherwise see above. Constitutional Vitals: Vital Signs Temp Pulse Resp BP Pulse Ox 97.8 F 77 20 135/113 93 11/22/19 04:24 11/21/19 00:21 11/22/19 04:24 11/22/19 04:24 11/22/19 04:24 Period Temp Pulse Resp BP Sys/Ordoñez Pulse Ox Last 24 Hr 97.1 F-98.1 F - 97-135/51-113 93-100 Intake and Output 11/21/19 11/22/19 11/22/19 21:59 05:59 13:59 Intake Total 1120 240 Output Total 675 400 200 Balance 445 -160 -200 Weight 96.071 kg Intake & Output: Intake & Output 11/21/19 11/22/19 11/22/19 21:59 05:59 13:59 Intake Total 1120 240 Output Total 675 400 200 Balance 445 -160 -200 Weight 96.071 kg Intake: Oral 1120 240 Output: Urine Catheter Amount 325 Void Amount 350 400 200 Other: Meal Dinner snack Percent of Meal Consumed 75% Feeding Ability Independent Urine Appearance Clear Clear Clear Urine Color Bright Yellow Bright Yellow Bright Yellow Stool Size Moderate Stool Color Brown Stool Consistency Soft # Bowel Movements 1 Exam: General: Alert, Awake, No acute Distress Eyes/N/T: EOMI, Head/Neck: neck supple, JVD CV: irreg irreg, No murmurs, Pulm: Mildly diminished at bases, mild bibase rales, no wheezing Abd: soft, nontender, +BS x4 Ext: no clubbing/cyanosis, 2-2+ b/l LE edema Neuro: Alert, no focal deficits, moves all extremities, Skin: OBJ DATA Labs CBC & Chem 7: 11/22/19 04:40 11/22/19 04:40 Labs: Abnormal Lab Results 11/22/19 11/22/19 11/21/19 04:40 04:40 05:05 WBC 12.6 H RBC 2.96 L Hgb 9.8 L Hct 32.9 L MCV 111.1 H MCHC 29.8 L RDW 24.4 H Plt Count 28 L* Gran % 78.3 H Lymph % (Auto) 4.7 L [place] % (Auto) 15.9 H Gran # 9.88 H Lymph # (Auto) 0.59 L [place] # (Auto) 2.01 H PT INR Potassium Chloride 95 L Carbon Dioxide 21 L Anion Gap 17.0 H 18.0 H BUN 124 H* 118 H* Creatinine 3.9 H 3.4 H Glucose 119 H 116 H Total Bilirubin 1.2 H Direct Bilirubin 0.5 H Lactate Dehydrogenase 592 H Total Protein 5.4 L Globulin 1.8 L 11/20/19 11/20/19 11/20/19 05:00 05:00 05:00 WBC RBC 2.64 L Hgb 8.5 L Hct 28.8 L MCV 109.1 H MCHC 29.5 L RDW 23.9 H Plt Count 23 L* Gran % Lymph % (Auto) [place] % (Auto) Gran # Lymph # (Auto) [place] # (Auto) PT 19.9 H INR 1.6 H Potassium Chloride 94 L Carbon Dioxide Anion Gap 19.0 H BUN 109 H* Creatinine 3.5 H Glucose 126 H Total Bilirubin Direct Bilirubin Lactate Dehydrogenase Total Protein Globulin 11/19/19 13:37 WBC RBC Hgb Hct MCV MCHC RDW Plt Count Gran % Lymph % (Auto) [place] % (Auto) Gran # Lymph # (Auto) [place] # (Auto) PT INR Potassium 2.7 L* Chloride Carbon Dioxide Anion Gap BUN Creatinine Glucose Total Bilirubin Direct Bilirubin Lactate Dehydrogenase Total Protein Globulin Meds: Medications Allopurinol (Zylopriim) 150 mg PO DAILY [facility] Budesonide (Pulmicort) 1 puff INH BID [facility] Last Admin: 11/21/19 20:28 Dose: 1 puff Documented by: Bumetanide (Bumex) 2 mg PO DAILY [facility] Calcitriol (Rocaltrol) 0.25 mcg PO MoWeFr@0900 [facility] Cephalexin HCl (Keflex) 250 mg PO BID [facility]; Protocol Last Admin: 11/21/19 20:28 Dose: 250 mg Documented by: Digoxin (Lanoxin) 62.5 mcg PO DAILY@1400 [facility] Last Admin: 11/21/19 14:54 Dose: 62.5 mcg Documented by: Docusate Sodium (Colace) 100 mg PO BID [facility] Last Admin: 11/21/19 20:29 Dose: Not Given Documented by: Hydrocortisone Sodium Succinate (Solu-Cortef) 25 mg IV Q6 [facility] Last Admin: 11/22/19 06:01 Dose: 25 mg Documented by: Lactobacillus Rhamnosus (Culturelle) 1 cap PO QDAY [facility] Levalbuterol HCl (Xopenex) 0.63 mg NEB Q6HP PRN PRN Reason: Shortness Of Breath Levothyroxine Sodium (Synthroid) 150 [facility] Last Admin: 11/22/19 07:10 Dose: 150 mcg Documented by: Magnesium Oxide (Magnesium Oxide) 200 mg PO MOWEFR@0900 [facility] Metoprolol Succinate (Toprol Xl) 12.5 mg PO DAILY [facility] Montelukast Sodium (Singular) 10 mg PO QHS [facility] Last Admin: 11/21/19 20:28 Dose: 10 mg Documented by: Morphine Sulfate (Morphine) 1 mg IV Q4HP PRN; Protocol PRN Reason: Per Pain Protocol Naloxone HCl (Narcan) 0.1 mg IV Q2MIN PRN PRN Reason: Opiate Reversal Ondansetron HCl (Zofran) 4 mg IV Q6HP PRN PRN Reason: Nausea And Vomiting Pantoprazole Sodium (Protonix) 40 mg PO QAMAC [facility] Last Admin: 11/22/19 07:10 Dose: 40 mg Documented by: Potassium Chloride (Kdur) [facility] Last Admin: 11/21/19 17:40 Dose: 40 meq Documented by: Senkira (Senokot) 2 tab PO HS [facility] Last Admin: 11/21/19 20:29 Dose: Not Given Documented by: Sodium Chloride (Saline Flush) 10 ml IV Q8 [facility] Last Admin: 11/22/19 06:01 Dose: 10 ml Documented by: Spironolactone (Aldactone) 25 mg PO DAILY [facility] Tramadol HCl (Ultram) 50 mg PO BIDP PRN; Protocol PRN Reason: pain A/P Assessment and plan (1) Acute on chronic combined systolic (congestive) and diastolic (congestive) heart failure: Status: Acute Narrative A/P Narrative: A: *Acute on chronic systolic(EF 30-35%)/diastolic(III)CHF with some Right heart failure & valvular component with Sev TR: -is on Home Oxygen 2L's for last several months. -follows with Dr. Brice -Patient presented with anasarca, 4+ lower extremity edema. Was on dobutamine with good diuresis once cortisol supplementation and higher dose of levothyroxine started. -Dobutamine weaned off Tuesday, has had net diuresis of about 6.5 L. -Interestingly his weight has not changed significantly. I suspect intake/output recorded more accurate than weights. -Digoxin was increased from 62.5 mg every other day to 62.5 mg daily. *Hypokalemia: Likely secondary to diuresis. REsolved -Requires continued close monitoring given CKD stage IV. *PATRICIA on CKD IV: follows with Dr. Almodovar -Creatinine was tolerating diuresis, however creatinine increased from 3.0- 3.5 after dobutamine discontinued, -Suspect that is due in part due to loss of inotropic effect of dobutamine. -worsening *Cardiorenal syndrome w/renal failure: Entresto stopped during this hospitalization. Diuresing as above *chronic Myeloproliferative d/o with anemia/thrombocytopenia: Follows with Dr. Suarez -With significant thrombocytopenia, due to that warfarin has been stopped. *Swelling and erythema of left garcia: More consistent with a hematoma and some surrounding petechiae -Not surprising given his significant thrombocytopenia -He had been on warfarin at admission which was stopped due to bleeding risk -Ultrasound suggests hematoma, though cannot rule out abscess. However clinically more consistent with hematoma. -has been on keflex *Atrial fibrillation: Currently rate controlled. As discussed above, off warfarin. *ART on CPAP: *Adrenal cortex insufficiency: Serum cortisol low. Cardiac output improved with start of hydrocortisone. -Currently on 50 mg every 8 hours. *Hypothyroidism: Levothyroxine previously increased to 150 MCG daily. *Goals of care: Pt with multiple hospitalizations for heart failure this year. Poor prognosis. -pt not amenable to starting discussion with hospice team. P: Discontinued metolazone on Tuesday Bumex changed to daily from twice daily, but will hold now given rise in BUN. & hold aldactone -Nephrology consult Continue with hydrocortisone supplement, wean to oral for d/c potassium replacement prn Continue with heart failure management as above. Heating pad for discomfort Continue digoxin(check level in morning)/BB - -pt/ot -ppx: warfarin per pharm but held given thrombocytopenia <50k/ppi DNR Time Spent With Patient Time: Total time spent is greater than 50% in coordination of care (as documented) at patient's floor/unit and/or counseling patient: QUALITY VTE Deep Vein Thrombosis/Pulmonary Embolism Present on Admission: No
[2019-11-22] MEDS: METOPROLOL SUCCINATE 25 MG TAB.XL.24H PO SCH (08:35)
[2019-11-22] MEDS: LACTOBACILLUS 1 CAPSULE PO SCH (08:35)
[2019-11-22] MEDS: DOCUSATE SODIUM 100 MG CAPSULE PO SCH ×2 (08:36→21:56)
[2019-11-22] MEDS: CEPHALEXIN 250 MG CAPSULE PO SCH ×2 (08:36→21:56)
[2019-11-22] MEDS: ALLOPURINOL 300 MG TABLET PO SCH (08:36)
[2019-11-22] MEDS: BUDESONIDE 1 PUFF INHALER INH SCH ×2 (08:37→21:56)
[2019-11-22] MEDS ORDERED: BUMETANIDE 1 MG TABLET PO SCH ×2 (09:00)
[2019-11-22] MEDS ORDERED: SPIRONOLACTONE 25 MG TABLET PO SCH (09:00)
[2019-11-22 09:02] LABS: Anisocytosis 3+ (NONE SEEN); Blast Cells 5 % (0-0); Lymphocytes % 5 % (15-49); Macrocytosis 2+ (NONE SEEN); Metamyelocytes % 1 % (0-0); Microcytosis 1+ (NONE SEEN); Monocytes % (Manual) 8 % (1-12); Myelocytes % 2 % (0-0); Nucleated Red Blood Cells 14 % (0-0); Ovalocytes 1+ (NONE SEEN); Platelet Estimate MK DECR (NORMAL); Poikilocytosis 2+ (NONE SEEN); Polychromasia 3+ (NONE SEEN); RBC Fragments 1+ (NONE SEEN); RBC Morphology ABNORM (NORMAL); Segmented Neutrophils % 79 % (38-78); Tear Drop Cells 1+ (NONE SEEN)
[2019-11-22] MEDS: DIGOXIN 125 MCG TABLET PO SCH (14:34)
[2019-11-22] MEDS: traMADol 50 MG TABLET PO PRN (16:12)
[2019-11-22] MEDS ORDERED: FUROSEMIDE 100 MG/10 ML VIAL IV ONE (20:02)
[2019-11-22] MEDS ORDERED: ALBUMIN HUMAN 12.5 GM/50 ML BAG IV ONE (20:02)
--- NOTE | 2019-11-22 20:48 | Nephrology Consult Note ---
HPI Data of Consult Primary Care Provider: Yannick Bahena MD Consult Narrative Patient Information: Note initiated : 11/22/19 at 8:45 pm. this is a late entry Service Date, if different from initiated Date: 11/22/2019 1145am Patient: Dank Garner 84 y/o M admitted on 11/13/19 for shortness of breath, swelling in bilateral lower l. Chief Complaint: worsening renal function He was admitted on 11/12/2019 with worsening edema, SOB. review of systems 10 point obtained and positive as below , otherwise negative + lower extremity edema (on "bad days" limited mobility 2/2 weight from edema), intermittent SOB, SOB with activity, abdominal distension, generalized weakness. Reason for consult: worsening renal function PFSH PFSH All Active Problems (Updated 11/23/19 @ 08:55 by Chelsea Emerson MD) Renal failure (Acute) Hypothyroidism (Acute) Adrenal cortex insufficiency (Acute) Acute on chronic combined systolic (congestive) and diastolic (congestive) heart failure (Acute) Congestive heart failure (Acute) Cellulitis (Acute) Acute on chronic clinical systolic heart failure (Acute) Lumbar radiculopathy (Acute) Cholelithiasis (Acute) Laceration (Acute) Encounter for removal of sutures (Acute) Cardiogenic shock (Acute) CKD (chronic kidney disease), stage IV (Chronic) Chronic combined systolic and diastolic CHF (congestive heart failure) (Chronic) Cardiorenal syndrome with renal failure (Chronic) 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) Hyperparathyroidism, secondary renal (Chronic) Secondary hyperparathyroidism of renal origin (Chronic) Cough (Acute) Abdominal aortic aneurysm (AAA) 3.0 cm to 5.5 cm in diameter in male (Acute) COPD (chronic obstructive pulmonary disease) (Acute) Hypothyroidism (Acute) ART on CPAP (Acute) Chronic myeloproliferative disorder (Chronic 05/19/15) Benign prostatic hypertrophy (Chronic) Gout (Chronic) 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) Slow transit constipation (Chronic) Neuropathy (Chronic) Edema (Chronic) Gastroesophageal reflux disease (Chronic) Abdominal distension (Chronic) 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) Vasomotor rhinitis (Chronic) Splenomegaly (Chronic) Secondary hyperparathyroidism of renal origin (Chronic) Allergic rhinitis (Chronic) Restless leg syndrome (Chronic) Raynauds syndrome (Chronic) Protein C deficiency (Chronic) Polycythemia vera (Chronic) Hx of venous thrombosis and embolism (Chronic) Obstructive sleep apnea, adult (Chronic) Hypothyroidism (acquired) (Chronic) Hypertensive renal disease (Chronic) Hypertension, essential (Chronic) Hyperlipidemia (Chronic) Fatigue (Chronic) Congestive heart failure (Chronic) Chronic kidney disease, stage III (moderate) (Chronic) Cardiomyopathy (Chronic) CAD (coronary artery disease) (Chronic) Atrial fibrillation (Chronic) 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 therapy (Chronic) Anemia, iron deficiency (Chronic) Anemia in chronic kidney disease (Chronic) Medical History (Updated 11/23/19 @ 08:55 by Chelsea Emerson MD) Abdominal aortic aneurysm (Ruled-out) Abdominal aortic aneurysm (Ruled-out) USg done neg, ct abdo pelvis done neg in 2012, only usg in 2013 had shown this, which I now believe could be a over read given multiple subsequent studies not showing the aneurysm. Abdominal aortic aneurysm (Resolved) Abdominal distension (Chronic) usg neg, shows 17 cm cyst in liver appears benigh and 21 cm spleen. also poor abdominal wall tone. Acute exacerbation of chronic bronchitis (Resolved) treat with prednisone and zithromax hopefully will get better now that he will have a nebulizer. Acute gout (Resolved) on allopurinol 300, he has ckd and polycythemia, as risk factors. Uric acid 6.8, pt already of 300mg allopurinol with no good response, start on uloric 40mg once daily ,stop allopuinol. Acute on chronic diastolic CHF (congestive heart failure) (Inactive) Allergic rhinitis (Chronic) 07/11/2014 Anemia in chronic kidney disease (Chronic) stable Anemia, iron deficiency (Chronic) Asymptomatic cholelithiasis (Resolved) Atrial fibrillation (Chronic) stop anticoagulation high risk of hemorrhage. check digoxin level again tomorrow. Benign prostatic hypertrophy (Chronic) CAD (coronary artery disease) (Chronic) and stenting Cardiomyopathy (Chronic) Cardiorenal syndrome with renal failure (Chronic) worsening despite entresto and will stop entresto. dobutamine diuresis in ICU. another 24 hours. digoxin renal dosed. bumex, zaroxolyn and low dose spironlactone Chronic combined systolic and diastolic CHF (congestive heart failure) (Chronic) Combined systolic and diastolic congestive heart failure, AICD in place On a combination of low-dose carvedilol digoxin spironolactone and now twice a day furosemide Chronic combined systolic and diastolic CHF (congestive heart failure) (Chronic) On furosemide, BB, low dose aldactone, did not tolerate low dose Sacubitril/valsartan qHS AICD in place Warfarin Chronic kidney disease, stage III (moderate) (Chronic) Stable CKD 3 over the last 4 years Minimal proteinuria Chronic myeloproliferative disorder (Chronic 05/19/15) 05/19/2015-[facility] pt with thrombocytopenia so warfarin stopped. 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 but inhalers did not help at all, at this time, given age, h/o productive cough x 1 yr and a neg x ray chest ,will get a CT of the lungs to r/o any other pathology. NOt a candidate for contrast given CKD. Deep vein thrombosis (Inactive) recurrent Protein C def Degenerative joint disease (Resolved) Edema (Chronic) Fatigue (Chronic) Gastroesophageal reflux disease (Chronic) On pantoprazole, doing well. Gastrointestinal bleeding (Resolved) Gout (Chronic) Hepatic cyst (Resolved) History of cardioversion (Resolved) History of colonic polyps (Resolved) History of peptic ulcer disease (Resolved) Hx of gout (Resolved) Hx of venous thrombosis and embolism (Chronic) Hyperlipidemia (Chronic) LDL ok Hypermagnesemia (Resolved) due to ckd and mg supplements, plan to stop same and monitor. Hyperparathyroidism, secondary renal (Chronic) Stable on low-dose calcitriol every other day Hypersplenism (Resolved) Hypertension, essential (Chronic) bp stable, con coreg, continue same. 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 Probably has an element of high cell turnover and increased uric acid precursor production as well as diuretics, Hypoglycemia (Resolved) Likely pseudohypoglycemia, due to elevated rbc count, no symptoms, workup neg so far, only cpeptide mildly high. Consider CT abdomen if patient has symptoms. 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 therapy (Chronic) Myelofibrosis (Resolved) Myocardial infarction, old (Resolved) 1997 Nephrolithiasis (Resolved) Neuropathy (Chronic) MUltifactorial in the feet, [place] cream topical for now, pt to buy otc, Obstructive sleep apnea, adult (Chronic) Occasional numbness/prickling/tingling of fingers and toes (Inactive) Pneumonia (Inactive) Polycythemia vera (Chronic) Protein C deficiency (Chronic) Raynauds syndrome (Chronic) Restless leg syndrome (Chronic) Secondary hyperparathyroidism of renal origin (Chronic) PTH and vitamin D at goal calcium and phos at goal ct calcitriol 0.25mcg qod Simple cyst of kidney (Inactive) Slow transit constipation (Chronic) chr constipation, plan to increase fiber in diet, advise use of prunes, increase hydration. Splenomegaly (Chronic) Supraventricular tachycardia (Resolved) Tricuspid regurgitation (Resolved) Urinary retention (Inactive) Vasomotor rhinitis (Chronic) Surgical History 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) 03/06/2013 History of intravascular stent placement (Resolved) cardiac History of left knee replacement (Inactive) History of lumbar surgery (Resolved) Lumbar disc surgery L4-5 History of surgical fusion joint (Inactive) Fusion DIP L ring finger History of total cystectomy (Resolved) 12/28/2012 Hx of adenoidectomy (Inactive) Hx of arthroscopic knee surgery (Inactive) right knee Hx of CABG (Resolved) 08/2006 Hx of cataract surgery (Inactive) Hx of tonsillectomy (Inactive) Hx of transurethral resection of prostate (Resolved) Hx of vasectomy (Resolved) Status post cystourethroscopy with dilation of urethral stricture (Inactive) 12/28/2012 Family History Mother Diabetes mellitus Father Cardiac disease at 86yrs old Brother Cerebrovascular accident Social History marital status: education level: college occupational status: retired other: 3 Children, 2 grandchildren smoking status: Never smoker alcohol intake frequency: does not drink substance use type: does not use MEDS/ALLERGIES Home Medications and Allergies Home Medications Medication Instructions Recorded Confirmed Type nebulizers #1 each 03/04/15 11/13/19 Rx CPAP machine and accessories #1 each 11/30/17 11/13/19 Rx montelukast 10 mg tablet 10 mg PO QHS tab 08/13/19 11/13/19 History allopurinol 100 mg tablet 400 mg PO QDAY tab 09/26/19 11/13/19 History magnesium chloride 71.5 mg 71.5 mg PO MOWEFR@0900 tab 09/26/19 11/13/19 History (magnesium chloride) tablet,delayed release Saccharomyces boulardii 250 mg 250 mg PO QDAY cap 11/01/19 11/13/19 History capsule metolazone 2.5 mg tablet 2.5 mg PO .mwf #30 tab 11/07/19 11/13/19 Rx potassium chloride 20 mEq 40 meq PO QDAY #180 tab 11/07/19 11/13/19 Rx tablet,extended release(part/cryst) Pulmicort Flexhaler 1 inh INHALATION BID 11/13/19 11/13/19 History bumetanide 2 mg PO QDAY 11/13/19 11/13/19 History calcitriol 0.25 mcg PO .MWF 11/13/19 11/13/19 History digoxin 62.5 mcg PO DAILY 11/13/19 11/13/19 History hydrocortisone 10 mg PO QDAY #30 tab 11/21/19 Rx hydrocortisone 15 mg PO QAM #30 tab 11/21/19 Rx levothyroxine 150 mcg PO QAMAC #30 tab 11/21/19 Rx metoprolol succinate 12.5 mg PO DAILY #10 tab 11/21/19 Rx spironolactone 25 mg PO DAILY #30 tab 11/21/19 Rx Allergies Allergy/AdvReac Type Severity Reaction Status Date / Time doxycycline Allergy Unknown Unknown Verified 11/13/19 14:50 sulfacetamide Allergy Unknown Unknown Verified 11/13/19 14:50 colchicine [From Colcrys] AdvReac Mild swollen Verified 11/13/19 14:50 feet niacin AdvReac Mild "sensitive" Verified 11/13/19 14:50 oxycodone [Oxycodone] AdvReac Mild Nausea Verified 11/13/19 14:50 Physical Examination Vital Signs Vital signs: Temp Pulse Resp BP Pulse Ox 36.5 C 77 20 112/80 94 11/22/19 20:15 11/21/19 00:21 11/22/19 20:15 11/22/19 20:15 11/22/19 20:15 General Appearance General appearance: frail EENT EENT: ATNC Gastrointestinal Gastrointestinal: no tenderness Additional Exam Additional exam: eye non icteric sclerae head temporal wasting resp no adventitious sounds over anterior aspect extremities no cyanosis; lower extremity edema neuro alert, clear speech Results Lab Results Result Diagrams: 11/23/19 04:58 11/23/19 04:56 Lab results: Most recent lab results Calcium 9.4 mg/dl (8.6-10.4) 11/22/19 04:40 Phosphorus 3.3 mg/dL (2.7-4.5) 11/22/19 04:40 Magnesium 2.0 mg/dL (1.6-2.5) 11/22/19 04:40 A/P Assessment and plan (1) CKD (chronic kidney disease), stage IV: Status: Chronic Comment: at risk for needing dialysis for volume management. see above Narrative A/P Narrative: renal function declining. the patient has biV heart failure. He required diuretic for volume management. Continues to have lower extremity edema, but as long as his oxygenation is adequate, hold diuretic he has severe azotemia, no overt uremia. Discussed in detail options for management including dialysis (PD/ HD)/ hospice - comfort measures. The patient mentioned that his children were not aware of his condition. I encouraged him to talk to them about it. He is interested in PD - I explained that no matter the modality he will need a catheter placement and he is at high risk for cardiovascular complications elaine procedure. He also has significant thrombocytopenia. Explained that dialysis will likely decrease his quality of life and provide limited benefit in terms of extending his life. The patient became tearful and acknowledged he was approaching the end of his life. *hold diuretic. If respiratory status worsens can give dose/ notify renal *strict I/O, daily weight, daily RFP *not a candidate for acute PD; if he decides to pursue dialysis, he will have to do HD then consider alternative options. time limited HD trial is an option, although prognosis is poor. Given that he lives with his and has limited support, I doubt he will be able to do PD. hemodynamics and volume chronic bilateral lower extremity edema. He will continue to have edema as a result of his heart failure. Unfortunately this is interfering with his quality of life. See above discussion Time Spent With Patient Time: Total time spent is greater than 50% in coordination of care (as documented) at patient's floor/unit and/or counseling patient: discussed findings, management options - see above. discussed with [employer]. Total time spent with greater than 50% in coordination of care (as documented) at patient's floor/unit and/or counseling patient:: 25 - 35 minutes
[2019-11-22] MEDS: SENNOSIDES 1 TABLET PO SCH (21:56)
[2019-11-22] MEDS: MONTELUKAST 10 MG TABLET PO SCH (22:00)
[2019-11-23] MEDS: HYDROCORTISONE SOD SUCC 100 MG VIAL IV SCH ×3 (05:52→21:46)
[2019-11-23] MEDS: 0.9 % SODIUM CHLORIDE 10 ML SYRINGE IV SCH ×3 (05:52→21:47)
[2019-11-23 06:58] LABS: Basophils # (Auto) 0.11 K/mcL (0.00-0.30); Eosinophils # (Auto) 0.06 K/mcL (0.00-0.70); Eosinophils % (Auto) 0.5 % (0.0-7.0); Granulocytes % (Auto) 76.6 % (38.0-78.0); Hemoglobin 9.5 g/dL (13.7-17.5); Lymphocytes # (Auto) 0.48 K/mcL (1.50-4.80); Lymphocytes % (Auto) 4.2 % (15.5-49.0); Mean Cell Volume 110.3 fL (80.0-100.0); Mean Corpuscular HGB Conc 29.7 g/dL (31.0-36.0); Monocytes # (Auto) 2.03 K/mcL (0.10-0.90); Monocytes % (Auto) 17.7 % (1.0-12.0); Platelet Count 29 K/mcL (140-440); Red Cell Distribution Width 24.1 % (11.5-14.5); WBC 11.5 K/mcL (4.50-11.00)
[2019-11-23] MEDS: LEVOTHYROXINE 150 MCG TABLET PO SCH (07:24)
[2019-11-23] MEDS: PANTOPRAZOLE 40 MG TABLET PO SCH (07:24)
[2019-11-23 07:30] LABS: ALT/SGPT 16 U/l (0-40); AST/SGOT 22 U/l (0-37); Albumin 3.5 gm/dL (3.2-5.2); Albumin/Globulin Ratio 1.9 (1.0-2.3); Alkaline Phosphatase 61 U/L (39-117); Bilirubin,Direct 0.6 mg/dL (0.0-0.3); Bilirubin,Total 1.6 mg/dL (0.0-1.0); Calcium 9.5 mg/dl (8.6-10.4); Carbon Dioxide 24 mmol/L (22-30); Globulin 1.8 gm/dL (2.2-3.7); Glomerular Filtration Rate 13; Glucose 120 mg/dL (70-105); Phosphorous 3.7 mg/dL (2.7-4.5); Triglycerides 65 mg/dl (<150)
[2019-11-23 07:32] LABS: Digoxin 1.3 ng/mL
--- NOTE | 2019-11-23 07:41 | Internal Med Progress Note ---
SUBJECTIVE Subjective Patient information: Note initiated : 11/23/19 at 7:38 am Service Date, if different from initiated Date: [] Patient: Dank Garner 84 y/o M admitted on 11/13/19 for shortness of breath, swelling in bilateral lower l. Chief Complaint: [] Interval history: History of present illness: Mr. Garner is a 84 year old M with a history of chronic thrombocytopenia, CKD, CHF, chronic myeloproliferative disease, COPD and atrial fibrillation who presented to the ER due to shortness of breath and left leg redness. Patient is a poor historian. As per patient, left lower leg has been red for about 1 week associated with pain. He denies any injury to the leg. Patient also reports that she has been having cough which has been worsening today associated with a white clear sputum. But he denies headache, dizziness, chest pain, fever, chills, abdominal pain, or dysuria. In the ER, chest x-ray showed pulmonary congestion and mild bibasilar pulmonary parenchymal infiltrate. 1 dose Lasix 40 mg, vancomycin and Levaquin waere given in the ER. When I saw this patient in the ER, other than the symptoms mentioned above, he was fine. Denied recent travel or sick contact. 11/13 Pt feels fine and does not have new complaints. Denies fever, chills, nausea, or vomiting. No evidence of bleeding His platelet dropped to 27 today. I will hold warfarin temporarily. INR 2.7 Creatinine 3.0 CRP 0.5 Procalcitonin 0.44 11/14 came in with infection left leg and marked edema. Has also abdominal wall swelling. states he had first ND about 1999 and then as EF has dropped he has marked swelling. Denies alcoholism or hx of cirrhosis. pt has had low blood pressure throughout this hospitalization preventing diuresis despite furosemide drip. also has been on bumex at home and previous metolazone. He is on entresto. Pts left leg erythema and pain persist. no skin ulceration 11/15 pt says is feeling better. increased urine output overnight to 75 cc/hr. diuretics yet to be started. has been on dobutamine 3-7mcg/kg/min since last 1999. Pt denies chest pain no significant arrhythmias. 11/16 last night with diuresis had sharp stabbing pain in Left lower leg. better after rubbing it and gabapentin. Urine output inadequate volume loss last 24 hours. breathing is improved. Pt says doesnt want to be discharged to soon and not max improvement. *cortisol low at 10.70 and tsh high at 6.37 will replace levothyroxine and hydrocortisone. this should help with diuresis and fluid mobilization quite a bit and is a helpful finding. *hr 110 and dig level was low 0.4 on 62.5 mcg qod. i gave 125mcg IV order now and increased to 62.5 mcg daily decrease dobutamine to 3mcg min due to tachycardia pt was treated with hydrocortisone due to cortisol 10 on dobutamine and in CHF which is abnormal. bp improved diuresis improved 11/17 84 yo WM with hx of afib, severe thrombocytopenia and myeloproliferative disease, CKD 4, and sleep apnea on cpap but never a smoker. came in with acute on chronic combined systolic and diastolic CHF. He also has cellulitis left pretibial leg. Pt has been seeing Dr. Lopez and tried entresto but worsened. renal function. Pt here did poorly on furosemide drip and high dose push so I moved him to ICU with dobutamine at 3mcg/kg/min to 7mcg/kg/min and now back down to 3 with treatment of new finding adrenal insufficiency and underreplaced hypothyroidism. Pt is improved. His biggest concern is not to be discharge too early and have to come back. He knows he is not a candidate for cardiac transplant due to age and poor overall health. He has LVEF 25-30% and RV dilated biatiral dilated mod TR and RVSP 38mm 11/18 Patient continues to diuresis, decreased lower extremity edema. Still feels fairly weak. Still has some dyspnea on exertion. No orthostatic symptoms. No cough or sputum. No chest pain. 11/19 Feeling a little bit stronger today. Still worried about going home early, given his frequent readmissions for heart failure. Dobutamine was weaned off yesterday afternoon, creatinine has crept up to 3.5 today. Changing over to oral diuretics. Also complaining of pain in his left garcia, this is what actually brought him to the hospital. He has been treated for cellulitis. Still with some erythema, a focal area that is more tender is also present. 11/20 Overall thinks he is felt better than he has in some time. Still with some weakness. Feels like his breathing is stable, not as good as it has been in the past, but realizes this may be the new normal. Still has Jaimes catheter in place. Tolerating oral diuretics. BUN is continuing to increase. Pain and lef t garcia associated hematoma is improving with heat 11/21 Patient states poor sleep last night for no particular reason. The shortness of breath is improved but still labored at times, otherwise feels close to baseline. Does have more edema but did not have wraps on last night. Renal function worsened today. Will hold diuretics till nephrology evaluates, patient still edematous. Had a discussion about goals of care given his severe cardiac pathology/heart failure and his poor renal function. He understands that he is continuing to decline and much more rapidly this year. Admitted that he would be surprised if he was alive in a year. Instructed him given his end-stage heart and kidneys it is very difficult to balance out his fluid status as evidenced by multiple adjustments on an outpatient basis and multiple hospital admissions. He actually would consider hemodialysis although I am not sure what kind of quality and extension it would bring to his life. 11/22 Patient states yesterday was a little rough. Normal candidate is going to be today. Has occasional cough which is decreased. Has shortness of breath similar yesterday. Had further discussions with him regarding goals of care with his at bedside. Dr. Emerson talked with him as well this morning. Lower semi-edema better with compression stockings. Creatinine no improvement today and BUN slightly worse. Platelets still low but stable. Review of Systems: denies headache/fever/chills/nausea/vomiting/chest or abdominal pain/diarrhea. Otherwise see above. Constitutional Vitals: Vital Signs Temp Pulse Resp BP Pulse Ox 98.8 F 77 20 101/67 93 11/23/19 04:01 11/21/19 00:21 11/23/19 00:01 11/23/19 04:01 11/23/19 04:58 Period Temp Pulse Resp BP Sys/Ordoñez Pulse Ox Last 24 Hr 97.2 F-98.8 F 16-20 91-123/50-80 92-98 Intake and Output 11/22/19 11/23/19 11/23/19 21:59 05:59 13:59 Intake Total 200 390 240 Output Total 200 360 Balance 0 30 240 Weight 98.792 kg Intake & Output: Intake & Output 11/22/19 11/23/19 11/23/19 21:59 05:59 13:59 Intake Total 200 390 240 Output Total 200 360 Balance 0 30 240 Weight 98.792 kg Intake: IV 50 Oral 200 340 240 Output: Urine Catheter Amount 360 Void Amount 200 Other: Meal Dinner Percent of Meal Consumed 75% Feeding Ability Independent Urine Appearance Clear Clear Uretheral (Jaimes) Clear Urine Color Dark Yellow Dark Yellow Uretheral (Jaimes) Dark Yellow Stool Size Small Moderate Stool Color Brown Brown Stool Consistency Soft Soft Formed Formed # Bowel Movements 1 1 Exam: General: Alert, Awake, No acute Distress Eyes/N/T: EOMI, Head/Neck: neck supple, JVD CV: irreg irreg, No murmurs, Pulm: Mildly diminished at bases, mild bibase rales, no wheezing Abd: soft, nontender, +BS x4 Ext: no clubbing/cyanosis, 2-2+ b/l LE edema Neuro: Alert, no focal deficits, moves all extremities, Skin: OBJ DATA Labs CBC & Chem 7: 11/23/19 04:58 11/23/19 04:56 Labs: Abnormal Lab Results 11/23/19 11/23/19 11/22/19 04:58 04:56 04:40 WBC 11.5 H RBC 2.90 L Hgb 9.5 L Hct 32.0 L MCV 110.3 H MCHC 29.7 L RDW 24.1 H Plt Count 29 L* Gran % Lymph % (Auto) 4.2 L Bertie % (Auto) 17.7 H Gran # 8.78 H Lymph # (Auto) 0.48 L Bertie # (Auto) 2.03 H Seg Neutrophils % 79 H Lymphocytes % 5 L Metamyelocytes % 1 H Myelocytes % 2 H Nucleated RBCs 14 H Blast Cells 5 H Platelet Estimate Mk decr A RBC Morphology Abnorm A Polychromasia 3+ A Poikilocytosis 2+ A Anisocytosis 3+ A Microcytosis 1+ A Macrocytosis 2+ A Tear Drop Cells 1+ A Ovalocytes 1+ A RBC Fragments 1+ A Chloride Carbon Dioxide Anion Gap BUN Creatinine 3.9 H Glucose 120 H Total Bilirubin 1.6 H Direct Bilirubin 0.6 H Lactate Dehydrogenase Total Protein 5.3 L Globulin 1.8 L 11/22/19 11/22/19 11/21/19 04:40 04:40 05:05 WBC 12.6 H RBC 2.96 L Hgb 9.8 L Hct 32.9 L MCV 111.1 H MCHC 29.8 L RDW 24.4 H Plt Count 28 L* Gran % 78.3 H Lymph % (Auto) 4.7 L Bertie % (Auto) 15.9 H Gran # 9.88 H Lymph # (Auto) 0.59 L Bertie # (Auto) 2.01 H Seg Neutrophils % Lymphocytes % Metamyelocytes % Myelocytes % Nucleated RBCs Blast Cells Platelet Estimate RBC Morphology Polychromasia Poikilocytosis Anisocytosis Microcytosis Macrocytosis Tear Drop Cells Ovalocytes RBC Fragments Chloride 95 L Carbon Dioxide 21 L Anion Gap 17.0 H 18.0 H BUN 124 H* 118 H* Creatinine 3.9 H 3.4 H Glucose 119 H 116 H Total Bilirubin 1.2 H Direct Bilirubin 0.5 H Lactate Dehydrogenase 592 H Total Protein 5.4 L Globulin 1.8 L Meds: Medications Allopurinol (Zylopriim) 150 mg PO DAILY [facility] Last Admin: 11/22/19 08:36 Dose: 150 mg Documented by: Budesonide (Pulmicort) 1 puff INH BID [facility] Last Admin: 11/22/19 21:56 Dose: 1 puff Documented by: Calcitriol (Rocaltrol) 0.25 mcg PO MoWeFr@0900 [facility] Cephalexin HCl (Keflex) 250 mg PO BID [facility]; Protocol Last Admin: 11/22/19 21:56 Dose: 250 mg Documented by: Digoxin (Lanoxin) 62.5 mcg PO DAILY@1400 [facility] Last Admin: 11/22/19 14:34 Dose: 62.5 mcg Documented by: Docusate Sodium (Colace) 100 mg PO BID [facility] Last Admin: 11/22/19 21:56 Dose: 100 mg Documented by: Hydrocortisone Sodium Succinate (Solu-Cortef) 25 mg IV Q8 [facility] Last Admin: 11/23/19 05:52 Dose: 25 mg Documented by: Lactobacillus Rhamnosus (Culturelle) 1 cap PO QDAY [facility] Last Admin: 11/22/19 08:35 Dose: 1 cap Documented by: Levalbuterol HCl (Xopenex) 0.63 mg NEB Q6HP PRN PRN Reason: Shortness Of Breath [facility] Last Admin: 11/23/19 07:24 Dose: 150 mcg Documented by: Magnesium Oxide (Magnesium Oxide) 200 mg PO MOWEFR@0900 [facility] Metoprolol Succinate (Toprol Xl) 12.5 mg PO DAILY [facility] Last Admin: 11/22/19 08:35 Dose: 12.5 mg Documented by: Montelukast Sodium (Singular) 10 mg PO QHS [facility] Last Admin: 11/22/19 22:00 Dose: 10 mg Documented by: Morphine Sulfate (Morphine) 1 mg IV Q4HP PRN; Protocol PRN Reason: Per Pain Protocol Naloxone HCl (Narcan) 0.1 mg IV Q2MIN PRN PRN Reason: Opiate Reversal Ondansetron HCl (Zofran) 4 mg IV Q6HP PRN PRN Reason: Nausea And Vomiting Pantoprazole [facility] ([facility]ix) [facility] Last Admin: 11/23/19 07:24 Dose: 40 mg Documented by: Senna (Senokot) 2 tab PO [facility] Last Admin: 11/22/19 21:56 Dose: 2 tab Documented by: Sodium Chloride (Saline Flush) 10 ml IV Q8 [facility] Last Admin: 11/23/19 05:52 Dose: 10 ml Documented by: Tramadol HCl (Ultram) 50 mg PO BIDP PRN; Protocol PRN Reason: pain Last Admin: 11/22/19 16:12 Dose: 50 mg Documented by: A/P Narrative A/P Narrative: A: *Acute on chronic systolic(EF 30-35%)/diastolic(III)CHF with some Right heart failure & valvular component with Sev TR: -Home Oxygen 2L's for last several months. -follows with Dr. Brice -Patient presented with anasarca, 4+ lower extremity edema. Was on dobutamine with good diuresis once cortisol supplementation and higher dose of levothyroxine started. -Dobutamine weaned off Tuesday, has had net diuresis of about 6.5 L. -Interestingly his weight has not changed significantly. I suspect intake/output recorded more accurate than weights. -Digoxin was increased from 62.5 mg every other day to 62.5 mg daily. *Hypokalemia: Likely secondary to diuresis. REsolved -Requires continued close monitoring given CKD stage IV. *PATRICIA on CKD IV: follows with Dr. Almodovar -Creatinine was tolerating diuresis, however creatinine increased from 3.0- 3.5 after dobutamine discontinued, -Suspect that is due in part due to loss of inotropic effect of dobutamine. -worsening *Cardiorenal syndrome w/renal failure: Entresto stopped during this hospitalization. Diuresing as above *chronic Myeloproliferative d/o with anemia/thrombocytopenia: Follows with Dr. Suarez -With significant thrombocytopenia, due to that warfarin has been stopped. *Swelling and erythema of left garcia: More consistent with a hematoma and some surrounding petechiae -Not surprising given his significant thrombocytopenia -He had been on warfarin at admission which was stopped due to bleeding risk -Ultrasound suggests hematoma, though cannot rule out abscess. However clinically more consistent with hematoma. -has been on keflex *Atrial fibrillation: Currently rate controlled. As discussed above, off w arfarin. *ART on CPAP: *Adrenal cortex insufficiency: Serum cortisol low. Cardiac output improved with start of hydrocortisone. *Hypothyroidism: Levothyroxine previously increased to 150 MCG daily. *Goals of care: Pt with multiple hospitalizations for heart failure this year. nearing ESRD. Poor prognosis. P: Diuresis held, defer further diuertics to Nephro -Nephrology following Continue with hydrocortisone supplement, wean to oral for d/c potassium replacement prn Continue with heart failure management as above. Heating pad for discomfort Continue digoxin(held today, monitor levels)/BB -awaiting further pt/family decision -pt/ot -ppx: warfarin per pharm but held given thrombocytopenia <50k/ppi DNR Time Spent With Patient Time: Total time spent is greater than 50% in coordination of care (as doc umented) at patient's floor/unit and/or counseling patient: QUALITY VTE Deep Vein Thrombosis/Pulmonary Embolism Present on Admission: No
[2019-11-23 07:47] LABS: Blood Urea Nitrogen 131 mg/dl (8-23); Chloride 94 mmol/L (96-108); Lactate Dehydrogenase 563 U/L (94-250)
--- NOTE | 2019-11-23 08:56 | Nephrology Progress Note ---
SUBJECTIVE Subjective Patient information: Note initiated : 11/23/19 at 8:54 am Service Date, if different from initiated Date: [] Patient: Dank Garner 84 y/o M admitted on 11/13/19 for shortness of breath, swelling in bilateral lower l. Chief Complaint: worsening renal function. Interval history: normotensive to low normal BP; no acute events. Constitutional Vitals: Vital Signs Temp Pulse Resp BP Pulse Ox 37.1 C 77 20 101/67 93 11/23/19 04:01 11/21/19 00:21 11/23/19 00:01 11/23/19 04:01 11/23/19 04:58 Period Temp Pulse Resp BP Sys/Ordoñez Pulse Ox Last 24 Hr 36.2 C-37.1 C 16-20 91-123/50-80 92-98 Intake and Output 11/22/19 11/23/19 11/23/19 21:59 05:59 13:59 Intake Total 200 390 240 Output Total 200 360 100 Balance 0 30 140 Weight 98.792 kg Intake & Output: Intake & Output 11/22/19 11/23/19 11/23/19 21:59 05:59 13:59 Intake Total 200 390 240 Output Total 200 360 100 Balance 0 30 140 Weight 98.792 kg Intake: IV 50 Oral 200 340 240 Output: Urine Catheter Amount 360 100 Void Amount 200 Other: Meal Dinner Percent of Meal Consumed 75% Feeding Ability Independent Urine Appearance Clear Clear Clear Uretheral (Jaimes) Clear Urine Color Dark Yellow Dark Yellow Bright Yellow Uretheral (Jaimes) Dark Yellow Stool Size Small Moderate Moderate Stool Color Brown Brown Brown Stool Consistency Soft Soft Soft Formed Formed # Bowel Movements 1 1 1 A/P Assessment and plan (1) Renal failure: Status: Acute Narrative A/P Narrative: renal function remains poor. azotemia worsening. efforts to control volume status not successful. Long discussion with the patient about findings and options for management including renal replacement therapy, hospice consult/ medical management. Mr. Garner wanted to talk with his . During my second visit the was in the room. Questions answered. Later in the day I was notified that the patient decided for comfort measures and will be discharged with hospice. I am signing off. Please call with questions/ concerns. echocardiogram 11/13/2019 LVEF 30-35%, moderate global hypokinesis of the left ventricle. RV moderately dilated, RV function mildly reduced. severe biatrial enlargement. severe TR. Time Spent With Patient Time: Total time spent is greater than 50% in coordination of care (as documented) at patient's floor/unit and/or counseling patient:discussion with patient about options, GOC. Discussion with RAT POISONER and primary team. Total time spent with greater than 50% in coordination of care (as documented) at patient's floor/unit and/or counseling patient:: 25 - 35 minutes
[2019-11-23] MEDS: METOPROLOL SUCCINATE 25 MG TAB.XL.24H PO SCH (09:12)
[2019-11-23] MEDS: ALLOPURINOL 300 MG TABLET PO SCH (09:12)
[2019-11-23] MEDS: CALCITRIOL 0.25 MCG CAPSULE PO SCH (09:12)
[2019-11-23] MEDS: CEPHALEXIN 250 MG CAPSULE PO SCH ×2 (09:13→21:46)
[2019-11-23] MEDS: LACTOBACILLUS 1 CAPSULE PO SCH (09:13)
[2019-11-23] MEDS: MAGNESIUM OXIDE 400 MG TABLET PO SCH (09:13)
[2019-11-23] MEDS: DOCUSATE SODIUM 100 MG CAPSULE PO SCH ×2 (09:14→21:45)
[2019-11-23] MEDS: BUDESONIDE 1 PUFF INHALER INH SCH ×2 (10:00→21:46)
[2019-11-23] MEDS: DIGOXIN 125 MCG TABLET PO SCH (12:46)
[2019-11-23] MEDS: traMADol 50 MG TABLET PO PRN (15:33)
[2019-11-23] MEDS: MONTELUKAST 10 MG TABLET PO SCH (21:46)
[2019-11-23] MEDS: SENNOSIDES 1 TABLET PO SCH (21:47)
[2019-11-24] MEDS: 0.9 % SODIUM CHLORIDE 10 ML SYRINGE IV SCH ×3 (05:39→20:08)
[2019-11-24] MEDS: HYDROCORTISONE SOD SUCC 100 MG VIAL IV SCH ×2 (05:39→20:08)
[2019-11-24] MEDS: PANTOPRAZOLE 40 MG TABLET PO SCH (07:22)
[2019-11-24] MEDS: LEVOTHYROXINE 150 MCG TABLET PO SCH (07:23)
[2019-11-24 07:43] LABS: Calcium 8.9 mg/dl (8.6-10.4); Carbon Dioxide 21 mmol/L (22-30); Glomerular Filtration Rate 13; Glucose 110 mg/dL (70-105)
[2019-11-24 07:46] LABS: Chloride 93 mmol/L (96-108)
[2019-11-24 08:04] LABS: Blood Urea Nitrogen 140 mg/dl (8-23)
--- NOTE | 2019-11-24 08:08 | Internal Med Progress Note ---
SUBJECTIVE Subjective Patient information: Note initiated : 11/24/19 at 8:06 am Service Date, if different from initiated Date: [] Patient: Dank Garner 84 y/o M admitted on 11/13/19 for shortness of breath, swelling in bilateral lower l. Chief Complaint: [] Interval history: History of present illness: Mr. Garner is a 84 year old M with a history of chronic thrombocytopenia, CKD, CHF, chronic myeloproliferative disease, COPD and atrial fibrillation who presented to the ER due to shortness of breath and left leg redness. Patient is a poor historian. As per patient, left lower leg has been red for about 1 week associated with pain. He denies any injury to the leg. Patient also reports that she has been having cough which has been worsening today associated with a white clear sputum. But he denies headache, dizziness, chest pain, fever, chills, abdominal pain, or dysuria. In the ER, chest x-ray showed pulmonary congestion and mild bibasilar pulmonary parenchymal infiltrate. 1 dose Lasix 40 mg, vancomycin and Levaquin waere given in the ER. When I saw this patient in the ER, other than the symptoms mentioned above, he was fine. Denied recent travel or sick contact. 11/13 Pt feels fine and does not have new complaints. Denies fever, chills, nausea, or vomiting. No evidence of bleeding His platelet dropped to 27 today. I will hold warfarin temporarily. INR 2.7 Creatinine 3.0 CRP 0.5 Procalcitonin 0.44 11/14 came in with infection left leg and marked edema. Has also abdominal wall swelling. states he had first [place] about 1999 and then as EF has dropped he has marked swelling. Denies alcoholism or hx of cirrhosis. pt has had low blood pressure throughout this hospitalization preventing diuresis despite furosemide drip. also has been on bumex at home and previous metolazone. He is on entresto. Pts left leg erythema and pain persist. no skin ulceration 11/15 pt says is feeling better. increased urine output overnight to 75 cc/hr. diuretics yet to be started. has been on dobutamine 3-7mcg/kg/min since last 1999. Pt denies chest pain no significant arrhythmias. 11/16 last night with diuresis had sharp stabbing pain in Left lower leg. better after rubbing it and gabapentin. Urine output inadequate volume loss last 24 hours. breathing is improved. Pt says doesnt want to be discharged to soon and not max improvement. *cortisol low at 10.70 and tsh high at 6.37 will replace levothyroxine and hydrocortisone. this should help with diuresis and fluid mobilization quite a bit and is a helpful finding. *hr 110 and dig level was low 0.4 on 62.5 mcg qod. i gave 125mcg IV order now and increased to 62.5 mcg daily decrease dobutamine to 3mcg min due to tachycardia pt was treated with hydrocortisone due to cortisol 10 on dobutamine and in CHF which is abnormal. bp improved diuresis improved 11/17 84 yo WM with hx of afib, severe thrombocytopenia and myeloproliferative disease, CKD 4, and sleep apnea on cpap but never a smoker. came in with acute on chronic combined systolic and diastolic CHF. He also has cellulitis left pretibial leg. Pt has been seeing Dr. Lopez and tried entresto but worsened. renal function. Pt here did poorly on furosemide drip and high dose push so I moved him to ICU with dobutamine at 3mcg/kg/min to 7mcg/kg/min and now back down to 3 with treatment of new finding adrenal insufficiency and underreplaced hypothyroidism. Pt is improved. His biggest concern is not to be discharge too early and have to come back. He knows he is not a candidate for cardiac transplant due to age and poor overall health. He has LVEF 25-30% and RV dilated biatiral dilated mod TR and RVSP 38mm 11/18 Patient continues to diuresis, decreased lower extremity edema. Still feels fairly weak. Still has some dyspnea on exertion. No orthostatic symptoms. No cough or sputum. No chest pain. 11/19 Feeling a little bit stronger today. Still worried about going home early, given his frequent readmissions for heart failure. Dobutamine was weaned off yesterday afternoon, creatinine has crept up to 3.5 today. Changing over to oral diuretics. Also complaining of pain in his left garcia, this is what actually brought him to the hospital. He has been treated for cellulitis. Still with some erythema, a focal area that is more tender is also present. 11/20 Overall thinks he is felt better than he has in some time. Still with some weakness. Feels like his breathing is stable, not as good as it has been in the past, but realizes this may be the new normal. Still has Jaimes catheter in place. Tolerating oral diuretics. BUN is continuing to increase. Pain and lef t garcia associated hematoma is improving with heat 11/21 Patient states poor sleep last night for no particular reason. The shortness of breath is improved but still labored at times, otherwise feels close to baseline. Does have more edema but did not have wraps on last night. Renal function worsened today. Will hold diuretics till nephrology evaluates, patient still edematous. Had a discussion about goals of care given his severe cardiac pathology/heart failure and his poor renal function. He understands that he is continuing to decline and much more rapidly this year. Admitted that he would be surprised if he was alive in a year. Instructed him given his end-stage heart and kidneys it is very difficult to balance out his fluid status as evidenced by multiple adjustments on an outpatient basis and multiple hospital admissions. He actually would consider hemodialysis although I am not sure what kind of quality and extension it would bring to his life. 11/22 Patient states yesterday was a little rough. Normal candidate is going to be today. Has occasional cough which is decreased. Has shortness of breath similar yesterday. Had further discussions with him regarding goals of care with his at bedside. Dr. Emerson talked with him as well this morning. Lower semi-edema better with compression stockings. Creatinine no improvement today and BUN slightly worse. Platelets still low but stable. Mr. Garner had a discussion with the hospice care team today. He has decided to transition to hospice at home which will be coordinated on Tuesday. However he does not want to go straight comfort care at this moment he would like to continue current treatments with no escalation through the weekend and then plans on home with hospice on Tuesday. 11/23 No overnight event or new complaints. Renal function continues declining. Review of Systems: denies headache/fever/chills/nausea/vomiting/chest or abdominal pain/diarrhea. Otherwise see above. Constitutional Vitals: Vital Signs Temp Pulse Resp BP Pulse Ox 97.6 F 87 20 103/64 91 11/24/19 07:14 11/24/19 07:14 11/24/19 07:14 11/24/19 07:14 08/29/20 07:14 Period Temp Pulse Resp BP Sys/Ordoñez Pulse Ox Last 24 Hr 97.6 F-98.4 F 73-89 18-21 103-113/61-68 91-99 Intake and Output 11/23/19 11/24/19 11/24/19 21:59 05:59 13:59 Intake Total 340 240 Output Total 180 745 Balance 160 -505 Weight 100.108 kg Intake & Output: Intake & Output 11/23/19 11/24/19 11/24/19 21:59 05:59 13:59 Intake Total 340 240 Output Total 180 745 Balance 160 -505 Weight 100.108 kg Intake: Oral 340 240 Output: Urine Catheter Amount 180 745 Other: Meal Dinner Percent of Meal Consumed 75% Feeding Ability Independent Urine Appearance Clear Clear Urine Color Bright Yellow Dark Yellow Stool Size Small Stool Color Brown Stool Consistency Soft # Bowel Movements 1 Exam: General: Alert, Awake, No acute Distress Eyes/N/T: EOMI, Head/Neck: neck supple, JVD CV: irreg irreg, No murmurs, Pulm: Mildly diminished at bases, mild bibase rales, no wheezing Abd: soft, nontender, +BS x4 Ext: no clubbing/cyanosis, 2+ b/l LE edema Neuro: Alert, no focal deficits, moves all extremities, Skin: OBJ DATA Labs CBC & Chem 7: 11/24/19 06:20 11/24/19 06:20 Labs: Abnormal Lab Results 11/24/19 11/23/19 11/23/19 06:20 04:58 04:56 WBC 11.5 H RBC 2.90 L Hgb 9.5 L Hct 32.0 L MCV 110.3 H MCHC 29.7 L RDW 24.1 H Plt Count 29 L* Gran % Lymph % (Auto) 4.2 L [place] % (Auto) 17.7 H Gran # 8.78 H Lymph # (Auto) 0.48 L [place] # (Auto) 2.03 H Seg Neutrophils % Lymphocytes % Metamyelocytes % Myelocytes % Nucleated RBCs Blast Cells Platelet Estimate RBC Morphology Polychromasia Poikilocytosis Anisocytosis Microcytosis Macrocytosis Tear Drop Cells Ovalocytes RBC Fragments Sodium 132 L Chloride 93 L 94 L Carbon Dioxide 21 L Anion Gap 18.0 H BUN 140 H* 131 H* Creatinine 4.1 H 3.9 H Glucose 110 H 120 H Total Bilirubin 1.6 H Direct Bilirubin 0.6 H Lactate Dehydrogenase 563 H Total Protein 5.3 L Globulin 1.8 L 11/22/19 11/22/19 11/22/19 04:40 04:40 04:40 WBC 12.6 H RBC 2.96 L Hgb 9.8 L Hct 32.9 L MCV 111.1 H MCHC 29.8 L RDW 24.4 H Plt Count 28 L* Gran % 78.3 H Lymph % (Auto) 4.7 L [place] % (Auto) 15.9 H Gran # 9.88 H Lymph # (Auto) 0.59 L [place] # (Auto) 2.01 H Seg Neutrophils % 79 H Lymphocytes % 5 L Metamyelocytes % 1 H Myelocytes % 2 H Nucleated RBCs 14 H Blast Cells 5 H Platelet Estimate Mk decr A RBC Morphology Abnorm A Polychromasia 3+ A Poikilocytosis 2+ A Anisocytosis 3+ A Microcytosis 1+ A Macrocytosis 2+ A Tear Drop Cells 1+ A Ovalocytes 1+ A RBC Fragments 1+ A Sodium Chloride 95 L Carbon Dioxide Anion Gap 17.0 H BUN 124 H* Creatinine 3.9 H Glucose 119 H Total Bilirubin 1.2 H Direct Bilirubin 0.5 H Lactate Dehydrogenase 592 H Total Protein 5.4 L Globulin 1.8 L Meds: Medications Allopurinol (Zylopriim) 150 mg PO DAILY REPLACED BY [facility] Last Admin: 11/23/19 09:12 Dose: 150 mg Documented by: Budesonide (Pulmicort) 1 puff INH BID REPLACED BY [facility] Last Admin: 11/23/19 21:46 Dose: 1 puff Documented by: Calcitriol (Rocaltrol) 0.25 mcg PO MoWeFr@0900 REPLACED BY [facility] Last Admin: 11/23/19 09:12 Dose: 0.25 mcg Documented by: Cephalexin HCl (Keflex) 250 mg PO BID REPLACED BY [facility]; Protocol Last Admin: 11/23/19 21:46 Dose: 250 mg Documented by: Digoxin (Lanoxin) 62.5 mcg PO DAILY@1400 REPLACED BY [facility] Last Admin: 11/23/19 12:46 Dose: Not Given Documented by: Docusate Sodium (Colace) 100 mg PO BID REPLACED BY [facility] Last Admin: 11/23/19 21:45 Dose: Not Given Documented by: Hydrocortisone Sodium Succinate (Solu-Cortef) 25 mg IV Q8 REPLACED BY [facility] Last Admin: 11/24/19 05:39 Dose: 25 mg Documented by: Lactobacillus Rhamnosus (Culturelle) 1 cap PO QDAY REPLACED BY [facility] Last Admin: 11/23/19 09:13 Dose: 1 cap Documented by: Levalbuterol HCl (Xopenex) 0.63 mg NEB Q6HP PRN PRN Reason: Shortness Of Breath [facility]othy[facility]ine [facility]throid) [facility] Last Admin: 11/24/19 07:23 Dose: 150 mcg Documented by: Magnesium Oxide (Magnesium Oxide) 200 mg PO MOWEFR@0900 REPLACED BY [facility] Last Admin: 11/23/19 09:13 Dose: 200 mg Documented by: Metoprolol Succinate (Toprol Xl) 12.5 mg PO DAILY REPLACED BY [facility] Last Admin: 11/23/19 09:12 Dose: 12.5 mg Documented by: Montelukast Sodium (Singular) 10 mg PO QHS REPLACED BY [facility] Last Admin: 11/23/19 21:46 Dose: 10 mg Documented by: Morphine Sulfate (Morphine) 1 mg IV Q4HP PRN; Protocol PRN Reason: Per Pain Protocol Naloxone HCl (Narcan) 0.1 mg IV Q2MIN PRN PRN Reason: Opiate Reversal Ondansetron HCl (Zofran) 4 mg IV Q6HP PRN PRN Reason: Nausea And Vomiting Pantoprazole [facility] ([facility]ix) [facility] Last Admin: 11/24/19 07:22 Dose: 40 mg Documented by: Senna (Senokot) 2 tab PO HS REPLACED BY [facility] Last Admin: 11/23/19 21:47 Dose: Not Given Documented by: Sodium Chloride (Saline Flush) 10 ml IV Q8 REPLACED BY [facility] Last Admin: 11/24/19 05:39 Dose: 10 ml Documented by: Tramadol HCl (Ultram) 50 mg PO BIDP PRN; Protocol PRN Reason: pain Last Admin: 11/23/19 15:33 Dose: 50 mg Documented by: A/P Narrative A/P Narrative: A: *Acute on chronic systolic(EF 30-35%)/diastolic(III)CHF with some Right heart failure & valvular component with Sev TR: -Home Oxygen 2L's for last several months. -follows with Dr. Brice -Patient presented with anasarca, 4+ lower extremity edema. Was on dobutamine with good diuresis once cortisol supplementation and higher dose of levothyroxine started. -Dobutamine weaned off Tuesday, has had net diuresis of about 6.5 L. -Interestingly his weight has not changed significantly. I suspect intake/output recorded more accurate than weights. -Digoxin was increased from 62.5 mg every other day to 62.5 mg daily. *Hypokalemia: Likely secondary to diuresis. REsolved -Requires continued close monitoring given CKD stage IV. *PATRICIA on CKD IV: follows with Dr. Almodovar -Creatinine was tolerating diuresis, however creatinine increased after dobutamine discontinued, -Suspect that is due in part due to loss of inotropic effect of dobutamine. -worsening *Cardiorenal syndrome w/renal failure: Entresto stopped during this hospitalization. *chronic Myeloproliferative d/o with anemia/thrombocytopenia: Follows with Dr. Suarez -With significant thrombocytopenia, due to that warfarin has been stopped. -Peripheral smear suggested of disease progression *Swelling and erythema of left garcia: More consistent with a hematoma and some surrounding petechiae -Not surprising given his significant thrombocytopenia -He had been on warfarin at admission which was stopped due to bleeding risk -Ultrasound suggests hematoma, though cannot rule out abscess. However clinically more consistent with hematoma. -has been on keflex *Atrial fibrillation: Currently rate controlled. As discussed above, off war . *ART on CPAP: *Adrenal cortex insufficiency: Serum cortisol low. Cardiac output improved with start of hydrocortisone. *Hypothyroidism: Levothyroxine previously increased to 150 MCG daily. *Goals of care: Pt with multiple hospitalizations for heart failure this year. nearing ESRD. Poor prognosis. P: Patient transitiong to hospice with home on tuesday -continue current treatment until then per pt, no escalation of care -if immediate and substantial decline will transition to comfort care while in hospital Continue with hydrocortisone supplement, wean to oral for d/c potassium replacement prn Continue with heart failure management as above. Heating pad for discomfort Continue digoxin/BB -pt/ot -ppx: warfarin per pharm but held given thrombocytopenia <50k/ppi DNR Time Spent With Patient Time: Total time spent is greater than 50% in coordination of care (as documented) at patient's floor/unit and/or counseling patient: QUALITY VTE Deep Vein Thrombosis/Pulmonary Embolism Present on Admission: No
[2019-11-24] MEDS: ALLOPURINOL 300 MG TABLET PO SCH (09:31)
[2019-11-24] MEDS: LACTOBACILLUS 1 CAPSULE PO SCH (09:32)
[2019-11-24] MEDS: METOPROLOL SUCCINATE 25 MG TAB.XL.24H PO SCH (09:33)
[2019-11-24] MEDS: DOCUSATE SODIUM 100 MG CAPSULE PO SCH ×2 (09:34→20:07)
[2019-11-24] MEDS: CEPHALEXIN 250 MG CAPSULE PO SCH (09:34)
[2019-11-24 09:59] LABS: Basophils % (Auto) 0 % (0.0-2.0); Hematocrit 32.5 % (40.1-51.0); Hemoglobin 9.9 g/dL (13.7-17.5); Mean Cell Volume 107.6 fL (80.0-100.0); Mean Corpuscular HGB Conc 30.5 g/dL (31.0-36.0); Platelet Count 31 K/mcL (140-440); RBC 3.02 M/mcL (4.63-6.08); Red Cell Distribution Width 24.2 % (11.5-14.5); WBC 11.8 K/mcL (4.50-11.00)
[2019-11-24] MEDS: HYDROcodone/APAP 5/325MG TABLET PO PRN ×2 (10:55→20:07)
[2019-11-24] MEDS: BUDESONIDE 1 PUFF INHALER INH SCH ×2 (10:55→20:07)
[2019-11-24] MEDS: DIGOXIN 125 MCG TABLET PO SCH (15:27)
[2019-11-24] MEDS: MONTELUKAST 10 MG TABLET PO SCH (20:07)
[2019-11-24] MEDS: SENNOSIDES 1 TABLET PO SCH (20:08)
[2019-11-25] MEDS: 0.9 % SODIUM CHLORIDE 10 ML SYRINGE IV SCH ×3 (05:56→22:11)
[2019-11-25] MEDS: LEVOTHYROXINE 150 MCG TABLET PO SCH (07:09)
[2019-11-25] MEDS: PANTOPRAZOLE 40 MG TABLET PO SCH (07:09)
[2019-11-25] MEDS: HYDROcodone/APAP 5/325MG TABLET PO PRN (07:09)
--- NOTE | 2019-11-25 08:34 | Internal Med Progress Note ---
SUBJECTIVE Subjective Patient information: Note initiated : 11/25/19 at 8:33 am Service Date, if different from initiated Date: [] Patient: Dank Garner 84 y/o M admitted on 11/13/19 for shortness of breath, swelling in bilateral lower l. Chief Complaint: [] Interval history: History of present illness: Mr. Garner is a 84 year old M with a history of chronic thrombocytopenia, CKD, CHF, chronic myeloproliferative disease, COPD and atrial fibrillation who presented to the ER due to shortness of breath and left leg redness. Patient is a poor historian. As per patient, left lower leg has been red for about 1 week associated with pain. He denies any injury to the leg. Patient also reports that she has been having cough which has been worsening today associated with a white clear sputum. But he denies headache, dizziness, chest pain, fever, chills, abdominal pain, or dysuria. In the ER, chest x-ray showed pulmonary congestion and mild bibasilar pulmonary parenchymal infiltrate. 1 dose Lasix 40 mg, vancomycin and Levaquin waere given in the ER. When I saw this patient in the ER, other than the symptoms mentioned above, he was fine. Denied recent travel or sick contact. 11/13 Pt feels fine and does not have new complaints. Denies fever, chills, nausea, or vomiting. No evidence of bleeding His platelet dropped to 27 today. I will hold warfarin temporarily. INR 2.7 Creatinine 3.0 CRP 0.5 Procalcitonin 0.44 11/14 came in with infection left leg and marked edema. Has also abdominal wall swelling. states he had first [place] about 1999 and then as EF has dropped he has marked swelling. Denies alcoholism or hx of cirrhosis. pt has had low blood pressure throughout this hospitalization preventing diuresis despite furosemide drip. also has been on bumex at home and previous metolazone. He is on entresto. Pts left leg erythema and pain persist. no skin ulceration 11/15 pt says is feeling better. increased urine output overnight to 75 cc/hr. diuretics yet to be started. has been on dobutamine 3-7mcg/kg/min since last 1999. Pt denies chest pain no significant arrhythmias. 11/16 last night with diuresis had sharp stabbing pain in Left lower leg. better after rubbing it and gabapentin. Urine output inadequate volume loss last 24 hours. breathing is improved. Pt says doesnt want to be discharged to soon and not max improvement. *cortisol low at 10.70 and tsh high at 6.37 will replace levothyroxine and hydrocortisone. this should help with diuresis and fluid mobilization quite a bit and is a helpful finding. *hr 110 and dig level was low 0.4 on 62.5 mcg qod. i gave 125mcg IV order now and increased to 62.5 mcg daily decrease dobutamine to 3mcg min due to tachycardia pt was treated with hydrocortisone due to cortisol 10 on dobutamine and in CHF which is abnormal. bp improved diuresis improved 11/17 84 yo WM with hx of afib, severe thrombocytopenia and myeloproliferative disease, CKD 4, and sleep apnea on cpap but never a smoker. came in with acute on chronic combined systolic and diastolic CHF. He also has cellulitis left pretibial leg. Pt has been seeing Dr. Lopez and tried entresto but worsened. renal function. Pt here did poorly on furosemide drip and high dose push so I moved him to ICU with dobutamine at 3mcg/kg/min to 7mcg/kg/min and now back down to 3 with treatment of new finding adrenal insufficiency and underreplaced hypothyroidism. Pt is improved. His biggest concern is not to be discharge too early and have to come back. He knows he is not a candidate for cardiac transplant due to age and poor overall health. He has LVEF 25-30% and RV dilated biatiral dilated mod TR and RVSP 38mm 11/18 Patient continues to diuresis, decreased lower extremity edema. Still feels fairly weak. Still has some dyspnea on exertion. No orthostatic symptoms. No cough or sputum. No chest pain. 11/19 Feeling a little bit stronger today. Still worried about going home early, given his frequent readmissions for heart failure. Dobutamine was weaned off yesterday afternoon, creatinine has crept up to 3.5 today. Changing over to oral diuretics. Also complaining of pain in his left garcia, this is what actually brought him to the hospital. He has been treated for cellulitis. Still with some erythema, a focal area that is more tender is also present. 11/20 Overall thinks he is felt better than he has in some time. Still with some weakness. Feels like his breathing is stable, not as good as it has been in the past, but realizes this may be the new normal. Still has Jaimes catheter in place. Tolerating oral diuretics. BUN is continuing to increase. Pain and lef t garcia associated hematoma is improving with heat 11/21 Patient states poor sleep last night for no particular reason. The shortness of breath is improved but still labored at times, otherwise feels close to baseline. Does have more edema but did not have wraps on last night. Renal function worsened today. Will hold diuretics till nephrology evaluates, patient still edematous. Had a discussion about goals of care given his severe cardiac pathology/heart failure and his poor renal function. He understands that he is continuing to decline and much more rapidly this year. Admitted that he would be surprised if he was alive in a year. Instructed him given his end-stage heart and kidneys it is very difficult to balance out his fluid status as evidenced by multiple adjustments on an outpatient basis and multiple hospital admissions. He actually would consider hemodialysis although I am not sure what kind of quality and extension it would bring to his life. 11/22 Patient states yesterday was a little rough. Normal candidate is going to be today. Has occasional cough which is decreased. Has shortness of breath similar yesterday. Had further discussions with him regarding goals of care with his at bedside. Dr. Emerson talked with him as well this morning. Lower semi-edema better with compression stockings. Creatinine no improvement today and BUN slightly worse. Platelets still low but stable. Mr. Garner had a discussion with the hospice care team today. He has decided to transition to hospice at home which will be coordinated on Tuesday. However he does not want to go straight comfort care at this moment he would like to continue current treatments with no escalation through the weekend and then plans on home with hospice on Tuesday. 11/23 No overnight event or new complaints. Renal function continues declining. 11/24 Slept all right. No new issues. Plan for home with hospice tomorrow. Stable at this time. Shortness of breath comes and goes, occasional cough. Review of Systems: denies headache/fever/chills/nausea/vomiting/chest or abdominal pain/diarrhea. Otherwise see above. Constitutional Vitals: Vital Signs Temp Pulse Resp BP Pulse Ox 96.4 F L 77 20 100/61 96 11/25/19 06:59 11/25/19 06:59 11/25/19 06:59 11/25/19 06:59 11/25/19 06:59 Period Temp Pulse Resp BP Sys/Ordoñez Pulse Ox Last 24 Hr 96.4 F-98.6 F 64-94 18-22 100-116/61-74 91-98 Intake and Output 11/24/19 11/25/19 11/25/19 21:59 05:59 13:59 Intake Total 240 Output Total 500 900 Balance -260 -900 Weight 98.611 kg Intake & Output: Intake & Output 11/24/19 11/25/19 11/25/19 21:59 05:59 13:59 Intake Total 240 Output Total 500 900 Balance -260 -900 Weight 98.611 kg Intake: Oral 240 Output: Void Amount 500 900 Other: Meal Dinner Percent of Meal Consumed 75% Feeding Ability Independent Urine Appearance Clear Clear Urine Color Bright Yellow Bright Yellow Urine Odor Normal Normal Exam: General: Alert, Awake, No acute Distress Eyes/N/T: EOMI, Head/Neck: neck supple, CV: irreg irreg, No murmurs, Pulm: Mildly diminished at bases, mild bibase rales, no wheezing Abd: soft, nontender, +BS x4 Ext: no clubbing/cyanosis, 2-3+ b/l LE edema Neuro: Alert, no focal deficits, moves all extremities, Skin: OBJ DATA Labs CBC & Chem 7: 11/24/19 06:20 11/24/19 06:20 Labs: Abnormal Lab Results 11/24/19 11/24/19 11/23/19 06:20 06:20 04:58 WBC 11.8 H 11.5 H RBC 3.02 L 2.90 L Hgb 9.9 L 9.5 L Hct 32.5 L 32.0 L MCV 107.6 H 110.3 H MCHC 30.5 L 29.7 L RDW 24.2 H 24.1 H Plt Count 31 L* 29 L* Gran % 90.0 H Lymph % (Auto) 4.0 L 4.2 L [place] % (Auto) 17.7 H Gran # 8.78 H Lymph # (Auto) 0.48 L [place] # (Auto) 2.03 H Seg Neutrophils % Lymphocytes % Metamyelocytes % Myelocytes % Nucleated RBCs Blast Cells Platelet Estimate RBC Morphology Polychromasia Poikilocytosis Anisocytosis Microcytosis Macrocytosis Tear Drop Cells Ovalocytes RBC Fragments Sodium 132 L Chloride 93 L Carbon Dioxide 21 L Anion Gap 18.0 H BUN 140 H* Creatinine 4.1 H Glucose 110 H Total Bilirubin Direct Bilirubin Lactate Dehydrogenase Total Protein Globulin 11/23/19 11/22/19 04:56 04:40 WBC RBC Hgb Hct MCV MCHC RDW Plt Count Gran % Lymph % (Auto) [place] % (Auto) Gran # Lymph # (Auto) [place] # (Auto) Seg Neutrophils % 79 H Lymphocytes % 5 L Metamyelocytes % 1 H Myelocytes % 2 H Nucleated RBCs 14 H Blast Cells 5 H Platelet Estimate Mk decr A RBC Morphology Abnorm A Polychromasia 3+ A Poikilocytosis 2+ A Anisocytosis 3+ A Microcytosis 1+ A Macrocytosis 2+ A Tear Drop Cells 1+ A Ovalocytes 1+ A RBC Fragments 1+ A Sodium Chloride 94 L Carbon Dioxide Anion Gap BUN 131 H* Creatinine 3.9 H Glucose 120 H Total Bilirubin 1.6 H Direct Bilirubin 0.6 H Lactate Dehydrogenase 563 H Total Protein 5.3 L Globulin 1.8 L Meds: Medications Hydrocodone Bitart/Acetaminophen ([place] 5/325mg) 1 tab PO Q6HP PRN; Protocol PRN Reason: Per Pain Protocol Last Admin: 11/25/19 07:09 Dose: 1 tab Documented by: Allopurinol (Zylopriim) 150 mg PO DAILY [facility] Last Admin: 11/24/19 09:31 Dose: 150 mg Documented by: Budesonide (Pulmicort) 1 puff INH BID [facility] Last Admin: 11/24/19 20:07 Dose: 1 puff Documented by: Calcitriol (Rocaltrol) 0.25 mcg PO MoWeFr@0900 [facility] Last Admin: 11/23/19 09:12 Dose: 0.25 mcg Documented by: Digoxin (Lanoxin) 62.5 mcg PO DAILY@1400 [facility] Last Admin: 11/24/19 15:27 Dose: 62.5 mcg Documented by: Docusate Sodium (Colace) 100 mg PO BID [facility] Last Admin: 11/24/19 20:07 Dose: 100 mg Documented by: Hydrocortisone Sodium Succinate (Solu-Cortef) 25 mg IV BID [facility] Last Admin: 11/24/19 20:08 Dose: 25 mg Documented by: Lactobacillus Rhamnosus (Culturelle) 1 cap PO QDAY [facility] Last Admin: 11/24/19 09:32 Dose: 1 cap Documented by: Levalbuterol HCl (Xopenex) 0.63 mg NEB Q6HP PRN PRN Reason: Shortness Of Breath Levothyroxine [facility]throid) [facility] Last Admin: 11/25/19 07:09 Dose: 150 mcg Documented by: Magnesium Oxide (Magnesium Oxide) 200 mg PO MOWEFR@0900 [facility] Last Admin: 11/23/19 09:13 Dose: 200 mg Documented by: Metoprolol Succinate (Toprol Xl) 12.5 mg PO DAILY [facility] Last Admin: 11/24/19 09:33 Dose: 12.5 mg Documented by: Montelukast Sodium (Singular) 10 mg PO QHS [facility] Last Admin: 11/24/19 20:07 Dose: 10 mg Documented by: Morphine Sulfate (Morphine) 1 mg IV Q4HP PRN; Protocol PRN Reason: Per Pain Protocol Naloxone HCl (Narcan) 0.1 mg IV Q2MIN PRN PRN Reason: Opiate Reversal Ondansetron HCl (Zofran) 4 mg IV Q6HP PRN PRN Reason: Nausea And Vomiting Pantoprazole Sodium (Protonix) [facility] Last Admin: 11/25/19 07:09 Dose: 40 mg Documented by: Jack (Senokot) 2 tab PO HS [facility] Last Admin: 11/24/19 20:08 Dose: 2 tab Documented by: Sodium Chloride (Saline Flush) 10 ml IV Q8 [facility] Last Admin: 11/25/19 05:56 Dose: 10 ml Documented by: Tramadol HCl (Ultram) 50 mg PO BIDP PRN; Protocol PRN Reason: pain Last Admin: 11/23/19 15:33 Dose: 50 mg Documented by: A/P Assessment and plan (1) Renal failure: Status: Acute Narrative A/P Narrative: A: *Acute on chronic systolic(EF 30-35%)/diastolic(III)CHF with some Right heart failure & valvular component with Sev TR: -Home Oxygen 2L's for last several months. -follows with Dr. Brice -Patient presented with anasarca, 4+ lower extremity edema. Was on dobutamine with good diuresis once cortisol supplementation and higher dose of levothyroxine started. -Dobutamine weaned off Tuesday, has had net diuresis of about 6.5 L. -Interestingly his weight has not changed significantly. I suspect intake/output recorded more accurate than weights. -Digoxin was increased from 62.5 mg every other day to 62.5 mg daily. *PATRICIA on CKD IV: follows with Dr. Almodovar -Creatinine was tolerating diuresis, however creatinine increased after dobutamine discontinued, -Suspect that is due in part due to loss of inotropic effect of dobutamine. -worsening *Cardiorenal syndrome w/renal failure: Entresto stopped during this hospitaliz ation. *chronic Myeloproliferative d/o with anemia/thrombocytopenia: Follows with Dr. Suarez -With significant thrombocytopenia, due to that warfarin has been stopped. -Peripheral smear suggested of disease progression *Swelling and erythema of left garcia: More consistent with a hematoma and some surrounding petechiae -Not surprising given his significant thrombocytopenia -He had been on warfarin at admission which was stopped due to bleeding risk -Ultrasound suggests hematoma, though cannot rule out abscess. However clinically more consistent with hematoma. -has been on keflex, now d/c'd *Hypokalemia: Likely secondary to diuresis. REsolved *Atrial fibrillation: Currently rate controlled. As discussed above, off warfarin. *ART on CPAP: *Adrenal cortex insufficiency: Serum cortisol low. Cardiac output improved with start of hydrocortisone. *Hypothyroidism: Levothyroxine previously increased to 150 MCG daily. *Goals of care: Pt with multiple hospitalizations for heart failure this year. nearing ESRD. Poor prognosis. P: Patient transitiong to hospice with home on tuesday -continue current treatment until then per pt, no escalation of care -if immediate and substantial decline will transition to comfort care while in hospital Continue with hydrocortisone supplement, wean to oral for d/c potassium replacement prn Continue with heart failure management as above. Heating pad for discomfort Continue digoxin/BB -pt/ot -ppx: warfarin per pharm but held given thrombocytopenia <50k/ppi DNR Time Spent With Patient Time: Total time spent is greater than 50% in coordination of care (as documented) at patient's floor/unit and/or counseling patient: QUALITY VTE Deep Vein Thrombosis/Pulmonary Embolism Present on Admission: No
[2019-11-25] MEDS: ALLOPURINOL 300 MG TABLET PO SCH (08:40)
[2019-11-25] MEDS: METOPROLOL SUCCINATE 25 MG TAB.XL.24H PO SCH (08:44)
[2019-11-25] MEDS: LACTOBACILLUS 1 CAPSULE PO SCH (08:44)
[2019-11-25] MEDS: BUDESONIDE 1 PUFF INHALER INH SCH ×2 (08:45→19:56)
[2019-11-25] MEDS: DOCUSATE SODIUM 100 MG CAPSULE PO SCH ×2 (08:45→22:10)
[2019-11-25] MEDS: HYDROCORTISONE SOD SUCC 100 MG VIAL IV SCH ×2 (08:46→22:10)
[2019-11-25] MEDS: DIGOXIN 125 MCG TABLET PO SCH (14:26)
[2019-11-25] MEDS: SENNOSIDES 1 TABLET PO SCH (22:10)
[2019-11-25] MEDS: MONTELUKAST 10 MG TABLET PO SCH (22:11)
[2019-11-26] MEDS: 0.9 % SODIUM CHLORIDE 10 ML SYRINGE IV SCH (04:22)
[2019-11-26] MEDS: DOCUSATE SODIUM 100 MG CAPSULE PO SCH (08:09)
[2019-11-26] MEDS: PANTOPRAZOLE 40 MG TABLET PO SCH (08:09)
[2019-11-26] MEDS: ALLOPURINOL 300 MG TABLET PO SCH (08:09)
[2019-11-26] MEDS: LEVOTHYROXINE 150 MCG TABLET PO SCH (08:09)
[2019-11-26] MEDS: MAGNESIUM OXIDE 400 MG TABLET PO SCH (08:10)
[2019-11-26] MEDS: LACTOBACILLUS 1 CAPSULE PO SCH (08:11)
[2019-11-26] MEDS: CALCITRIOL 0.25 MCG CAPSULE PO SCH (08:11)
[2019-11-26] MEDS: HYDROCORTISONE SOD SUCC 100 MG VIAL IV SCH (08:12)
[2019-11-26] MEDS: METOPROLOL SUCCINATE 25 MG TAB.XL.24H PO SCH (08:14)
[2019-11-26] MEDS ORDERED: BUMETANIDE 1 MG TABLET PO SCH (09:00)
[2019-11-26] MEDS: BUDESONIDE 1 PUFF INHALER INH SCH (09:34)
[2019-11-26] MEDS: DIGOXIN 125 MCG TABLET PO SCH (13:26)
== END 2019-11-26 14:00 | disposition hospice, home (50) | DRG 291 ==
LOC: ED 14:46 → MEDSUR 22:30 → ICU 11-15 18:45 → MEDSUR 11-23 18:06
PROVIDERS: ADMIT Internal Medicine; ATTEND Internal Medicine

== ENCOUNTER 2019-12-22 15:53 | Inpatient (IN) ==
[2019-12-22] MEDS ORDERED: FUROSEMIDE 40 MG/4 ML VIAL IV ONE ×2 (16:48→18:48)
--- NOTE | 2019-12-22 17:05 | Emergency Department Note ---
Weakness HPI General Chief complaint: Weakness Stated complaint: Increased weakness Time Seen by Provider: 12/22/19 16:01 Source: EMS Mode of arrival: EMS History of Present Illness HPI Narrative: Narrative: 84-year-old male comes in complaining of shortness of breath. Apparently he was discharged from our hospital 26 days ago-at the end of October-on home hospice for heart failure and kidney failure. Unfortunately things have not been going well at home for him as he has become increasingly obtunded and has fallen several times in the last couple of days-his son could not help him get up and around-he is out visiting from [place]. He uses [facility] hospice but they only come in 3 times a week. His can no longer care for him and so they are revoking his hospice status so that he can get care. He is obtunded and I am not able to get any meaningful history or review of systems from him except that he is having trouble breathing. He keeps taking off his oxygen mask. He has a Jaimes in place with dark yellow urine I reviewed the notes from his last visit here We also contacted [facility] hospice. It does sound like there was some misunderstanding between them and the family in terms of expectations of care. Related Data Home Medications Medication Instructions Recorded Confirmed montelukast 10 mg tablet 10 mg PO QHS tab 08/13/19 11/13/19 allopurinol 100 mg tablet 400 mg PO QDAY tab 09/26/19 11/13/19 magnesium chloride 71.5 mg 71.5 mg PO MOWEFR@0900 tab 09/26/19 11/13/19 (magnesium chloride) tablet,delayed release Saccharomyces boulardii 250 mg 250 mg PO QDAY cap 11/01/19 11/13/19 capsule Pulmicort Flexhaler 1 inh INHALATION BID 11/13/19 11/13/19 bumetanide 2 mg PO QDAY 11/13/19 11/13/19 calcitriol 0.25 mcg PO .MWF 11/13/19 11/13/19 digoxin 62.5 mcg PO DAILY 11/13/19 11/13/19 Previous Rx's Medication Instructions Recorded nebulizers #1 each 03/04/15 CPAP machine and accessories #1 each 11/30/17 metolazone 2.5 mg tablet 2.5 mg PO .mwf #30 tab 11/07/19 potassium chloride 20 mEq 40 meq PO QDAY #180 tab 11/07/19 tablet,extended release(part/cryst) hydrocortisone 10 mg PO QDAY #30 tab 11/21/19 hydrocortisone 15 mg PO QAM #30 tab 11/21/19 levothyroxine 150 mcg PO QAMAC #30 tab 11/21/19 metoprolol succinate 12.5 mg PO DAILY #10 tab 11/21/19 spironolactone 25 mg PO DAILY #30 tab 11/21/19 hydrocodone-acetaminophen 1 tab PO Q6HP PRN #30 tab 11/25/19 Allergies Allergy/AdvReac Type Severity Reaction Status Date / Time doxycycline Allergy Unknown Unknown Verified 11/13/19 14:50 sulfacetamide Allergy Unknown Unknown Verified 11/13/19 14:50 colchicine [From Colcrys] AdvReac Mild swollen Verified 11/13/19 14:50 feet niacin AdvReac Mild "sensitive" Verified 11/13/19 14:50 oxycodone [Oxycodone] AdvReac Mild Nausea Verified 11/13/19 14:50 Review of Systems ROS ROS Narrative: Narrative: Limitations: ROS unobtainable due to patients medical condition [facility] Narrative Patient History Narrative: Narrative: Medical/Surgical/Family History All Active Problems (Updated 12/22/19 @ 18:59 by Daniel Isabel MD) Acute hyperkalemia (Acute) Respiratory failure (Acute) Thrombocytopenia (Acute) Renal failure (Acute) Hypothyroidism (Acute) Adrenal cortex insufficiency (Acute) Acute on chronic combined systolic (congestive) and diastolic (congestive) heart failure (Acute) Congestive heart failure (Acute) Cellulitis (Acute) Acute on chronic clinical systolic heart failure (Acute) Lumbar radiculopathy (Acute) Cholelithiasis (Acute) Laceration (Acute) Encounter for removal of sutures (Acute) Cardiogenic shock (Acute) CKD (chronic kidney disease), stage IV (Chronic) Chronic combined systolic and diastolic CHF (congestive heart failure) (Chronic) Cardiorenal syndrome with renal failure (Chronic) 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) Hyperparathyroidism, secondary renal (Chronic) Secondary hyperparathyroidism of renal origin (Chronic) Cough (Acute) Abdominal aortic aneurysm (AAA) 3.0 cm to 5.5 cm in diameter in male (Acute) COPD (chronic obstructive pulmonary disease) (Acute) Hypothyroidism (Acute) ART on CPAP (Acute) Chronic myeloproliferative disorder (Chronic 05/19/15) Benign prostatic hypertrophy (Chronic) Gout (Chronic) 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) Slow transit constipation (Chronic) Neuropathy (Chronic) Edema (Chronic) Gastroesophageal reflux disease (Chronic) Abdominal distension (Chronic) 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) Vasomotor rhinitis (Chronic) Splenomegaly (Chronic) Secondary hyperparathyroidism of renal origin (Chronic) Allergic rhinitis (Chronic) Restless leg syndrome (Chronic) Raynauds syndrome (Chronic) Protein C deficiency (Chronic) Polycythemia vera (Chronic) Hx of venous thrombosis and embolism (Chronic) Obstructive sleep apnea, adult (Chronic) Hypothyroidism (acquired) (Chronic) Hypertensive renal disease (Chronic) Hypertension, essential (Chronic) Hyperlipidemia (Chronic) Fatigue (Chronic) Congestive heart failure (Chronic) Chronic kidney disease, stage III (moderate) (Chronic) Cardiomyopathy (Chronic) CAD (coronary artery disease) (Chronic) 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 Abdominal aortic aneurysm (Resolved) Abdominal distension (Chronic) usg neg, shows 17 cm cyst in liver appears benigh and 21 cm spleen. also poor abdominal wall tone. Acute exacerbation of chronic bronchitis (Resolved) treat with prednisone and zithromax hopefully will get better now that he will have a nebulizer. Acute gout (Resolved) on allopurinol 300, he has ckd and polycythemia, as risk factors. Uric acid 6.8, pt already of 300mg allopurinol with no good response, start on uloric 40mg once daily ,stop allopuinol. Acute on chronic diastolic CHF (congestive heart failure) (Inactive) Allergic rhinitis (Chronic) 07/11/2014 Anemia in chronic kidney disease (Chronic) stable Anemia, iron deficiency (Chronic) Asymptomatic cholelithiasis (Resolved) Atrial fibrillation (Chronic) stop anticoagulation high risk of hemorrhage. check digoxin level again tomorrow. Benign prostatic hypertrophy (Chronic) CAD (coronary artery disease) (Chronic) and stenting Cardiomyopathy (Chronic) Cardiorenal syndrome with renal failure (Chronic) worsening despite entresto and will stop entresto. dobutamine diuresis in ICU. another 24 hours. digoxin renal dosed. bumex, zaroxolyn and low dose spironlactone Chronic combined systolic and diastolic CHF (congestive heart failure) (Chronic) Combined systolic and diastolic congestive heart failure, AICD in place On a combination of low-dose carvedilol digoxin spironolactone and now twice a day furosemide Chronic combined systolic and diastolic CHF (congestive heart failure) (Chronic) On furosemide, BB, low dose aldactone, did not tolerate low dose Sacubitril/valsartan qHS AICD in place Warfarin Chronic kidney disease, stage III (moderate) (Chronic) Stable CKD 3 over the last 4 years Minimal proteinuria Chronic myeloproliferative disorder (Chronic 05/19/15) 05/19/2015-[facility] pt with thrombocytopenia so warfarin stopped. 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 but inhalers did not help at all, at this time, given age, h/o productive cough x 1 yr and a neg x ray chest ,will get a CT of the lungs to r/o any other pathology. NOt a candidate for contrast given CKD. Deep vein thrombosis (Inactive) recurrent Protein C def Degenerative joint disease (Resolved) Edema (Chronic) Fatigue (Chronic) Gastroesophageal reflux disease (Chronic) On pantoprazole, doing well. Gastrointestinal bleeding (Resolved) Gout (Chronic) Hepatic cyst (Resolved) History of cardioversion (Resolved) History of colonic polyps (Resolved) History of peptic ulcer disease (Resolved) Hx of gout (Resolved) Hx of venous thrombosis and embolism (Chronic) Hyperlipidemia (Chronic) LDL ok Hypermagnesemia (Resolved) due to ckd and mg supplements, plan to stop same and monitor. Hyperparathyroidism, secondary renal (Chronic) Stable on low-dose calcitriol every other day Hypersplenism (Resolved) Hypertension, essential (Chronic) bp stable, con coreg, continue same. 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 Probably has an element of high cell turnover and increased uric acid precursor production as well as diuretics, Hypoglycemia (Resolved) Likely pseudohypoglycemia, due to elevated rbc count, no symptoms, workup neg so far, only cpeptide mildly high. Consider CT abdomen if patient has symptoms. 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) Myelofibrosis (Resolved) Myocardial infarction, old (Resolved) 1997 Nephrolithiasis (Resolved) Neuropathy (Chronic) MUltifactorial in the feet, capcasin cream topical for now, pt to buy otc, Obstructive sleep apnea, adult (Chronic) Occasional numbness/prickling/tingling of fingers and toes (Inactive) Pneumonia (Inactive) Polycythemia vera (Chronic) Protein C deficiency (Chronic) Raynauds syndrome (Chronic) Restless leg syndrome (Chronic) Secondary hyperparathyroidism of renal origin (Chronic) PTH and vitamin D at goal calcium and phos at goal ct calcitriol 0.25mcg qod Simple cyst of kidney (Inactive) Slow transit constipation (Chronic) chr constipation, plan to increase fiber in diet, advise use of prunes, increase hydration. Splenomegaly (Chronic) Supraventricular tachycardia (Resolved) Tricuspid regurgitation (Resolved) Urinary retention (Inactive) Vasomotor rhinitis (Chronic) Surgical History 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) 03/06/2013 History of intravascular stent placement (Resolved) cardiac History of left knee replacement (Inactive) History of lumbar surgery (Resolved) Lumbar disc surgery L4-5 History of surgical fusion joint (Inactive) Fusion DIP L ring finger History of total cystectomy (Resolved) 12/28/2012 Hx of adenoidectomy (Inactive) Hx of arthroscopic knee surgery (Inactive) right knee Hx of CABG (Resolved) 08/2006 Hx of cataract surgery (Inactive) Hx of tonsillectomy (Inactive) Hx of transurethral resection of prostate (Resolved) Hx of vasectomy (Resolved) Status post cystourethroscopy with dilation of urethral stricture (Inactive) 12/28/2012 Family History Mother Diabetes mellitus Father Cardiac disease at 86yrs old Brother Cerebrovascular accident Social History Smoking Status: Never smoker Alcohol Intake Frequency: does not drink Substance Use: does not use Exam Narrative Narrative: Narrative: Normocephalic atraumatic. He has bilateral hearing aids in but he still has much difficulty hearing. Conjunctive are clear sclerae white nonicteric. No nasal discharge or congestion. Oropharynx with dry buccal mucosa. Neck is supple without lymphadenopathy or thyromegaly. Heart is with regular rate and rhythm. Lung bases I cannot hear well but upper lung humphries show that he is moving air. Pacemaker in place left upper chest wall. Jaimes catheter is in place with dark brown urine in. Abdomen soft mildly diffusely tender-may be fluid wave. +1-[address] up to the thighs. He has some redness on his legs and in certain spots on his feet which could be irritation or possibly early cellulitis. He is not able to sit himself up or move around on the bed without assist-globally weak and obtunded. He can speak without dysarthria-but he does not seem to know what is going on. He keeps complaining of not being able to breathe but he keeps pulling off his oxygen Course Vital Signs Vital signs: Vital Signs Temperature 97 F 12/22/19 15:56 Pulse Rate 119 H 12/22/19 15:56 Respiratory Rate 16 12/22/19 15:56 Blood Pressure 94/69 12/22/19 15:56 Pulse Oximetry (%) 89 L 12/22/19 15:56 Temperature 97 F 12/22/19 15:56 Pulse Rate 74 12/22/19 18:31 Respiratory Rate 13 12/22/19 16:31 Blood Pressure 92/56 12/22/19 19:16 Pulse Oximetry (%) 93 12/22/19 18:31 MDM MDM Narrative Medical decision making narrative: Narrative: Obviously obtunded. I did try to make him understand that if he wanted me to treat him I would need to revoke his hospice status. I could not get him to understand that so I discussed the situation with his who wanted me to do that. So we will work him up and treat him. We will check laboratory ABG and x-ray. Start furosemide. [facility] called-they will bring over the form to the patient's so she can sign. It is very clear from talking to the son and the patient's that they want hospice revoked. The family does not feel that they can take care of him at home ABG shows a pH of 7.29 PCO2 of 38 and PO2 of 80 despite being on 5 L nasal cannula. We will give him an amp of bicarbonate and continue supplemental oxygen EKG shows his chronic atrial fibrillation Laboratory shows significant leukocytosis, thrombocytopenia and hyperkalemia with ongoing renal failure. GFR is 16. BUN is elevated. Chest x-ray shows a significant increase pleural markings and pulmonary edema consistent with end- stage CHF. Vital signs show low normal blood pressures. He continues to need 5 L of oxygen However given the scenario, as a matter of protocol we will also check for COVID, though I do not suspect this is the cause. Because of the hyperkalemia we will go ahead and give him more furosemide, more bicarbonate, calcium gluconate and rectal Kayexalate. Start Zosyn and vancomycin as well because of the possibility of sepsis. I will discuss with hospitalist The hospitalist felt that the patient will need to go up to [place] if we decided to treat any further-and I am in agreement with this - at this point I talked with the patient's son and again. Basically there are 2 paths. The first path is full treatment and going up to [place], to facility with full services such as cardiology-in which he would not likely survive given the severity of his current condition. The second path would be to do inpatient comfort care. After talking with him it does seem like the family is on board with just doing comfort care; they do not want us to send him for further care. They understand that we are just going to keep him comfortable and allow him to with dignity here. I discussed this with our hospitalist Dr. Guillaume. He will see the patient and write orders I canceled all orders not related to comfort. The patient's blood pressure is trending down. He is getting very anxious so we will give him some Ativan to treat the anxiety Lab Data Lab results reviewed: Yes I reviewed the patient's lab results. Result diagrams: 12/22/19 17:25 12/22/19 17:25 Labs: Lab Results 12/22/19 12/22/19 12/22/19 Range/Units 17:25 17:25 17:25 WBC 21.7 H (4.50-11.00) K/mcL RBC 3.49 L (4.63-6.08) M/mcL Hgb 11.3 L (13.7-17.5) g/dL Hct 38.4 L (40.1-51.0) % MCV 110.4 H (80.0-100.0) fL MCH 32.4 (26.0-34.0) pg MCHC 29.4 L (31.0-36.0) g/dL RDW 25.2 H (11.5-14.5) % Plt Count 29 L* (140-440) K/mcL MPV TNP Gran % 77.0 (38.0-78.0) % Lymph % (Auto) 4.0 L (15.5-49.0) % Hardin % (Auto) 5.0 (1.0-12.0) % Eos % (Auto) 0 (0.0-7.0) % Baso % (Auto) 0 (0.0-2.0) % Differential Comment Nrbcs on scan VBG Lactic Acid 1.6 (0.5-2.0) mmol/L Sodium 132 L (133-145) mmol/L Potassium 6.4 H* (3.3-5.1) mmol/L Chloride 96 (96-108) mmol/L Carbon Dioxide 16 L (22-30) mmol/L Anion Gap 20.0 H (8-16) BUN 102 H* (8-23) mg/dl Creatinine 3.9 H (0.7-1.2) mg/dl GFR Calculation 13 Glucose 87 (70-105) mg/dL Uric Acid (2.5-8.0) mg/dL Calcium 9.7 (8.6-10.4) mg/dl Magnesium 2.5 (1.6-2.5) mg/dL Total Bilirubin 2.7 H (0.0-1.0) mg/dL AST 37 (0-37) U/l ALT 17 (0-40) U/l Alkaline Phosphatase 82 (39-117) U/L NT-Pro-B Natriuret Pep 69439.0 H (0-450) pg/ml Total Protein 5.8 L (5.9-8.4) gm/dL Albumin 3.8 (3.2-5.2) gm/dL Globulin 2.0 L (2.2-3.7) gm/dL Albumin/Globulin Ratio 1.9 (1.0-2.3) TSH 16.59 H (0.27-5.01) uIU/ml 12/22/19 Range/Units 17:25 WBC (4.50-11.00) K/mcL RBC (4.63-6.08) M/mcL Hgb (13.7-17.5) g/dL Hct (40.1-51.0) % MCV (80.0-100.0) fL MCH (26.0-34.0) pg MCHC (31.0-36.0) g/dL RDW (11.5-14.5) % Plt Count (140-440) K/mcL MPV Gran % (38.0-78.0) % Lymph % (Auto) (15.5-49.0) % Hardin % (Auto) (1.0-12.0) % Eos % (Auto) (0.0-7.0) % Baso % (Auto) (0.0-2.0) % Differential Comment VBG Lactic Acid (0.5-2.0) mmol/L Sodium (133-145) mmol/L Potassium (3.3-5.1) mmol/L Chloride (96-108) mmol/L Carbon Dioxide (22-30) mmol/L Anion Gap (8-16) BUN (8-23) mg/dl Creatinine (0.7-1.2) mg/dl GFR Calculation Glucose (70-105) mg/dL Uric Acid 5.8 (2.5-8.0) mg/dL Calcium (8.6-10.4) mg/dl Magnesium (1.6-2.5) mg/dL Total Bilirubin (0.0-1.0) mg/dL AST (0-37) U/l ALT (0-40) U/l Alkaline Phosphatase (39-117) U/L NT-Pro-B Natriuret Pep (0-450) pg/ml Total Protein (5.9-8.4) gm/dL Albumin (3.2-5.2) gm/dL Globulin (2.2-3.7) gm/dL Albumin/Globulin Ratio (1.0-2.3) TSH (0.27-5.01) uIU/ml Radiology Data Radiology results reviewed: Yes I reviewed the patient's radiology results. Radiology results narrative: Chest x-ray shows pulmonary edema versus severe infiltrates EKG Data EKG #1: EKG attestation: Yes I reviewed and interpreted this EKG. EKG results narrative: EKG shows atrial fibrillation with a right bundle branch block and left anterior fascicular block. Low voltage in some leads Discharge Plan Patient/Caregiver Discharge Instructions Pt seen by MARKET RESEARCH ANALYST/PA only: No Clinical Impression: Chronic combined systolic and diastolic CHF (congestive heart failure), Acute hyperkalemia, Thrombocytopenia Renal failure Qualifiers: Renal failure chronicity: acute on chronic Acute renal failure type: unspecified Chronic kidney disease stage: stage 5, not on chronic dialysis Qualified Code(s): N17.9 - Acute kidney failure, unspecified Respiratory failure Qualifiers: Chronicity: acute on chronic Respiratory failure complication: hypoxia Qualified Code(s): J96.21 - Acute and chronic respiratory failure with hypoxia Patient Disposition: [facility]fer As Inpt ([facility] Condition: Critical Follow up with: Yannick Bahena MD [Primary Care Provider] - Prescriptions: No Action (DME) nebulizers misc See Dose Instructions .ROUTE .MEDSUPPLY Qty: 1 RF: 0 (DME) CPAP machine and accessories Qty: 1 RF: 0 metolazone 2.5 mg tablet 2.5 mg PO .mwf Qty: 30 RF: 3 potassium chloride 20 mEq tablet,ER particles/crystals 40 meq PO QDAY Qty: 180 RF: 3 montelukast 10 mg tablet 10 mg PO QHS RF: 0 allopurinol 100 mg tablet 400 mg PO QDAY RF: 0 Slow-Mag 71.5 mg tablet,delayed release (DR/EC) 71.5 mg PO MOWEFR@0900 RF: 0 Saccharomyces boulardii [Daily Probiotic (S. boulardii)] 250 mg capsule 250 mg PO QDAY RF: 0 bumetanide 1 mg Tablet 2 mg PO QDAY RF: 0 digoxin 125 mcg (0.125 mg) Tablet 62.5 mcg PO DAILY RF: 0 Pulmicort Flexhaler 180 mcg/actuation Aerosol Powdr Breath Activated 1 inh INHALATION BID RF: 0 calcitriol 0.25 mcg capsule 0.25 mcg PO .MWF RF: 0 levothyroxine 150 mcg Tablet 150 mcg PO QAMAC Qty: 30 RF: 0 metoprolol succinate 25 mg Tablet Extended Release 24 Hr 12.5 mg PO DAILY Qty: 10 RF: 0 spironolactone 25 mg Tablet 25 mg PO DAILY Qty: 30 RF: 0 hydrocortisone 10 mg tablet 15 mg PO QAM Qty: 30 RF: 0 hydrocortisone 10 mg tablet 10 mg PO QDAY Qty: 30 RF: 0 hydrocodone-acetaminophen 5-325 mg Tablet 1 tab PO Q6HP PRN (Reason: Per Pain Protocol) Qty: 30 RF: 0
[2019-12-22] MEDS ORDERED: SODIUM BICARBONATE 50 MEQ/50 ML VIAL IV ONE (17:54)
[2019-12-22 18:23] LABS: Basophils % (Auto) 0 % (0.0-2.0); Eosinophils % (Auto) 0 % (0.0-7.0); Hematocrit 38.4 % (40.1-51.0); Hemoglobin 11.3 g/dL (13.7-17.5); Mean Cell Volume 110.4 fL (80.0-100.0); Mean Corpuscular HGB Conc 29.4 g/dL (31.0-36.0); RBC 3.49 M/mcL (4.63-6.08); Red Cell Distribution Width 25.2 % (11.5-14.5); Thyroid Stimulating Hormone 16.59 uIU/ml (0.27-5.01); WBC 21.7 K/mcL (4.50-11.00)
[2019-12-22 18:34] LABS: ALT/SGPT 17 U/l (0-40); AST/SGOT 37 U/l (0-37); Albumin 3.8 gm/dL (3.2-5.2); Albumin/Globulin Ratio 1.9 (1.0-2.3); Alkaline Phosphatase 82 U/L (39-117); Bilirubin,Total 2.7 mg/dL (0.0-1.0); Calcium 9.7 mg/dl (8.6-10.4); Carbon Dioxide 16 mmol/L (22-30); Chloride 96 mmol/L (96-108); Glomerular Filtration Rate 13; Glucose 87 mg/dL (70-105)
[2019-12-22 18:47] LABS: Blood Urea Nitrogen 102 mg/dl (8-23)
[2019-12-22 18:48] LABS: Platelet Count 29 K/mcL (140-440)
[2019-12-22] MEDS ORDERED: CALCIUM CHLORIDE 1,000 MG/10 ML SYRINGE IV ONE (18:48)
[2019-12-22] MEDS ORDERED: PIPERACILLIN SODIUM/TAZOBACTAM 3.375 GM in DEXTROSE 5% IN WATER 50 ML IV ONE (18:57)
[2019-12-22] MEDS ORDERED: VANCOMYCIN 1,000 MG in 0.9 % SODIUM CHLORIDE 250 ML IV ONE (18:57)
[2019-12-22] MEDS ORDERED: SODIUM BICARBONATE 50 MEQ/50 ML VIAL IV SCH (19:00)
[2019-12-22] MEDS ORDERED: SODIUM POLYSTYRENE SULFONATE 15 GM/60 ML SUSPENSION PR SCH (19:00)
[2019-12-22] MEDS ORDERED: LORazepam 2 MG/ML VIAL IV ONE (19:37)
--- NOTE | 2019-12-22 20:17 | Internal Med History&Physical ---
HPI History of Present Illness Patient information: Note initiated : 12/22/19 at 8:08 pm Service Date, if different from initiated Date: [] Patient: Dank Garner a 84 y/o M admitted on for Increased weakness. Chief Complaint: [] History of present illness: Mr. Garner is a 84 year old M Has end-stage heart failure and nearly end-stage kidney disease who is been on hospice. Family arrived from out of town and found him obtunded but also uncomfortable and feel like he is not quite getting the care that he should receive from home health hospice. Thus they brought him into the ED. Hospice was revoked so he can be treated in the ED. But then after further discussions with family just wants comfort care and does not feel he is getting that appropriately at home and that they are unable to care for him at home. It is just his at home. And it sounds like hospice comes in 3 times a week. Unable to gather review of systems as patient is quite altered and nearly obtunded. PFSH PFSH All Active Problems (Updated 12/22/19 @ 18:59 by Daniel Isabel MD) Acute hyperkalemia (Acute) Respiratory failure (Acute) Thrombocytopenia (Acute) Renal failure (Acute) Hypothyroidism (Acute) Adrenal cortex insufficiency (Acute) Acute on chronic combined systolic (congestive) and diastolic (congestive) heart failure (Acute) Congestive heart failure (Acute) Cellulitis (Acute) Acute on chronic clinical systolic heart failure (Acute) Lumbar radiculopathy (Acute) Cholelithiasis (Acute) Laceration (Acute) Encounter for removal of sutures (Acute) Cardiogenic shock (Acute) CKD (chronic kidney disease), stage IV (Chronic) Chronic combined systolic and diastolic CHF (congestive heart failure) (Chronic) Cardiorenal syndrome with renal failure (Chronic) 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) Hyperparathyroidism, secondary renal (Chronic) Secondary hyperparathyroidism of renal origin (Chronic) Cough (Acute) Abdominal aortic aneurysm (AAA) 3.0 cm to 5.5 cm in diameter in male (Acute) COPD (chronic obstructive pulmonary disease) (Acute) Hypothyroidism (Acute) ART on CPAP (Acute) Chronic myeloproliferative disorder (Chronic 05/19/15) Benign prostatic hypertrophy (Chronic) Gout (Chronic) 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) Slow transit constipation (Chronic) Neuropathy (Chronic) Edema (Chronic) Gastroesophageal reflux disease (Chronic) Abdominal distension (Chronic) 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) Vasomotor rhinitis (Chronic) Splenomegaly (Chronic) Secondary hyperparathyroidism of renal origin (Chronic) Allergic rhinitis (Chronic) Restless leg syndrome (Chronic) Raynauds syndrome (Chronic) Protein C deficiency (Chronic) Polycythemia vera (Chronic) Hx of venous thrombosis and embolism (Chronic) Obstructive sleep apnea, adult (Chronic) Hypothyroidism (acquired) (Chronic) Hypertensive renal disease (Chronic) Hypertension, essential (Chronic) Hyperlipidemia (Chronic) Fatigue (Chronic) Congestive heart failure (Chronic) Chronic kidney disease, stage III (moderate) (Chronic) Cardiomyopathy (Chronic) CAD (coronary artery disease) (Chronic) Atrial fibrillation (Chronic) 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 Abdominal aortic aneurysm (Resolved) Abdominal distension (Chronic) usg neg, shows 17 cm cyst in liver appears benigh and 21 cm spleen. also poor abdominal wall tone. Acute exacerbation of chronic bronchitis (Resolved) treat with prednisone and zithromax hopefully will get better now that he will have a nebulizer. Acute gout (Resolved) on allopurinol 300, he has ckd and polycythemia, as risk factors. Uric acid 6.8, pt already of 300mg allopurinol with no good response, start on uloric 40mg once daily ,stop allopuinol. Acute on chronic diastolic CHF (congestive heart failure) (Inactive) Allergic rhinitis (Chronic) 07/11/2014 Anemia in chronic kidney disease (Chronic) stable Anemia, iron deficiency (Chronic) Asymptomatic cholelithiasis (Resolved) Atrial fibrillation (Chronic) stop anticoagulation high risk of hemorrhage. check digoxin level again tomorrow. Benign prostatic hypertrophy (Chronic) CAD (coronary artery disease) (Chronic) and stenting Cardiomyopathy (Chronic) Cardiorenal syndrome with renal failure (Chronic) worsening despite entresto and will stop entresto. dobutamine diuresis in ICU. another 24 hours. digoxin renal dosed. bumex, zaroxolyn and low dose spironlactone Chronic combined systolic and diastolic CHF (congestive heart failure) (Chronic) Combined systolic and diastolic congestive heart failure, AICD in place On a combination of low-dose carvedilol digoxin spironolactone and now twice a day furosemide Chronic combined systolic and diastolic CHF (congestive heart failure) (Chronic) On furosemide, BB, low dose aldactone, did not tolerate low dose Sacubitril/valsartan qHS AICD in place Warfarin Chronic kidney disease, stage III (moderate) (Chronic) Stable CKD 3 over the last 4 years Minimal proteinuria Chronic myeloproliferative disorder (Chronic 05/19/15) 05/19/2015-[facility] pt with thrombocytopenia so warfarin stopped. 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 but inhalers did not help at all, at this time, given age, h/o productive cough x 1 yr and a neg x ray chest ,will get a CT of the lungs to r/o any other pathology. NOt a candidate for contrast given CKD. Deep vein thrombosis (Inactive) recurrent Protein C def Degenerative joint disease (Resolved) Edema (Chronic) Fatigue (Chronic) Gastroesophageal reflux disease (Chronic) On pantoprazole, doing well. Gastrointestinal bleeding (Resolved) Gout (Chronic) Hepatic cyst (Resolved) History of cardioversion (Resolved) History of colonic polyps (Resolved) History of peptic ulcer disease (Resolved) Hx of gout (Resolved) Hx of venous thrombosis and embolism (Chronic) Hyperlipidemia (Chronic) LDL ok Hypermagnesemia (Resolved) due to ckd and mg supplements, plan to stop same and monitor. Hyperparathyroidism, secondary renal (Chronic) Stable on low-dose calcitriol every other day Hypersplenism (Resolved) Hypertension, essential (Chronic) bp stable, con coreg, continue same. 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 Probably has an element of high cell turnover and increased uric acid precursor production as well as diuretics, Hypoglycemia (Resolved) Likely pseudohypoglycemia, due to elevated rbc count, no symptoms, workup neg so far, only cpeptide mildly high. Consider CT abdomen if patient has symptoms. 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 therapy (Chronic) Myelofibrosis (Resolved) Myocardial infarction, old (Resolved) 1997 Nephrolithiasis (Resolved) Neuropathy (Chronic) MUltifactorial in the feet, capcasin cream topical for now, pt to buy otc, Obstructive sleep apnea, adult (Chronic) Occasional numbness/prickling/tingling of fingers and toes (Inactive) Pneumonia (Inactive) Polycythemia vera (Chronic) Protein C deficiency (Chronic) Raynauds syndrome (Chronic) Restless leg syndrome (Chronic) Secondary hyperparathyroidism of renal origin (Chronic) PTH and vitamin D at goal calcium and phos at goal ct calcitriol 0.25mcg qod Simple cyst of kidney (Inactive) Slow transit constipation (Chronic) chr constipation, plan to increase fiber in diet, advise use of prunes, increase hydration. Splenomegaly (Chronic) Supraventricular tachycardia (Resolved) Tricuspid regurgitation (Resolved) Urinary retention (Inactive) Vasomotor rhinitis (Chronic) Surgical History 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) 03/06/2013 History of intravascular stent placement (Resolved) cardiac History of left knee replacement (Inactive) History of lumbar surgery (Resolved) Lumbar disc surgery L4-5 History of surgical fusion joint (Inactive) Fusion DIP L ring finger History of total cystectomy (Resolved) 12/28/2012 Hx of adenoidectomy (Inactive) Hx of arthroscopic knee surgery (Inactive) right knee Hx of CABG (Resolved) 08/2006 Hx of cataract surgery (Inactive) Hx of tonsillectomy (Inactive) Hx of transurethral resection of prostate (Resolved) Hx of vasectomy (Resolved) Status post cystourethroscopy with dilation of urethral stricture (Inactive) 12/28/2012 Family History Mother Diabetes mellitus Father Cardiac disease at 86yrs old Brother Cerebrovascular accident Social History marital status: education level: college occupational status: retired other: 3 Children, 2 grandchildren smoking status: Never smoker alcohol intake frequency: does not drink substance use type: does not use MEDS/ALLERGIES Home Medications and Allergies Home Medications Medication Instructions Recorded Confirmed Type nebulizers #1 each 03/04/15 11/13/19 Rx CPAP machine and accessories #1 each 11/30/17 11/13/19 Rx montelukast 10 mg tablet 10 mg PO QHS tab 08/13/19 11/13/19 History allopurinol 100 mg tablet 400 mg PO QDAY tab 09/26/19 11/13/19 History magnesium chloride 71.5 mg 71.5 mg PO MOWEFR@0900 tab 09/26/19 11/13/19 History (magnesium chloride) tablet,delayed release Saccharomyces boulardii 250 mg 250 mg PO QDAY cap 11/01/19 11/13/19 History capsule metolazone 2.5 mg tablet 2.5 mg PO .mwf #30 tab 11/07/19 11/13/19 Rx potassium chloride 20 mEq 40 meq PO QDAY #180 tab 11/07/19 11/13/19 Rx tablet,extended release(part/cryst) Pulmicort Flexhaler 1 inh INHALATION BID 11/13/19 11/13/19 History bumetanide 2 mg PO QDAY 11/13/19 11/13/19 History calcitriol 0.25 mcg PO .MWF 11/13/19 11/13/19 History digoxin 62.5 mcg PO DAILY 11/13/19 11/13/19 History hydrocortisone 10 mg PO QDAY #30 tab 11/21/19 Rx hydrocortisone 15 mg PO QAM #30 tab 11/21/19 Rx levothyroxine 150 mcg PO QAMAC #30 tab 11/21/19 Rx metoprolol succinate 12.5 mg PO DAILY #10 tab 11/21/19 Rx spironolactone 25 mg PO DAILY #30 tab 11/21/19 Rx hydrocodone-acetaminophen 1 tab PO Q6HP PRN #30 tab 11/25/19 Rx Allergies Allergy/AdvReac Type Severity Reaction Status Date / Time doxycycline Allergy Unknown Unknown Verified 11/13/19 14:50 sulfacetamide Allergy Unknown Unknown Verified 11/13/19 14:50 colchicine [From Colcrys] AdvReac Mild swollen Verified 11/13/19 14:50 feet niacin AdvReac Mild "sensitive" Verified 11/13/19 14:50 oxycodone [Oxycodone] AdvReac Mild Nausea Verified 11/13/19 14:50 EXAM Constitutional Vitals: Temp Pulse Resp BP Pulse Ox 97 F 74 13 92/56 93 12/22/19 15:56 12/22/19 18:31 12/22/19 16:31 12/22/19 19:16 12/22/19 18:31 Exam: General: lethargic, No acute Distress Eyes/N/T: EOMI, PERRL, Head/Neck: neck supple, normocephalic atraumatic CV: RRR, No murmurs, normal s1/s2 Pulm: Clear b/l, no wheezing/rhonchi/rales Abd: soft, nontender, +BS x4 Ext: no clubbing/cyanosis, b/l LE 3+ edema Neuro: moves all extremities, follows some commands but does not answer questions Skin: warm/dry DATA Data Completed and Pending Labs: Labs from last 24 hours 12/22/19 12/22/19 12/22/19 17:25 17:25 17:25 WBC RBC Hgb Hct MCV MCH MCHC RDW Plt Count MPV Gran % Lymph % (Auto) [place] % (Auto) Eos % (Auto) Baso % (Auto) Differential Comment VBG Lactic Acid 1.6 Sodium 132 L Potassium 6.4 H* Chloride 96 Carbon Dioxide 16 L Anion Gap 20.0 H BUN 102 H* Creatinine 3.9 H GFR Calculation 13 Glucose 87 Uric Acid 5.8 Calcium 9.7 Magnesium 2.5 Total Bilirubin 2.7 H AST 37 ALT 17 Alkaline Phosphatase 82 NT-Pro-B Natriuret Pep 83352.0 H Total Protein 5.8 L Albumin 3.8 Globulin 2.0 L Albumin/Globulin Ratio 1.9 TSH 16.59 H 12/22/19 17:25 WBC 21.7 H RBC 3.49 L Hgb 11.3 L Hct 38.4 L MCV 110.4 H MCH 32.4 MCHC 29.4 L RDW 25.2 H Plt Count 29 L* MPV TNP Gran % 77.0 Lymph % (Auto) 4.0 L [place] % (Auto) 5.0 Eos % (Auto) 0 Baso % (Auto) 0 Differential Comment Nrbcs on scan VBG Lactic Acid Sodium Potassium Chloride Carbon Dioxide Anion Gap BUN Creatinine GFR Calculation Glucose Uric Acid Calcium Magnesium Total Bilirubin AST ALT Alkaline Phosphatase NT-Pro-B Natriuret Pep Total Protein Albumin Globulin Albumin/Globulin Ratio TSH A/P Narrative A/P Narrative: A: *Acute on chronic systolic(EF 30-35%)/diastolic(III)CHF with some Right heart failure & valvular component with Sev TR: *PATRICIA on CKD IV: *Metabolic acidosis,AG: *Cardiorenal syndrome: *chronic Myeloproliferative d/o with anemia/thrombocytopenia: *Atrial fibrillation: *ART: *Hypothyroidism: *Leukocytosis: *Hyperkalemia/hyponatremia P: comfort care only -pt and family support Time Spent With Patient Time: Total time spent is greater than 50% in coordination of care (as documented) at patient's floor/unit and/or counseling patient:
[2019-12-22] MEDS ORDERED: LORazepam 2 MG/ML VIAL IV PRN (21:46)
[2019-12-22] MEDS ORDERED: morphine 4 MG/ML VIAL NEB PRN (21:46)
[2019-12-22] MEDS ORDERED: morphine 4 MG/ML VIAL IV PRN (21:46)
[2019-12-22] MEDS ORDERED: LACTOPEROXI/GLUC OXID/POT THIO 1 EACH GEL..EA. TOPICAL PRN (21:46)
[2019-12-22] MEDS ORDERED: ONDANSETRON 4 MG ODT TABLET SL PRN (21:46)
[2019-12-22] MEDS: 0.9 % SODIUM CHLORIDE 10 ML SYRINGE IV SCH (22:18)
[2019-12-23] MEDS ORDERED: LORazepam 2 MG/ML VIAL ONE (02:23)
--- NOTE | 2019-12-23 04:37 | XRay Report ---
CLINICAL INFORMATION: SOB COMPARISON: 11/13/2019 FINDINGS: Mild cardiomegaly is unchanged. Implantable cardioverter defibrillator remains in stable position without evidence of wire breakage or other complication. Mediastinum is unremarkable. Pulmonary vessels are moderately distended. There is moderate perihilar and bibasilar airspace disease likely representing a combination of edema and infiltrates/atelectasis. Small bilateral pleural effusions noted IMPRESSION: Moderate CHF and moderate consolidated atelectasis or infiltrate in both medial bases. If there is clinical support for CHF, consider diuretic trial and repeat two-view upright chest to better evaluate the lung bases for infiltrate/atelectasis Interpreted and Authenticated by: Bradford Hightower 12/23/19
[2019-12-23] MEDS: 0.9 % SODIUM CHLORIDE 10 ML SYRINGE IV SCH (05:55)
--- NOTE | 2019-12-23 07:48 | Internal Med Progress Note ---
SUBJECTIVE Subjective Patient information: Note initiated : 12/23/19 at 7:47 am Service Date, if different from initiated Date: [] Patient: Dank Garner 84 y/o M admitted on 12/22/19 for Increased weakness. Chief Complaint: [] Interval history: History of present illness: Mr. Garner is a 84 year old M Has end-stage heart failure and nearly end-stage kidney disease who is been on hospice. Family arrived from out of town and found him obtunded but also uncomfortable and feel like he is not quite getting the care that he should receive from home health hospice. Thus they brought him into the ED. Hospice was revoked so he can be treated in the ED. But then after further discussions with family just wants comfort care and does not feel he is getting that appropriately at home and that they are unable to care for him at home. It is just his at home. And it sounds like hospice comes in 3 times a week. 12/22 Constitutional Vitals: Vital Signs Temp Pulse Resp BP Pulse Ox 98.2 F 56 L 16 115/61 92 12/22/19 21:37 12/22/19 21:37 12/22/19 21:37 12/22/19 21:37 12/22/19 21:37 Period Temp Pulse Resp BP Sys/Ordoñez Pulse Ox Last 24 Hr 97 F-98.2 F 41-138 8-16 82-143/56-125 54-96 Intake and Output 12/22/19 12/23/19 12/23/19 21:59 05:59 13:59 Output Total 375 Balance -375 Weight 110.631 kg Intake & Output: Intake & Output 12/22/19 12/23/19 12/23/19 21:59 05:59 13:59 Output Total 375 Balance -375 Weight 110.631 kg Output: Urine Catheter Amount 375 Other: Urine Appearance Cloudy Cloudy Uretheral ([place]) Cloudy Urine Color Dark [place] Dark [place] Uretheral ([place]imes) Dark [place] Urine Odor Strong Strong Uretheral ([place]) Strong Exam: General: lethargic, No acute Distress Eyes/N/T: EOMI, Head/Neck: neck supple, CV: RRR, No murmurs, Pulm: Clear b/l, no wheezing/rhonchi/rales Abd: soft, nontender, +BS x4 Ext: no clubbing/cyanosis, b/l LE 3+ edema Neuro: moves all extremities, follows some commands but does not answer questions Skin: warm/dry OBJ DATA Labs CBC & Chem 7: 12/22/19 17:25 12/22/19 17:25 Labs: Abnormal Lab Results 12/22/19 12/22/19 17:25 17:25 WBC 21.7 H RBC 3.49 L Hgb 11.3 L Hct 38.4 L MCV 110.4 H MCHC 29.4 L RDW 25.2 H Plt Count 29 L* Lymph % (Auto) 4.0 L Sodium 132 L Potassium 6.4 H* Carbon Dioxide 16 L Anion Gap 20.0 H BUN 102 H* Creatinine 3.9 H Total Bilirubin 2.7 H NT-Pro-B Natriuret Pep 43882.0 H Total Protein 5.8 L Globulin 2.0 L TSH 16.59 H Meds: Medications Glucose Oxid/Lactoperoxid/Muramidas (Biotene) 1 each TOPICAL PRN PRN PRN Reason: Dry Mouth Lorazepam (Ativan) 0 mg IV Q1HP PRN; Protocol PRN Reason: ANXIETY/SEDATION Last Admin: 12/23/19 02:25 Dose: 1 mg Documented by: Morphine Sulfate (Morphine) 0 mg IV Q1HP PRN PRN Reason: Pain Morphine Sulfate (Morphine) 4 mg NEB Q4HP PRN PRN Reason: Shortness Of Breath Ondansetron HCl (Zofran Odt) 4 mg SL Q4HP PRN; Protocol PRN Reason: Nausea And Vomiting Sodium Chloride (Saline Flush) [address] [facility] Last Admin: 12/23/19 05:55 Dose: 10 ml Documented by: A/P Narrative A/P Narrative: A: *Acute on chronic systolic(EF 30-35%)/diastolic(III)CHF with some Right heart failure & valvular component with Sev TR: *PATRICIA on CKD IV: *Metabolic acidosis,AG: *Cardiorenal syndrome: *chronic Myeloproliferative d/o with anemia/thrombocytopenia: *Atrial fibrillation: *ART: *Hypothyroidism: *Leukocytosis: *Hyperkalemia/hyponatremia P: comfort care only -pt and family support Time Spent With Patient Time: Total time spent is greater than 50% in coordination of care (as documented) at patient's floor/unit and/or counseling patient: QUALITY Stroke Symptom Onset Unknown: No VTE Deep Vein Thrombosis/Pulmonary Embolism Present on Admission: No
--- NOTE | 2019-12-23 08:45 | Death Note ---
Discharge Sum: Prov Provider Patient information: Note initiated : 12/23/19 at 8:44 am Service Date, if different from initiated Date: [] Patient: Dank Garner a 84 y/o M admitted on 12/22/19 for Increased weakness. Chief Complaint: [] Primary care physician: Yannick Bahena MD Consults: 12/22/19 Consult to Physician [CONS] Stat Comment: Consulting Provider: Marco Guillaume Reason For Exam: Physician to Consult Discharge Sum: Summary Date and Time Date of admission: 12/22/19 21:37 Summary Details: History of present illness: Mr. Garner is a 84 year old M Has end-stage heart failure and nearly end-stage kidney disease who is been on hospice. Family arrived from out of town and found him obtunded but also uncomfortable and feel like he is not quite getting the care that he should receive from home health hospice. Thus they brought him into the ED. Hospice was revoked so he can be treated in the ED. But then after further discussions with family just wants comfort care and does not feel he is getting that appropriately at home and that they are unable to care for him at home. It is just his at home. And it sounds like hospice comes in 3 times a week. 12/22 pt at 0835 hours this morning. A: *Acute on chronic systolic(EF 30-35%)/diastolic(III)CHF with some Right heart failure & valvular component with Sev TR: *PATRICIA on CKD IV: *Metabolic acidosis,AG: *Cardiorenal syndrome: *chronic Myeloproliferative d/o with anemia/thrombocytopenia: *Atrial fibrillation: *ART: *Hypothyroidism: *Leukocytosis: *Hyperkalemia/hyponatremia Additional Data Confirmation of as documented by pronouncing clinician: no pulse, no respirations, no heart sounds and pupils fixed and dilated Attending physician: Marco Guillaume
== END 2019-12-23 10:40 | disposition expired | DRG 291 ==
LOC: ED 15:53 → MEDSUR 21:37
PROVIDERS: ADMIT Internal Medicine; ATTEND Internal Medicine